=== PATIENT | female | born 1930 | race African-American/Black ===

== ENCOUNTER 2017-11-11 16:13 | Inpatient (IN) | payer MEDICARE, MEDICAID ==
[~2017-11-11] VITALS: Ht 162.6 cm; Wt 88.9 kg
[~2017-11-11 16:13] MED LIST: ATENOLOL25 MG ORAL; CIMETIDINE300 MG ORAL; DIAZEPAM2 MG ORAL; DIOVAN160 MG ORAL; DIOVAN320 MG ORAL; FUROSEMIDE20 M1 ORAL; IBUPROFEN100 MG/5 M ORAL; IBUPROFEN600 MG ORAL; POTASSIUM CHLOR8 ME3 PO; PREDNISONE20 MG ORAL; TAGAMET400 MG ORAL; TYLENOL650 MG/20. ORAL
[2017-11-11] MEDS ORDERED: Sodium Chloride 500ML 500 ML IV ONE ×2 (16:22→19:30)
[2017-11-11 16:52] LABS: BASOPHILS % (AUTO) 0.5 % (0.0-2.0); EOSINOPHILS % (AUTO) 0.5 % (0.0-3.0); HEMATOCRIT 27.8 % (37.0-47.0); HEMOGLOBIN 9.1 G/DL (12.0-16.0); LYMPHOCYTES % (AUTO) 33.1 % (20.0-45.0); MEAN CORPUSCULAR VOLUME 96 FL (80-99); NEUTROPHILS % (AUTO) 55.9 % (45.0-75.0); PLATELET COUNT 182 K/UL (150-450); RED BLOOD COUNT 2.89 M/UL (4.20-5.40); RED CELL DISTRIBUTION WIDTH 13.7 % (11.6-14.8); WHITE BLOOD COUNT 3.9 K/UL (4.8-10.8)
[2017-11-11 16:56] LABS: APPEARANCE,URINE CLOUDY; BILIRUBIN, URINE NEGATIVE (NEGATIVE); COLOR,URINE PALE YELLOW; GLUCOSE, URINE (UA) NEGATIVE (NEGATIVE); KETONES,URINE NEGATIVE (NEGATIVE); LEUKOCYTE ESTERASE ,URINE 3+ (NEGATIVE); NITRITE,URINE POSITIVE (NEGATIVE); PH,URINE 6 (4.5-8.0); PROTEIN,URINE 1+ (NEGATIVE); UROBILINOGEN,URINE NORMAL MG/DL (0.0-1.0)
[2017-11-11 17:00] VITALS: BP 146/56
[2017-11-11 17:02] LABS: ANION GAP 5 mmol/L (5-15); BLOOD UREA NITROGEN 14 mg/dL (7-18); CALCIUM 8.2 MG/DL (8.5-10.1); CARBON DIOXIDE 26 MMOL/L (21-32); CHLORIDE 96 MMOL/L (98-107); CREATININE 1.2 MG/DL (0.55-1.30); POTASSIUM 3.6 MMOL/L (3.5-5.1); SODIUM 127 MMOL/L (136-145)
[2017-11-11] MEDS ORDERED: Isovue-300 100ml vial INJ PRN (17:15)
[2017-11-11 17:17] LABS: ALANINE AMINOTRANSFERASE 18 U/L (12-78); ALBUMIN 2.6 G/DL (3.4-5.0); ALBUMIN/GLOBULIN RATIO 0.3 (1.0-2.7); ALKALINE PHOSPHATASE 39 U/L (46-116); ASPARTATE AMINO TRANSFERASE 19 U/L (15-37); BILIRUBIN,TOTAL 0.2 MG/DL (0.2-1.0); CKMB 0.5 NG/ML (0.0-3.6); CREATINE KINASE 38 U/L (26-308)
[2017-11-11] MEDS ORDERED: CIMETIDINE300 MG ORAL (17:44)
--- NOTE | 2017-11-11 18:08 | Diagnostic Imaging Report ---
Indication: Chest pain Technique: One view of the chest Comparison: 03/31/2016 Findings: Lungs and pleural spaces are clear. Heart size is upper limits normal . There is a left chest pacemaker. No significant interim change Impression: No acute process
[2017-11-11 19:00] VITALS: BP 146/82
[2017-11-11] MEDS ORDERED: Clindamycin 600mg 50 ML IVPB ONE (19:30)
--- NOTE | 2017-11-11 20:08 | Diagnostic Imaging Report ---
EXAM: CT Abdomen and Pelvis With Intravenous Contrast CLINICAL HISTORY: PAIN TECHNIQUE: Axial computed tomography images of the abdomen and pelvis with intravenous contrast. CTDI is 18.6 + 0.15 mGy and DLP is 926 mGy-cm. One or more of the following dose reduction techniques were used: automated exposure control, adjustment of the mA and/or kV according to patient size, use of iterative reconstruction technique. COMPARISON: CT of 03/31/16 FINDINGS: Lung bases: Unremarkable. Heart: Cardiomegaly and pacemaker. Mediastinum: Small hiatal hernia. ABDOMEN: Liver: Unremarkable. Gallbladder and bile ducts: Cholecystectomy. And biliary ectasia. Pancreas: Unremarkable. Spleen: Unremarkable. Adrenals: Unremarkable. Kidneys and ureters: Bilateral renal cysts, largest measures approximately 2.3 cm in the left kidney. No hydronephrosis. Stomach and bowel: Ventral containing segment of bowel. No bowel obstruction. PELVIS: Appendix: Appendix not identified. Bladder: Unremarkable. Reproductive: Calcified uterine fibroids. Bulbous ovaries. ABDOMEN and PELVIS: Intraperitoneal space: Trace fluid in the pelvis. Bones/joints: Old rib fracture. Soft tissues: Unremarkable. Vasculature: No abdominal aortic aneurysm. Lymph nodes: No enlarged lymph nodes. IMPRESSION: 1. Ventral containing segment of bowel. No bowel obstruction. 2. Appendix not identified. No colitis.
[2017-11-11] MEDS ORDERED: Promethazine HCl 12.5 MG in NS 55 ML IV PRN (20:30)
[2017-11-11] MEDS ORDERED: Metoclopramide 10mg/2ml Inj IVP PRN (20:30)
[2017-11-11] MEDS ORDERED: Nitroglycerin Subl 0.4mg tab SL PRN (20:30)
[2017-11-11] MEDS ORDERED: Miralax 17gm pkt ORAL PRN (20:30)
[2017-11-11] MEDS ORDERED: LORazepam Inj 2mg/ml 1ml IV PRN (20:30)
[2017-11-11] MEDS ORDERED: Promethazine HCl 25 MG in NS 55 ML IV PRN (20:30)
[2017-11-11 20:35] VITALS: BP 124/61
[2017-11-11] MEDS: D5 1/2NS 1,000 ML IV SCH (20:38)
[2017-11-11] MEDS: Heparin 5000 units/ml inj SUBQ SCH (20:39)
[2017-11-12 00:25] VITALS: BP 123/63
[2017-11-12 04:00] VITALS: BP 118/56
[2017-11-12 07:57] LABS: HEMATOCRIT 27.8 % (37.0-47.0); HEMOGLOBIN 8.9 G/DL (12.0-16.0); LYMPHOCYTES % (AUTO) 31.2 % (20.0-45.0); MEAN CORPUSCULAR VOLUME 97 FL (80-99); NEUTROPHILS % (AUTO) 57.8 % (45.0-75.0); PLATELET COUNT 195 K/UL (150-450); RED BLOOD COUNT 2.87 M/UL (4.20-5.40); RED CELL DISTRIBUTION WIDTH 13.6 % (11.6-14.8); WHITE BLOOD COUNT 3.7 K/UL (4.8-10.8)
[2017-11-12 07:59] LABS: ALANINE AMINOTRANSFERASE 14 U/L (12-78); ALBUMIN 2.2 G/DL (3.4-5.0); ALBUMIN/GLOBULIN RATIO 0.3 (1.0-2.7); ALKALINE PHOSPHATASE 34 U/L (46-116); AMYLASE 96 U/L (25-115); ANION GAP 4 mmol/L (5-15); ASPARTATE AMINO TRANSFERASE 18 U/L (15-37); BILIRUBIN,TOTAL 0.2 MG/DL (0.2-1.0); BLOOD UREA NITROGEN 10 mg/dL (7-18); CALCIUM 8.6 MG/DL (8.5-10.1); CARBON DIOXIDE 27 MMOL/L (21-32); CHLORIDE 103 MMOL/L (98-107); CREATININE 1.1 MG/DL (0.55-1.30); POTASSIUM 3.6 MMOL/L (3.5-5.1); SODIUM 134 MMOL/L (136-145)
[2017-11-12 08:00] VITALS: BP 131/64
[2017-11-12] MEDS: Pantoprazole Inj IV SCH (08:43)
[2017-11-12] MEDS: Heparin 5000 units/ml inj SUBQ SCH ×2 (08:44→21:50)
[2017-11-12] MEDS ORDERED: Atenolol 25mg tab ORAL SCH (09:00)
[2017-11-12] MEDS: D5 1/2NS 1,000 ML IV SCH ×2 (10:15→23:40)
--- NOTE | 2017-11-12 11:00 | Consultation ---
DATE OF CONSULTATION: 11/12/2017 CONSULTING PHYSICIAN: Michael Day M.D. REFERRING PHYSICIAN: Douglas Bacon M.D. CHIEF COMPLAINT: Anemia, abdominal pain. HISTORY OF PRESENT ILLNESS: This is an 87-year-old female with multiple medical problems, which I will dictate in a second, admitted to the hospital with abdominal pain. CT of the abdomen and pelvis in the ER showed evidence of hernia, but no obvious intra-abdominal process. The patient has prior history of cholecystectomy. Of note, the patient was admitted in 2016 here to the hospital. She had history of constipation at that time, mild anemia with hemoglobin of 11. No prior or recent history of the endoscopy, no colonoscopy. This morning, the patient is feeling better, complained of nausea, admits to weight loss of over 90 pounds for last year or two. No melena. No hematochezia. No dysphagia. No odynophagia. PAST MEDICAL HISTORY: 1. Irregular heartbeat requiring pacemaker placement. 2. Hypercholesterolemia. 3. Hypertension. 4. Mild anemia. 5. Constipation. ALLERGIES: Amoxicillin, codeine, hydrocodone. MEDICATIONS: Please see medication reconciliation list. PAST SURGICAL HISTORY: 1. Cholecystectomy. 2. Pacemaker placement. SOCIAL HISTORY: No history of tobacco, alcohol, or illicit drug abuse. FAMILY HISTORY: Noncontributory. REVIEW OF SYSTEMS: As dictated above. PHYSICAL EXAMINATION: VITAL SIGNS: Temperature is 97.9, pulse 61, respirations 20, and blood pressure is 131/64. HEENT: Normocephalic and atraumatic. Mild pale conjunctivae. NECK: Supple. No evidence of obvious lymphadenopathy. CARDIOVASCULAR: Regular rhythm. Plus S1 and S2. Pacemaker in place. LUNGS: Clear to auscultation bilaterally. ABDOMEN: Positive bowel sounds. Soft. There is a scar in the right upper quadrant from prior cholecystectomy. No rebound. No guarding. No peritoneal sign. EXTREMITIES: No cyanosis, no clubbing, no edema. LABORATORY DATA: White count 3.7, hemoglobin 8.9, hematocrit 27.8, platelet count is 195,000. Chem-7, sodium 134, potassium 3.6, BUN is 10, creatinine is 1.1. Albumin is low at 2.2, total protein high at 10.2. ASSESSMENT AND PLAN: This is an 87-year-old female with abdominal pain. CT of the abdomen and pelvis in the ER showed ventral hernia containing segment of the bowel, otherwise no obvious intra-abdominal process. Laboratories except for mild anemia, no obvious finding on the laboratory studies. Liver enzymes are normal. Creatinine is normal. The only finding was high protein of 10.2 with low albumin of 2.2. Plan to follow up with abdominal ultrasound which has been ordered by another physician. Repeat laboratories for tomorrow. Do anemia workup. Send for hemoglobin electrophoresis and SPEP and UPEP for evaluation of the multiple myeloma as a cause of anemia and high protein and low albumin. We will consider doing GI procedures if needed if there is any evidence of iron deficiency or stool OB positive. We are also going to send tumor markers for CEA and CA 19-9. We will resume the patient's diet. The patient also needs to be on a bowel regimen for constipation. I want to thank Dr. Bacon for this kind referral. Michael Day M.D. DR: Neal JOB#: [id number] CC: Douglas Bacon M.D.; Fax#: [phone]
[2017-11-12 12:00] VITALS: BP 141/74
--- NOTE | 2017-11-12 14:24 | Emergency Room Report ---
History of Present Illness General Chief Complaint: Abdominal Pain Source: Patient Present Illness HPI Patient presents with complaints of abdominal discomfort reports increased nausea Patient denies any chest pain or vomiting She reported that yesterday she was constipated Denies any diarrhea denies any fevers or chills Patient denies any change with eating or position denies any dysuria frequency Discomfort again is described as a nauseated feeling Diffusely in the abdomen Allergies: Coded Allergies: AMOXICILLIN (Verified Allergy, Unknown, 09/06/12) CODEINE (Verified Allergy, Unknown, 09/06/12) HYDROCODONE (Verified Allergy, Unknown, 09/06/12) Patient History Past Medical History: see triage record Pertinent Family History: none Last Menstrual Period: N/A Now: No Reviewed Nursing Documentation: PMH: Agreed; PSxH: Agreed Nursing Documentation-PMH Past Medical History: No History, Except For Hx Cardiac Problems: Yes Hx Hypertension: Yes Hx Pacemaker: Yes Hx Diabetes: No Hx Cancer: No Hx Gastrointestinal Problems: No Hx Dialysis: No Hx Neurological Problems: No Hx Cerebrovascular Accident: No Hx Dementia: No Hx Alzheimer's Disease: No Hx Parkinson's Disease: No Hx Seizures: No Hx Headaches: Yes Review of Systems All Other Systems: negative except mentioned in HPI Physical Exam Vital Signs Date Time Temp Pulse Resp B/P (MAP) Pulse Ox O2 Delivery O2 Flow Rate FiO2 11/11/17 16:09 98.7 95 16 161/71 99 Room Air 98.8 Sp02 EP Interpretation: reviewed, normal General Appearance: well appearing, no apparent distress Head: normocephalic, atraumatic Eyes: bilateral eye PERRL, bilateral eye EOMI ENT: hearing grossly normal, normal pharynx, TMs + canals normal, uvula midline Neck: full range of motion, supple, no meningismus, no bony tend Respiratory: lungs clear, normal breath sounds, no rhonchi, no respiratory distress, no retraction, no accessory muscle use Cardiovascular #1: normal peripheral pulses, regular rate, rhythm, no edema, no gallop, no JVD, no murmur Gastrointestinal: normal bowel sounds, non-distended, no rebound, other - Mid abdominal hernias palpable however soft and reproducible, multiple surgical scars including large gallbladder surgical scar Genitourinary: no CVA tenderness Musculoskeletal: normal inspection Neurologic: oriented x3, responsive, cement gun operator III-XII nml as tested, motor strength/ tone normal, sensory intact Psychiatric: mood/affect normal Skin: normal color, no rash, warm/dry, palpation normal Lymphatic: normal inspection, no adenopathy Medical Decision Making Diagnostic Impression: Primary Impression: Abdominal pain Additional Impression: Dehydration ER Course With the history exam and presentation, multiple differentials considered, including but not limited to appendicitis, gastritis, cholecystitis, diverticulitis Patient's imaging is obtained does not show any acute pathology Patient has done better however still has nausea intermittently Given the patient's comorbidities and the presentation Patient required further inpatient care GI consultation Labs Test 11/11/17 16:35 11/12/17 06:03 11/12/17 11:30 White Blood Count 3.9 K/UL (4.8-10.8) 3.7 K/UL (4.8-10.8) Red Blood Count 2.89 M/UL (4.20-5.40) 2.87 M/UL (4.20-5.40) Hemoglobin 9.1 G/DL (12.0-16.0) 8.9 G/DL (12.0-16.0) Hematocrit 27.8 % (37.0-47.0) 27.8 % (37.0-47.0) Mean Corpuscular Volume 96 FL (80-99) 97 FL (80-99) Mean Corpuscular Hemoglobin 31.3 PG (27.0-31.0) 31.2 PG (27.0-31.0) Mean Corpuscular Hemoglobin Concent 32.6 G/DL (32.0-36.0) 32.2 G/DL (32.0-36.0) Red Cell Distribution Width 13.7 % (11.6-14.8) 13.6 % (11.6-14.8) Platelet Count 182 K/UL (150-450) 195 K/UL (150-450) Mean Platelet Volume 5.5 FL (6.5-10.1) 5.4 FL (6.5-10.1) Neutrophils (%) (Auto) 55.9 % (45.0-75.0) 57.8 % (45.0-75.0) Lymphocytes (%) (Auto) 33.1 % (20.0-45.0) 31.2 % (20.0-45.0) Monocytes (%) (Auto) 10.0 % (1.0-10.0) 9.0 % (1.0-10.0) Eosinophils (%) (Auto) 0.5 % (0.0-3.0) 1.0 % (0.0-3.0) Basophils (%) (Auto) 0.5 % (0.0-2.0) 1.0 % (0.0-2.0) Urine Color Pale yellow Urine Appearance Cloudy Urine pH 6 (4.5-8.0) Urine Specific [place] 1.010 (1.005-1.035) Urine Protein 1+ (NEGATIVE) Urine Glucose (UA) Negative (NEGATIVE) Urine Ketones Negative (NEGATIVE) Urine Occult Blood 1+ (NEGATIVE) Urine Nitrite Positive (NEGATIVE) Urine Bilirubin Negative (NEGATIVE) Urine Urobilinogen Normal MG/DL (0.0-1.0) Urine Leukocyte Esterase 3+ (NEGATIVE) Urine RBC 0-2 /HPF (0 - 2) Urine WBC Tntc /HPF (0 - 2) Urine Squamous Epithelial Cells Few /LPF (NONE/OCC) Urine Bacteria Many /HPF (NONE) Sodium Level 127 MMOL/L (136-145) 134 MMOL/L (136-145) Potassium Level 3.6 MMOL/L (3.5-5.1) 3.6 MMOL/L (3.5-5.1) Chloride Level 96 MMOL/L (98-107) 103 MMOL/L (98-107) Carbon Dioxide Level 26 MMOL/L (21-32) 27 MMOL/L (21-32) Anion Gap 5 mmol/L (5-15) 4 mmol/L (5-15) Blood Urea Nitrogen 14 mg/dL (7-18) 10 mg/dL (7-18) Creatinine 1.2 MG/DL (0.55-1.30) 1.1 MG/DL (0.55-1.30) Estimat Glomerular Filtration Rate mL/min (>60) mL/min (>60) Glucose Level 166 MG/DL (74-106) 108 MG/DL (74-106) Calcium Level 8.2 MG/DL (8.5-10.1) 8.6 MG/DL (8.5-10.1) Total Bilirubin 0.2 MG/DL (0.2-1.0) 0.2 MG/DL (0.2-1.0) Aspartate Amino Transf (AST/SGOT) 19 U/L (15-37) 18 U/L (15-37) Alanine Aminotransferase (ALT/SGPT) 18 U/L (12-78) 14 U/L (12-78) Alkaline Phosphatase 39 U/L (46-116) 34 U/L (46-116) Total Creatine Kinase 38 U/L (26-308) Creatine Kinase MB 0.5 NG/ML (0.0-3.6) Creatine Kinase MB Relative Index 1.3 Troponin I 0.000 ng/mL (0.000-0.056) Total Protein 11.1 G/DL (6.4-8.2) 10.2 G/DL (6.4-8.2) Albumin 2.6 G/DL (3.4-5.0) 2.2 G/DL (3.4-5.0) Globulin 8.5 g/dL 8.0 g/dL Albumin/Globulin Ratio 0.3 (1.0-2.7) 0.3 (1.0-2.7) Lipase 113 U/L (73-393) Activated Partial Thromboplast Time 39 SEC (23-33) Amylase Level 96 U/L (25-115) Rhythm Strip Diag. Results EP Interpretation: yes Rate: 78 Rhythm: NSR, no PVC's, no ectopy Chest X-Ray Diagnostic Results Chest X-Ray Diagnostic Results : Chest X-Ray Ordered: Yes # of Views/Limited/Complete: 1 View Indication: Chest Pain EP Interpretation: Yes Interpretation: no consolidation, no effusion, no pneumothorax Impression: No acute disease Electronically Signed by: Sarah Roger DO CT/MRI/US Diagnostic Results CT/MRI/US Diagnostic Results : Impression CT abdomen pelvis no acute disease Last Vital Signs Date Time Temp Pulse Resp B/P (MAP) Pulse Ox O2 Delivery O2 Flow Rate FiO2 11/12/17 12:00 98.0 65 20 141/74 94 Room Air 98.0 Status: improved Disposition: ADMITTED INPATIENT Condition: Serious Referrals: NON PHYSICIAN (PCP) Sarah Roger DO Nov 12, 2017 14:24
[2017-11-12 15:51] VITALS: BP 132/58
[2017-11-12] MEDS: Docusate 100mg cap ORAL SCH (18:00)
--- NOTE | 2017-11-12 19:14 | History and Physical ---
History of Present Illness General Date patient seen: Nov 12, 2017 Reason for Hospitalization: Abdominal Pain Present Illness HPI 87 year old female with hx of HTN, CHF, presents with complaints of abdominal discomfort, nausea since yesterday. she was constipated Patient denies any change with eating or position denies any dysuria frequency. the pain diffusely in the abdomen. She was found also to be very anemic. She is admitted for further work up. Allergies: Coded Allergies: AMOXICILLIN (Verified Allergy, Unknown, 09/06/12) CODEINE (Verified Allergy, Unknown, 09/06/12) HYDROCODONE (Verified Allergy, Unknown, 09/06/12) Medication History Scheduled Atenolol* (Tenormin*), 10 MG ORAL DAILY, (Reported) Cimetidine (Cimetidine*), 300 MG ORAL DAILY, (Reported) Furosemide* (Lasix*), 20 MG ORAL DAILY, (Reported) Valsartan (Diovan), 320 MG ORAL DAILY, (Reported) Miscellaneous Medications Potassium Chloride (Potassium Chloride), Unknown Dose PO, (Reported) Discontinued Medications Acetaminophen (Acetaminophen), 650 MG ORAL Q6H PRN for Prn Headache/Temp > 101 Discontinued Reason: Pt stopped taking med Diazepam* (Diazepam*), 2 MG ORAL Q6H PRN for ANXIETY, (Reported) Discontinued Reason: Pt stopped taking med Furosemide* (Lasix*), 10 MG ORAL DAILY, (Reported) Discontinued Reason: Medication dose changed Patient History Healthcare decision maker N Resuscitation status Advanced Directive on File Past Medical/Surgical History Past Medical/Surgical History: (1) Anemia (2) HTN (hypertension) Review of Systems All Other Systems: negative except mentioned in HPI Physical Exam General Appearance: WD/WN Lines, tubes and drains: peripheral HEENT: normocephalic Neck: non-tender, normal alignment Respiratory/Chest: chest wall non-tender, lungs clear Cardiovascular/Chest: normal peripheral pulses, normal rate Abdomen: normal bowel sounds, non tender Genitourinary/Rectal: normal genital exam, normal rectal exam Extremities: non-tender Skin Exam: normal pigmentation Last 24 Hour Vital Signs Date Time Temp Pulse Resp B/P (MAP) Pulse Ox O2 Delivery O2 Flow Rate FiO2 11/12/17 15:51 98.4 68 18 132/58 98 Room Air 98.4 11/12/17 12:00 98.0 65 20 141/74 94 Room Air 98.0 11/12/17 08:00 97.9 61 20 131/64 96 Room Air 97.9 11/12/17 04:00 98.2 60 18 118/56 98 Room Air 98.2 11/12/17 02:11 98.3 11/12/17 00:25 98.3 72 19 123/63 96 Room Air 98.3 11/11/17 20:35 98.8 80 18 124/61 96 Room Air 98.8 11/11/17 19:52 98.9 74 16 146/82 97 Room Air 98.9 Intake and Output 11/11/17 11/12/17 19:00 07:00 Intake Total 0 ml 750 ml Output Total 1100 ml Balance 0 ml -350 ml Intake Oral 0 ml IV Total 750 ml Output Urine Total 1100 ml # Voids 2 Laboratory Tests Test 11/12/17 06:03 11/12/17 11:30 White Blood Count 3.7 K/UL (4.8-10.8) L Red Blood Count 2.87 M/UL (4.20-5.40) L Hemoglobin 8.9 G/DL (12.0-16.0) L Hematocrit 27.8 % (37.0-47.0) L Mean Corpuscular Volume 97 FL (80-99) Mean Corpuscular Hemoglobin 31.2 PG (27.0-31.0) H Mean Corpuscular Hemoglobin Concent 32.2 G/DL (32.0-36.0) Red Cell Distribution Width 13.6 % (11.6-14.8) Platelet Count 195 K/UL (150-450) Mean Platelet Volume 5.4 FL (6.5-10.1) L Neutrophils (%) (Auto) 57.8 % (45.0-75.0) Lymphocytes (%) (Auto) 31.2 % (20.0-45.0) Monocytes (%) (Auto) 9.0 % (1.0-10.0) Eosinophils (%) (Auto) 1.0 % (0.0-3.0) Basophils (%) (Auto) 1.0 % (0.0-2.0) Activated Partial Thromboplast Time 39 SEC (23-33) H Sodium Level 134 MMOL/L (136-145) L Potassium Level 3.6 MMOL/L (3.5-5.1) Chloride Level 103 MMOL/L (98-107) Carbon Dioxide Level 27 MMOL/L (21-32) Anion Gap 4 mmol/L (5-15) L Blood Urea Nitrogen 10 mg/dL (7-18) Creatinine 1.1 MG/DL (0.55-1.30) Estimat Glomerular Filtration Rate mL/min (>60) Glucose Level 108 MG/DL (74-106) H Calcium Level 8.6 MG/DL (8.5-10.1) Total Bilirubin 0.2 MG/DL (0.2-1.0) Aspartate Amino Transf (AST/SGOT) 18 U/L (15-37) Alanine Aminotransferase (ALT/SGPT) 14 U/L (12-78) Alkaline Phosphatase 34 U/L (46-116) L Total Protein 10.2 G/DL (6.4-8.2) H Total Protein (PEP) Pending Albumin 2.2 G/DL (3.4-5.0) L Albumin (PEP) Pending Globulin 8.0 g/dL Globulin (PEP) Pending Albumin/Globulin Ratio Pending [id number] Pending [id number] Pending Beta Globulins Pending Beta Gamma Globulin Pending PEP Abnormal Protein Bands Pending Protein Electrophoresis Interpret Pending Amylase Level 96 U/L (25-115) Stool Occult Blood Pending Height (Feet): 5 Height (Inches): 4.00 Weight (Pounds): 196 Medications Current Medications Medications (Trade) Dose Ordered Sig/Ary Route PRN Reason Start Time Stop Time Status Last Admin Dose Admin Acetaminophen (Tylenol) 650 mg Q4H PRN ORAL fever (temp>100.5F) 11/11/17 20:30 12/11/17 20:29 11/12/17 13:06 Al Hydroxide/Mg Hydroxide (Mylanta II) 30 ml Q6H PRN ORAL dyspepsia 11/11/17 20:30 12/11/17 20:29 Atenolol (Tenormin) 10 mg DAILY ORAL 11/12/17 09:00 12/12/17 08:59 UNV Dextrose (Dextrose 50%) 25 ml STAT PRN IV Hypoglycemia 11/11/17 20:30 12/11/17 20:29 Dextrose (Dextrose 50%) 50 ml STAT PRN IV Hypoglycemia 11/11/17 20:45 12/11/17 20:44 Dextrose/Sodium Chloride 1,000 ml @ 75 mls/hr [id number] IV 11/11/17 21:00 12/11/17 20:59 11/12/17 10:15 Diphenhydramine HCl (Benadryl) 25 mg Q6H PRN ORAL Itching/Pruritis 11/11/17 20:30 12/11/17 20:29 Docusate Sodium (Colace) 100 mg TWICE A DAY ORAL 11/12/17 18:00 12/12/17 17:59 Heparin Sodium (Porcine) (Heparin 5000 units/ml) 5,000 units EVERY 12 HOURS SUBQ 11/11/17 21:00 12/11/17 20:59 11/12/17 08:44 Iopamidol (Isovue-300 100ml) 100 ml NOW PRN INJ Radiology Procedure 11/11/17 17:15 11/13/17 17:14 Lorazepam (Ativan 2mg/ml 1ml) 1 mg Q4H PRN IV agitation 11/11/17 20:30 11/18/17 20:29 Metoclopramide HCl (Reglan) 10 mg Q6H PRN IVP severe nausea 11/11/17 20:30 12/11/17 20:29 Nitroglycerin (Ntg) 0.4 mg Q5M X 3 DOSES PRN SL Prn Chest Pain 11/11/17 20:30 12/11/17 20:29 Non-Formulary Medication (Non-Formulary Med) 1 ea DAILY ORAL 11/12/17 10:30 12/12/17 10:29 UNV Non-Formulary Medication (Non-Formulary Med) 1 ea DAILY ORAL 11/12/17 10:30 12/12/17 10:29 UNV Ondansetron HCl (Zofran) 4 mg Q6H PRN IVP Nausea & Vomiting 11/11/17 20:30 12/11/17 20:29 11/12/17 18:02 Pantoprazole (Protonix) 40 mg DAILY IV 11/12/17 09:00 12/12/17 08:59 11/12/17 08:43 Polyethylene Glycol (Miralax) 17 gm BEDTIME ORAL 11/12/17 21:00 12/12/17 20:59 Promethazine HCl 25 mg/Sodium Chloride 56 ml @ 110 mls/hr Q6H PRN IV Refractory N/V 11/11/17 20:30 12/11/17 20:29 Temazepam (Restoril) 15 mg HSPRN PRN ORAL Insomnia 11/11/17 20:30 11/18/17 20:29 Assessment/Plan Problem List: (1) Abdominal pain ICD Codes: R10.9 - Unspecified abdominal pain SNOMED: 01654231 (2) Anemia ICD Codes: D64.9 - Anemia, unspecified SNOMED: 368225630 (3) HTN (hypertension) ICD Codes: I10 - Essential (primary) hypertension SNOMED: 77059387 (4) Pacemaker ICD Codes: Z95.0 - Presence of cardiac pacemaker SNOMED: 681128394, 700892727 Assessment/Plan NPO GI evaluation symptomatic treatment anemia w/u laxatives dvt prophylaxis Douglas Bacon MD Nov 12, 2017 19:14
[2017-11-12 20:00] VITALS: BP 142/60
[2017-11-12] MEDS: Miralax 17gm pkt ORAL SCH ×2 (21:00→21:47)
[2017-11-13] VITALS: BP 144/63
[2017-11-13 04:00] VITALS: BP 120/57
[2017-11-13 05:55] LABS: BASOPHILS % (AUTO) 0.4 % (0.0-2.0); EOSINOPHILS % (AUTO) 1.2 % (0.0-3.0); HEMATOCRIT 28.2 % (37.0-47.0); HEMOGLOBIN 9.1 G/DL (12.0-16.0); LYMPHOCYTES % (AUTO) 39.9 % (20.0-45.0); MEAN CORPUSCULAR VOLUME 96 FL (80-99); NEUTROPHILS % (AUTO) 47.5 % (45.0-75.0); PLATELET COUNT 191 K/UL (150-450); RED BLOOD COUNT 2.93 M/UL (4.20-5.40); RED CELL DISTRIBUTION WIDTH 13.5 % (11.6-14.8); WHITE BLOOD COUNT 3.6 K/UL (4.8-10.8)
[2017-11-13 06:21] LABS: ALANINE AMINOTRANSFERASE 13 U/L (12-78); ALBUMIN 2.3 G/DL (3.4-5.0); ALBUMIN/GLOBULIN RATIO 0.3 (1.0-2.7); ALKALINE PHOSPHATASE 36 U/L (46-116); ANION GAP 2 mmol/L (5-15); ASPARTATE AMINO TRANSFERASE 18 U/L (15-37); BILIRUBIN,TOTAL 0.2 MG/DL (0.2-1.0); BLOOD UREA NITROGEN 8 mg/dL (7-18); CALCIUM 8.4 MG/DL (8.5-10.1); CARBON DIOXIDE 28 MMOL/L (21-32); CHLORIDE 100 MMOL/L (98-107); CREATININE 1.2 MG/DL (0.55-1.30); POTASSIUM 3.9 MMOL/L (3.5-5.1); SODIUM 130 MMOL/L (136-145)
[2017-11-13 07:27] LABS: % IRON SATURATION 42 % (15-50); IRON 54 ug/dL (50-175); TOTAL IRON BINDING CAPACITY 128 ug/dL (250-450)
[2017-11-13 08:00] VITALS: BP 131/61
[2017-11-13] MEDS ORDERED: Irbesartan 150mg tablet ORAL SCH (09:00)
[2017-11-13] MEDS: Pantoprazole Inj IV SCH (09:01)
[2017-11-13] MEDS: Docusate 100mg cap ORAL SCH ×2 (09:02→17:53)
[2017-11-13] MEDS: Heparin 5000 units/ml inj SUBQ SCH ×2 (09:07→20:36)
--- NOTE | 2017-11-13 09:25 | General Progress Note ---
Assessment/Plan Problem List: (1) Anemia ICD Codes: D64.9 - Anemia, unspecified SNOMED: 740996235 (2) Hypoalbuminemia ICD Codes: E88.09 - Other disorders of plasma-protein metabolism, not elsewhere classified SNOMED: 228892309 (3) HTN (hypertension) ICD Codes: I10 - Essential (primary) hypertension SNOMED: 25708886 (4) Pacemaker ICD Codes: Z95.0 - Presence of cardiac pacemaker SNOMED: 573980956, 437594625 (5) Abdominal pain ICD Codes: R10.9 - Unspecified abdominal pain SNOMED: 45221637 Assessment/Plan neg stool ob hold GI procedures fu hgb electrophoresis Subjective ROS Limited/Unobtainable: Yes Allergies: Coded Allergies: AMOXICILLIN (Verified Allergy, Unknown, 09/06/12) CODEINE (Verified Allergy, Unknown, 09/06/12) HYDROCODONE (Verified Allergy, Unknown, 09/06/12) Subjective no abd pain Objective Last 24 Hour Vital Signs Date Time Temp Pulse Resp B/P (MAP) Pulse Ox O2 Delivery O2 Flow Rate FiO2 11/13/17 08:00 98.2 65 18 131/61 96 98.2 11/13/17 04:00 98.0 60 18 120/57 95 98.0 11/13/17 00:00 97.9 67 19 144/63 95 97.9 11/12/17 20:00 98.8 68 18 142/60 98 98.8 11/12/17 15:51 98.4 68 18 132/58 98 Room Air 98.4 11/12/17 12:00 98.0 65 20 141/74 94 Room Air 98.0 Intake and Output 11/12/17 11/13/17 19:00 07:00 Intake Total 930 ml 1065 ml Output Total 1950 ml Balance 930 ml -885 ml Intake Oral 480 ml 240 ml IV Total 450 ml 825 ml Output Urine Total 1950 ml # Voids 2 # Bowel Movements 1 Laboratory Tests 11/12/17 11:30: Stool Occult Blood Negative 11/13/17 05:15: White Blood Count 3.6L, Red Blood Count 2.93L, Hemoglobin 9.1L, Hematocrit 28.2L , Mean Corpuscular Volume 96, Mean Corpuscular Hemoglobin 30.9, Mean Corpuscular Hemoglobin Concent 32.1, Red Cell Distribution Width 13.5, Platelet Count 191, Mean Platelet Volume 5.5L, Neutrophils (%) (Auto) 47.5, Lymphocytes ( %) (Auto) 39.9, Monocytes (%) (Auto) 11.0H, Eosinophils (%) (Auto) 1.2, Basophils (%) (Auto) 0.4, Sodium Level 130L, Potassium Level 3.9, Chloride Level 100, Carbon Dioxide Level 28, Anion Gap 2L, Blood Urea Nitrogen 8, Creatinine 1.2, Estimat Glomerular Filtration Rate , Glucose Level 88, Calcium Level 8.4L, Iron Level 54, Total Iron Binding Capacity 128L, Percent Iron Saturation 42, Unsaturated Iron Binding 74L, Total Bilirubin 0.2, Aspartate Amino Transf (AST/SGOT) 18, Alanine Aminotransferase (ALT/SGPT) 13, Alkaline Phosphatase 36L, Total Protein 10.2H, Albumin 2.3L, Globulin 7.9, Albumin/ Globulin Ratio 0.3L, Carcinoembryonic Antigen [Pending], CA 19-9 Antigen [ Pending], Vitamin B12 Level 311, Folate 6.4L Height (Feet): 5 Height (Inches): 4.00 Weight (Pounds): 196 General Appearance: alert EENT: normal ENT inspection Neck: normal alignment Cardiovascular: normal rate Respiratory/Chest: lungs clear Abdomen: normal bowel sounds, non tender, soft Extremities: non-tender Michael Day MD Nov 13, 2017 09:25
[2017-11-13 12:00] VITALS: BP 127/57
[2017-11-13] MEDS: D5 1/2NS 1,000 ML IV SCH (13:10)
--- NOTE | 2017-11-13 14:05 | Pulmonology Progress Note ---
Assessment/Plan Problems: (1) Abdominal pain (2) Pacemaker (3) HTN (hypertension) (4) Hypoalbuminemia Assessment/Plan Had a large BM GI evaluation appreciated doing better stool for blood pending symptomatic treatment dvt prophylaxis. Subjective ROS Limited/Unobtainable: No Interval Events: doing better Constitutional: Reports: no symptoms HEENT: Repors: no symptoms Respiratory: Reports: no symptoms Allergies: Coded Allergies: AMOXICILLIN (Verified Allergy, Unknown, 09/06/12) CODEINE (Verified Allergy, Unknown, 09/06/12) HYDROCODONE (Verified Allergy, Unknown, 09/06/12) Objective Last 24 Hour Vital Signs Date Time Temp Pulse Resp B/P (MAP) Pulse Ox O2 Delivery O2 Flow Rate FiO2 11/13/17 12:00 97.9 61 18 127/57 99 97.9 11/13/17 08:00 98.2 65 18 131/61 96 98.2 11/13/17 04:00 98.0 60 18 120/57 95 98.0 11/13/17 00:00 97.9 67 19 144/63 95 97.9 11/12/17 20:00 98.8 68 18 142/60 98 98.8 11/12/17 15:51 98.4 68 18 132/58 98 Room Air 98.4 Intake and Output 11/12/17 11/13/17 19:00 07:00 Intake Total 930 ml 1065 ml Output Total 1950 ml Balance 930 ml -885 ml Intake Oral 480 ml 240 ml IV Total 450 ml 825 ml Output Urine Total 1950 ml # Voids 2 # Bowel Movements 1 General Appearance: WD/WN HEENT: normocephalic, atraumatic Respiratory/Chest: chest wall non-tender, lungs clear, normal breath sounds Breasts: no masses Cardiovascular: normal peripheral pulses Genitourinary: normal external genitalia Extremities: no clubbing Skin: no rash Microbiology Date/Time Source Procedure Growth Status 11/11/17 16:35 Urine,Clean Catch Urine Culture - Final Escherichia Coli Complete Laboratory Tests 11/13/17 05:15: White Blood Count 3.6L, Red Blood Count 2.93L, Hemoglobin 9.1L, Hematocrit 28.2L , Mean Corpuscular Volume 96, Mean Corpuscular Hemoglobin 30.9, Mean Corpuscular Hemoglobin Concent 32.1, Red Cell Distribution Width 13.5, Platelet Count 191, Mean Platelet Volume 5.5L, Neutrophils (%) (Auto) 47.5, Lymphocytes ( %) (Auto) 39.9, Monocytes (%) (Auto) 11.0H, Eosinophils (%) (Auto) 1.2, Basophils (%) (Auto) 0.4, Sodium Level 130L, Potassium Level 3.9, Chloride Level 100, Carbon Dioxide Level 28, Anion Gap 2L, Blood Urea Nitrogen 8, Creatinine 1.2, Estimat Glomerular Filtration Rate , Glucose Level 88, Calcium Level 8.4L, Iron Level 54, Total Iron Binding Capacity 128L, Percent Iron Saturation 42, Unsaturated Iron Binding 74L, Total Bilirubin 0.2, Aspartate Amino Transf (AST/SGOT) 18, Alanine Aminotransferase (ALT/SGPT) 13, Alkaline Phosphatase 36L, Total Protein 10.2H, Albumin 2.3L, Globulin 7.9, Albumin/ Globulin Ratio 0.3L, Carcinoembryonic Antigen [Pending], CA 19-9 Antigen [ Pending], Vitamin B12 Level 311, Folate 6.4L Current Medications Medications (Trade) Dose Ordered Sig/Ary Route PRN Reason Start Time Stop Time Status Last Admin Dose Admin Acetaminophen (Tylenol) 650 mg Q4H PRN ORAL fever (temp>100.5F) 11/11/17 20:30 12/11/17 20:29 11/13/17 09:03 Al Hydroxide/Mg Hydroxide (Mylanta II) 30 ml Q6H PRN ORAL dyspepsia 11/11/17 20:30 12/11/17 20:29 Atenolol (Tenormin) 10 mg DAILY ORAL 11/12/17 09:00 12/12/17 08:59 UNV Dextrose (Dextrose 50%) 25 ml STAT PRN IV Hypoglycemia 11/11/17 20:30 12/11/17 20:29 Dextrose (Dextrose 50%) 50 ml STAT PRN IV Hypoglycemia 11/11/17 20:45 12/11/17 20:44 Dextrose/Sodium Chloride 1,000 ml @ 75 mls/hr [id number] IV 11/11/17 21:00 12/11/17 20:59 11/13/17 13:10 Diphenhydramine HCl (Benadryl) 25 mg Q6H PRN ORAL Itching/Pruritis 11/11/17 20:30 12/11/17 20:29 Docusate Sodium (Colace) 100 mg TWICE A DAY ORAL 11/12/17 18:00 12/12/17 17:59 11/13/17 09:02 Heparin Sodium (Porcine) (Heparin 5000 units/ml) 5,000 units EVERY 12 HOURS SUBQ 11/11/17 21:00 12/11/17 20:59 11/13/17 09:07 Iopamidol (Isovue-300 100ml) 100 ml NOW PRN INJ Radiology Procedure 11/11/17 17:15 11/13/17 17:14 Lorazepam (Ativan 2mg/ml 1ml) 1 mg Q4H PRN IV agitation 11/11/17 20:30 11/18/17 20:29 Metoclopramide HCl (Reglan) 10 mg Q6H PRN IVP severe nausea 11/11/17 20:30 12/11/17 20:29 Nitroglycerin (Ntg) 0.4 mg Q5M X 3 DOSES PRN SL Prn Chest Pain 11/11/17 20:30 12/11/17 20:29 Non-Formulary Medication (Non-Formulary Med) 1 ea DAILY ORAL 11/12/17 10:30 12/12/17 10:29 UNV Non-Formulary Medication (Non-Formulary Med) 1 ea DAILY ORAL 11/12/17 10:30 12/12/17 10:29 UNV Ondansetron HCl (Zofran) 4 mg Q6H PRN IVP Nausea & Vomiting 11/11/17 20:30 12/11/17 20:29 11/12/17 18:02 Pantoprazole (Protonix) 40 mg DAILY IV 11/12/17 09:00 12/12/17 08:59 11/13/17 09:01 Polyethylene Glycol (Miralax) 17 gm BEDTIME ORAL 11/12/17 21:00 12/12/17 20:59 Promethazine HCl 25 mg/Sodium Chloride 56 ml @ 110 mls/hr Q6H PRN IV Refractory N/V 11/11/17 20:30 12/11/17 20:29 Temazepam (Restoril) 15 mg HSPRN PRN ORAL Insomnia 11/11/17 20:30 11/18/17 20:29 Douglas Bacon MD 24, 2018 14:05
[2017-11-13] MEDS ORDERED: D5 1/2NS 1000ml IV ONE (14:53)
[2017-11-13] MEDS: Mylanta II UD 30ml ORAL PRN (15:04)
[2017-11-13 16:00] VITALS: BP 122/61
[2017-11-13 20:20] VITALS: BP 141/58
[2017-11-13] MEDS: Miralax 17gm pkt ORAL SCH (20:32)
[2017-11-14 00:49] VITALS: BP 149/73
[2017-11-14] MEDS: D5 1/2NS 1,000 ML IV SCH ×2 (02:04→15:14)
[2017-11-14 04:11] VITALS: BP 146/68
[2017-11-14 05:56] LABS: BASOPHILS % (AUTO) 0.7 % (0.0-2.0); EOSINOPHILS % (AUTO) 1.6 % (0.0-3.0); HEMATOCRIT 26.5 % (37.0-47.0); HEMOGLOBIN 8.9 G/DL (12.0-16.0); LYMPHOCYTES % (AUTO) 47.8 % (20.0-45.0); MEAN CORPUSCULAR VOLUME 96 FL (80-99); MONOCYTES % (AUTO) 9.6 % (1.0-10.0); NEUTROPHILS % (AUTO) 40.4 % (45.0-75.0); PLATELET COUNT 189 K/UL (150-450); RED BLOOD COUNT 2.78 M/UL (4.20-5.40); RED CELL DISTRIBUTION WIDTH 13.5 % (11.6-14.8)
[2017-11-14 06:11] LABS: ALANINE AMINOTRANSFERASE 11 U/L (12-78); ALBUMIN 2.2 G/DL (3.4-5.0); ALBUMIN/GLOBULIN RATIO 0.3 (1.0-2.7); ALKALINE PHOSPHATASE 36 U/L (46-116); ANION GAP -1 mmol/L (5-15); ASPARTATE AMINO TRANSFERASE 17 U/L (15-37); BILIRUBIN,TOTAL 0.2 MG/DL (0.2-1.0); BLOOD UREA NITROGEN 8 mg/dL (7-18); CALCIUM 8.3 MG/DL (8.5-10.1); CARBON DIOXIDE 30 MMOL/L (21-32); CHLORIDE 103 MMOL/L (98-107); CREATININE 1.2 MG/DL (0.55-1.30); PHOSPHORUS 3.8 MG/DL (2.5-4.9); POTASSIUM 3.8 MMOL/L (3.5-5.1); SODIUM 132 MMOL/L (136-145)
[2017-11-14 08:00] VITALS: BP 144/66
--- NOTE | 2017-11-14 10:28 | GI Progress Note ---
Assessment/Plan Problems: (1) Pacemaker ICD Codes: Z95.0 - Presence of cardiac pacemaker SNOMED: 000770152, 649330267 (2) Abdominal pain ICD Codes: R10.9 - Unspecified abdominal pain SNOMED: 03219020 (3) Hypoalbuminemia ICD Codes: E88.09 - Other disorders of plasma-protein metabolism, not elsewhere classified SNOMED: 929453070 (4) Anemia ICD Codes: D64.9 - Anemia, unspecified SNOMED: 461914661 (5) Dehydration ICD Codes: E86.0 - Dehydration SNOMED: 32196427 (6) Nausea ICD Codes: R11.0 - Nausea SNOMED: 074615242 Status: unchanged Status Narrative Discussed with Dr. Day. Assessment/Plan neg stool ob folate deficiency hold GI procedures fu hgb electrophoresis electrolyte correction fu abdominal U/S fu labs The patient was seen and examined at bedside and all new and available data was reviewed in the patients chart. I agree with the above findings, impression and plan. (Patient seen earlier today. Signature stamp does not reflect patient encounter time.). - Michael Day MD Subjective Subjective limited Objective Last 24 Hour Vital Signs Date Time Temp Pulse Resp B/P (MAP) Pulse Ox O2 Delivery O2 Flow Rate FiO2 11/14/17 08:00 98.3 79 17 144/66 99 Room Air 98.3 11/14/17 04:11 98.5 76 18 146/68 97 98.5 11/14/17 00:49 98.5 77 16 149/73 97 98.5 11/13/17 20:20 98.4 74 18 141/58 98 98.4 11/13/17 16:00 97.7 62 18 122/61 99 97.7 11/13/17 12:00 97.9 61 18 127/57 99 97.9 Intake and Output 11/13/17 11/14/17 19:00 07:00 Intake Total 740 ml 1125 ml Output Total 1050 ml Balance -310 ml 1125 ml Intake Oral 740 ml 300 ml IV Total 825 ml Output Urine Total 1050 ml # Voids 4 Laboratory Tests Test 11/14/17 05:24 White Blood Count 4.0 K/UL (4.8-10.8) L Red Blood Count 2.78 M/UL (4.20-5.40) L Hemoglobin 8.9 G/DL (12.0-16.0) L Hematocrit 26.5 % (37.0-47.0) L Mean Corpuscular Volume 96 FL (80-99) Mean Corpuscular Hemoglobin 31.9 PG (27.0-31.0) H Mean Corpuscular Hemoglobin Concent 33.4 G/DL (32.0-36.0) Red Cell Distribution Width 13.5 % (11.6-14.8) Platelet Count 189 K/UL (150-450) Mean Platelet Volume 5.8 FL (6.5-10.1) L Neutrophils (%) (Auto) 40.4 % (45.0-75.0) L Lymphocytes (%) (Auto) 47.8 % (20.0-45.0) H Monocytes (%) (Auto) 9.6 % (1.0-10.0) Eosinophils (%) (Auto) 1.6 % (0.0-3.0) Basophils (%) (Auto) 0.7 % (0.0-2.0) Erythrocyte Sedimentation Rate 126 MM/HR (0-30) H Sodium Level 132 MMOL/L (136-145) L Potassium Level 3.8 MMOL/L (3.5-5.1) Chloride Level 103 MMOL/L (98-107) Carbon Dioxide Level 30 MMOL/L (21-32) Anion Gap -1 mmol/L (5-15) L Blood Urea Nitrogen 8 mg/dL (7-18) Creatinine 1.2 MG/DL (0.55-1.30) Estimat Glomerular Filtration Rate mL/min (>60) Glucose Level 97 MG/DL (74-106) Calcium Level 8.3 MG/DL (8.5-10.1) L Phosphorus Level 3.8 MG/DL (2.5-4.9) Magnesium Level 1.7 MG/DL (1.8-2.4) L Total Bilirubin 0.2 MG/DL (0.2-1.0) Aspartate Amino Transf (AST/SGOT) 17 U/L (15-37) Alanine Aminotransferase (ALT/SGPT) 11 U/L (12-78) L Alkaline Phosphatase 36 U/L (46-116) L C-Reactive Protein, Quantitative < 0.4 mg/dL (0.00-0.90) Total Protein 9.9 G/DL (6.4-8.2) H Albumin 2.2 G/DL (3.4-5.0) L Globulin 7.7 g/dL Albumin/Globulin Ratio 0.3 (1.0-2.7) L Height (Feet): 5 Height (Inches): 4.00 Weight (Pounds): 196 General Appearance: WD/WN, no apparent distress Cardiovascular: normal rate Respiratory/Chest: normal breath sounds, no respiratory distress Abdominal Exam: normal bowel sounds, non tender, soft Extremities: non-tender Neal Reyes NP Nov 14, 2017 10:28
[2017-11-14] MEDS: Docusate 100mg cap ORAL SCH ×2 (10:44→17:29)
[2017-11-14] MEDS: Pantoprazole Inj IV SCH (10:45)
[2017-11-14] MEDS: Heparin 5000 units/ml inj SUBQ SCH ×2 (10:47→20:47)
[2017-11-14 12:00] VITALS: BP 149/73
--- NOTE | 2017-11-14 12:18 | Consultation ---
History of Present Illness General Date patient seen: Nov 14, 2017 Chief Complaint: Abdominal Pain Present Illness HPI 87-year-old female with multiple medical problems, which I will dictate in a second, admitted to the hospital with abdominal pain. Allergies: Coded Allergies: AMOXICILLIN (Verified Allergy, Unknown, 09/06/12) CODEINE (Verified Allergy, Unknown, 09/06/12) HYDROCODONE (Verified Allergy, Unknown, 09/06/12) Medication History Scheduled Atenolol* (Tenormin*), 10 MG ORAL DAILY, (Reported) Cimetidine (Cimetidine*), 300 MG ORAL DAILY, (Reported) Furosemide* (Lasix*), 20 MG ORAL DAILY, (Reported) Valsartan (Diovan), 320 MG ORAL DAILY, (Reported) Miscellaneous Medications Potassium Chloride (Potassium Chloride), Unknown Dose PO, (Reported) Discontinued Medications Acetaminophen (Acetaminophen), 650 MG ORAL Q6H PRN for Prn Headache/Temp > 101 Discontinued Reason: Pt stopped taking med Diazepam* (Diazepam*), 2 MG ORAL Q6H PRN for ANXIETY, (Reported) Discontinued Reason: Pt stopped taking med Furosemide* (Lasix*), 10 MG ORAL DAILY, (Reported) Discontinued Reason: Medication dose changed Patient History Healthcare decision maker N Resuscitation status Advanced Directive on File Physical Exam Last 24 Hour Vital Signs Date Time Temp Pulse Resp B/P (MAP) Pulse Ox O2 Delivery O2 Flow Rate FiO2 11/14/17 10:44 79 144/66 11/14/17 08:00 98.3 79 17 144/66 99 Room Air 98.3 11/14/17 04:11 98.5 76 18 146/68 97 98.5 11/14/17 00:49 98.5 77 16 149/73 97 98.5 11/13/17 20:20 98.4 74 18 141/58 98 98.4 11/13/17 16:00 97.7 62 18 122/61 99 97.7 Intake and Output 11/13/17 11/14/17 19:00 07:00 Intake Total 740 ml 1125 ml Output Total 1050 ml Balance -310 ml 1125 ml Intake Oral 740 ml 300 ml IV Total 825 ml Output Urine Total 1050 ml # Voids 4 Laboratory Tests Test 11/14/17 05:24 White Blood Count 4.0 K/UL (4.8-10.8) L Red Blood Count 2.78 M/UL (4.20-5.40) L Hemoglobin 8.9 G/DL (12.0-16.0) L Hematocrit 26.5 % (37.0-47.0) L Mean Corpuscular Volume 96 FL (80-99) Mean Corpuscular Hemoglobin 31.9 PG (27.0-31.0) H Mean Corpuscular Hemoglobin Concent 33.4 G/DL (32.0-36.0) Red Cell Distribution Width 13.5 % (11.6-14.8) Platelet Count 189 K/UL (150-450) Mean Platelet Volume 5.8 FL (6.5-10.1) L Neutrophils (%) (Auto) 40.4 % (45.0-75.0) L Lymphocytes (%) (Auto) 47.8 % (20.0-45.0) H Monocytes (%) (Auto) 9.6 % (1.0-10.0) Eosinophils (%) (Auto) 1.6 % (0.0-3.0) Basophils (%) (Auto) 0.7 % (0.0-2.0) Erythrocyte Sedimentation Rate 126 MM/HR (0-30) H Sodium Level 132 MMOL/L (136-145) L Potassium Level 3.8 MMOL/L (3.5-5.1) Chloride Level 103 MMOL/L (98-107) Carbon Dioxide Level 30 MMOL/L (21-32) Anion Gap -1 mmol/L (5-15) L Blood Urea Nitrogen 8 mg/dL (7-18) Creatinine 1.2 MG/DL (0.55-1.30) Estimat Glomerular Filtration Rate mL/min (>60) Glucose Level 97 MG/DL (74-106) Calcium Level 8.3 MG/DL (8.5-10.1) L Phosphorus Level 3.8 MG/DL (2.5-4.9) Magnesium Level 1.7 MG/DL (1.8-2.4) L Total Bilirubin 0.2 MG/DL (0.2-1.0) Aspartate Amino Transf (AST/SGOT) 17 U/L (15-37) Alanine Aminotransferase (ALT/SGPT) 11 U/L (12-78) L Alkaline Phosphatase 36 U/L (46-116) L C-Reactive Protein, Quantitative < 0.4 mg/dL (0.00-0.90) Total Protein 9.9 G/DL (6.4-8.2) H Albumin 2.2 G/DL (3.4-5.0) L Globulin 7.7 g/dL Albumin/Globulin Ratio 0.3 (1.0-2.7) L Height (Feet): 5 Height (Inches): 4.00 Weight (Pounds): 196 Medications Current Medications Medications (Trade) Dose Ordered Sig/Ary Route PRN Reason Start Time Stop Time Status Last Admin Dose Admin Acetaminophen (Tylenol) 650 mg Q4H PRN ORAL fever (temp>100.5F) 11/11/17 20:30 12/11/17 20:29 11/13/17 17:54 Al Hydroxide/Mg Hydroxide (Mylanta II) 30 ml Q6H PRN ORAL dyspepsia 11/11/17 20:30 12/11/17 20:29 11/13/17 15:04 Amlodipine Besylate (Norvasc) 10 mg DAILY ORAL 11/14/17 09:00 12/14/17 08:59 11/14/17 10:44 Dextrose (Dextrose 50%) 25 ml STAT PRN IV Hypoglycemia 11/11/17 20:30 12/11/17 20:29 Dextrose (Dextrose 50%) 50 ml STAT PRN IV Hypoglycemia 11/11/17 20:45 12/11/17 20:44 Dextrose/Sodium Chloride 1,000 ml @ 75 mls/hr [id number] IV 11/11/17 21:00 12/11/17 20:59 11/14/17 02:04 Diphenhydramine HCl (Benadryl) 25 mg Q6H PRN ORAL Itching/Pruritis 11/11/17 20:30 12/11/17 20:29 Docusate Sodium (Colace) 100 mg TWICE A DAY ORAL 11/12/17 18:00 12/12/17 17:59 11/14/17 10:44 Folic Acid (Folate) 1 mg DAILY ORAL 11/15/17 09:00 12/15/17 08:59 Heparin Sodium (Porcine) (Heparin 5000 units/ml) 5,000 units EVERY 12 HOURS SUBQ 11/11/17 21:00 12/11/17 20:59 11/14/17 10:47 Lorazepam (Ativan 2mg/ml 1ml) 1 mg Q4H PRN IV agitation 11/11/17 20:30 11/18/17 20:29 Metoclopramide HCl (Reglan) 10 mg Q6H PRN IVP severe nausea 11/11/17 20:30 12/11/17 20:29 Nitroglycerin (Ntg) 0.4 mg Q5M X 3 DOSES PRN SL Prn Chest Pain 11/11/17 20:30 12/11/17 20:29 Non-Formulary Medication (Non-Formulary Med) 1 ea DAILY ORAL 11/12/17 10:30 12/12/17 10:29 UNV Non-Formulary Medication (Non-Formulary Med) 1 ea DAILY ORAL 11/12/17 10:30 12/12/17 10:29 UNV Ondansetron HCl (Zofran) 4 mg Q6H PRN IVP Nausea & Vomiting 11/11/17 20:30 12/11/17 20:29 11/12/17 18:02 Pantoprazole (Protonix) 40 mg DAILY IV 11/12/17 09:00 12/12/17 08:59 11/14/17 10:45 Polyethylene Glycol (Miralax) 17 gm BEDTIME ORAL 11/12/17 21:00 12/12/17 20:59 11/13/17 20:32 Promethazine HCl 25 mg/Sodium Chloride 56 ml @ 110 mls/hr Q6H PRN IV Refractory N/V 11/11/17 20:30 12/11/17 20:29 Temazepam (Restoril) 15 mg HSPRN PRN ORAL Insomnia 11/11/17 20:30 11/18/17 20:29 Onofre Dominguez M.D. Nov 14, 2017 12:18
[2017-11-14 16:10] VITALS: BP 128/52
--- NOTE | 2017-11-14 18:00 | Diagnostic Imaging Report ---
Indication: Abdominal pain Technique: Cross-scale and duplex images of the upper abdomen were obtained Comparison: 04/01/2016 Findings: Gallbladder is surgically absent. Common bile duct measures 7 mm in diameter. No intrahepatic biliary ductal dilatation. Liver demonstrates normal echogenicity, no focal abnormality. Portal vein and hepatic veins are patent. Pancreas is unremarkable. Spleen is unremarkable. Left kidney measures 10.1 cm in length. Right kidney measures 10 cm length. Both kidneys demonstrate normal echogenicity. There is equivocal mild fullness of the right renal collecting system. There is mild to moderate left hydronephrosis. Cysts are demonstrated bilateral. Bladder is unremarkable, demonstrates bilateral ureteral jets. Postvoid bladder volume 440 mL.. Abdominal aorta is partially obscured by bowel gas, visualized portions are non-aneurysmal . Impression: Surgically absent gallbladder. Minimally ectatic bile duct is stable, likely related to age and postcholecystectomy state Equivocal mild right renal collecting system fullness. Mild to moderate left hydronephrosis. 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 Could also be due to bladder distention Distended bladder, postvoid bladder line 440 mL Bilateral renal cysts Note inability to visualize portions of the abdominal aorta
[2017-11-14 20:00] VITALS: BP 139/64
[2017-11-14] MEDS: Mylanta II UD 30ml ORAL PRN (20:46)
[2017-11-14] MEDS: Miralax 17gm pkt ORAL SCH (20:46)
[2017-11-15] VITALS: BP 112/57
--- NOTE | 2017-11-15 00:30 | Consultation ---
DATE OF CONSULTATION: 11/14/2017 HEMATOLOGY/ONCOLOGY CONSULTATION CONSULTING PHYSICIAN: Mello Durbin M.D. REQUESTING PHYSICIAN: Douglas Bacon M.D. REASON FOR CONSULTATION: Evaluation of ongoing anemia, progressive amenia. IDENTIFYING DATA: Dear Dr. Bacon, The patient is a pleasant 87-year-old female, with history of constipation, history of anemia, hypertension, hypercholesteremia, irregular heart rate requiring pacemaker placement, admitted to [facility] with evidence of hernia, no evidence intra-abdominal process. The patient has a past medical history of cholecystectomy in 2016 at this hospital as well. Reviewed the patient's labs from that time. Lifetime summary of labs reviewed. The patient currently has anemia that has been ongoing for some time. Coagulopathy noted as well. The patient had a serum protein electrophoresis that is elevated. Hematology Service was consulted for further evaluation and treatment. PAST MEDICAL HISTORY: Irregular heartbeat, hypercholesteremia, hypertension, mild anemia, and constipation. PAST SURGICAL HISTORY: Cholecystectomy and pacemaker placement. ALLERGIES: Codeine, hydrocodone, and amoxicillin. MEDICATIONS: Reviewed. SOCIAL HISTORY: No alcohol, tobacco, or illicit drug use. FAMILY HISTORY: Noncontributory. REVIEW OF SYSTEMS: As noted above. PHYSICAL EXAMINATION: VITAL SIGNS: Reviewed. GENERAL: No acute distress. LUNGS: Decreased breath sounds. Some crackles at the bases. CARDIOVASCULAR: Regular rate. No S3 or S4. Pacemaker in place. ABDOMEN: Soft, nontender, and nondistended. Surgical scar in the right upper quadrant, cholecystectomy history. EXTREMITIES: No cyanosis, clubbing, or edema noted. LABORATORY AND DIAGNOSTIC DATA: WBC , hemoglobin 8.9, hematocrit 27, and platelet count 189,000. ASSESSMENT AND RECOMMENDATIONS: 1. Elevated abnormal labs. A protein band is noted. Obtain serum protein electrophoresis results. I have contacted [facility]. Results pending via fax. The patient's electrophoresis reviewed. The patient noted to have 2 spikes, which are noted in the protein electrophoresis obtained. Obtain immunofixation for elucidation. The patient may likely not need a bone marrow given her advanced age. 2. Anemia due to underlying chronic disease. Continue to closely monitor. 3. Anemia due to B12 deficiency. Administer B12 monthly. 4. Follow up on hemoglobin electrophoresis. 5. Hypoalbuminemia. 6. Nausea and vomiting. 7. Pacemaker placement. I appreciate the consultation. Mello Durbin M.D. DR: MADELEINE JOB#: [id number] CC:
[2017-11-15 04:00] VITALS: BP 126/56
[2017-11-15] MEDS: D5 1/2NS 1,000 ML IV SCH (04:20)
[2017-11-15 06:29] LABS: BASOPHILS % (AUTO) 0.5 % (0.0-2.0); HEMATOCRIT 26.6 % (37.0-47.0); HEMOGLOBIN 8.7 G/DL (12.0-16.0); LYMPHOCYTES % (AUTO) 38.7 % (20.0-45.0); MEAN CORPUSCULAR VOLUME 95 FL (80-99); MONOCYTES % (AUTO) 7.6 % (1.0-10.0); NEUTROPHILS % (AUTO) 51.2 % (45.0-75.0); PLATELET COUNT 181 K/UL (150-450); RED BLOOD COUNT 2.79 M/UL (4.20-5.40); RED CELL DISTRIBUTION WIDTH 13.5 % (11.6-14.8); WHITE BLOOD COUNT 4.3 K/UL (4.8-10.8)
[2017-11-15 06:56] LABS: BLOOD UREA NITROGEN 8 mg/dL (7-18); CALCIUM 7.8 MG/DL (8.5-10.1); CARBON DIOXIDE 26 MMOL/L (21-32); CREATININE 1.1 MG/DL (0.55-1.30)
[2017-11-15 07:05] LABS: CHLORIDE 99 MMOL/L (98-107); POTASSIUM 3.8 MMOL/L (3.5-5.1); SODIUM 129 MMOL/L (136-145)
[2017-11-15 08:00] VITALS: BP 137/57
[2017-11-15] MEDS: Docusate 100mg cap ORAL SCH (08:42)
[2017-11-15] MEDS: Pantoprazole Inj IV SCH (08:43)
[2017-11-15] MEDS: Heparin 5000 units/ml inj SUBQ SCH (08:48)
[2017-11-15] MEDS ORDERED: Sennosides 8.6mg ORAL SCH (09:00)
--- NOTE | 2017-11-15 11:43 | General Progress Note ---
Assessment/Plan Status: unchanged Assessment/Plan # Anemia due to underlying chronic disease. --> Continue to closely monitor. --> anemia w/u reviewed. will trend daily. stool occult neg. --> hgb goal >7 # Anemia due to B12 deficiency. Administer B12 monthly. 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 Immunofixation shows IgG monoclonal protein with kappa light chain specificity. --> electrophoresis reviewed. The patient noted to have 2 spikes, which are noted in the protein electrophoresis obtained. --> Pt may likely not need a bone marrow given her advanced age. david has mgus versus multiple myeloma --> f/u with art professor as outpatient # Hypoalbuminemia. # Nausea and vomiting. # Pacemaker placement. Subjective Date patient seen: Nov 15, 2017 ROS Limited/Unobtainable: Yes Allergies: Coded Allergies: AMOXICILLIN (Verified Allergy, Unknown, 09/06/12) CODEINE (Verified Allergy, Unknown, 09/06/12) HYDROCODONE (Verified Allergy, Unknown, 09/06/12) All Systems: reviewed and negative except above Subjective No acute overnight events. Pt c/o abd pain. No signs of acute medical distress. Vitals are stable. Objective Last 24 Hour Vital Signs Date Time Temp Pulse Resp B/P (MAP) Pulse Ox O2 Delivery O2 Flow Rate FiO2 11/15/17 08:43 77 137/57 11/15/17 08:00 98.3 77 20 137/57 99 Room Air 98.3 11/15/17 04:00 97.7 64 20 126/56 100 Room Air 97.7 11/15/17 00:00 98.2 64 19 112/57 98 Room Air 98.2 11/14/17 20:50 96.8 11/14/17 20:00 98.1 76 18 139/64 98 Room Air 98.1 11/14/17 16:10 96.8 74 18 128/52 98 Room Air 96.8 11/14/17 12:00 97.3 66 20 149/73 97 Room Air 97.3 Intake and Output 11/14/17 11/15/17 19:00 07:00 Intake Total 1272 ml 1325.00 ml Output Total 400 ml 1200 ml Balance 872 ml 125.00 ml Intake Oral 360 ml 500 ml IV Total 912 ml 825.00 ml Output Urine Total 400 ml 1200 ml # Bowel Movements 1 Laboratory Tests 11/15/17 05:20: White Blood Count 4.3L, Red Blood Count 2.79L, Hemoglobin 8.7L, Hematocrit 26.6L , Mean Corpuscular Volume 95, Mean Corpuscular Hemoglobin 31.3H, Mean Corpuscular Hemoglobin Concent 32.8, Red Cell Distribution Width 13.5, Platelet Count 181, Mean Platelet Volume 5.6L, Neutrophils (%) (Auto) 51.2, Lymphocytes ( %) (Auto) 38.7, Monocytes (%) (Auto) 7.6, Eosinophils (%) (Auto) 2.0, Basophils (%) (Auto) 0.5, Sodium Level 129L, Potassium Level 3.8, Chloride Level 99, Carbon Dioxide Level 26, Blood Urea Nitrogen 8, Creatinine 1.1, Estimat Glomerular Filtration Rate , Glucose Level 97, Calcium Level 7.8L 11/15/17 06:00: Stool Occult Blood Negative Height (Feet): 5 Height (Inches): 4.00 Weight (Pounds): 196 General Appearance: WD/WN, no apparent distress EENT: PERRL/EOMI Neck: supple Cardiovascular: normal peripheral pulses Respiratory/Chest: no respiratory distress Abdomen: no mass Mello Durbin MD Nov 15, 2017 11:43
[2017-11-15 12:00] VITALS: BP 154/78
--- NOTE | 2017-11-15 12:19 | Pulmonology Progress Note ---
Assessment/Plan Problems: (1) Abdominal pain (2) Pacemaker (3) HTN (hypertension) (4) Hypoalbuminemia Assessment/Plan continue the same Had a large BM GI evaluation appreciated Hematology appreciated doing better stool for blood pending symptomatic treatment dvt prophylaxis. Subjective ROS Limited/Unobtainable: No Interval Events: late note for 11/14, doesn't want to go home, still feeling weak. Allergies: Coded Allergies: AMOXICILLIN (Verified Allergy, Unknown, 09/06/12) CODEINE (Verified Allergy, Unknown, 09/06/12) HYDROCODONE (Verified Allergy, Unknown, 09/06/12) Objective Last 24 Hour Vital Signs Date Time Temp Pulse Resp B/P (MAP) Pulse Ox O2 Delivery O2 Flow Rate FiO2 11/15/17 08:43 77 137/57 11/15/17 08:00 98.3 77 20 137/57 99 Room Air 98.3 11/15/17 04:00 97.7 64 20 126/56 100 Room Air 97.7 11/15/17 00:00 98.2 64 19 112/57 98 Room Air 98.2 11/14/17 20:50 96.8 11/14/17 20:00 98.1 76 18 139/64 98 Room Air 98.1 11/14/17 16:10 96.8 74 18 128/52 98 Room Air 96.8 Intake and Output 11/14/17 11/15/17 19:00 07:00 Intake Total 1272 ml 1325.00 ml Output Total 400 ml 1200 ml Balance 872 ml 125.00 ml Intake Oral 360 ml 500 ml IV Total 912 ml 825.00 ml Output Urine Total 400 ml 1200 ml # Bowel Movements 1 General Appearance: WD/WN HEENT: normocephalic, atraumatic Respiratory/Chest: chest wall non-tender, lungs clear Breasts: no masses Cardiovascular: normal peripheral pulses Abdomen: normal bowel sounds, soft, non tender Genitourinary: normal external genitalia Extremities: no cyanosis Neurologic/Psychiatric: no motor/sensory deficits Lymphatic: no neck adenopathy Laboratory Tests 11/15/17 05:20: White Blood Count 4.3L, Red Blood Count 2.79L, Hemoglobin 8.7L, Hematocrit 26.6L , Mean Corpuscular Volume 95, Mean Corpuscular Hemoglobin 31.3H, Mean Corpuscular Hemoglobin Concent 32.8, Red Cell Distribution Width 13.5, Platelet Count 181, Mean Platelet Volume 5.6L, Neutrophils (%) (Auto) 51.2, Lymphocytes ( %) (Auto) 38.7, Monocytes (%) (Auto) 7.6, Eosinophils (%) (Auto) 2.0, Basophils (%) (Auto) 0.5, Sodium Level 129L, Potassium Level 3.8, Chloride Level 99, Carbon Dioxide Level 26, Blood Urea Nitrogen 8, Creatinine 1.1, Estimat Glomerular Filtration Rate , Glucose Level 97, Calcium Level 7.8L 11/15/17 06:00: Stool Occult Blood Negative Current Medications Medications (Trade) Dose Ordered Sig/Ary Route PRN Reason Start Time Stop Time Status Last Admin Dose Admin Acetaminophen (Tylenol) 650 mg Q4H PRN ORAL fever (temp>100.5F) 11/11/17 20:30 12/11/17 20:29 11/14/17 20:50 Al Hydroxide/Mg Hydroxide (Mylanta II) 30 ml Q6H PRN ORAL dyspepsia 11/11/17 20:30 12/11/17 20:29 11/14/17 20:46 Amlodipine Besylate (Norvasc) 10 mg DAILY ORAL 11/14/17 09:00 12/14/17 08:59 11/15/17 08:43 Bisacodyl (Dulcolax) 10 mg DAILYPRN PRN RECTAL Constipation 11/14/17 21:45 12/14/17 21:44 11/14/17 21:57 Dextrose (Dextrose 50%) 25 ml STAT PRN IV Hypoglycemia 11/11/17 20:30 12/11/17 20:29 Dextrose (Dextrose 50%) 50 ml STAT PRN IV Hypoglycemia 11/11/17 20:45 12/11/17 20:44 Dextrose/Sodium Chloride 1,000 ml @ 75 mls/hr [id number] IV 11/11/17 21:00 12/11/17 20:59 11/15/17 04:20 Diphenhydramine HCl (Benadryl) 25 mg Q6H PRN ORAL Itching/Pruritis 11/11/17 20:30 12/11/17 20:29 Docusate Sodium (Colace) 100 mg TWICE A DAY ORAL 11/12/17 18:00 12/12/17 17:59 11/15/17 08:42 Folic Acid (Folate) 1 mg DAILY ORAL 11/15/17 09:00 12/15/17 08:59 11/15/17 08:42 Heparin Sodium (Porcine) (Heparin 5000 units/ml) 5,000 units EVERY 12 HOURS SUBQ 11/11/17 21:00 12/11/17 20:59 11/15/17 08:48 Lorazepam (Ativan 2mg/ml 1ml) 1 mg Q4H PRN IV agitation 11/11/17 20:30 11/18/17 20:29 Metoclopramide HCl (Reglan) 10 mg Q6H PRN IVP severe nausea 11/11/17 20:30 12/11/17 20:29 Nitroglycerin (Ntg) 0.4 mg Q5M X 3 DOSES PRN SL Prn Chest Pain 11/11/17 20:30 12/11/17 20:29 Non-Formulary Medication (Non-Formulary Med) 1 ea DAILY ORAL 11/12/17 10:30 12/12/17 10:29 UNV Non-Formulary Medication (Non-Formulary Med) 1 ea DAILY ORAL 11/12/17 10:30 12/12/17 10:29 UNV Ondansetron HCl (Zofran) 4 mg Q6H PRN IVP Nausea & Vomiting 11/11/17 20:30 12/11/17 20:29 11/12/17 18:02 Pantoprazole (Protonix) 40 mg DAILY IV 11/12/17 09:00 12/12/17 08:59 11/15/17 08:43 Polyethylene Glycol (Miralax) 17 gm BEDTIME ORAL 11/12/17 21:00 12/12/17 20:59 11/14/17 20:46 Promethazine HCl 25 mg/Sodium Chloride 56 ml @ 110 mls/hr Q6H PRN IV Refractory N/V 11/11/17 20:30 12/11/17 20:29 Sennosides (Senokot) 1 tab DAILY ORAL 11/15/17 09:00 12/15/17 08:59 11/15/17 08:42 Temazepam (Restoril) 15 mg HSPRN PRN ORAL Insomnia 11/11/17 20:30 11/18/17 20:29 Douglas Bacon MD Nov 15, 2017 12:19
--- NOTE | 2017-11-15 12:20 | Pulmonology Progress Note ---
Assessment/Plan Problems: (1) Abdominal pain (2) Pacemaker (3) HTN (hypertension) (4) Hypoalbuminemia Assessment/Plan agreed to go home continue the same Had a large BM GI evaluation appreciated Hematology appreciated doing better stool for blood pending symptomatic treatment dvt prophylaxis. Subjective ROS Limited/Unobtainable: No Constitutional: Reports: no symptoms HEENT: Repors: no symptoms Respiratory: Reports: no symptoms Allergies: Coded Allergies: AMOXICILLIN (Verified Allergy, Unknown, 09/06/12) CODEINE (Verified Allergy, Unknown, 09/06/12) HYDROCODONE (Verified Allergy, Unknown, 09/06/12) Objective Last 24 Hour Vital Signs Date Time Temp Pulse Resp B/P (MAP) Pulse Ox O2 Delivery O2 Flow Rate FiO2 11/15/17 08:43 77 137/57 11/15/17 08:00 98.3 77 20 137/57 99 Room Air 98.3 11/15/17 04:00 97.7 64 20 126/56 100 Room Air 97.7 11/15/17 00:00 98.2 64 19 112/57 98 Room Air 98.2 11/14/17 20:50 96.8 11/14/17 20:00 98.1 76 18 139/64 98 Room Air 98.1 11/14/17 16:10 96.8 74 18 128/52 98 Room Air 96.8 Intake and Output 11/14/17 11/15/17 19:00 07:00 Intake Total 1272 ml 1325.00 ml Output Total 400 ml 1200 ml Balance 872 ml 125.00 ml Intake Oral 360 ml 500 ml IV Total 912 ml 825.00 ml Output Urine Total 400 ml 1200 ml # Bowel Movements 1 General Appearance: WD/WN HEENT: normocephalic, atraumatic Respiratory/Chest: chest wall non-tender, normal breath sounds Cardiovascular: normal peripheral pulses, normal rate Abdomen: normal bowel sounds, no organomegaly Genitourinary: normal external genitalia Extremities: no cyanosis Skin: no rash Laboratory Tests 11/15/17 05:20: White Blood Count 4.3L, Red Blood Count 2.79L, Hemoglobin 8.7L, Hematocrit 26.6L , Mean Corpuscular Volume 95, Mean Corpuscular Hemoglobin 31.3H, Mean Corpuscular Hemoglobin Concent 32.8, Red Cell Distribution Width 13.5, Platelet Count 181, Mean Platelet Volume 5.6L, Neutrophils (%) (Auto) 51.2, Lymphocytes ( %) (Auto) 38.7, Monocytes (%) (Auto) 7.6, Eosinophils (%) (Auto) 2.0, Basophils (%) (Auto) 0.5, Sodium Level 129L, Potassium Level 3.8, Chloride Level 99, Carbon Dioxide Level 26, Blood Urea Nitrogen 8, Creatinine 1.1, Estimat Glomerular Filtration Rate , Glucose Level 97, Calcium Level 7.8L 11/15/17 06:00: Stool Occult Blood Negative Current Medications Medications (Trade) Dose Ordered Sig/Ary Route PRN Reason Start Time Stop Time Status Last Admin Dose Admin Acetaminophen (Tylenol) 650 mg Q4H PRN ORAL fever (temp>100.5F) 11/11/17 20:30 12/11/17 20:29 11/14/17 20:50 Al Hydroxide/Mg Hydroxide (Mylanta II) 30 ml Q6H PRN ORAL dyspepsia 11/11/17 20:30 12/11/17 20:29 11/14/17 20:46 Amlodipine Besylate (Norvasc) 10 mg DAILY ORAL 11/14/17 09:00 12/14/17 08:59 11/15/17 08:43 Bisacodyl (Dulcolax) 10 mg DAILYPRN PRN RECTAL Constipation 11/14/17 21:45 12/14/17 21:44 11/14/17 21:57 Dextrose (Dextrose 50%) 25 ml STAT PRN IV Hypoglycemia 11/11/17 20:30 12/11/17 20:29 Dextrose (Dextrose 50%) 50 ml STAT PRN IV Hypoglycemia 11/11/17 20:45 12/11/17 20:44 Dextrose/Sodium Chloride 1,000 ml @ 75 mls/hr [id number] IV 11/11/17 21:00 12/11/17 20:59 11/15/17 04:20 Diphenhydramine HCl (Benadryl) 25 mg Q6H PRN ORAL Itching/Pruritis 11/11/17 20:30 12/11/17 20:29 Docusate Sodium (Colace) 100 mg TWICE A DAY ORAL 11/12/17 18:00 12/12/17 17:59 11/15/17 08:42 Folic Acid (Folate) 1 mg DAILY ORAL 11/15/17 09:00 12/15/17 08:59 11/15/17 08:42 Heparin Sodium (Porcine) (Heparin 5000 units/ml) 5,000 units EVERY 12 HOURS SUBQ 11/11/17 21:00 12/11/17 20:59 11/15/17 08:48 Lorazepam (Ativan 2mg/ml 1ml) 1 mg Q4H PRN IV agitation 11/11/17 20:30 11/18/17 20:29 Metoclopramide HCl (Reglan) 10 mg Q6H PRN IVP severe nausea 11/11/17 20:30 12/11/17 20:29 Nitroglycerin (Ntg) 0.4 mg Q5M X 3 DOSES PRN SL Prn Chest Pain 11/11/17 20:30 12/11/17 20:29 Non-Formulary Medication (Non-Formulary Med) 1 ea DAILY ORAL 11/12/17 10:30 12/12/17 10:29 UNV Non-Formulary Medication (Non-Formulary Med) 1 ea DAILY ORAL 11/12/17 10:30 12/12/17 10:29 UNV Ondansetron HCl (Zofran) 4 mg Q6H PRN IVP Nausea & Vomiting 11/11/17 20:30 12/11/17 20:29 11/12/17 18:02 Pantoprazole (Protonix) 40 mg DAILY IV 11/12/17 09:00 12/12/17 08:59 11/15/17 08:43 Polyethylene Glycol (Miralax) 17 gm BEDTIME ORAL 11/12/17 21:00 12/12/17 20:59 11/14/17 20:46 Promethazine HCl 25 mg/Sodium Chloride 56 ml @ 110 mls/hr Q6H PRN IV Refractory N/V 11/11/17 20:30 12/11/17 20:29 Sennosides (Senokot) 1 tab DAILY ORAL 11/15/17 09:00 12/15/17 08:59 11/15/17 08:42 Temazepam (Restoril) 15 mg HSPRN PRN ORAL Insomnia 11/11/17 20:30 11/18/17 20:29 Douglas Bacon MD Nov 15, 2017 12:20
--- NOTE | 2017-11-15 13:54 | GI Progress Note ---
Assessment/Plan Problems: (1) Pacemaker ICD Codes: Z95.0 - Presence of cardiac pacemaker SNOMED: 180023403, 835463832 (2) Abdominal pain ICD Codes: R10.9 - Unspecified abdominal pain SNOMED: 28941096 (3) Hypoalbuminemia ICD Codes: E88.09 - Other disorders of plasma-protein metabolism, not elsewhere classified SNOMED: 091911177 (4) Anemia ICD Codes: D64.9 - Anemia, unspecified SNOMED: 413938454 (5) Dehydration ICD Codes: E86.0 - Dehydration SNOMED: 19041682 (6) Nausea ICD Codes: R11.0 - Nausea SNOMED: 564589264 Status: stable Status Narrative Discussed with Dr. Day. Assessment/Plan neg stool ob folate deficiency abdominal US reviewed >>Distended bladder, postvoid bladder line 440 mL hold GI procedures prn transfusions pain mgmt electrolyte correction zofran prn fu labs The patient was seen and examined at bedside and all new and available data was reviewed in the patients chart. I agree with the above findings, impression and plan. (Patient seen earlier today. Signature stamp does not reflect patient encounter time.). - Michael Day MD Subjective Subjective limited Objective Last 24 Hour Vital Signs Date Time Temp Pulse Resp B/P (MAP) Pulse Ox O2 Delivery O2 Flow Rate FiO2 11/15/17 12:00 99.0 84 18 154/78 98 Room Air 99.0 11/15/17 08:43 77 137/57 11/15/17 08:00 98.3 77 20 137/57 99 Room Air 98.3 11/15/17 04:00 97.7 64 20 126/56 100 Room Air 97.7 11/15/17 00:00 98.2 64 19 112/57 98 Room Air 98.2 11/14/17 20:50 96.8 11/14/17 20:00 98.1 76 18 139/64 98 Room Air 98.1 11/14/17 16:10 96.8 74 18 128/52 98 Room Air 96.8 Intake and Output 11/14/17 11/15/17 19:00 07:00 Intake Total 1272 ml 1325.00 ml Output Total 400 ml 1200 ml Balance 872 ml 125.00 ml Intake Oral 360 ml 500 ml IV Total 912 ml 825.00 ml Output Urine Total 400 ml 1200 ml # Bowel Movements 1 Laboratory Tests Test 11/15/17 05:20 11/15/17 06:00 White Blood Count 4.3 K/UL (4.8-10.8) L Red Blood Count 2.79 M/UL (4.20-5.40) L Hemoglobin 8.7 G/DL (12.0-16.0) L Hematocrit 26.6 % (37.0-47.0) L Mean Corpuscular Volume 95 FL (80-99) Mean Corpuscular Hemoglobin 31.3 PG (27.0-31.0) H Mean Corpuscular Hemoglobin Concent 32.8 G/DL (32.0-36.0) Red Cell Distribution Width 13.5 % (11.6-14.8) Platelet Count 181 K/UL (150-450) Mean Platelet Volume 5.6 FL (6.5-10.1) L Neutrophils (%) (Auto) 51.2 % (45.0-75.0) Lymphocytes (%) (Auto) 38.7 % (20.0-45.0) Monocytes (%) (Auto) 7.6 % (1.0-10.0) Eosinophils (%) (Auto) 2.0 % (0.0-3.0) Basophils (%) (Auto) 0.5 % (0.0-2.0) Sodium Level 129 MMOL/L (136-145) L Potassium Level 3.8 MMOL/L (3.5-5.1) Chloride Level 99 MMOL/L (98-107) Carbon Dioxide Level 26 MMOL/L (21-32) Blood Urea Nitrogen 8 mg/dL (7-18) Creatinine 1.1 MG/DL (0.55-1.30) Estimat Glomerular Filtration Rate mL/min (>60) Glucose Level 97 MG/DL (74-106) Calcium Level 7.8 MG/DL (8.5-10.1) L Stool Occult Blood Negative (NEGATIVE) Height (Feet): 5 Height (Inches): 4.00 Weight (Pounds): 196 General Appearance: WD/WN, no apparent distress, alert Cardiovascular: normal rate Respiratory/Chest: normal breath sounds, no respiratory distress Abdominal Exam: normal bowel sounds, non tender, soft Extremities: normal range of motion, non-tender Reyes,Brianna-Kentrell UNDER[employer] UTILITY LOCATOR Nov 15, 2017 13:54
[2017-11-15] MEDS ORDERED: D5 1/2NS 1000ml IV ONE (15:59)
[2017-11-15 16:00] VITALS: BP 141/64
--- NOTE | 2017-11-15 23:07 | General Progress Note ---
Assessment/Plan Status: stable Assessment/Plan Anxiety d/o cognitive impaiment ativan prn low dose ssri Subjective Date patient seen: Nov 16, 2017 Neurologic/Psychiatric: Reports: anxiety, depressed, emotional problems Allergies: Coded Allergies: AMOXICILLIN (Verified Allergy, Unknown, 09/06/12) CODEINE (Verified Allergy, Unknown, 09/06/12) HYDROCODONE (Verified Allergy, Unknown, 09/06/12) Objective Last 24 Hour Vital Signs Date Time Temp Pulse Resp B/P (MAP) Pulse Ox O2 Delivery O2 Flow Rate FiO2 11/15/17 16:00 98.0 20 141/64 98 Room Air 98.0 11/15/17 12:00 99.0 84 18 154/78 98 Room Air 99.0 11/15/17 08:43 77 137/57 11/15/17 08:00 98.3 77 20 137/57 99 Room Air 98.3 11/15/17 04:00 97.7 64 20 126/56 100 Room Air 97.7 11/15/17 00:00 98.2 64 19 112/57 98 Room Air 98.2 Intake and Output 11/14/17 11/15/17 19:00 07:00 Intake Total 1272 ml 1400.00 ml Output Total 400 ml 1200 ml Balance 872 ml 200.00 ml Intake Oral 360 ml 500 ml IV Total 912 ml 900.00 ml Output Urine Total 400 ml 1200 ml # Bowel Movements 1 Laboratory Tests 11/15/17 05:20: White Blood Count 4.3L, Red Blood Count 2.79L, Hemoglobin 8.7L, Hematocrit 26.6L , Mean Corpuscular Volume 95, Mean Corpuscular Hemoglobin 31.3H, Mean Corpuscular Hemoglobin Concent 32.8, Red Cell Distribution Width 13.5, Platelet Count 181, Mean Platelet Volume 5.6L, Neutrophils (%) (Auto) 51.2, Lymphocytes ( %) (Auto) 38.7, Monocytes (%) (Auto) 7.6, Eosinophils (%) (Auto) 2.0, Basophils (%) (Auto) 0.5, Sodium Level 129L, Potassium Level 3.8, Chloride Level 99, Carbon Dioxide Level 26, Blood Urea Nitrogen 8, Creatinine 1.1, Estimat Glomerular Filtration Rate , Glucose Level 97, Calcium Level 7.8L 6/26/18 06:00: Stool Occult Blood Negative Height (Feet): 5 Height (Inches): 4.00 Weight (Pounds): 196 General Appearance: no apparent distress, alert Neurologic: alert, responsive, depressed affect Onofre Dominguez M.D. Nov 15, 2017 23:07
--- NOTE | 2017-11-16 09:23 | Discharge Summary ---
Discharge Summary Discharge Summary _ DATE OF ADMISSION: 11/11/2017 DATE OF DISCHARGE: 11/15/2017 REASON FOR ADMISSION: 87 years old female with past medical history significant for hypertension, pacemaker, presented with the complaint of nausea and abdominal pain. Patient denied vomiting . Patient denied fever, chills, diarrhea. Patient denied chest pain. Vital signs were stable except elevated blood pressure 161/71. Laboratory workup revealed no leukocytosis, anemia with hemoglobin 9.1 hematocrit 27.8. BUN14 creatinine 1.2, LFT stable Troponin negative Lipase within normal limits Chest x-ray revealed no acute cardiopulmonary pathology CT scan of abdomen and pelvis revealed no acute intra-abdominal pathology EKG revealed normal sinus rhythm, no acute ischemic changes. Patient was admitted with diagnosis of abdominal pain,. dehydration, anemia, hypertension. CONSULTANTS: GI specialist Dr. Day carbon brusher assembler/oncologist Dr. Durbin psychiatrist [facility] COURSE: Patient admitted. Patient started on intravenous hydration. GI and hematology consults requested. Pain management was addressed. Bowel regimen instituted. Antiemetics provided as needed. GI prophylaxis provided. Stool for occult blood was negative x 2, HIV test negative GI recommended to hold GI procedure for now, could be done as outpatient. Hemoglobin and hematocrit were closely monitored width goal to keep hemoglobin above 7. Hemoglobin and hematocrit remained stable. Anemia workup was consistent with anemia of chronic disease, folate and B12 deficiency. Patient started on replacement of B12 and folate. DVT prophylaxis provided. Patient had a large bowel movement. CA-19-9 within normal limits. Serum protein electrophoresis abnormal. Blood pressure was managed with current regimen and remained stable. Abdominal pain and nausea resolved after bowel movement Psychiatrist seen and evaluated, diagnosed patient with anxiety disorder. Psychiatric medication regimen optimized as per psychiatrist recommendations Patient clinically improved and was stable for discharge home FINAL DIAGNOSES: Abdominal pain likely secondary to constipation Dehydration Folate and B12 deficiency Anemia of chronic disease Hypertension Pacemaker Hypoalbuminemia Abnormal SPEP Pyuria with UTI DISCHARGE MEDICATIONS: See Medication Reconciliation list. DISCHARGE INSTRUCTIONS: Patient was discharged home. Outpatient follow-up with the primary care provider next week. Further workup for abnormal serum protein electrophoresis as per primary care provider I have been assigned to dictate discharge summary for this account. I was not involved in the patient's management. Asia Craig NP Nov 16, 2017 09:23
== END 2017-11-15 16:00 | disposition home or self-care (01) | DRG 392 ==
LOC: EDBD 16:13 → EMR 16:27 → 4W 17:25 → EDBEDREQ 17:37 → 3E 11-12 15:32 → 4E 11-15 11:00
DX: K59.00 Constipation, unspecified (principal); N39.0 Urinary tract infection, site not specified; R10.9 Unspecified abdominal pain; E88.09 Other disorders of plasma-protein metabolism, not elsewhere classified; E86.0 Dehydration; R11.0 Nausea; Z95.0 Presence of cardiac pacemaker; I10 Essential (primary) hypertension; E53.8 Deficiency of other specified B group vitamins; D63.8 Anemia in other chronic diseases classified elsewhere; Z88.6 Allergy status to analgesic agent; Z88.1 Allergy status to other antibiotic agents; Z90.49 Acquired absence of other specified parts of digestive tract; F41.9 Anxiety disorder, unspecified
CPT/HCPCS: 36415; 71045; 74176; 76700; 80048; 80053; 81003; 81050; 82150; 82270; 82378; 82550; 82553; 82607; 82746; 82784; 83540; 83550; 83690; 83735; 84100; 84165; 84484; 85025; 85651; 85730; 86140; 86334; 86703; 86705; 86709; 86803; 87086; 87181; 87340; 93005; 99285; J2405; S0077

== ENCOUNTER 2018-10-14 13:09 | Inpatient (IN) | payer MEDICARE, MEDICAID ==
[~2018-10-14] VITALS: Ht 162.6 cm; Wt 83.2 kg
[~2018-10-14 13:09] MED LIST changes: +LEVAQUIN250 M1 ORAL; +METRONIDAZOLE500 MG ORAL; +NORVASC10 MG ORAL
--- NOTE | 2018-10-14 13:10 | NUR ---
ED Nurse Note: PT BROUGHT IN BY AMBULANCE FROM HOME. AOX4. PT C/O RECTAL BLEEDING X THIS AM. PER EMS, PT WAS ADMITTED TO [facility] X 1 WEEK AGO FOR THE SAME REASON. PT STATES BLEEDING NEVER RESOLVED BUT SHE WAS DISCHARGED FROM THE HOSPITAL. AT [facility], PT IS ACTIVELY BLEEDING FROM RECTUM. PT TACHYCARDIC AND HYPOTENSIVE ON ASSESSMENT, DR STEELE AWARE.
--- NOTE | 2018-10-14 13:12 | NUR ---
ED Nurse Note: REPORT GIVEN TO JACQUELYN FELTON.
--- NOTE | 2018-10-14 13:26 | Emergency Room Report ---
History of Present Illness General Chief Complaint: Gastrointestinal Bleed Source: Patient, EMS Present Illness HPI Patient presents with red blood being passed per rectum. She was constipated all last week. She denies taking a blood thinner at this time. She believes it is from straining that she has the bright red blood that she's passing. She denies pain. In addition she's had multiple falls. She was recently admitted to the hospital and discharged supposedly with home health care however apparently this is following through. She's been home by herself. She denies any loss of consciousness when she falls but she has multiple bruises and scrapes on her body. She states her tetanus is up-to-date. She denies constipation at this time or abdominal pain. In addition she denies vomiting, dysuria headache. Daughter states had bruising when discharged from [facility]. Blood thinner stopped. Allergies: Coded Allergies: AMOXICILLIN (Verified Allergy, Unknown, 09/06/12) CODEINE (Verified Allergy, Unknown, 09/06/12) HYDROCODONE (Verified Allergy, Unknown, 09/06/12) Patient History Past Medical History: see triage record Past Surgical History: pacemaker, other - Hernia repair Social History: Denies: smoking, alcohol use, drug use Social History Narrative born [place] - at home with her daughter Reviewed Nursing Documentation: PMH: Agreed; PSxH: Agreed Nursing Documentation-PMH Hx Cardiac Problems: Yes Hx Hypertension: Yes Hx Pacemaker: Yes - Left Hx Diabetes: No Hx Cancer: No Hx Gastrointestinal Problems: Yes Hx Dialysis: No Hx Neurological Problems: Yes Hx Cerebrovascular Accident: No Hx Dementia: No Hx Alzheimer's Disease: No Hx Parkinson's Disease: No Hx Seizures: No Hx Headaches: Yes Review of Systems All Other Systems: negative except mentioned in HPI Physical Exam Vital Signs Date Time Temp Pulse Resp B/P (MAP) Pulse Ox O2 Delivery O2 Flow Rate FiO2 10/14/18 13:05 97.3 110 23 91/49 (63) 88 Room Air Sp02 EP Interpretation: reviewed, normal General Appearance: well appearing, no apparent distress Head: normocephalic, other - Hematoma forehead Eyes: bilateral eye PERRL, bilateral eye conjunctivae pale ENT: moist mucus membranes Neck: supple Respiratory: lungs clear, normal breath sounds, other - Occasional rhonchorous cough Cardiovascular #1: regular rate, rhythm Cardiovascular #2: 2+ radial (R) Gastrointestinal: non tender, soft, no mass, non-distended, overweight Rectal: other - Fairly brisk ongoing bleeding with either hemorrhoids or rectal mass present and there is tenderness no fluctuance Musculoskeletal: back normal, digits/nails normal, normal range of motion, other - CT scan Neurologic: motor strength/tone normal, DTRs symmetric, sensory intact, cerebellar normal, speech normal, no Babinski, oriented - X2 Psychiatric: mood/affect normal Skin: warm/dry, abrasions - Right elbow, hematoma - Multiple on all extremities and head Procedures Critical Care Time Critical Care Time Total Critical Care Time: 60 min bedside evaluation and treatment excludes procedures (EKG). Reason for critical care: Lower GI bleed, blood transfusion, institution of antibiotics, treatment of hypokalemia, multiple falls Possible complications: hypotension, hypertension, DC, shock, arrhythmias, metabolic acidosis, end organ damage, respiratory failure. Interventions: Blood transfusion, multiple consultations, repeat evaluations, treatment of low potassium, antibiotics Course: Patient presented with possible lower GI bleed. Exam identifies rectum as source of ongoing bleeding with possible hemorrhoids or mass. Discussed with daughters. In addition multiple bruising from falls. Nonfocal neurologic exam excludes need for CT of head. Due to brisk bleeding and level of anemia blood bank called and blood transfusion begun after informed consent by me. Discussed with admitting physician and obtain names for surgeon and GI specialist. A second GI specialist discussed her care. Low potassium was replaced IV. Discussed with family a second time. surgical services asst consult submitted. Patient tolerating blood transfusion without difficulty. Consultations: nursing staff, EMS, family, admitting MD, GI consultants X 2, surgeon, social media sr strategy manager Performed by: Dr. Botello Tolerated well condition = critical Medical Decision Making Diagnostic Impression: Primary Impression: Lower GI bleed Additional Impressions: Multiple falls Hypokalemia Pleural effusion, left UTI (urinary tract infection) Qualified Codes: N39.0 - Urinary tract infection, site not specified ER Course Patient presents with rectal rectal bleeding and bruising. The rectal bleeding is brisk. Differential includes diverticulitis versus mass versus hemorrhoid however this almost looks arterial. Patient will most likely need blood transfusion and also emergent consultation from surgery and gastroenterology. She'll be evaluated with EKG, chest x-ray, abdominal film and labs. EKG with out acute injury. Chest x-ray possible left infiltrates, left-sided effusion. Abdominal film with surgical clips and increased stool load no obstruction. Initial hemoglobin 7.7. With active bleeding blood is ordered to start transfusing. Emergent consultation with GI surgery is undertaken. Contact Dr. Richardson, Dr. Norwood, Dr. Pratt and Dr. Day Potassium low - replacing. IV. Antibiotics started and blood cultures ordered. This is to cover UTI and possible left pneumonia. Dr. Gore requests Golytely to start. Discussed the need for emergent scoping to identify source of bleeding and stop it. Discussed with daughters. Patient admitted to stepdown unit Dr. Richardson. Laboratory Tests Test 10/14/18 14:00 White Blood Count 5.8 K/UL (4.8-10.8) Red Blood Count 2.44 M/UL (4.20-5.40) L Hemoglobin 7.7 G/DL (12.0-16.0) L Hematocrit 24.1 % (37.0-47.0) L Mean Corpuscular Volume 99 FL (80-99) Mean Corpuscular Hemoglobin 31.6 PG (27.0-31.0) H Mean Corpuscular Hemoglobin Concent 32.1 G/DL (32.0-36.0) Red Cell Distribution Width 15.8 % (11.6-14.8) H Platelet Count 241 K/UL (150-450) Mean Platelet Volume 5.4 FL (6.5-10.1) L Neutrophils (%) (Auto) % (45.0-75.0) Lymphocytes (%) (Auto) % (20.0-45.0) Monocytes (%) (Auto) % (1.0-10.0) Eosinophils (%) (Auto) % (0.0-3.0) Basophils (%) (Auto) % (0.0-2.0) Neutrophils % (Manual) Pending Lymphocytes % (Manual) Pending Platelet Estimate Pending Platelet Morphology Pending Prothrombin Time 12.2 SEC (9.30-11.50) H Prothrombin Time INR 1.2 (0.9-1.1) H PTT 36 SEC (23-33) H Urine Color Pale yellow Urine Appearance Slightly cloudy Urine pH 5 (4.5-8.0) Urine Specific [place] 1.020 (1.005-1.035) Urine Protein 2+ (NEGATIVE) H Urine Glucose (UA) Negative (NEGATIVE) Urine Ketones 2+ (NEGATIVE) H Urine Blood 5+ (NEGATIVE) H Urine Nitrite Negative (NEGATIVE) Urine Bilirubin Negative (NEGATIVE) Urine Urobilinogen Normal MG/DL (0.0-1.0) Urine Leukocyte Esterase 2+ (NEGATIVE) H Urine RBC 5-10 /HPF (0 - 2) H Urine WBC 5-10 /HPF (0 - 2) H Urine Squamous Epithelial Cells Moderate /LPF (NONE/OCC) H Urine Bacteria Few /HPF (NONE) Sodium Level 136 MMOL/L (136-145) Potassium Level 2.6 MMOL/L (3.5-5.1) *L Chloride Level 101 MMOL/L (98-107) Carbon Dioxide Level 29 MMOL/L (21-32) Anion Gap 6 mmol/L (5-15) Blood Urea Nitrogen 20 mg/dL (7-18) H Creatinine 1.2 MG/DL (0.55-1.30) Estimate Glomerular Filtration Rate mL/min (>60) Glucose Level 100 MG/DL (74-106) Calcium Level 9.8 MG/DL (8.5-10.1) Magnesium Level 1.3 MG/DL (1.8-2.4) L Total Bilirubin 0.5 MG/DL (0.2-1.0) Aspartate Amino Transferase (AST) 22 U/L (15-37) Alanine Aminotransferase (ALT) 13 U/L (12-78) Alkaline Phosphatase 50 U/L (46-116) Total Creatine Kinase 20 U/L (26-308) L Troponin I 0.030 ng/mL (0.000-0.056) Total Protein 11.7 G/DL (6.4-8.2) H Albumin 1.9 G/DL (3.4-5.0) L Globulin 9.8 g/dL Albumin/Globulin Ratio 0.2 (1.0-2.7) L Lipase 93 U/L (73-393) EKG Diagnostic Results Rate: normal Rhythm: NSR ST Segments: no acute changes - bifascicular block, LAD RBBB Rhythm Strip Diag. Results EP Interpretation: yes Rhythm: NSR, no PVC's, no ectopy Chest X-Ray Diagnostic Results Chest X-Ray Diagnostic Results : Chest X-Ray Ordered: Yes # of Views/Limited/Complete: 1 View Indication: Other Interpretation: no effusion, no pneumothorax, other - L effusion, pacer Impression: Other Electronically Signed by: Electronically signed by Kaden Botello MD Other X-Ray Diagnostic Results Other X-Ray Diagnostic Results : X-Ray ordered: abf # of Views/Limited Vs Complete: 2 View Indication: Other EP Interpretation: Yes Interpretation: nonspecific bowel gas, no sbo, other - increased stool Impression: Other Electronically Signed by: Electronically signed by Kaden Botello MD Last Vital Signs Date Time Temp Pulse Resp B/P (MAP) Pulse Ox O2 Delivery O2 Flow Rate FiO2 10/14/18 19:00 Room Air 10/14/18 17:35 97.5 65 18 97/41 97 Status: improved Disposition: ADMITTED INPATIENT Condition: Critical Kaden Botello MD October 14, 2018 13:26
[2018-10-14] MEDS ORDERED: Bacitracin Oint UD TOPIC ONE (13:30)
[2018-10-14] MEDS ORDERED: Sodium Chloride 550 ML IV SCH (13:30)
[2018-10-14 14:30] VITALS: BP 118/67
--- NOTE | 2018-10-14 14:35 | NUR ---
ED Nurse Note: Noted a large amount of bright red blood with clots from rectum. Dr Botello at the bed side. Pt pale but stable VS at this time.
--- NOTE | 2018-10-14 14:37 | Diagnostic Imaging Report ---
EXAM: XR Abdomen, 2 Views CLINICAL HISTORY: ABD PAIN TECHNIQUE: Frontal view of the abdomen/pelvis with upright view of the abdomen. COMPARISON: CT abdomen and pelvis dated 12/03/17. Abdominal x-rays dated 12/08/15 FINDINGS: Lower thorax: Cardiac pacer lead in the cardiac apex. Intraperitoneal space: No free air. Gastrointestinal tract: Fecal retention throughout the sigmoid colon and rectum, which may suggest constipation and/or impaction. Mild diffuse gaseous distention of small bowel and colonic loops. Organs: Surgical clips in the right upper abdominal quadrant suggest prior cholecystectomy. The renal shadows appear unremarkable. No evidence of organomegaly. No abnormal calcifications in the abdomen or pelvis. Bones/joints: No visible fracture below the diaphragm. Multilevel degenerative changes throughout the visualized spine. Degenerative changes in bilateral SI joints and hip joints. IMPRESSION: 1. Fecal retention throughout the sigmoid colon and rectum, which may suggest constipation and/or impaction. 2. Mild diffuse gaseous distention of small bowel and colonic loops.
--- NOTE | 2018-10-14 14:43 | Diagnostic Imaging Report ---
EXAM: XR Chest, 1 View CLINICAL HISTORY: ABD PAIN TECHNIQUE: Frontal view of the chest. COMPARISON: Chest x-rays dated 11/11/17 FINDINGS: Lungs: Left lung base/retrocardiac opacity which may represent atelectasis versus pneumonia. Pleural space: Blunting of the left costophrenic angle suggesting a small left pleural effusion. Heart: Unremarkable. No cardiomegaly. Mediastinum: Unremarkable. Bones/joints: Degenerative changes throughout the visualized spine and shoulder joints. Chronic healed fracture deformities along multiple lateral right ribs. Vasculature: Atherosclerotic calcifications within the aortic arch. Tubes, lines and devices: Cardiac pacer in the left chest wall with the lead tips in the right atrium and right ventricle regions. Upper abdomen: Surgical clips in the right upper abdominal quadrant suggest prior cholecystectomy. IMPRESSION: 1. Small left pleural effusion. 2. Left lung base/retrocardiac opacity which may represent atelectasis versus pneumonia.
[2018-10-14 14:48] LABS: APPEARANCE,URINE SLIGHTLY CLOUDY; BILIRUBIN, URINE NEGATIVE (NEGATIVE); COLOR,URINE PALE YELLOW; GLUCOSE, URINE (UA) NEGATIVE (NEGATIVE); KETONES,URINE 2+ (NEGATIVE); LEUKOCYTE ESTERASE ,URINE 2+ (NEGATIVE); NITRITE,URINE NEGATIVE (NEGATIVE); PH,URINE 5 (4.5-8.0); PROTEIN,URINE 2+ (NEGATIVE); UROBILINOGEN,URINE NORMAL MG/DL (0.0-1.0)
[2018-10-14 14:50] LABS: HEMATOCRIT 24.1 % (37.0-47.0); HEMOGLOBIN 7.7 G/DL (12.0-16.0); MEAN CORPUSCULAR VOLUME 99 FL (80-99); PLATELET COUNT 241 K/UL (150-450); RED BLOOD COUNT 2.44 M/UL (4.20-5.40); RED CELL DISTRIBUTION WIDTH 15.8 % (11.6-14.8); WHITE BLOOD COUNT 5.8 K/UL (4.8-10.8)
--- NOTE | 2018-10-14 14:55 | NUR ---
ED Nurse Note: Pt provided with ice chips. Dr Botello aware.
[2018-10-14 14:56] LABS: INR 1.2 (0.9-1.1)
--- NOTE | 2018-10-14 15:00 | NUR ---
ED Nurse Note: Dr Botello explaiend to pt about benefits of blood transfusion and she verbalized understanding of teachings. Consent signed by pt for blood transfusion.
--- NOTE | 2018-10-14 15:10 | NUR ---
ED Nurse Note: Pt refused for RN to inspect her shoulder bag for belongings inventory.
[2018-10-14 15:11] LABS: ALANINE AMINOTRANSFERASE 13 U/L (12-78); ALBUMIN 1.9 G/DL (3.4-5.0); ALBUMIN/GLOBULIN RATIO 0.2 (1.0-2.7); ALKALINE PHOSPHATASE 50 U/L (46-116); ANION GAP 6 mmol/L (5-15); ASPARTATE AMINO TRANSFERASE 22 U/L (15-37); BILIRUBIN,TOTAL 0.5 MG/DL (0.2-1.0); BLOOD UREA NITROGEN 20 mg/dL (7-18); CALCIUM 9.8 MG/DL (8.5-10.1); CARBON DIOXIDE 29 MMOL/L (21-32); CHLORIDE 101 MMOL/L (98-107); CREATINE KINASE 20 U/L (26-308); CREATININE 1.2 MG/DL (0.55-1.30); SODIUM 136 MMOL/L (136-145)
[2018-10-14 15:16] LABS: POTASSIUM 2.6 MMOL/L (3.5-5.1)
[2018-10-14] MEDS ORDERED: Cefepime HCl 1 GM in D5W 55 ML IVPB ONE (15:30)
[2018-10-14] MEDS ORDERED: Nulytely 4L ORAL ONE ×2 (16:00→20:00)
--- NOTE | 2018-10-14 16:28 | NUR ---
ED Nurse Note: RN informed pt to report any s/sx of alllergic reactions like itchiness, CP, SOB or swelling thus we can stop the transfuison at any given time. Pt verbalized understanding of teachings.
[2018-10-14 16:30] VITALS: BP 98/37
--- NOTE | 2018-10-14 16:45 | NUR ---
ED Nurse Note: Pt did not have any s/sx of transfusion reaction after 15 mins of transfusing the blood.
--- NOTE | 2018-10-14 17:20 | NUR ---
ED Nurse Note: Report given to Floyd VALLADARES of SDU.
--- NOTE | 2018-10-14 18:00 | NUR ---
NURSE NOTES: Received report from JACQUELYN Montgomery. Patient is resting in bed, in stable condition. No s/sx of SOB, breathing is even and unlabored. Patient arrived with noted bruises peripherally and on head with small bump noted. Alert and oriented x 4 with moments of forgetfulness. R elbow abrasion noted, possible sacral DTI noted. Charge nurse reviewed. 1 Unit of PRBC noted transfusing, no adverse reaction noted. Bed is in lowest position, brakes engaged. Call light is kept within easy reach. Will continue to monitor patient.
--- NOTE | 2018-10-14 18:30 | NUR ---
NURSE NOTES: Dr. Gore at bedside performed digital disimpaction. Patient tolerated procedure. Noted. Will continue to monitor patient.
--- NOTE | 2018-10-14 19:12 | NUR ---
NURSE NOTES: Received patient from Floyd VALLADARES. Patient is resting in bed with no signs of distress or adverse reactions to her blood transfusion. Bed in its lowest position, call light in reach, and x3 bed rails up. Will continue to monitor.
--- NOTE | 2018-10-14 19:30 | NUR ---
NURSE NOTES: Left a message with Dr Richardson to get admitting order. Addendum: 10/15/18 at 0429 by Maik Rayo RN Duplicate note
--- NOTE | 2018-10-14 19:30 | NUR ---
NURSE NOTES: Called and left a message for Dr. Richardson for admitting orders. Waiting for orders.
--- NOTE | 2018-10-14 19:32 | NUR ---
HAND-OFF: Report given to JACQUELYN Pleitez.
--- NOTE | 2018-10-14 19:34 | NUR ---
Dr Richardson called back and said Dr Phillips will be taking the case.
[2018-10-14 20:00] VITALS: BP 118/62
--- NOTE | 2018-10-14 20:10 | NUR ---
NURSE NOTES: Left a message with Dr Phillips for admitting orders.
--- NOTE | 2018-10-14 20:15 | NUR ---
Dr. Monge called back for Dr. Phillips and gave admitting orders. Orders read back to Dr Monge
[2018-10-14] MEDS ORDERED: Metoclopramide 10mg/2ml Inj IVP PRN (21:00)
[2018-10-14] MEDS ORDERED: Mylanta II UD 30ml ORAL PRN (21:00)
[2018-10-14] MEDS ORDERED: Morphine Sulfate 2mg/ml Inj(IV/IM USE ONLY) IVP PRN (21:00)
[2018-10-14] MEDS ORDERED: LORazepam Inj 2mg/ml 1ml IV PRN (21:00)
--- NOTE | 2018-10-14 21:34 | General Progress Note ---
Assessment/Plan Assessment/Plan: Assessment - Maroon stools/LGIB - suspect diverticular - Patient refusing GI preparation for colonoscopy - will notify DTR Recommendations - Serial CBC - transfuse PRN - keep NPO - will ask DTR to convince patient to take GI prep - GI procedure not scheduled at this time until patient agrees to take GI prep Subjective Allergies: Coded Allergies: AMOXICILLIN (Verified Allergy, Unknown, 09/06/12) CODEINE (Verified Allergy, Unknown, 09/06/12) HYDROCODONE (Verified Allergy, Unknown, 09/06/12) Objective Last 24 Hour Vital Signs Date Time Temp Pulse Resp B/P (MAP) Pulse Ox O2 Delivery O2 Flow Rate FiO2 10/14/18 19:00 Room Air 10/14/18 17:35 97.5 65 18 97/41 97 Room Air 10/14/18 16:45 97.5 70 18 10/14/18 16:30 97.1 65 20 98/37 97 Room Air 10/14/18 16:30 97.1 65 20 10/14/18 15:17 68 16 Room Air 10/14/18 14:30 97.3 63 14 118/67 94 Room Air 10/14/18 13:05 97.3 110 23 91/49 (63) 88 Room Air Laboratory Tests 10/14/18 14:00: White Blood Count 5.8, Red Blood Count 2.44L, Hemoglobin 7.7L, Hematocrit 24.1L , Mean Corpuscular Volume 99, Mean Corpuscular Hemoglobin 31.6H, Mean Corpuscular Hemoglobin Concent 32.1, Red Cell Distribution Width 15.8H, Platelet Count 241, Mean Platelet Volume 5.4L, Neutrophils (%) (Auto) , Lymphocytes (%) (Auto) , Monocytes (%) (Auto) , Eosinophils (%) (Auto) , Basophils (%) (Auto) , Differential Total Cells Counted 100, Neutrophils % ( Manual) 71, Lymphocytes % (Manual) 24, Monocytes % (Manual) 3, Eosinophils % ( Manual) 1, Basophils % (Manual) 1, Band Neutrophils 0, Platelet Estimate Adequate, Platelet Morphology Normal, Hypochromasia 1+, Anisocytosis 1+, Prothrombin Time 12.2H, Prothromb Time International Ratio 1.2H, Activated Partial Thromboplast Time 36H, Urine Color Pale yellow, Urine Appearance Slightly cloudy, Urine pH 5, Urine Specific [place] 1.020, Urine Protein 2+H, Urine Glucose (UA) Negative, Urine Ketones 2+H, Urine Blood 5+H, Urine Nitrite Negative, Urine Bilirubin Negative, Urine Urobilinogen Normal, Urine Leukocyte Esterase 2+H, Urine RBC 5-10H, Urine WBC 5-10H, Urine Squamous Epithelial Cells ModerateH, Urine Bacteria Few, Sodium Level 136, Potassium Level 2.6*L, Chloride Level 101, Carbon Dioxide Level 29, Anion Gap 6, Blood Urea Nitrogen 20H, Creatinine 1.2, Estimat Glomerular Filtration Rate , Glucose Level 100, Calcium Level 9.8, Magnesium Level 1.3L, Total Bilirubin 0.5, Aspartate Amino Transf (AST/SGOT) 22, Alanine Aminotransferase (ALT/SGPT) 13, Alkaline Phosphatase 50, Total Creatine Kinase 20L, Troponin I 0.030, Total Protein 11.7H , Albumin 1.9L, Globulin 9.8, Albumin/Globulin Ratio 0.2L, Lipase 93 10/14/18 16:15: Lactic Acid Level 1.40 Height (Feet): 5 Height (Inches): 5.00 Weight (Pounds): 165 Carmen Gore MD October 14, 2018 21:33
[2018-10-14] MEDS ORDERED: Pantoprazole Inj IV SCH (22:00)
[2018-10-14] MEDS ORDERED: HydrALAZINE 10mg Tab ORAL PRN (22:15)
--- NOTE | 2018-10-14 23:30 | NUR ---
NURSE NOTES: Magnesium not in the pyxis system yet. Will check back.
[2018-10-15] VITALS: BP 117/58
[2018-10-15] MEDS ORDERED: Pantoprazole 80 MG in NS 250 ML IV SCH (02:00)
--- NOTE | 2018-10-15 02:00 | Consultation ---
DATE OF CONSULTATION: 10/14/2018 GASTROLOGY CONSULTATION CONSULTING PHYSICIAN: Carmen Gore M.D. CHIEF COMPLAINT: I was asked to see this patient by Dr. Gilmer Richardson for evaluation of gastrointestinal bleeding. HISTORY OF PRESENT ILLNESS: The patient is an 88-year-old woman, who was brought in by her daughter due to hematochezia. The patient states that she has been only having bleeding for about 1 day. She denies abdominal pain, nausea, or vomiting. She claims she has had a colonoscopy earlier this year, but the daughter, who would have to drive her says she cannot recall any such procedure. The patient also has complaints of current constipation and stool impaction. The patient was noted to have maroon coloured stools and was brought in for evaluation. PAST MEDICAL HISTORY: History of renal insufficiency, history of AV block requiring a pacemaker placement, history of anemia, migraines, palpitations, weakness, arthralgias, and constipation. FAMILY HISTORY: Noncontributory. SOCIAL HISTORY: The patient does now live with her daughter. She denies smoking or drinking. REVIEW OF SYSTEMS: Otherwise negative. PHYSICAL EXAMINATION: GENERAL: A pleasant woman seen in her room. HEENT: Normocephalic and atraumatic. Sclerae anicteric. NECK: Supple. CHEST: Clear to auscultation. CARDIOVASCULAR: Revealed a regular rate. ABDOMEN: Soft. EXTREMITIES: Revealed no edema. RECTAL: Showed impacted stool, which is disimpacted. There were also maroon stools noted around the impaction. LABORATORY DATA: Laboratory data were noted. ASSESSMENT: This patient presented with gastrointestinal bleeding, which is likely lower. In this age group, the typical cause is diverticulosis, which resolved spontaneously. I have instructed the patient and her daughter regarding the indications, risks, alternatives, and possible complications of endoscopy and colonoscopy. Plans have been made to proceed with the procedure tomorrow, but the patient at this time is still refusing the preparation. This was discussed with the patient's family. RECOMMENDATIONS: 1. Keep the patient NPO. 2. IV fluids. 3. Replace electrolytes. 4. GI tract lavage. 5. Endoscopy and colonoscopy. Thank you for asking me to participate in the care of this patient. Carmen Gore M.D. DR: BARBI JOB#: [id number] CC:
--- NOTE | 2018-10-15 03:30 | NUR ---
NURSE NOTES: I called [employer] because magnesium medication is not available for selection when pulling medications. Solution is to reorder medication due to the time allowed for the medication to be pulled being .
[2018-10-15] MEDS: Pantoprazole 80 MG in NS 250 ML IV SCH ×4 (03:40→22:45)
[2018-10-15 03:53] VITALS: BP 119/52
--- NOTE | 2018-10-15 04:00 | NUR ---
NURSE NOTES: Magnesium is unavailable in [employer] computer system. Charge nurse notified. Magnesium reordered to administer to patient.
[2018-10-15 06:06] LABS: BASOPHILS % (AUTO) 0.4 % (0.0-2.0); EOSINOPHILS % (AUTO) 0.8 % (0.0-3.0); HEMATOCRIT 23.5 % (37.0-47.0); HEMOGLOBIN 8.2 G/DL (12.0-16.0); LYMPHOCYTES % (AUTO) 23.2 % (20.0-45.0); MEAN CORPUSCULAR VOLUME 92 FL (80-99); NEUTROPHILS % (AUTO) 68.7 % (45.0-75.0); PLATELET COUNT 181 K/UL (150-450); RED BLOOD COUNT 2.57 M/UL (4.20-5.40); RED CELL DISTRIBUTION WIDTH 16.2 % (11.6-14.8); WHITE BLOOD COUNT 5.2 K/UL (4.8-10.8)
[2018-10-15 06:35] LABS: ALANINE AMINOTRANSFERASE 16 U/L (12-78); ALBUMIN 1.9 G/DL (3.4-5.0); ALBUMIN/GLOBULIN RATIO 0.2 (1.0-2.7); ALKALINE PHOSPHATASE 50 U/L (46-116); ANION GAP 6 mmol/L (5-15); ASPARTATE AMINO TRANSFERASE 27 U/L (15-37); BILIRUBIN,TOTAL 0.6 MG/DL (0.2-1.0); BLOOD UREA NITROGEN 24 mg/dL (7-18); CALCIUM 9.8 MG/DL (8.5-10.1); CARBON DIOXIDE 27 MMOL/L (21-32); CHLORIDE 102 MMOL/L (98-107); CREATININE 1.5 MG/DL (0.55-1.30); POTASSIUM 2.9 MMOL/L (3.5-5.1); SODIUM 135 MMOL/L (136-145)
[2018-10-15 06:38] LABS: INR 1.1 (0.9-1.1)
[2018-10-15] MEDS: D5 1/2NS w/KCl 40meq 1000ml 1,000 ML IV SCH ×3 (06:50→17:05)
--- NOTE | 2018-10-15 07:18 | NUR ---
HAND-OFF: Report given to Floyd VALLADARES.
--- NOTE | 2018-10-15 07:28 | NUR ---
NURSE NOTES: Received report from JACQUELYN Pleitez. Patient is resting in bed, in stable condition. No s/sx of SOB, breathing is even and unlabored. Denies any presence of pain or discomfort at this time. Bed is in lowest position, brakes engaged. Call light is kept within easy reach. Will continue to monitor patient.
[2018-10-15 08:00] VITALS: BP 111/46
[2018-10-15] MEDS ORDERED: NS 275ml ONE ×2 (08:11→15:01)
[2018-10-15] MEDS ORDERED: Tubing IV Secondary IV ONE (08:11)
--- NOTE | 2018-10-15 08:27 | NUR ---
NURSE NOTES: Dr. Gore at patient bedside. Discussed NG tube insertion with patient. Per patient agreed to NG tube insertion. Order entered, noted, and carried out. Will continue to monitor patient.
--- NOTE | 2018-10-15 08:32 | NUR ---
NURSE NOTES: Patient alert oriented x 4. At bedside, explained to patient will attempt to insert NG tube. Patient refused. Dr. Gore at nurse station. MD acknowledged. No new orders given at this time. Will continue to monitor patient.
[2018-10-15] MEDS ORDERED: Pantoprazole Inj IVP SCH (09:00)
--- NOTE | 2018-10-15 09:14 | NUR ---
NURSE NOTES: Shanae, patient's daughter, spoke with patient via telephone regarding NG tube insertion. Patient still refuses NG tube insertion, respected patient rights. Charge nurse made aware, will make Dr. Gore aware. Patient agreeing to drink GoLytely via oral. Noted. Will continue to monitor patient.
--- NOTE | 2018-10-15 10:12 | General Progress Note ---
Assessment/Plan Assessment/Plan: Assessment - Maroon stools/LGIB - suspect diverticular - no bleeding noted since admission - Patient refusing GI preparation for colonoscopy - patient also refusing NGT to give GI preparation - Elevated Cr and Hypokalemia Recommendations - Serial CBC - transfuse PRN - replace K and watch Cr - Consider renal opinion - keep NPO, continue IVF - will ask DTR to convince patient to take GI prep - GI procedure not scheduled at this time until patient agrees to take GI prep - change PPI to qd Subjective Allergies: Coded Allergies: CODEINE (Verified Allergy, Severe, Anaphylaxis, 10/14/18) Difficulty breathing along with hives per pt daughter HYDROCODONE (Verified Allergy, Severe, Anaphylaxis, 10/14/18) Difficulty breathing along with hives per pt daughter AMOXICILLIN (Verified Allergy, Unknown, 09/06/12) Subjective No BM or rectal bleeding overnight took very little of golytely offered NGT to help with Golytely refused NGT as well RN advised to call daughter to inform her re patient refusals Objective Last 24 Hour Vital Signs Date Time Temp Pulse Resp B/P (MAP) Pulse Ox O2 Delivery O2 Flow Rate FiO2 10/15/18 09:00 Room Air 10/15/18 08:00 98.1 75 20 111/46 (67) 100 10/15/18 08:00 66 10/15/18 04:00 68 10/15/18 03:53 97.6 68 20 119/52 (74) 97 10/15/18 00:00 97.8 70 19 117/58 (77) 98 10/14/18 23:44 68 10/14/18 21:00 Room Air 10/14/18 20:00 96.9 70 22 118/62 (80) 98 10/14/18 19:25 75 10/14/18 19:00 Room Air 10/14/18 17:35 97.5 65 18 97/41 97 Room Air 10/14/18 16:45 97.5 70 18 10/14/18 16:30 97.1 65 20 98/37 97 Room Air 10/14/18 16:30 97.1 65 20 10/14/18 15:17 68 16 Room Air 10/14/18 14:30 97.3 63 14 118/67 94 Room Air 10/14/18 13:05 97.3 110 23 91/49 (63) 88 Room Air Intake and Output 10/14/18 10/15/18 19:00 07:00 Intake Total 655 ml 500 ml Balance 655 ml 500 ml Intake IV Total 655 ml Blood Product 500 ml # Voids 1 # Bowel Movements 1 Laboratory Tests 10/14/18 14:00: White Blood Count 5.8, Red Blood Count 2.44L, Hemoglobin 7.7L, Hematocrit 24.1L , Mean Corpuscular Volume 99, Mean Corpuscular Hemoglobin 31.6H, Mean Corpuscular Hemoglobin Concent 32.1, Red Cell Distribution Width 15.8H, Platelet Count 241, Mean Platelet Volume 5.4L, Neutrophils (%) (Auto) , Lymphocytes (%) (Auto) , Monocytes (%) (Auto) , Eosinophils (%) (Auto) , Basophils (%) (Auto) , Differential Total Cells Counted 100, Neutrophils % ( Manual) 71, Lymphocytes % (Manual) 24, Monocytes % (Manual) 3, Eosinophils % ( Manual) 1, Basophils % (Manual) 1, Band Neutrophils 0, Platelet Estimate Adequate, Platelet Morphology Normal, Hypochromasia 1+, Anisocytosis 1+, Prothrombin Time 12.2H, Prothromb Time International Ratio 1.2H, Activated Partial Thromboplast Time 36H, Urine Color Pale yellow, Urine Appearance Slightly cloudy, Urine pH 5, Urine Specific [place] 1.020, Urine Protein 2+H, Urine Glucose (UA) Negative, Urine Ketones 2+H, Urine Blood 5+H, Urine Nitrite Negative, Urine Bilirubin Negative, Urine Urobilinogen Normal, Urine Leukocyte Esterase 2+H, Urine RBC 5-10H, Urine WBC 5-10H, Urine Squamous Epithelial Cells ModerateH, Urine Bacteria Few, Sodium Level 136, Potassium Level 2.6*L, Chloride Level 101, Carbon Dioxide Level 29, Anion Gap 6, Blood Urea Nitrogen 20H, Creatinine 1.2, Estimat Glomerular Filtration Rate , Glucose Level 100, Calcium Level 9.8, Magnesium Level 1.3L, Total Bilirubin 0.5, Aspartate Amino Transf (AST/SGOT) 22, Alanine Aminotransferase (ALT/SGPT) 13, Alkaline Phosphatase 50, Total Creatine Kinase 20L, Troponin I 0.030, Total Protein 11.7H , Albumin 1.9L, Globulin 9.8, Albumin/Globulin Ratio 0.2L, Lipase 93 10/14/18 16:15: Lactic Acid Level 1.40 10/15/18 04:49: White Blood Count 5.2, Red Blood Count 2.57L, Hemoglobin 8.2L, Hematocrit 23.5L , Mean Corpuscular Volume 92, Mean Corpuscular Hemoglobin 32.0H, Mean Corpuscular Hemoglobin Concent 34.9, Red Cell Distribution Width 16.2H, Platelet Count 181, Mean Platelet Volume 4.9L, Neutrophils (%) (Auto) 68.7, Lymphocytes (%) (Auto) 23.2, Monocytes (%) (Auto) 7.0, Eosinophils (%) (Auto) 0.8, Basophils (%) (Auto) 0.4, Prothrombin Time 12.0H, Prothromb Time International Ratio 1.1, Activated Partial Thromboplast Time 37H, Sodium Level 135L, Potassium Level 2.9L, Chloride Level 102, Carbon Dioxide Level 27, Anion Gap 6, Blood Urea Nitrogen 24H, Creatinine 1.5H, Estimat Glomerular Filtration Rate , Glucose Level 73L, Calcium Level 9.8, Total Bilirubin 0.6, Aspartate Amino Transf (AST/SGOT) 27, Alanine Aminotransferase (ALT/SGPT) 16, Alkaline Phosphatase 50, Total Protein 11.3H, Albumin 1.9L, Globulin 9.4, Albumin/ Globulin Ratio 0.2L Height (Feet): 5 Height (Inches): 5.00 Weight (Pounds): 165 Objective Elderly AA woman NAD NCAT supple CTA RR abd soft ND NT no edema Carmen Gore MD October 15, 2018 10:12
--- NOTE | 2018-10-15 10:25 | NUR ---
RD ASSESSMENT & RECOMMENDATIONS SEE CARE ACTIVITY FOR COMPLETE ASSESSMENT DAILY ESTIMATED NEEDS: Needs based on cardiac, DTI, obese/ 54.5kg adj bw 25-30 kcals/kg 4505-8796 total kcals 1.25-1.5 g protein/kg 68-82 g total protein 20-25 mL/kg 2080-1496 total fluid mLs NUTRITION DIAGNOSIS: *Altered GI function R/T possible GIB as evidenced by pt admitted w/ rectal bleeding, low Hgb<8, NPO for pending colonoscopy. CURRENT DIET: NPO PO DIET RECOMMENDATIONS: Low Fiber/ Low Residual as medically appropriate/ texture as tolerated ---- ADDITIONAL RECOMMENDATIONS: * Calibrated bedscale wt for accurate CBW * WC: add DAVID BID for skin integrity (f/up w/ WC eval) * Monitor GI fxn- admitted w/ rectal bleeding * Lytes daily, replete as needed (Low K 2.6-> 2.9)
[2018-10-15 12:00] VITALS: BP 129/57
[2018-10-15] MEDS ORDERED: XARELTO1 EACH PO (14:07)
--- NOTE | 2018-10-15 14:08 | NUR ---
CASE MANAGEMENT: INITIAL REVIEW 88 YO F BIBA FROM HOME CC: GI BLEED PMHx: HTN. PACER. SI:LOWER GI BLEED. T 97.3 HR 110 RR 23 B/P 91/49 SATS 88% ON RA HGB 7.7 HCT 24.1 K 2.6 BUN 20 MG 1.3 TOTAL CK 20 IS: BACITRACIN TOP X1 NS BOLUS X1 PATIENT ADMITTED TO SDU 10/14/2018 @ 1500 DCP: PATIENT TO BE DISCHARGED TO HOME ONCE MEDICALLY CLEARED. PLAN OF CARE: Serial CBC transfuse PRN keep NPO Endoscopy and colonoscopy
--- NOTE | 2018-10-15 14:08 | NUR ---
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 Per daughter, Shanae and care give Genoveva - patient was taking Xarelto prescribed from previous visit to [facility] [place] one to two weeks ago. Per family, childbirth and infant care teacher and patient states "taking xarelto for heart condition." Denies history of abnormal heart rhythm. Patient states the stopped taking Xarelto. Noted. Will continue to monitor patient.
--- NOTE | 2018-10-15 15:10 | NUR ---
NURSE NOTES: Dr. Norwood at nurse station. Ordered vancomycin IV per pharmacy to dose, Venous duplex bilateral lower extremity. Patient complains of trouble sleeping. Informed Dr. Enma MD acknowledged, ordered Restoril 15mg PO QHS PRN for insomnia. Orders entered, noted, and carried out. Will continue to monitor patient. Addendum: 10/15/18 at 1520 by MOON HURTADO RN NURSE NOTES: Dr. Norwood made aware of potassium level of 2.9, informed patient has order fo D5 05/24 NS with 40 mEq KCl IV at 100 ml/hr. acknowledged. No new orders given at this time. Will continue to monitor patient.
--- NOTE | 2018-10-15 15:20 | History and Physical ---
History of Present Illness General Date patient seen: October 15, 2018 Reason for Hospitalization: Gastrointestinal Bleed Present Illness HPI 88 year old female with PMH of HTN presented with complaints of passing BRB per rectum. States she had constipation and when she finally had a bowel movement noted that she was passing bright red blood yesterday, denies pain. Pt was previously was on anticoagulation for AFib, started at [facility] about 2 weeks ago, pt does not know reason for admission. C/O multiple falls with easy bruising, last fall was about 1 weeks ago, denies head trauma, therefore eliquis was stopped. Pt denies n/v/d, fevers, chills, cough, urinary complaints , headaches, chest pain or SOB. In the ED, pt transfused 2 units PRBC, GI consulted. Allergies: Coded Allergies: CODEINE (Verified Allergy, Severe, Anaphylaxis, 10/14/18) Difficulty breathing along with hives per pt daughter HYDROCODONE (Verified Allergy, Severe, Anaphylaxis, 10/14/18) Difficulty breathing along with hives per pt daughter AMOXICILLIN (Verified Allergy, Unknown, 09/06/12) Medication History Scheduled Amlodipine Besylate (Norvasc), 10 MG ORAL DAILY Atenolol* (Tenormin*), 10 MG ORAL DAILY, (Reported) Cimetidine (Cimetidine*), 300 MG ORAL DAILY, (Reported) Furosemide* (Lasix*), 20 MG ORAL DAILY, (Reported) Levofloxacin* (Levaquin*), 250 MG ORAL DAILY, (Reported) Metronidazole* (Flagyl*), 500 MG ORAL EVERY 8 HOURS, (Reported) Valsartan (Diovan), 320 MG ORAL DAILY, (Reported) Miscellaneous Medications Potassium Chloride (Potassium Chloride), Unknown Dose PO, (Reported) Rivaroxaban (Xarelto), 1 EACH PO, (Reported) Patient History Healthcare decision maker Resuscitation status Full Code Advanced Directive on File Review of Systems Constitutional: Reports: no symptoms Eye: Reports: no symptoms ENT: Reports: no symptoms Respiratory: Reports: no symptoms Cardiovascular: Reports: no symptoms Gastrointestinal: Reports: other - BRBPR Genitourinary: Reports: no symptoms Musculoskeletal: Reports: no symptoms Skin: Reports: no symptoms Psychiatric: Reports: no symptoms Neurological: Reports: no symptoms Endocrine: Reports: no symptoms Hematologic/Lymphatic: Reports: easy bleeding, easy bruising Physical Exam General Appearance: WD/WN, no apparent distress, alert Lines, tubes and drains: peripheral HEENT: normocephalic, atraumatic Neck: non-tender Respiratory/Chest: chest wall non-tender, lungs clear, normal breath sounds Cardiovascular/Chest: normal peripheral pulses, normal rate Abdomen: normal bowel sounds, non tender, soft Extremities: normal range of motion, non-tender Skin Exam: normal pigmentation 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 Musculoskeletal: normal muscle bulk Last 24 Hour Vital Signs Date Time Temp Pulse Resp B/P (MAP) Pulse Ox O2 Delivery O2 Flow Rate FiO2 10/15/18 12:00 97.3 74 20 129/57 (81) 100 10/15/18 12:00 75 10/15/18 09:00 Room Air 10/15/18 08:00 98.1 75 20 111/46 (67) 100 10/15/18 08:00 66 10/15/18 04:00 68 10/15/18 03:53 97.6 68 20 119/52 (74) 97 10/15/18 00:00 97.8 70 19 117/58 (77) 98 10/14/18 23:44 68 10/14/18 21:00 Room Air 10/14/18 20:00 96.9 70 22 118/62 (80) 98 10/14/18 19:25 75 10/14/18 19:00 Room Air 10/14/18 17:35 97.5 65 18 97/41 97 Room Air 10/14/18 16:45 97.5 70 18 10/14/18 16:30 97.1 65 20 98/37 97 Room Air 10/14/18 16:30 97.1 65 20 10/14/18 15:17 68 16 Room Air Intake and Output 10/14/18 10/15/18 18:59 06:59 Intake Total 655 ml 500 ml Balance 655 ml 500 ml Intake IV Total 655 ml Blood Product 500 ml # Voids 1 # Bowel Movements 1 Laboratory Tests Test 10/14/18 16:15 10/15/18 04:49 Lactic Acid Level 1.40 mmol/L (0.4-2.0) White Blood Count 5.2 K/UL (4.8-10.8) Red Blood Count 2.57 M/UL (4.20-5.40) L Hemoglobin 8.2 G/DL (12.0-16.0) L Hematocrit 23.5 % (37.0-47.0) L Mean Corpuscular Volume 92 FL (80-99) Mean Corpuscular Hemoglobin 32.0 PG (27.0-31.0) H Mean Corpuscular Hemoglobin Concent 34.9 G/DL (32.0-36.0) Red Cell Distribution Width 16.2 % (11.6-14.8) H Platelet Count 181 K/UL (150-450) Mean Platelet Volume 4.9 FL (6.5-10.1) L Neutrophils (%) (Auto) 68.7 % (45.0-75.0) Lymphocytes (%) (Auto) 23.2 % (20.0-45.0) Monocytes (%) (Auto) 7.0 % (1.0-10.0) Eosinophils (%) (Auto) 0.8 % (0.0-3.0) Basophils (%) (Auto) 0.4 % (0.0-2.0) Prothrombin Time 12.0 SEC (9.30-11.50) H Prothromb Time International Ratio 1.1 (0.9-1.1) Activated Partial Thromboplast Time 37 SEC (23-33) H Sodium Level 135 MMOL/L (136-145) L Potassium Level 2.9 MMOL/L (3.5-5.1) L Chloride Level 102 MMOL/L (98-107) Carbon Dioxide Level 27 MMOL/L (21-32) Anion Gap 6 mmol/L (5-15) Blood Urea Nitrogen 24 mg/dL (7-18) H Creatinine 1.5 MG/DL (0.55-1.30) H Estimat Glomerular Filtration Rate mL/min (>60) Glucose Level 73 MG/DL (74-106) L Calcium Level 9.8 MG/DL (8.5-10.1) Total Bilirubin 0.6 MG/DL (0.2-1.0) Aspartate Amino Transf (AST/SGOT) 27 U/L (15-37) Alanine Aminotransferase (ALT/SGPT) 16 U/L (12-78) Alkaline Phosphatase 50 U/L (46-116) Total Protein 11.3 G/DL (6.4-8.2) H Albumin 1.9 G/DL (3.4-5.0) L Globulin 9.4 g/dL Albumin/Globulin Ratio 0.2 (1.0-2.7) L Microbiology Date/Time Source Procedure Growth Status 10/14/18 16:00 Blood Blood Culture - Preliminary Resulted Height (Feet): 5 Height (Inches): 5.00 Weight (Pounds): 165 Medications Current Medications Medications (Trade) Dose Ordered Sig/Ary Route PRN Reason Start Time Stop Time Status Last Admin Dose Admin Acetaminophen (Tylenol) 650 mg Q4H PRN ORAL T>100.5/Pain 10/14/18 22:15 11/13/18 20:59 Al Hydroxide/Mg Hydroxide (Mylanta II) 30 ml Q6H PRN ORAL dyspepsia 10/14/18 21:00 11/13/18 20:59 Dextrose (Dextrose 50%) 25 ml Q30M PRN IV Hypoglycemia 10/14/18 21:00 11/13/18 20:59 Dextrose (Dextrose 50%) 50 ml Q30M PRN IV Hypoglycemia 10/14/18 21:00 11/13/18 20:59 Dextrose/ Electrolytes 1,000 ml @ 100 mls/hr Q10H IV 10/14/18 22:00 11/13/18 21:59 10/15/18 06:50 Diphenhydramine HCl (Benadryl) 25 mg Q6H PRN ORAL Itching/Pruritis 10/14/18 21:00 11/13/18 20:59 Hydralazine HCl (Apresoline) 10 mg Q6HR PRN ORAL For High Blood Pressure 10/14/18 22:15 11/13/18 22:14 Lorazepam (Ativan 2mg/ml 1ml) 0.5 mg Q4H PRN IV For Anxiety 10/14/18 21:00 10/21/18 20:59 Metoclopramide HCl (Reglan) 10 mg Q6H PRN IVP Nausea & Vomiting 10/14/18 21:00 11/13/18 20:59 Ondansetron HCl (Zofran) 4 mg Q6H PRN IVP Nausea & Vomiting 10/14/18 21:00 11/13/18 20:59 Pantoprazole 80 mg/Sodium Chloride 250 ml @ 25 mls/hr Q10H IV 10/15/18 02:15 11/14/18 02:14 10/15/18 12:30 Assessment/Plan Assessment/Plan: 88 year old female with PMH of HTN admitted for management if lower GI bleed #GI Bleed -GI consult appreciated -Surgery consult appreciated -Hematology consult appreciated -Plan for Colonoscopy and EGD in AM -Bowel prep tonight -NPO except meds -Serial CBC -Transfuse PRN for Hb <7 -PPI -Cont IVF -Hold AC -SCD for DVT ppx #HTN -hold all antiHTN -PRN hydralazine if needed #CAD #AFib #s/p pacemaker -Hold AC -Cont tele Code status Full Yaneth Norwood MD October 15, 2018 15:20
--- NOTE | 2018-10-15 15:44 | Consultation ---
History of Present Illness General Date patient seen: October 15, 2018 Reason for Hospitalization: Gastrointestinal Bleed Present Illness HPI 88 year old pleasant female with multiple medical comorbidities presented with acute GI bleed as daughter noted blood in BM. Hx of anticoagulation for a fib but stopped given easy bruising. No n/v/f/c. no abdominal pain. otherwise okay. states she feels well. labs noted. surgery called to evaluate. patient seen, chart reviewed, patient examined. no recent prior episodes. Allergies: Coded Allergies: CODEINE (Verified Allergy, Severe, Anaphylaxis, 10/14/18) Difficulty breathing along with hives per pt daughter HYDROCODONE (Verified Allergy, Severe, Anaphylaxis, 10/14/18) Difficulty breathing along with hives per pt daughter AMOXICILLIN (Verified Allergy, Unknown, 09/06/12) Medication History Scheduled Amlodipine Besylate (Norvasc), 10 MG ORAL DAILY Atenolol* (Tenormin*), 10 MG ORAL DAILY, (Reported) Cimetidine (Cimetidine*), 300 MG ORAL DAILY, (Reported) Furosemide* (Lasix*), 20 MG ORAL DAILY, (Reported) Levofloxacin* (Levaquin*), 250 MG ORAL DAILY, (Reported) Metronidazole* (Flagyl*), 500 MG ORAL EVERY 8 HOURS, (Reported) Valsartan (Diovan), 320 MG ORAL DAILY, (Reported) Miscellaneous Medications Potassium Chloride (Potassium Chloride), Unknown Dose PO, (Reported) Rivaroxaban (Xarelto), 1 EACH PO, (Reported) Patient History Limited by: age History Provided By: Patient, Medical Record, PMD Healthcare decision maker Resuscitation status Full Code Advanced Directive on File Past Medical/Surgical History Past Medical/Surgical History: (1) Renal insufficiency (2) ATN (acute tubular necrosis) (3) AV block, 2nd degree (4) HTN (hypertension) (5) Pacemaker (6) Abdominal pain (7) Anemia (8) Hypoalbuminemia (9) Nausea (10) Third degree heart block (11) Migraine (12) Palpitations (13) Headache (14) Weakness (15) Sepsis (16) arthralgia (17) Constipation (18) UTI (urinary tract infection) (19) Lower GI bleed (20) Multiple falls (21) Hypokalemia (22) Pleural effusion, left Review of Systems Review of Symptoms General ROS: no weight loss or fever Psychological ROS: no depression or mood changes, no memory loss Ophthalmic ROS: no visual changes or eye irritation ENT ROS: no nasal congestion, hearing loss, dizziness Allergy and Immunology ROS: no allergic symptoms or urticaria Hematological and Lymphatic ROS: no swollen glands, unusual bleeding or bruising Endocrine ROS: no polyuria, polydipsia, weight changes, temperature intolerance Respiratory ROS: no cough, shortness of breath, or wheezing Cardiovascular ROS: no chest pain or dyspnea on exertion Gastrointestinal ROS: denies abdominal pain, bright red blood in stool. Musculoskeletal ROS: no myalgias or arthralgias Neurological ROS: no TIA or stroke symptoms Dermatological ROS: no new or changing skin lesions, rashes or pruritis Physical Exam Physical Exam General appearance: alert, cooperative, no distress, appears stated age Head: Normocephalic, without obvious abnormality, atraumatic Eyes: conjunctivae/corneas clear. PERRL, EOM's intact. Fundi benign Throat: Lips, mucosa, and tongue normal. Teeth and gums normal Neck: supple, symmetrical, trachea midline, no adenopathy, thyroid: not enlarged, symmetric, no tenderness/mass/nodules, no carotid bruit and no JVD Lungs: clear to auscultation bilaterally Heart: regular rate and rhythm, S1, S2 normal, no murmur, click, rub or gallop Abdomen: soft, non-tender. Bowel sounds normal. No masses, no organomegaly Extremities: extremities normal, atraumatic, no cyanosis or edema Pulses: 2+ and symmetric Skin: Skin color, texture, turgor normal. No rashes or lesions Neurologic: Grossly normal Last 24 Hour Vital Signs Date Time Temp Pulse Resp B/P (MAP) Pulse Ox O2 Delivery O2 Flow Rate FiO2 10/15/18 12:00 97.3 74 20 129/57 (81) 100 10/15/18 12:00 75 10/15/18 09:00 Room Air 10/15/18 08:00 98.1 75 20 111/46 (67) 100 10/15/18 08:00 66 10/15/18 04:00 68 10/15/18 03:53 97.6 68 20 119/52 (74) 97 10/15/18 00:00 97.8 70 19 117/58 (77) 98 10/14/18 23:44 68 10/14/18 21:00 Room Air 10/14/18 20:00 96.9 70 22 118/62 (80) 98 10/14/18 19:25 75 10/14/18 19:00 Room Air 10/14/18 17:35 97.5 65 18 97/41 97 Room Air 10/14/18 16:45 97.5 70 18 10/14/18 16:30 97.1 65 20 98/37 97 Room Air 10/14/18 16:30 97.1 65 20 Intake and Output 10/14/18 10/15/18 18:59 06:59 Intake Total 655 ml 500 ml Balance 655 ml 500 ml Intake IV Total 655 ml Blood Product 500 ml # Voids 1 # Bowel Movements 1 Laboratory Tests Test 10/14/18 16:15 10/15/18 04:49 Lactic Acid Level 1.40 mmol/L (0.4-2.0) White Blood Count 5.2 K/UL (4.8-10.8) Red Blood Count 2.57 M/UL (4.20-5.40) L Hemoglobin 8.2 G/DL (12.0-16.0) L Hematocrit 23.5 % (37.0-47.0) L Mean Corpuscular Volume 92 FL (80-99) Mean Corpuscular Hemoglobin 32.0 PG (27.0-31.0) H Mean Corpuscular Hemoglobin Concent 34.9 G/DL (32.0-36.0) Red Cell Distribution Width 16.2 % (11.6-14.8) H Platelet Count 181 K/UL (150-450) Mean Platelet Volume 4.9 FL (6.5-10.1) L Neutrophils (%) (Auto) 68.7 % (45.0-75.0) Lymphocytes (%) (Auto) 23.2 % (20.0-45.0) Monocytes (%) (Auto) 7.0 % (1.0-10.0) Eosinophils (%) (Auto) 0.8 % (0.0-3.0) Basophils (%) (Auto) 0.4 % (0.0-2.0) Prothrombin Time 12.0 SEC (9.30-11.50) H Prothromb Time International Ratio 1.1 (0.9-1.1) Activated Partial Thromboplast Time 37 SEC (23-33) H Sodium Level 135 MMOL/L (136-145) L Potassium Level 2.9 MMOL/L (3.5-5.1) L Chloride Level 102 MMOL/L (98-107) Carbon Dioxide Level 27 MMOL/L (21-32) Anion Gap 6 mmol/L (5-15) Blood Urea Nitrogen 24 mg/dL (7-18) H Creatinine 1.5 MG/DL (0.55-1.30) H Estimat Glomerular Filtration Rate mL/min (>60) Glucose Level 73 MG/DL (74-106) L Calcium Level 9.8 MG/DL (8.5-10.1) Total Bilirubin 0.6 MG/DL (0.2-1.0) Aspartate Amino Transf (AST/SGOT) 27 U/L (15-37) Alanine Aminotransferase (ALT/SGPT) 16 U/L (12-78) Alkaline Phosphatase 50 U/L (46-116) Total Protein 11.3 G/DL (6.4-8.2) H Albumin 1.9 G/DL (3.4-5.0) L Globulin 9.4 g/dL Albumin/Globulin Ratio 0.2 (1.0-2.7) L Microbiology Date/Time Source Procedure Growth Status 10/14/18 16:00 Blood Blood Culture - Preliminary Resulted Height (Feet): 5 Height (Inches): 5.00 Weight (Pounds): 165 Medications Current Medications Medications (Trade) Dose Ordered Sig/Ary Route PRN Reason Start Time Stop Time Status Last Admin Dose Admin Acetaminophen (Tylenol) 650 mg Q4H PRN ORAL T>100.5/Pain 10/14/18 22:15 11/13/18 20:59 Al Hydroxide/Mg Hydroxide (Mylanta II) 30 ml Q6H PRN ORAL dyspepsia 10/14/18 21:00 11/13/18 20:59 Dextrose (Dextrose 50%) 25 ml Q30M PRN IV Hypoglycemia 10/14/18 21:00 11/13/18 20:59 Dextrose (Dextrose 50%) 50 ml Q30M PRN IV Hypoglycemia 10/14/18 21:00 11/13/18 20:59 Dextrose/ Electrolytes 1,000 ml @ 100 mls/hr Q10H IV 10/14/18 22:00 11/13/18 21:59 10/15/18 06:50 Diphenhydramine HCl (Benadryl) 25 mg Q6H PRN ORAL Itching/Pruritis 10/14/18 21:00 11/13/18 20:59 Hydralazine HCl (Apresoline) 10 mg Q6HR PRN ORAL For High Blood Pressure 10/14/18 22:15 11/13/18 22:14 Lorazepam (Ativan 2mg/ml 1ml) 0.5 mg Q4H PRN IV For Anxiety 10/14/18 21:00 10/21/18 20:59 Metoclopramide HCl (Reglan) 10 mg Q6H PRN IVP Nausea & Vomiting 10/14/18 21:00 11/13/18 20:59 Ondansetron HCl (Zofran) 4 mg Q6H PRN IVP Nausea & Vomiting 10/14/18 21:00 11/13/18 20:59 Pantoprazole 80 mg/Sodium Chloride 250 ml @ 25 mls/hr Q10H IV 10/15/18 02:15 11/14/18 02:14 10/15/18 12:30 Temazepam (Restoril) 15 mg HSPRN PRN ORAL Insomnia 10/15/18 21:00 10/22/18 20:59 Vancomycin HCl (Vanco rx to dose) 1 ea DAILY PRN MISC Per rx protocol 10/15/18 15:00 11/14/18 14:59 Vancomycin HCl/ Dextrose 275 ml @ 183.333 mls/hr ONCE IVPB 10/15/18 16:30 10/15/18 19:00 Assessment/Plan Problem List: (1) Lower GI bleed Assessment & Plan: 88 year old female with acute GI bleed. anemia. prior hx of anticoagulation no n/v/f/c labs noted and stable has not recently had blood in stool per report no acute surgical intervention planed npo iv fluids ppi bowel regimen colonoscopy and endoscopy planned as per GI thank you ICD Codes: K92.2 - Gastrointestinal hemorrhage, unspecified SNOMED: [id number] Brigido Pratt October 15, 2018 15:44
[2018-10-15 16:00] VITALS: BP 135/58
--- NOTE | 2018-10-15 16:00 | NUR ---
NURSE NOTES: Called and informed Dr. Gore that patient finished all of GoLytely also patient states has not taken medications, including Xarelto for one week. Dr. Gore acknowledged. Ordered to discontinue NG tube insertion. And ordered consent for Colonoscopy to be done tomorrow AM. Orders entered, noted, and carried out. Will continue to monitor patient.
--- NOTE | 2018-10-15 16:05 | NUR ---
NURSE NOTES: Dr. Gore called nurse station, informed MD that patient finished all of GoLytely. Had liquid consistency bowel movement with red tinged color. Dr. Gore acknowledged and informed this nurse they will put in order for colonoscopy tomorrow AM himself. Noted. Patient is maintained NPO. Will continue to monitor patient.
[2018-10-15] MEDS ORDERED: Vancomycin 1.25gm Premix q24h IVPB SCH (16:30)
--- NOTE | 2018-10-15 16:50 | NUR ---
NURSE NOTES: Called and informed Dr. Gore per his instructions regarding results of CBC and BMP. MD made aware of potassium level of 4.0, ordered new fluids: D5NS at 100 ml/hr, informed MD of BUN of 27 and creatinine of 1.7, MD ordered STAT US renal. Made MD aware of new platelet level of 30 from 181 this morning. MD acknowledged and ordered STAT CBC redraw and to notify him of new results. Notified pt is having consistent loose stools, MD ordered rectal tube insertion. Orders entered, noted, and carried out. Will continue to monitor patient.
--- NOTE | 2018-10-15 16:51 | Consultation ---
History of Present Illness General Chief Complaint: Gastrointestinal Bleed Present Illness Allergies: Coded Allergies: CODEINE (Verified Allergy, Severe, Anaphylaxis, 10/14/18) Difficulty breathing along with hives per pt daughter HYDROCODONE (Verified Allergy, Severe, Anaphylaxis, 10/14/18) Difficulty breathing along with hives per pt daughter AMOXICILLIN (Verified Allergy, Unknown, 09/06/12) Medication History Scheduled Amlodipine Besylate (Norvasc), 10 MG ORAL DAILY Atenolol* (Tenormin*), 10 MG ORAL DAILY, (Reported) Cimetidine (Cimetidine*), 300 MG ORAL DAILY, (Reported) Furosemide* (Lasix*), 20 MG ORAL DAILY, (Reported) Levofloxacin* (Levaquin*), 250 MG ORAL DAILY, (Reported) Metronidazole* (Flagyl*), 500 MG ORAL EVERY 8 HOURS, (Reported) Valsartan (Diovan), 320 MG ORAL DAILY, (Reported) Miscellaneous Medications Potassium Chloride (Potassium Chloride), Unknown Dose PO, (Reported) Rivaroxaban (Xarelto), 1 EACH PO, (Reported) Patient History Healthcare decision maker Resuscitation status Full Code Advanced Directive on File Physical Exam Last 24 Hour Vital Signs Date Time Temp Pulse Resp B/P (MAP) Pulse Ox O2 Delivery O2 Flow Rate FiO2 10/15/18 16:00 71 10/15/18 12:00 97.3 74 20 129/57 (81) 100 10/15/18 12:00 75 10/15/18 09:00 Room Air 10/15/18 08:00 98.1 75 20 111/46 (67) 100 10/15/18 08:00 66 10/15/18 04:00 68 10/15/18 03:53 97.6 68 20 119/52 (74) 97 10/15/18 00:00 97.8 70 19 117/58 (77) 98 10/14/18 23:44 68 10/14/18 21:00 Room Air 10/14/18 20:00 96.9 70 22 118/62 (80) 98 10/14/18 19:25 75 10/14/18 19:00 Room Air 10/14/18 17:35 97.5 65 18 97/41 97 Room Air Intake and Output 10/14/18 10/15/18 18:59 06:59 Intake Total 655 ml 500 ml Balance 655 ml 500 ml Intake IV Total 655 ml Blood Product 500 ml # Voids 1 # Bowel Movements 1 Laboratory Tests Test 10/15/18 04:49 White Blood Count 5.2 K/UL (4.8-10.8) Red Blood Count 2.57 M/UL (4.20-5.40) L Hemoglobin 8.2 G/DL (12.0-16.0) L Hematocrit 23.5 % (37.0-47.0) L Mean Corpuscular Volume 92 FL (80-99) Mean Corpuscular Hemoglobin 32.0 PG (27.0-31.0) H Mean Corpuscular Hemoglobin Concent 34.9 G/DL (32.0-36.0) Red Cell Distribution Width 16.2 % (11.6-14.8) H Platelet Count 181 K/UL (150-450) Mean Platelet Volume 4.9 FL (6.5-10.1) L Neutrophils (%) (Auto) 68.7 % (45.0-75.0) Lymphocytes (%) (Auto) 23.2 % (20.0-45.0) Monocytes (%) (Auto) 7.0 % (1.0-10.0) Eosinophils (%) (Auto) 0.8 % (0.0-3.0) Basophils (%) (Auto) 0.4 % (0.0-2.0) Prothrombin Time 12.0 SEC (9.30-11.50) H Prothromb Time International Ratio 1.1 (0.9-1.1) Activated Partial Thromboplast Time 37 SEC (23-33) H Sodium Level 135 MMOL/L (136-145) L Potassium Level 2.9 MMOL/L (3.5-5.1) L Chloride Level 102 MMOL/L (98-107) Carbon Dioxide Level 27 MMOL/L (21-32) Anion Gap 6 mmol/L (5-15) Blood Urea Nitrogen 24 mg/dL (7-18) H Creatinine 1.5 MG/DL (0.55-1.30) H Estimat Glomerular Filtration Rate mL/min (>60) Glucose Level 73 MG/DL (74-106) L Calcium Level 9.8 MG/DL (8.5-10.1) Total Bilirubin 0.6 MG/DL (0.2-1.0) Aspartate Amino Transf (AST/SGOT) 27 U/L (15-37) Alanine Aminotransferase (ALT/SGPT) 16 U/L (12-78) Alkaline Phosphatase 50 U/L (46-116) Total Protein 11.3 G/DL (6.4-8.2) H Albumin 1.9 G/DL (3.4-5.0) L Globulin 9.4 g/dL Albumin/Globulin Ratio 0.2 (1.0-2.7) L Height (Feet): 5 Height (Inches): 5.00 Weight (Pounds): 165 Medications Current Medications Medications (Trade) Dose Ordered Sig/Ary Route PRN Reason Start Time Stop Time Status Last Admin Dose Admin Acetaminophen (Tylenol) 650 mg Q4H PRN ORAL T>100.5/Pain 10/14/18 22:15 11/13/18 20:59 Al Hydroxide/Mg Hydroxide (Mylanta II) 30 ml Q6H PRN ORAL dyspepsia 10/14/18 21:00 11/13/18 20:59 Dextrose (Dextrose 50%) 25 ml Q30M PRN IV Hypoglycemia 10/14/18 21:00 11/13/18 20:59 Dextrose (Dextrose 50%) 50 ml Q30M PRN IV Hypoglycemia 10/14/18 21:00 11/13/18 20:59 Dextrose/ Electrolytes 1,000 ml @ 100 mls/hr Q10H IV 10/14/18 22:00 11/13/18 21:59 10/15/18 06:50 Diphenhydramine HCl (Benadryl) 25 mg Q6H PRN ORAL Itching/Pruritis 10/14/18 21:00 11/13/18 20:59 Hydralazine HCl (Apresoline) 10 mg Q6HR PRN ORAL For High Blood Pressure 10/14/18 22:15 11/13/18 22:14 Lorazepam (Ativan 2mg/ml 1ml) 0.5 mg Q4H PRN IV For Anxiety 10/14/18 21:00 10/21/18 20:59 Metoclopramide HCl (Reglan) 10 mg Q6H PRN IVP Nausea & Vomiting 10/14/18 21:00 11/13/18 20:59 Ondansetron HCl (Zofran) 4 mg Q6H PRN IVP Nausea & Vomiting 10/14/18 21:00 11/13/18 20:59 Pantoprazole 80 mg/Sodium Chloride 250 ml @ 25 mls/hr Q10H IV 10/15/18 02:15 11/14/18 02:14 10/15/18 12:30 Temazepam (Restoril) 15 mg HSPRN PRN ORAL Insomnia 10/15/18 21:00 10/22/18 20:59 Vancomycin HCl (Vanco rx to dose) 1 ea DAILY PRN MISC Per rx protocol 10/15/18 15:00 11/14/18 14:59 Vancomycin HCl/ Dextrose 275 ml @ 183.333 mls/hr ONCE IVPB 10/15/18 16:30 10/15/18 19:00 Assessment/Plan Assessment/Plan: Hematology Consult REQ MD: Yaneth Norwood DOS: 10/15/18 Reason for Hospitalization: Gastrointestinal Bleed RFC: Monoclonal gammopathy of unknown significance, [facility] eval HPI I last saw this patient back in 2018, she is a 88 year old pleasant female with multiple medical comorbidities presented with acute GI bleed as daughter noted blood in BM. Hx of anticoagulation for a fib but stopped given easy bruising. No n/v/f/c. no abdominal pain. otherwise okay. states she feels well. labs noted. surgery called to evaluate. patient seen, chart reviewed, patient examined. no recent prior episodes. Coded Allergies: CODEINE (Verified Allergy, Severe, Anaphylaxis, 10/14/18) Difficulty breathing along with hives per pt daughter HYDROCODONE (Verified Allergy, Severe, Anaphylaxis, 10/14/18) Difficulty breathing along with hives per pt daughter AMOXICILLIN (Verified Allergy, Unknown, 09/06/12) Scheduled Amlodipine Besylate (Norvasc), 10 MG ORAL DAILY Atenolol* (Tenormin*), 10 MG ORAL DAILY, (Reported) Cimetidine (Cimetidine*), 300 MG ORAL DAILY, (Reported) Furosemide* (Lasix*), 20 MG ORAL DAILY, (Reported) Levofloxacin* (Levaquin*), 250 MG ORAL DAILY, (Reported) Metronidazole* (Flagyl*), 500 MG ORAL EVERY 8 HOURS, (Reported) Valsartan (Diovan), 320 MG ORAL DAILY, (Reported) Miscellaneous Medications Potassium Chloride (Potassium Chloride), Unknown Dose PO, (Reported) Rivaroxaban (Xarelto), 1 EACH PO, (Reported) Limited by: age History Provided By: Patient, Medical Record, PMD Healthcare decision maker Resuscitation status Full Code Advanced Directive on File Past Medical/Surgical History: (1) Renal insufficiency (2) ATN (acute tubular necrosis) (3) AV block, 2nd degree (4) HTN (hypertension) (5) Pacemaker (6) Abdominal pain (7) Anemia (8) Hypoalbuminemia (9) Nausea (10) Third degree heart block (11) Migraine (12) Palpitations (13) Headache (14) Weakness (15) Sepsis (16) arthralgia (17) Constipation (18) UTI (urinary tract infection) (19) Lower GI bleed (20) Multiple falls (21) Hypokalemia (22) Pleural effusion, left Review of Symptoms General ROS: no weight loss or fever Psychological ROS: no depression or mood changes, no memory loss Ophthalmic ROS: no visual changes or eye irritation ENT ROS: no nasal congestion, hearing loss, dizziness Allergy and Immunology ROS: no allergic symptoms or urticaria Hematological and Lymphatic ROS: no swollen glands, unusual bleeding or bruising Endocrine ROS: no polyuria, polydipsia, weight changes, temperature intolerance Respiratory ROS: no cough, shortness of breath, or wheezing Cardiovascular ROS: no chest pain or dyspnea on exertion Gastrointestinal ROS: denies abdominal pain, bright red blood in stool. Musculoskeletal ROS: no myalgias or arthralgias Neurological ROS: no TIA or stroke symptoms Dermatological ROS: no new or changing skin lesions, rashes or pruritis Physical Exam General appearance: alert, cooperative, no distress, appears stated age Head: Normocephalic, without obvious abnormality, atraumatic Eyes: conjunctivae/corneas clear. PERRL, EOM's intact. Fundi benign Throat: Lips, mucosa, and tongue normal. Teeth and gums normal Neck: supple, symmetrical, trachea midline, no adenopathy, thyroid: not enlarged, symmetric, no tenderness/mass/nodules, no carotid bruit and no JVD Lungs: clear to auscultation bilaterally Heart: regular rate and rhythm, S1, S2 normal, no murmur, click, rub or gallop Abdomen: soft, non-tender. Bowel sounds normal. No masses, no organomegaly Extremities: extremities normal, atraumatic, no cyanosis or edema Pulses: 2+ and symmetric Skin: Skin color, texture, turgor normal. No rashes or lesions Neurologic: Grossly normal Last 24 Hour Vital Signs Date Time Temp Pulse Resp B/P (MAP) Pulse Ox O2 Delivery O2 Flow Rate FiO2 10/15/18 12:00 97.3 74 20 129/57 (81) 100 10/15/18 12:00 75 10/15/18 09:00 Room Air 10/15/18 08:00 98.1 75 20 111/46 (67) 100 10/15/18 08:00 66 10/15/18 04:00 68 10/15/18 03:53 97.6 68 20 119/52 (74) 97 10/15/18 00:00 97.8 70 19 117/58 (77) 98 10/14/18 23:44 68 10/14/18 21:00 Room Air 10/14/18 20:00 96.9 70 22 118/62 (80) 98 10/14/18 19:25 75 10/14/18 19:00 Room Air 10/14/18 17:35 97.5 65 18 97/41 97 Room Air 10/14/18 16:45 97.5 70 18 10/14/18 16:30 97.1 65 20 98/37 97 Room Air 10/14/18 16:30 97.1 65 20 Intake and Output 10/14/18 10/15/18 18:59 06:59 Intake Total 655 ml 500 ml Balance 655 ml 500 ml Intake IV Total 655 ml Blood Product 500 ml # Voids 1 # Bowel Movements 1 Laboratory Tests Test 10/14/18 16:15 10/15/18 04:49 Lactic Acid Level 1.40 mmol/L (0.4-2.0) White Blood Count 5.2 K/UL (4.8-10.8) Red Blood Count 2.57 M/UL (4.20-5.40) L Hemoglobin 8.2 G/DL (12.0-16.0) L Hematocrit 23.5 % (37.0-47.0) L Mean Corpuscular Volume 92 FL (80-99) Mean Corpuscular Hemoglobin 32.0 PG (27.0-31.0) H Mean Corpuscular Hemoglobin Concent 34.9 G/DL (32.0-36.0) Red Cell Distribution Width 16.2 % (11.6-14.8) H Platelet Count 181 K/UL (150-450) Mean Platelet Volume 4.9 FL (6.5-10.1) L Neutrophils (%) (Auto) 68.7 % (45.0-75.0) Lymphocytes (%) (Auto) 23.2 % (20.0-45.0) Monocytes (%) (Auto) 7.0 % (1.0-10.0) Eosinophils (%) (Auto) 0.8 % (0.0-3.0) Basophils (%) (Auto) 0.4 % (0.0-2.0) Prothrombin Time 12.0 SEC (9.30-11.50) H Prothromb Time International Ratio 1.1 (0.9-1.1) Activated Partial Thromboplast Time 37 SEC (23-33) H Sodium Level 135 MMOL/L (136-145) L Potassium Level 2.9 MMOL/L (3.5-5.1) L Chloride Level 102 MMOL/L (98-107) Carbon Dioxide Level 27 MMOL/L (21-32) Anion Gap 6 mmol/L (5-15) Blood Urea Nitrogen 24 mg/dL (7-18) H Creatinine 1.5 MG/DL (0.55-1.30) H Estimat Glomerular Filtration Rate mL/min (>60) Glucose Level 73 MG/DL (74-106) L Calcium Level 9.8 MG/DL (8.5-10.1) Total Bilirubin 0.6 MG/DL (0.2-1.0) Aspartate Amino Transf (AST/SGOT) 27 U/L (15-37) Alanine Aminotransferase (ALT/SGPT) 16 U/L (12-78) Alkaline Phosphatase 50 U/L (46-116) Total Protein 11.3 G/DL (6.4-8.2) H Albumin 1.9 G/DL (3.4-5.0) L Globulin 9.4 g/dL Albumin/Globulin Ratio 0.2 (1.0-2.7) L Microbiology Date/Time Source Procedure Growth Status 10/14/18 16:00 Blood Blood Culture - Preliminary Resulted Height (Feet): 5 Height (Inches): 5.00 Weight (Pounds): 165 Medications Current Medications Medications (Trade) Dose Ordered Sig/Ary Route PRN Reason Start Time Stop Time Status Last Admin Dose Admin Acetaminophen (Tylenol) 650 mg Q4H PRN ORAL T>100.5/Pain 10/14/18 22:15 11/13/18 20:59 Al Hydroxide/Mg Hydroxide (Mylanta II) 30 ml Q6H PRN ORAL dyspepsia 10/14/18 21:00 11/13/18 20:59 Dextrose (Dextrose 50%) 25 ml Q30M PRN IV Hypoglycemia 10/14/18 21:00 11/13/18 20:59 Dextrose (Dextrose 50%) 50 ml Q30M PRN IV Hypoglycemia 10/14/18 21:00 11/13/18 20:59 Dextrose/ Electrolytes 1,000 ml @ 100 mls/hr Q10H IV 10/14/18 22:00 11/13/18 21:59 10/15/18 06:50 Diphenhydramine HCl (Benadryl) 25 mg Q6H PRN ORAL Itching/Pruritis 10/14/18 21:00 11/13/18 20:59 Hydralazine HCl (Apresoline) 10 mg Q6HR PRN ORAL For High Blood Pressure 10/14/18 22:15 11/13/18 22:14 Lorazepam (Ativan 2mg/ml 1ml) 0.5 mg Q4H PRN IV For Anxiety 10/14/18 21:00 10/21/18 20:59 Metoclopramide HCl (Reglan) 10 mg Q6H PRN IVP Nausea & Vomiting 10/14/18 21:00 11/13/18 20:59 Ondansetron HCl (Zofran) 4 mg Q6H PRN IVP Nausea & Vomiting 10/14/18 21:00 11/13/18 20:59 Pantoprazole 80 mg/Sodium Chloride 250 ml @ 25 mls/hr Q10H IV 10/15/18 02:15 11/14/18 02:14 10/15/18 12:30 Temazepam (Restoril) 15 mg HSPRN PRN ORAL Insomnia 10/15/18 21:00 10/22/18 20:59 Vancomycin HCl (Vanco rx to dose) 1 ea DAILY PRN MISC Per rx protocol 10/15/18 15:00 11/14/18 14:59 Vancomycin HCl/ Dextrose 275 ml @ 183.333 mls/hr ONCE IVPB 10/15/18 16:30 10/15/18 19:00 Assessment and Recs: # Anemia due to 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 With a paraprotein elevation in the past --> Continue to closely monitor --> Anemia w/u has been reviewed, will trend daily. --> Hgb goal >7 --> 12/06/17: 1 unit prbc ordered --> spep and upep reordered # Anemia due to underlying gi bleed --> anemia panel has been ordered --> consider iron if requires it --> gi and surg consulted, endoscopy as per gi # Paraproteinemia. 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 --> Obtain new SPEP IgG. --> Lucent lesion in the left iliac bone. Permeative pattern of the osseous skeleton may be due to osteopenia but cannot exclude metastases. --> bone scan is pending for above =--> apparently refusing in the past # Thrombocytopenia - either bone marrow process related or meds --> hepatitis panel neg # Coagulopathy, likely secondary to decreased oral take. # Pacemaker placement history. # Hypertension. The timing of this note does not necessarily reflect the time of the patient was seen. Greatly appreciate consultation! Mello Durbin MD October 15, 2018 16:51
--- NOTE | 2018-10-15 17:00 | NUR ---
NURSE NOTES: Patient is noted alert and oriented x 4, obtained consent for GI procedure to be done tomorrow AM. Consent is placed in chart.
[2018-10-15 17:17] LABS: HEMATOCRIT 23.4 % (37.0-47.0); HEMOGLOBIN 8.4 G/DL (12.0-16.0); MEAN CORPUSCULAR VOLUME 90 FL (80-99); PLATELET COUNT 30 K/UL (150-450); RED BLOOD COUNT 2.58 M/UL (4.20-5.40); RED CELL DISTRIBUTION WIDTH 15.9 % (11.6-14.8); WHITE BLOOD COUNT 4.8 K/UL (4.8-10.8)
--- NOTE | 2018-10-15 18:00 | NUR ---
NURSE NOTES: Dr. Durbin noted ordered 24 hour urine collection. Informed MD that patient will be difficult to collect urine from. Dr. Durbin acknowledged and ordered valentin catheter insertion. Order entered, noted, and carried out.
--- NOTE | 2018-10-15 18:00 | NUR ---
NURSE NOTES: Informed Dr. Norwood of patient's new BUN and creatinine levels. Dr. Norwood acknowledged and ordered Dr. Rice as nephrology consult. Noted.
[2018-10-15 18:03] LABS: ANION GAP 5 mmol/L (5-15); BLOOD UREA NITROGEN 29 mg/dL (7-18); CALCIUM 9.5 MG/DL (8.5-10.1); CARBON DIOXIDE 27 MMOL/L (21-32); CHLORIDE 104 MMOL/L (98-107); CREATININE 1.7 MG/DL (0.55-1.30); FERRITIN 685 NG/ML (8-388); SODIUM 136 MMOL/L (136-145)
[2018-10-15 18:18] LABS: % IRON SATURATION 72 % (15-50); IRON 94 ug/dL (50-175); TOTAL IRON BINDING CAPACITY 130 ug/dL (250-450)
--- NOTE | 2018-10-15 19:00 | NUR ---
NURSE NOTES: Contacted and left message for Dr. Durbin regarding new platelet level of 30, a drop from 181 platelet level this morning. Awaiting call back from Dr. Durbin. Endorsed accordingly. Noted.
--- NOTE | 2018-10-15 19:30 | NUR ---
HAND-OFF: Report given to JACQUELYN Cantu.
--- NOTE | 2018-10-15 19:30 | NUR ---
NURSE NOTES: Received bedside report from JACQUELYN Barrientos.Patient stable,in a bed,no respiratory distress noted,no c/o pain,A&Ox4,SR on cardiac cath tech,tolerated r/air well,NPO d/t colonoscopy w/possible biopsy,rectal tube is in,24 urine collection started,BS active in all quadrants,IV asymptomatic,intact running w/NS @100 ml/hr,bed secured,call light within a reach,will continue to monitor and follow POC.
--- NOTE | 2018-10-15 19:30 | NUR ---
NURSE NOTES: Dr. Gore contacted this nurse regarding platelet level of 30. acknowledged. Ordered to contact them of CBC redraw results. Also ordered standing order of platelet level less than 20, transfuse 1 unit of platelets. Endorse accordingly. Noted.
[2018-10-15 20:00] VITALS: BP 137/56
[2018-10-15] MEDS: D5NS 1,000 ML IV SCH (20:23)
[2018-10-15 20:51] LABS: HEMATOCRIT 20.6 % (37.0-47.0); HEMOGLOBIN 7.2 G/DL (12.0-16.0); MEAN CORPUSCULAR VOLUME 91 FL (80-99); PLATELET COUNT 162 K/UL (150-450); RED BLOOD COUNT 2.27 M/UL (4.20-5.40); RED CELL DISTRIBUTION WIDTH 15.1 % (11.6-14.8); WHITE BLOOD COUNT 4.2 K/UL (4.8-10.8)
[2018-10-16] VITALS: BP 135/63
[2018-10-16 04:00] VITALS: BP 127/58
[2018-10-16] MEDS: D5NS 1,000 ML IV SCH ×2 (05:40→17:16)
[2018-10-16 06:23] LABS: HEMATOCRIT 22.3 % (37.0-47.0); HEMOGLOBIN 7.4 G/DL (12.0-16.0); MEAN CORPUSCULAR VOLUME 95 FL (80-99); PLATELET COUNT 184 K/UL (150-450); RED BLOOD COUNT 2.36 M/UL (4.20-5.40); RED CELL DISTRIBUTION WIDTH 16.8 % (11.6-14.8); WHITE BLOOD COUNT 4.7 K/UL (4.8-10.8)
[2018-10-16 06:27] LABS: ANION GAP 2 mmol/L (5-15); BLOOD UREA NITROGEN 28 mg/dL (7-18); CALCIUM 9.3 MG/DL (8.5-10.1); CARBON DIOXIDE 28 MMOL/L (21-32); CHLORIDE 105 MMOL/L (98-107); POTASSIUM 2.8 MMOL/L (3.5-5.1); SODIUM 136 MMOL/L (136-145)
--- NOTE | 2018-10-16 07:25 | NUR ---
HAND-OFF: Report given to JACQUELYN Amaro.Patient stable.
--- NOTE | 2018-10-16 07:26 | NUR ---
NURSE NOTES: RECEIVED PATIENT FROM Gela LUJAN RN. PATIENT IS LYING IS BED AWAKE AND ALERT. HOOKED TO [employer] POUND NET. ON ROOM AIR. NO SIGNS OF DISTRESS. NPO FOR COLONOSCOPY. NOTED RECTAL TUBE AND NELSON CATH. NOTED SKIN ALTERATION. IV'S ON L WRIST G22 AND R AC G20. SEEN AND EXAMINED BY DR MARROQUIN, MADE AWARE OF ABN LABS WITH NEW ORDERS. BED AT LOWEST POSITION. SIDE RAILS UP. CALL LIGHT WITHIN REACH. WILL CONTINUE TO MONITOR.
--- NOTE | 2018-10-16 07:45 | NUR ---
NURSE NOTES: SPOKE WITH DR MELARA RE ABN LABS. NO SIGNS OF DISTRESS. WILL CONTINUE TO MONITOR.
[2018-10-16 08:00] VITALS: BP 119/75
[2018-10-16] MEDS ORDERED: Pantoprazole Inj ONE (08:18)
[2018-10-16] MEDS ORDERED: Midazolam 2mg/2ml Inj ONE (08:57)
[2018-10-16] MEDS: Pantoprazole 80 MG in NS 250 ML IV SCH ×2 (09:12→18:02)
--- NOTE | 2018-10-16 09:39 | General Progress Note ---
Assessment/Plan Assessment/Plan: 88 year old female with PMH of HTN admitted for management of lower GI bleed #Acute blood loss anemia, present on admission due to lower GI Bleed -GI consult appreciated -Surgery consult appreciated -Hematology consult appreciated -Plan for Colonoscopy and EGD today -Bowel prep tonight -NPO except meds -Serial CBC -Transfuse 1 unit PRBC -continue PPI -Cont IVF -Hold AC -SCD for DVT ppx #Hypokalemia -replace with IV KCl -repeat labs in AM #HTN -hold all anti HTN -PRN hydralazine if needed #CAD #AFib #s/p pacemaker -Hold AC -Cont tele Code status Full Subjective Date patient seen: October 16, 2018 Time patient seen: 07:15 ROS Limited/Unobtainable: Yes Constitutional: Denies: chills, fever Respiratory: Denies: cough Gastrointestinal/Abdominal: Denies: abdomen distended, abdominal pain Allergies: Coded Allergies: CODEINE (Verified Allergy, Severe, Anaphylaxis, 10/14/18) Difficulty breathing along with hives per pt daughter HYDROCODONE (Verified Allergy, Severe, Anaphylaxis, 10/14/18) Difficulty breathing along with hives per pt daughter AMOXICILLIN (Verified Allergy, Unknown, 09/06/12) Subjective Medicine follow up for acute blood loss anemia, rectal bleeding, hypokalemia. Denies abdominal pain. Hb noted to be 7.4 today. Objective Last 24 Hour Vital Signs Date Time Temp Pulse Resp B/P (MAP) Pulse Ox O2 Delivery O2 Flow Rate FiO2 10/16/18 04:00 97.8 70 18 127/58 (81) 98 10/16/18 03:32 68 10/16/18 00:00 97.7 75 22 135/63 (87) 98 10/15/18 23:21 73 10/15/18 20:00 97.7 73 18 137/56 (83) 98 10/15/18 19:25 72 10/15/18 18:00 Room Air 10/15/18 16:00 71 10/15/18 16:00 97.5 70 20 135/58 (83) 100 10/15/18 12:00 97.3 74 20 129/57 (81) 100 10/15/18 12:00 75 Intake and Output 10/15/18 10/16/18 19:00 07:00 Intake Total 4000 ml 861.5 ml Output Total 400 ml 250 ml Balance 3600 ml 611.5 ml Intake Oral 4000 ml IV Total 861.5 ml Output Urine Total 400 ml Stool Total 250 ml # Voids 2 # Bowel Movements 3 Laboratory Tests 10/15/18 16:50: White Blood Count 4.8, Red Blood Count 2.58L, Hemoglobin 8.4L, Hematocrit 23.4L , Mean Corpuscular Volume 90, Mean Corpuscular Hemoglobin 32.5H, Mean Corpuscular Hemoglobin Concent 35.9, Red Cell Distribution Width 15.9H, Platelet Count 30#L, Mean Platelet Volume 13.4H, Neutrophils (%) (Auto) , Lymphocytes (%) (Auto) , Monocytes (%) (Auto) , Eosinophils (%) (Auto) , Basophils (%) (Auto) , Differential Total Cells Counted 100, Neutrophils % ( Manual) 62, Lymphocytes % (Manual) 33, Monocytes % (Manual) 5, Eosinophils % ( Manual) 0, Basophils % (Manual) 0, Band Neutrophils 0, Platelet Estimate DecreasedL, Platelet Morphology Normal, Hypochromasia 1+, Anisocytosis 1+, Sodium Level 136, Potassium Level 4.0, Chloride Level 104, Carbon Dioxide Level 27, Anion Gap 5, Blood Urea Nitrogen 29H, Creatinine 1.7H, Estimat Glomerular Filtration Rate , Glucose Level 108H, Calcium Level 9.5, Ferritin 685H 10/15/18 17:00: Iron Level 94, Total Iron Binding Capacity 130L, Percent Iron Saturation 72H, Unsaturated Iron Binding 36L, Total Protein (PEP) [Pending], Albumin (PEP) [ Pending], Globulin (PEP) [Pending], Albumin/Globulin Ratio [Pending], Alpha-1- Globulins [Pending], Oyxal-6-Hllxudpbr [Pending], Beta Globulins [Pending], Beta Gamma Globulin [Pending], PEP Abnormal Protein Bands [Pending], Protein Electrophoresis Interpret [Pending] 10/15/18 20:20: White Blood Count 4.2L, Red Blood Count 2.27L, Hemoglobin 7.2L, Hematocrit 20.6L , Mean Corpuscular Volume 91, Mean Corpuscular Hemoglobin 31.6H, Mean Corpuscular Hemoglobin Concent 34.7, Red Cell Distribution Width 15.1H, Platelet Count 162#, Mean Platelet Volume 4.7L, Neutrophils (%) (Auto) , Lymphocytes (%) (Auto) , Monocytes (%) (Auto) , Eosinophils (%) (Auto) , Basophils (%) (Auto) , Differential Total Cells Counted 100, Neutrophils % ( Manual) 68, Lymphocytes % (Manual) 27, Monocytes % (Manual) 5, Eosinophils % ( Manual) 0, Basophils % (Manual) 0, Band Neutrophils 0, Platelet Estimate Adequate, Platelet Morphology Normal, Hypochromasia 1+, Anisocytosis 1+ 10/16/18 05:20: White Blood Count 4.7L, Red Blood Count 2.36L, Hemoglobin 7.4L, Hematocrit 22.3L , Mean Corpuscular Volume 95, Mean Corpuscular Hemoglobin 31.2H, Mean Corpuscular Hemoglobin Concent 33.0, Red Cell Distribution Width 16.8H, Platelet Count 184, Mean Platelet Volume 5.1L, Neutrophils (%) (Auto) , Lymphocytes (%) (Auto) , Monocytes (%) (Auto) , Eosinophils (%) (Auto) , Basophils (%) (Auto) , Differential Total Cells Counted 100, Neutrophils % ( Manual) 79H, Lymphocytes % (Manual) 17L, Monocytes % (Manual) 3, Eosinophils % ( Manual) 1, Basophils % (Manual) 0, Band Neutrophils 0, Platelet Estimate Adequate, Platelet Morphology Normal, Anisocytosis 1+, Sodium Level 136, Potassium Level 2.8L, Chloride Level 105, Carbon Dioxide Level 28, Anion Gap 2L , Blood Urea Nitrogen 28H, Creatinine 2.0H, Estimat Glomerular Filtration Rate , Glucose Level 116H, Calcium Level 9.3 Height (Feet): 5 Height (Inches): 5.00 Weight (Pounds): 164 General Appearance: no apparent distress, alert Neck: supple, normal inspection Cardiovascular: normal rate, regular rhythm Respiratory/Chest: lungs clear, normal breath sounds, no respiratory distress Abdomen: non tender, soft Neurologic: alert, responsive Enoc Mendez MD October 16, 2018 09:39
--- NOTE | 2018-10-16 10:08 | Consultation ---
Consult Note Consult Note asked to eval at the request of Dr Norwood ( [facility]) for rising Cr 88 year old female with PMH of HTN presented with complaints of passing BRB per rectum. States she had constipation and when she finally had a bowel movement noted that she was passing bright red blood yesterday, denies pain. Pt was previously was on anticoagulation for AFib, started at [facility] about 2 weeks ago, pt does not know reason for admission. C/O multiple falls with easy bruising, last fall was about 1 weeks ago, denies head trauma, therefore eliquis was stopped. Pt denies n/v/d, fevers, chills, cough, urinary complaints , headaches, chest pain or SOB. In the ED, pt transfused 2 units PRBC, GI consulted. Allergies: Coded Allergies: CODEINE (Verified Allergy, Severe, Anaphylaxis, 10/14/18) Difficulty breathing along with hives per pt daughter HYDROCODONE (Verified Allergy, Severe, Anaphylaxis, 10/14/18) Difficulty breathing along with hives per pt daughter AMOXICILLIN (Verified Allergy, Unknown, 09/06/12) Assessment/Plan Acute renal failure : Cr devora 1.2 to 2 likely due to GI bleed and BP fluctuations GI Bleed , severe Anemia HTN CAD AFib s/p pacemaker UTI HypoAlbuminemia Plan: Keep BP in check Avoid Nephrotoxics monitor renal parameters Transfusion will improve renal perfusion Per orders Urine studies Will discuss Vince Rice MD October 16, 2018 10:08
--- NOTE | 2018-10-16 10:25 | Anethesia Preoperative Eval ---
Anesthesia Pre-op PMH/ROS General Date of Evaluation: October 16, 2018 Time of Evaluation: 10:32 Anesthesiologist: Puneet ASA Score: ASA 3 - Emergency Mallampati Score Class I : Soft palate, uvula, fauces, pillars visible Class II: Soft palate, uvula, fauces visible Class III: Soft palate, base of uvula visible Class IV: Only hard plate visible Mallampati Classification: Class III Surgeon: Sofía Diagnosis: GI Bleed Surgical Procedure: EGD/Colonoscopy Anesthesia History: none Family History: no anesthesia problems Allergies: Coded Allergies: CODEINE (Verified Allergy, Severe, Anaphylaxis, 10/14/18) Difficulty breathing along with hives per pt daughter HYDROCODONE (Verified Allergy, Severe, Anaphylaxis, 10/14/18) Difficulty breathing along with hives per pt daughter AMOXICILLIN (Verified Allergy, Unknown, 09/06/12) Medications: see eMAR Patient NPO?: Yes Past Medical History Cardiovascular: Reports: HTN, arrhythmia - Pacemaker, other - HL Gastrointestinal/Genitourinary: Reports: GERD - Hiatal Hernia PSxH Narrative: Pacemaker Anesthesia Pre-op Phys. Exam Physician Exam Last Vital Signs Date Time Temp Pulse Resp B/P (MAP) Pulse Ox O2 Delivery O2 Flow Rate FiO2 10/16/18 08:00 97.6 72 22 119/75 (90) 99 10/15/18 18:00 Room Air Constitutional: NAD Neurologic: CN 2-12 intact Cardiovascular: RRR Respiratory: CTA Gastrointestinal: S/NT/ND Airway Exam Mallampati Score: Class III MO: limited ROM: limited Teeth: missing, intact Anesthesia Pre-op A/P Labs Hematology Test 10/15/18 16:50 10/15/18 20:20 10/16/18 05:20 White Blood Count 4.8 K/UL (4.8-10.8) 4.2 K/UL (4.8-10.8) L 4.7 K/UL (4.8-10.8) L Red Blood Count 2.58 M/UL (4.20-5.40) L 2.27 M/UL (4.20-5.40) L 2.36 M/UL (4.20-5.40) L Hemoglobin 8.4 G/DL (12.0-16.0) L 7.2 G/DL (12.0-16.0) L 7.4 G/DL (12.0-16.0) L Hematocrit 23.4 % (37.0-47.0) L 20.6 % (37.0-47.0) L 22.3 % (37.0-47.0) L Mean Corpuscular Volume 90 FL (80-99) 91 FL (80-99) 95 FL (80-99) Mean Corpuscular Hemoglobin 32.5 PG (27.0-31.0) H 31.6 PG (27.0-31.0) H 31.2 PG (27.0-31.0) H Mean Corpuscular Hemoglobin Concent 35.9 G/DL (32.0-36.0) 34.7 G/DL (32.0-36.0) 33.0 G/DL (32.0-36.0) Red Cell Distribution Width 15.9 % (11.6-14.8) H 15.1 % (11.6-14.8) H 16.8 % (11.6-14.8) H Platelet Count 30 K/UL (150-450) #L 162 K/UL (150-450) # 184 K/UL (150-450) Mean Platelet Volume 13.4 FL (6.5-10.1) H 4.7 FL (6.5-10.1) L 5.1 FL (6.5-10.1) L Neutrophils (%) (Auto) % (45.0-75.0) % (45.0-75.0) % (45.0-75.0) Lymphocytes (%) (Auto) % (20.0-45.0) % (20.0-45.0) % (20.0-45.0) Monocytes (%) (Auto) % (1.0-10.0) % (1.0-10.0) % (1.0-10.0) Eosinophils (%) (Auto) % (0.0-3.0) % (0.0-3.0) % (0.0-3.0) Basophils (%) (Auto) % (0.0-2.0) % (0.0-2.0) % (0.0-2.0) Differential Total Cells Counted 100 100 100 Neutrophils % (Manual) 62 % (45-75) 68 % (45-75) 79 % (45-75) H Lymphocytes % (Manual) 33 % (20-45) 27 % (20-45) 17 % (20-45) L Monocytes % (Manual) 5 % (1-10) 5 % (1-10) 3 % (1-10) Eosinophils % (Manual) 0 % (0-3) 0 % (0-3) 1 % (0-3) Basophils % (Manual) 0 % (0-2) 0 % (0-2) 0 % (0-2) Band Neutrophils 0 % (0-8) 0 % (0-8) 0 % (0-8) Platelet Estimate Decreased L Adequate Adequate Platelet Morphology Normal Normal Normal Hypochromasia 1+ 1+ Anisocytosis 1+ 1+ 1+ Chemistry Test 10/15/18 16:50 10/15/18 17:00 10/16/18 05:20 Sodium Level 136 MMOL/L (136-145) 136 MMOL/L (136-145) Potassium Level 4.0 MMOL/L (3.5-5.1) 2.8 MMOL/L (3.5-5.1) L Chloride Level 104 MMOL/L (98-107) 105 MMOL/L (98-107) Carbon Dioxide Level 27 MMOL/L (21-32) 28 MMOL/L (21-32) Anion Gap 5 mmol/L (5-15) 2 mmol/L (5-15) L Blood Urea Nitrogen 29 mg/dL (7-18) H 28 mg/dL (7-18) H Creatinine 1.7 MG/DL (0.55-1.30) H 2.0 MG/DL (0.55-1.30) H Estimat Glomerular Filtration Rate mL/min (>60) mL/min (>60) Glucose Level 108 MG/DL (74-106) H 116 MG/DL (74-106) H Calcium Level 9.5 MG/DL (8.5-10.1) 9.3 MG/DL (8.5-10.1) Ferritin 685 NG/ML (8-388) H Iron Level 94 ug/dL (50-175) Total Iron Binding Capacity 130 ug/dL (250-450) L Percent Iron Saturation 72 % (15-50) H Unsaturated Iron Binding 36 ug/dL (112-346) L Total Protein (PEP) Pending Albumin (PEP) Pending Globulin (PEP) Pending Albumin/Globulin Ratio Pending [id number] Pending [id number] Pending Beta Globulins Pending Beta Gamma Globulin Pending PEP Abnormal Protein Bands Pending Protein Electrophoresis Interpret Pending Risk Assessment & Plan Assessment: ASA 3E Plan: GA Status Change Before Surgery: No Huber Teixeira MD October 16, 2018 10:25
--- NOTE | 2018-10-16 10:26 | Immediate Post-Op Evaluation ---
Immediate Post-Op Evalulation Immediate Post-Op Evalulation Procedure: EGD/Colonoscopy Date of Evaluation: October 16, 2018 Blood Products: 0 Pain Score (1-10): 2 Nausea: No Vomiting: No Complications 0 Patient Status: awake, reacts, patent, none Hydration Status: adequate Huber Teixeira MD October 16, 2018 10:26
--- NOTE | 2018-10-16 10:27 | 48 Hour Post Anesthesia Eval ---
Post Anesthesia Evaluation Procedure: EGD/Colonoscopy Date of Evaluation: October 16, 2018 Airway: patent Nausea: No Vomiting: No Pain Intensity: 1 Hydration Status: adequate Cardiopulmonary Status: Stable Mental Status/LOC: patient returned to baseline Follow-up Care/Observations: 0 Post-Anesthesia Complications: 0 Follow-up care needed: N/A Huber Teixeira MD October 16, 2018 10:27
[2018-10-16] MEDS ORDERED: Propofol 200mg/20ml IV ONE (10:30)
[2018-10-16] MEDS ORDERED: NS 500ML IVPB ONE (10:30)
[2018-10-16] MEDS ORDERED: Lidocaine 1% MPF 10mg/ml 5ml ONE (10:30)
--- NOTE | 2018-10-16 10:44 | Pre-Procedure Note/Attestation ---
Pre-Procedure Note/Attestation Complete Prior to Procedure Planned Procedure: not applicable Procedure Narrative: esophagogastroduodenoscopy colon, Indications for Procedure Pre-Operative Diagnosis: GIB Attestation I attest that I discussed the nature of the procedure; its benefits; risks and complications; and alternatives (and the risks and benefits of such alternatives ), prior to the procedure, with the patient (or the patient's legal client service representative). I attest that, if there was a reasonable possibility of needing a blood transfusion, the patient (or the patient's legal client service representative) was given the [facility] standardized written summary, pursuant to the Keny Rosita Blood Safety Act ([place] Health and Safety Code # 1645, as amended). I attest that I re-evaluated the patient just prior to the surgery and that there has been no change in the patient's H&P, except as documented below: Carmen Gore MD October 16, 2018 10:44
--- NOTE | 2018-10-16 10:44 | General Progress Note ---
Assessment/Plan Assessment/Plan: Assessment - Maroon stools/LGIB - suspect diverticular - no bleeding noted since admission - Patient refusing GI preparation for colonoscopy - patient also refusing NGT to give GI preparation - Elevated Cr and Hypokalemia Recommendations - Serial CBC - transfuse PRN - f/u renal ultrasound results - replace K and watch Cr - Renal f/u - PPI - EGD/Colon today Subjective Allergies: Coded Allergies: CODEINE (Verified Allergy, Severe, Anaphylaxis, 10/14/18) Difficulty breathing along with hives per pt daughter HYDROCODONE (Verified Allergy, Severe, Anaphylaxis, 10/14/18) Difficulty breathing along with hives per pt daughter AMOXICILLIN (Verified Allergy, Unknown, 09/06/12) Subjective (+) BM with Golytely rectal tube placed renal failure worse last PM Renal ultrasound ordered K low this am - being replaced Objective Last 24 Hour Vital Signs Date Time Temp Pulse Resp B/P (MAP) Pulse Ox O2 Delivery O2 Flow Rate FiO2 10/16/18 08:00 97.6 72 22 119/75 (90) 99 10/16/18 08:00 73 10/16/18 04:00 97.8 70 18 127/58 (81) 98 10/16/18 03:32 68 10/16/18 00:00 97.7 75 22 135/63 (87) 98 10/15/18 23:21 73 10/15/18 20:00 97.7 73 18 137/56 (83) 98 10/15/18 19:25 72 10/15/18 18:00 Room Air 10/15/18 16:00 71 10/15/18 16:00 97.5 70 20 135/58 (83) 100 10/15/18 12:00 97.3 74 20 129/57 (81) 100 10/15/18 12:00 75 Intake and Output 10/15/18 10/16/18 19:00 07:00 Intake Total 4000 ml 961.5 ml Output Total 400 ml 250 ml Balance 3600 ml 711.5 ml Intake Oral 4000 ml IV Total 961.5 ml Output Urine Total 400 ml Stool Total 250 ml # Voids 2 # Bowel Movements 3 Laboratory Tests 10/15/18 16:50: White Blood Count 4.8, Red Blood Count 2.58L, Hemoglobin 8.4L, Hematocrit 23.4L , Mean Corpuscular Volume 90, Mean Corpuscular Hemoglobin 32.5H, Mean Corpuscular Hemoglobin Concent 35.9, Red Cell Distribution Width 15.9H, Platelet Count 30#L, Mean Platelet Volume 13.4H, Neutrophils (%) (Auto) , Lymphocytes (%) (Auto) , Monocytes (%) (Auto) , Eosinophils (%) (Auto) , Basophils (%) (Auto) , Differential Total Cells Counted 100, Neutrophils % ( Manual) 62, Lymphocytes % (Manual) 33, Monocytes % (Manual) 5, Eosinophils % ( Manual) 0, Basophils % (Manual) 0, Band Neutrophils 0, Platelet Estimate DecreasedL, Platelet Morphology Normal, Hypochromasia 1+, Anisocytosis 1+, Sodium Level 136, Potassium Level 4.0, Chloride Level 104, Carbon Dioxide Level 27, Anion Gap 5, Blood Urea Nitrogen 29H, Creatinine 1.7H, Estimat Glomerular Filtration Rate , Glucose Level 108H, Calcium Level 9.5, Ferritin 685H 10/15/18 17:00: Iron Level 94, Total Iron Binding Capacity 130L, Percent Iron Saturation 72H, Unsaturated Iron Binding 36L, Total Protein (PEP) [Pending], Albumin (PEP) [ Pending], Globulin (PEP) [Pending], Albumin/Globulin Ratio [Pending], Alpha-1- Globulins [Pending], [id number] [Pending], Beta Globulins [Pending], Beta Gamma Globulin [Pending], PEP Abnormal Protein Bands [Pending], Protein Electrophoresis Interpret [Pending] 10/15/18 20:20: White Blood Count 4.2L, Red Blood Count 2.27L, Hemoglobin 7.2L, Hematocrit 20.6L , Mean Corpuscular Volume 91, Mean Corpuscular Hemoglobin 31.6H, Mean Corpuscular Hemoglobin Concent 34.7, Red Cell Distribution Width 15.1H, Platelet Count 162#, Mean Platelet Volume 4.7L, Neutrophils (%) (Auto) , Lymphocytes (%) (Auto) , Monocytes (%) (Auto) , Eosinophils (%) (Auto) , Basophils (%) (Auto) , Differential Total Cells Counted 100, Neutrophils % ( Manual) 68, Lymphocytes % (Manual) 27, Monocytes % (Manual) 5, Eosinophils % ( Manual) 0, Basophils % (Manual) 0, Band Neutrophils 0, Platelet Estimate Adequate, Platelet Morphology Normal, Hypochromasia 1+, Anisocytosis 1+ 10/16/18 05:20: White Blood Count 4.7L, Red Blood Count 2.36L, Hemoglobin 7.4L, Hematocrit 22.3L , Mean Corpuscular Volume 95, Mean Corpuscular Hemoglobin 31.2H, Mean Corpuscular Hemoglobin Concent 33.0, Red Cell Distribution Width 16.8H, Platelet Count 184, Mean Platelet Volume 5.1L, Neutrophils (%) (Auto) , Lymphocytes (%) (Auto) , Monocytes (%) (Auto) , Eosinophils (%) (Auto) , Basophils (%) (Auto) , Differential Total Cells Counted 100, Neutrophils % ( Manual) 79H, Lymphocytes % (Manual) 17L, Monocytes % (Manual) 3, Eosinophils % ( Manual) 1, Basophils % (Manual) 0, Band Neutrophils 0, Platelet Estimate Adequate, Platelet Morphology Normal, Anisocytosis 1+, Sodium Level 136, Potassium Level 2.8L, Chloride Level 105, Carbon Dioxide Level 28, Anion Gap 2L , Blood Urea Nitrogen 28H, Creatinine 2.0H, Estimat Glomerular Filtration Rate , Glucose Level 116H, Calcium Level 9.3 Height (Feet): 5 Height (Inches): 5.00 Weight (Pounds): 164 Objective Elderly AA woman NAD NCAT supple CTA RR abd soft ND NT no edema Carmen Gore MD October 16, 2018 10:44
--- NOTE | 2018-10-16 11:45 | Endoscopy Procedure Note ---
Endoscopy Procedure Note General Indication for Procedure: EGD/Colon Procedures Performed: colonoscopy Operative Findings/Diagnosis: GIB Specimen: yes Pt Tolerated Procedure Well: Yes Estimated Blood Loss: none Anesthesia Anesthesiologist: Puneet Anesthesia: MAC Medications Medication Given: see anesthesia record Inserted Devices Implant(s) used?: No GI Core Measures 50 yrs or older w/o bx or poly: Not Applicable 10yrs. F/U recommended: Not Applicable If not recommended, why?: Carmen Gore MD October 16, 2018 11:45
--- NOTE | 2018-10-16 11:46 | Brief Operative Note ---
Immediate Post Operative Note Operative Note Chief Complaint: GIB Pre-op Diagnosis: GIB Procedure: EGD/Bx, colon Surgeon: damián Anesthesiologist: Puneet Specimen: yes Complications: none Condition: stable Fluids: see anesthesia Estimated Blood Loss: none Drains: none Implant(s) used?: No Carmen Gore MD October 16, 2018 11:46
--- NOTE | 2018-10-16 11:50 | Endoscopy Procedure Note ---
Endoscopy Procedure Note General Indication for Procedure: GIB Procedures Performed: EGD, colonoscopy Operative Findings/Diagnosis: Erosive gastritis, poor prep Specimen: yes Pt Tolerated Procedure Well: Yes Estimated Blood Loss: none Anesthesia Anesthesiologist: Puneet Anesthesia: moderate sedation Medications Medication Given: see anesthesia record Inserted Devices Implant(s) used?: No Quality Quality of Bowel Preparation: Poor Did scope reach the cecum?: No If no,where did scope reach?: distal transverse colon Why scope didn't reach cecum: Bowel preparation poor Was there any complications?: No GI Core Measures 50 yrs or older w/o bx or poly: Not Applicable 10yrs. F/U recommended: Not Applicable If not recommended, why?: Carmen Gore MD October 16, 2018 11:50
[2018-10-16 12:00] VITALS: BP 99/74
[2018-10-16] MEDS ORDERED: Nulytely 4L ORAL SCH (12:30)
--- NOTE | 2018-10-16 12:38 | Hematology/Onc Progress Note ---
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 With a paraprotein elevation in the past --> Continue to closely monitor --> Anemia w/u has been reviewed, will trend daily. --> Hgb goal >7 --> 12/06/17: 1 unit prbc ordered --> spep and upep reordered # Anemia due to underlying gi bleed, currently bleeding resolved --> anemia panel has been ordered, reviewed ferritin is 385, sufficient iron stores --> consider iron if requires it --> gi and surg consulted, endoscopy as per gi # Paraproteinemia. 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 --> Obtain new SPEP IgG. --> Lucent lesion in the left iliac bone. Permeative pattern of the osseous skeleton may be due to osteopenia but cannot exclude metastases. --> bone scan is pending for above =--> apparently refusing in the past # Thrombocytopenia - either bone marrow process related or meds --> hepatitis panel neg # Coagulopathy, likely secondary to decreased oral take. # Pacemaker placement history. # Hypertension. The timing of this note does not necessarily reflect the time of the patient was seen. Greatly appreciate consultation! Subjective Constitutional: Denies: no symptoms, chills, fever, malaise, weakness, other Cardiovascular: Denies: no symptoms, chest pain, edema, irregular heart rate, lightheadedness, palpitations, syncope, other Respiratory: Denies: no symptoms, cough, shortness of breath, SOB with excertion, SOB at rest, sputum, wheezing, other Gastrointestinal/Abdominal: Denies: no symptoms, abdomen distended, abdominal pain, black stools, tarry stools, blood in stool, constipated, diarrhea, difficulty swallowing, nausea, poor appetite, poor fluid intake, rectal bleeding , vomiting, other Genitourinary: Denies: no symptoms, burning, discharge, frequency, flank pain, hematuria, incontinence, pain, urgency, other Neurologic/Psychiatric: Denies: no symptoms, anxiety, depressed, emotional problems, headache, numbness, paresthesia, pre-existing deficit, seizure, tingling, tremors, weakness, other Endocrine: Denies: no symptoms, excessive sweating, flushing, intolerance to cold, intolerance to heat, increased hunger, increased thirst, increased urine, unexplained weight gain, unexplained weight loss, other Allergies: Coded Allergies: CODEINE (Verified Allergy, Severe, Anaphylaxis, 10/14/18) Difficulty breathing along with hives per pt daughter HYDROCODONE (Verified Allergy, Severe, Anaphylaxis, 10/14/18) Difficulty breathing along with hives per pt daughter AMOXICILLIN (Verified Allergy, Unknown, 09/06/12) Subjective 10/16: plt are drastically improved, no f/c, no night sweats Objective Objective Current Medications Medications (Trade) Dose Ordered Sig/Ary Route PRN Reason Start Time Stop Time Status Last Admin Dose Admin Acetaminophen (Tylenol) 650 mg Q4H PRN ORAL T>100.5/Pain 10/14/18 22:15 11/13/18 20:59 Dextrose (Dextrose 50%) 25 ml Q30M PRN IV Hypoglycemia 10/14/18 21:00 11/13/18 20:59 Dextrose (Dextrose 50%) 50 ml Q30M PRN IV Hypoglycemia 10/14/18 21:00 11/13/18 20:59 Dextrose/Sodium Chloride 1,000 ml @ 100 mls/hr Q10H IV 10/15/18 19:00 11/14/18 18:59 10/16/18 05:40 Diphenhydramine HCl (Benadryl) 25 mg Q6H PRN ORAL Itching/Pruritis 10/14/18 21:00 11/13/18 20:59 Hydralazine HCl (Apresoline) 10 mg Q6HR PRN ORAL For High Blood Pressure 10/14/18 22:15 11/13/18 22:14 Lorazepam (Ativan 2mg/ml 1ml) 0.5 mg Q4H PRN IV For Anxiety 10/14/18 21:00 10/21/18 20:59 Metoclopramide HCl (Reglan) 10 mg Q6H PRN IVP Nausea & Vomiting 10/14/18 21:00 11/13/18 20:59 Ondansetron HCl (Zofran) 4 mg Q6H PRN IVP Nausea & Vomiting 10/14/18 21:00 11/13/18 20:59 Pantoprazole 80 mg/Sodium Chloride 250 ml @ 25 mls/hr Q10H IV 10/15/18 22:30 11/14/18 22:29 10/16/18 09:12 Polyethylene Glycol/ Electrolytes (Nulytely) 4,000 ml ONCE ORAL 10/16/18 12:30 10/16/18 23:59 Potassium Chloride 100 ml @ 100 mls/hr Q1HR IVPB 10/16/18 08:00 10/16/18 12:59 10/16/18 12:26 Temazepam (Restoril) 15 mg HSPRN PRN ORAL Insomnia 10/15/18 21:00 10/22/18 20:59 Vancomycin HCl (Vanco rx to dose) 1 ea DAILY PRN MISC Per rx protocol 10/15/18 15:00 11/14/18 14:59 Last 24 Hour Vital Signs Date Time Temp Pulse Resp B/P (MAP) Pulse Ox O2 Delivery O2 Flow Rate FiO2 10/16/18 08:00 97.6 72 22 119/75 (90) 99 10/16/18 08:00 73 10/16/18 04:00 97.8 70 18 127/58 (81) 98 10/16/18 03:32 68 10/16/18 00:00 97.7 75 22 135/63 (87) 98 10/15/18 23:21 73 10/15/18 20:00 97.7 73 18 137/56 (83) 98 10/15/18 19:25 72 10/15/18 18:00 Room Air 10/15/18 16:00 71 10/15/18 16:00 97.5 70 20 135/58 (83) 100 10/15/18 12:00 97.3 74 20 129/57 (81) 100 10/15/18 12:00 75 10/15/18 09:00 Room Air 10/15/18 08:00 98.1 75 20 111/46 (67) 100 10/15/18 08:00 66 10/15/18 04:00 68 10/15/18 03:53 97.6 68 20 119/52 (74) 97 10/15/18 00:00 97.8 70 19 117/58 (77) 98 10/14/18 23:44 68 10/14/18 21:00 Room Air 10/14/18 20:00 96.9 70 22 118/62 (80) 98 10/14/18 19:25 75 10/14/18 19:00 Room Air 10/14/18 17:35 97.5 65 18 97/41 97 Room Air 10/14/18 16:45 97.5 70 18 10/14/18 16:30 97.1 65 20 98/37 97 Room Air 10/14/18 16:30 97.1 65 20 10/14/18 15:17 68 16 Room Air 10/14/18 14:30 97.3 63 14 118/67 94 Room Air 10/14/18 13:05 97.3 110 23 91/49 (63) 88 Room Air Intake and Output 10/15/18 10/16/18 19:00 07:00 Intake Total 4000 ml 961.5 ml Output Total 400 ml 250 ml Balance 3600 ml 711.5 ml Intake Oral 4000 ml IV Total 961.5 ml Output Urine Total 400 ml Stool Total 250 ml # Voids 2 # Bowel Movements 3 Labs Test 10/14/18 14:00 10/14/18 16:15 10/15/18 04:49 10/15/18 16:50 White Blood Count 5.8 K/UL (4.8-10.8) 5.2 K/UL (4.8-10.8) 4.8 K/UL (4.8-10.8) Red Blood Count 2.44 M/UL (4.20-5.40) 2.57 M/UL (4.20-5.40) 2.58 M/UL (4.20-5.40) Hemoglobin 7.7 G/DL (12.0-16.0) 8.2 G/DL (12.0-16.0) 8.4 G/DL (12.0-16.0) Hematocrit 24.1 % (37.0-47.0) 23.5 % (37.0-47.0) 23.4 % (37.0-47.0) Mean Corpuscular Volume 99 FL (80-99) 92 FL (80-99) 90 FL (80-99) Mean Corpuscular Hemoglobin 31.6 PG (27.0-31.0) 32.0 PG (27.0-31.0) 32.5 PG (27.0-31.0) Mean Corpuscular Hemoglobin Concent 32.1 G/DL (32.0-36.0) 34.9 G/DL (32.0-36.0) 35.9 G/DL (32.0-36.0) Red Cell Distribution Width 15.8 % (11.6-14.8) 16.2 % (11.6-14.8) 15.9 % (11.6-14.8) Platelet Count 241 K/UL (150-450) 181 K/UL (150-450) 30 K/UL (150-450) Mean Platelet Volume 5.4 FL (6.5-10.1) 4.9 FL (6.5-10.1) 13.4 FL (6.5-10.1) Neutrophils (%) (Auto) % (45.0-75.0) 68.7 % (45.0-75.0) % (45.0-75.0) Lymphocytes (%) (Auto) % (20.0-45.0) 23.2 % (20.0-45.0) % (20.0-45.0) Monocytes (%) (Auto) % (1.0-10.0) 7.0 % (1.0-10.0) % (1.0-10.0) Eosinophils (%) (Auto) % (0.0-3.0) 0.8 % (0.0-3.0) % (0.0-3.0) Basophils (%) (Auto) % (0.0-2.0) 0.4 % (0.0-2.0) % (0.0-2.0) Differential Total Cells Counted 100 100 Neutrophils % (Manual) 71 % (45-75) 62 % (45-75) Lymphocytes % (Manual) 24 % (20-45) 33 % (20-45) Monocytes % (Manual) 3 % (1-10) 5 % (1-10) Eosinophils % (Manual) 1 % (0-3) 0 % (0-3) Basophils % (Manual) 1 % (0-2) 0 % (0-2) Band Neutrophils 0 % (0-8) 0 % (0-8) Platelet Estimate Adequate Decreased Platelet Morphology Normal Normal Hypochromasia 1+ 1+ Anisocytosis 1+ 1+ Prothrombin Time 12.2 SEC (9.30-11.50) 12.0 SEC (9.30-11.50) Prothromb Time International Ratio 1.2 (0.9-1.1) 1.1 (0.9-1.1) Activated Partial Thromboplast Time 36 SEC (23-33) 37 SEC (23-33) Urine Color Pale yellow Urine Appearance Slightly cloudy Urine pH 5 (4.5-8.0) Urine Specific Crosby 1.020 (1.005-1.035) Urine Protein 2+ (NEGATIVE) Urine Glucose (UA) Negative (NEGATIVE) Urine Ketones 2+ (NEGATIVE) Urine Blood 5+ (NEGATIVE) Urine Nitrite Negative (NEGATIVE) Urine Bilirubin Negative (NEGATIVE) Urine Urobilinogen Normal MG/DL (0.0-1.0) Urine Leukocyte Esterase 2+ (NEGATIVE) Urine RBC 5-10 /HPF (0 - 2) Urine WBC 5-10 /HPF (0 - 2) Urine Squamous Epithelial Cells Moderate /LPF (NONE/OCC) Urine Bacteria Few /HPF (NONE) Sodium Level 136 MMOL/L (136-145) 135 MMOL/L (136-145) 136 MMOL/L (136-145) Potassium Level 2.6 MMOL/L (3.5-5.1) 2.9 MMOL/L (3.5-5.1) 4.0 MMOL/L (3.5-5.1) Chloride Level 101 MMOL/L (98-107) 102 MMOL/L (98-107) 104 MMOL/L (98-107) Carbon Dioxide Level 29 MMOL/L (21-32) 27 MMOL/L (21-32) 27 MMOL/L (21-32) Anion Gap 6 mmol/L (5-15) 6 mmol/L (5-15) 5 mmol/L (5-15) Blood Urea Nitrogen 20 mg/dL (7-18) 24 mg/dL (7-18) 29 mg/dL (7-18) Creatinine 1.2 MG/DL (0.55-1.30) 1.5 MG/DL (0.55-1.30) 1.7 MG/DL (0.55-1.30) Estimat Glomerular Filtration Rate mL/min (>60) mL/min (>60) mL/min (>60) Glucose Level 100 MG/DL (74-106) 73 MG/DL (74-106) 108 MG/DL (74-106) Calcium Level 9.8 MG/DL (8.5-10.1) 9.8 MG/DL (8.5-10.1) 9.5 MG/DL (8.5-10.1) Magnesium Level 1.3 MG/DL (1.8-2.4) Total Bilirubin 0.5 MG/DL (0.2-1.0) 0.6 MG/DL (0.2-1.0) Aspartate Amino Transf (AST/SGOT) 22 U/L (15-37) 27 U/L (15-37) Alanine Aminotransferase (ALT/SGPT) 13 U/L (12-78) 16 U/L (12-78) Alkaline Phosphatase 50 U/L (46-116) 50 U/L (46-116) Total Creatine Kinase 20 U/L (26-308) Troponin I 0.030 ng/mL (0.000-0.056) Total Protein 11.7 G/DL (6.4-8.2) 11.3 G/DL (6.4-8.2) Albumin 1.9 G/DL (3.4-5.0) 1.9 G/DL (3.4-5.0) Globulin 9.8 g/dL 9.4 g/dL Albumin/Globulin Ratio 0.2 (1.0-2.7) 0.2 (1.0-2.7) Lipase 93 U/L (73-393) Lactic Acid Level 1.40 mmol/L (0.4-2.0) Ferritin 685 NG/ML (8-388) Test 10/15/18 17:00 10/15/18 20:20 10/16/18 05:20 Iron Level 94 ug/dL (50-175) Total Iron Binding Capacity 130 ug/dL (250-450) Percent Iron Saturation 72 % (15-50) Unsaturated Iron Binding 36 ug/dL (112-346) White Blood Count 4.2 K/UL (4.8-10.8) 4.7 K/UL (4.8-10.8) Red Blood Count 2.27 M/UL (4.20-5.40) 2.36 M/UL (4.20-5.40) Hemoglobin 7.2 G/DL (12.0-16.0) 7.4 G/DL (12.0-16.0) Hematocrit 20.6 % (37.0-47.0) 22.3 % (37.0-47.0) Mean Corpuscular Volume 91 FL (80-99) 95 FL (80-99) Mean Corpuscular Hemoglobin 31.6 PG (27.0-31.0) 31.2 PG (27.0-31.0) Mean Corpuscular Hemoglobin Concent 34.7 G/DL (32.0-36.0) 33.0 G/DL (32.0-36.0) Red Cell Distribution Width 15.1 % (11.6-14.8) 16.8 % (11.6-14.8) Platelet Count 162 K/UL (150-450) 184 K/UL (150-450) Mean Platelet Volume 4.7 FL (6.5-10.1) 5.1 FL (6.5-10.1) Neutrophils (%) (Auto) % (45.0-75.0) % (45.0-75.0) Lymphocytes (%) (Auto) % (20.0-45.0) % (20.0-45.0) Monocytes (%) (Auto) % (1.0-10.0) % (1.0-10.0) Eosinophils (%) (Auto) % (0.0-3.0) % (0.0-3.0) Basophils (%) (Auto) % (0.0-2.0) % (0.0-2.0) Differential Total Cells Counted 100 100 Neutrophils % (Manual) 68 % (45-75) 79 % (45-75) Lymphocytes % (Manual) 27 % (20-45) 17 % (20-45) Monocytes % (Manual) 5 % (1-10) 3 % (1-10) Eosinophils % (Manual) 0 % (0-3) 1 % (0-3) Basophils % (Manual) 0 % (0-2) 0 % (0-2) Band Neutrophils 0 % (0-8) 0 % (0-8) Platelet Estimate Adequate Adequate Platelet Morphology Normal Normal Hypochromasia 1+ Anisocytosis 1+ 1+ Sodium Level 136 MMOL/L (136-145) Potassium Level 2.8 MMOL/L (3.5-5.1) Chloride Level 105 MMOL/L (98-107) Carbon Dioxide Level 28 MMOL/L (21-32) Anion Gap 2 mmol/L (5-15) Blood Urea Nitrogen 28 mg/dL (7-18) Creatinine 2.0 MG/DL (0.55-1.30) Estimat Glomerular Filtration Rate mL/min (>60) Glucose Level 116 MG/DL (74-106) Calcium Level 9.3 MG/DL (8.5-10.1) Height (Feet): 5 Height (Inches): 5.00 Weight (Pounds): 164 Objective Physical Exam General appearance: alert, cooperative, no distress, appears stated age Head: Normocephalic, without obvious abnormality, atraumatic Eyes: conjunctivae/corneas clear. PERRL, EOM's intact. Fundi benign Throat: Lips, mucosa, and tongue normal. Teeth and gums normal Neck: supple, symmetrical, trachea midline, no adenopathy, thyroid: not enlarged, symmetric, no tenderness/mass/nodules, no carotid bruit and no JVD Lungs: clear to auscultation bilaterally Heart: regular rate and rhythm, S1, S2 normal, no murmur, click, rub or gallop Abdomen: soft, non-tender. Bowel sounds normal. No masses, no organomegaly Extremities: extremities normal, atraumatic, no cyanosis or edema Pulses: 2+ and symmetric Skin: Skin color, texture, turgor normal. No rashes or lesions Neurologic: Grossly normal Mello Durbin MD October 16, 2018 12:38
--- NOTE | 2018-10-16 14:52 | Cardiology Report ---
APPROVED REPORT EKG Measurement Heart [id number] Normal sinus rhythm Right bundle branch block Left anterior fascicular block Bifascicular block Abnormal ECG
[2018-10-16] MEDS ORDERED: Sterile Water Irrig 1000ml IRRIG ONE (15:00)
[2018-10-16] MEDS ORDERED: NS 275ml ONE (15:00)
[2018-10-16] MEDS ORDERED: Tubing IV Secondary IV ONE (15:00)
[2018-10-16] MEDS ORDERED: D5NS 1000ml IV ONE (15:00)
[2018-10-16 16:00] VITALS: BP 126/56
--- NOTE | 2018-10-16 16:56 | Infectious Diseases Prog Note ---
Assessment/Plan Assessment/Plan Full consult dictated: A) 1) gram + bacteremia, sepsis, uti, ? pna 2) pmh noted 3) allergies - amoxicillin, codeine, hydrocodone P) 1) vancomycin, aztreonam 2) check cultures, labs, chest x-ray 3) thank you Subjective Allergies: Coded Allergies: CODEINE (Verified Allergy, Severe, Anaphylaxis, 10/14/18) Difficulty breathing along with hives per pt daughter HYDROCODONE (Verified Allergy, Severe, Anaphylaxis, 10/14/18) Difficulty breathing along with hives per pt daughter AMOXICILLIN (Verified Allergy, Unknown, 09/06/12) Objective Vital Signs Last 24 Hour Vital Signs Date Time Temp Pulse Resp B/P (MAP) Pulse Ox O2 Delivery O2 Flow Rate FiO2 10/16/18 12:00 61 10/16/18 12:00 97.7 60 24 99/74 (82) 100 10/16/18 09:00 Room Air 10/16/18 08:00 97.6 72 22 119/75 (90) 99 10/16/18 08:00 73 10/16/18 04:00 97.8 70 18 127/58 (81) 98 10/16/18 03:32 68 10/16/18 00:00 97.7 75 22 135/63 (87) 98 10/15/18 23:21 73 10/15/18 20:00 97.7 73 18 137/56 (83) 98 10/15/18 19:25 72 10/15/18 18:00 Room Air Height (Feet): 5 Height (Inches): 5.00 Weight (Pounds): 164 Microbiology Date/Time Source Procedure Growth Status 10/14/18 16:15 Blood Blood Culture - Preliminary Resulted 10/14/18 16:00 Blood Blood Culture - Preliminary Resulted 10/14/18 15:15 Nasal Nares MRSA Culture - Final Staphylococcus Aureus - Mrsa Complete 10/14/18 15:15 Rectum VRE Culture - Final Enterococcus Faecium - Vre Complete 10/14/18 15:15 Rectum - Final NO CARBAPENEM-RESISTANT ENTEROBACTERI... Complete Laboratory Tests Test 10/15/18 16:50 10/15/18 17:00 10/15/18 20:20 10/16/18 05:20 White Blood Count 4.8 K/UL (4.8-10.8) 4.2 K/UL (4.8-10.8) L 4.7 K/UL (4.8-10.8) L Red Blood Count 2.58 M/UL (4.20-5.40) L 2.27 M/UL (4.20-5.40) L 2.36 M/UL (4.20-5.40) L Hemoglobin 8.4 G/DL (12.0-16.0) L 7.2 G/DL (12.0-16.0) L 7.4 G/DL (12.0-16.0) L Hematocrit 23.4 % (37.0-47.0) L 20.6 % (37.0-47.0) L 22.3 % (37.0-47.0) L Mean Corpuscular Volume 90 FL (80-99) 91 FL (80-99) 95 FL (80-99) Mean Corpuscular Hemoglobin 32.5 PG (27.0-31.0) H 31.6 PG (27.0-31.0) H 31.2 PG (27.0-31.0) H Mean Corpuscular Hemoglobin Concent 35.9 G/DL (32.0-36.0) 34.7 G/DL (32.0-36.0) 33.0 G/DL (32.0-36.0) Red Cell Distribution Width 15.9 % (11.6-14.8) H 15.1 % (11.6-14.8) H 16.8 % (11.6-14.8) H Platelet Count 30 K/UL (150-450) #L 162 K/UL (150-450) # 184 K/UL (150-450) Mean Platelet Volume 13.4 FL (6.5-10.1) H 4.7 FL (6.5-10.1) L 5.1 FL (6.5-10.1) L Neutrophils (%) (Auto) % (45.0-75.0) % (45.0-75.0) % (45.0-75.0) Lymphocytes (%) (Auto) % (20.0-45.0) % (20.0-45.0) % (20.0-45.0) Monocytes (%) (Auto) % (1.0-10.0) % (1.0-10.0) % (1.0-10.0) Eosinophils (%) (Auto) % (0.0-3.0) % (0.0-3.0) % (0.0-3.0) Basophils (%) (Auto) % (0.0-2.0) % (0.0-2.0) % (0.0-2.0) Differential Total Cells Counted 100 100 100 Neutrophils % (Manual) 62 % (45-75) 68 % (45-75) 79 % (45-75) H Lymphocytes % (Manual) 33 % (20-45) 27 % (20-45) 17 % (20-45) L Monocytes % (Manual) 5 % (1-10) 5 % (1-10) 3 % (1-10) Eosinophils % (Manual) 0 % (0-3) 0 % (0-3) 1 % (0-3) Basophils % (Manual) 0 % (0-2) 0 % (0-2) 0 % (0-2) Band Neutrophils 0 % (0-8) 0 % (0-8) 0 % (0-8) Platelet Estimate Decreased L Adequate Adequate Platelet Morphology Normal Normal Normal Hypochromasia 1+ 1+ Anisocytosis 1+ 1+ 1+ Sodium Level 136 MMOL/L (136-145) 136 MMOL/L (136-145) Potassium Level 4.0 MMOL/L (3.5-5.1) 2.8 MMOL/L (3.5-5.1) L Chloride Level 104 MMOL/L (98-107) 105 MMOL/L (98-107) Carbon Dioxide Level 27 MMOL/L (21-32) 28 MMOL/L (21-32) Anion Gap 5 mmol/L (5-15) 2 mmol/L (5-15) L Blood Urea Nitrogen 29 mg/dL (7-18) H 28 mg/dL (7-18) H Creatinine 1.7 MG/DL (0.55-1.30) H 2.0 MG/DL (0.55-1.30) H Estimat Glomerular Filtration Rate mL/min (>60) mL/min (>60) Glucose Level 108 MG/DL (74-106) H 116 MG/DL (74-106) H Calcium Level 9.5 MG/DL (8.5-10.1) 9.3 MG/DL (8.5-10.1) Ferritin 685 NG/ML (8-388) H Iron Level 94 ug/dL (50-175) Total Iron Binding Capacity 130 ug/dL (250-450) L Percent Iron Saturation 72 % (15-50) H Unsaturated Iron Binding 36 ug/dL (112-346) L Total Protein (PEP) Pending Albumin (PEP) Pending Globulin (PEP) Pending Albumin/Globulin Ratio Pending [id number] Pending [id number] Pending Beta Globulins Pending Beta Gamma Globulin Pending PEP Abnormal Protein Bands Pending Protein Electrophoresis Interpret Pending Test 10/16/18 14:00 Urine Random Sodium 36 mmol/L (20-110) Current Medications Medications (Trade) Dose Ordered Sig/Ary Route PRN Reason Start Time Stop Time Status Last Admin Dose Admin Acetaminophen (Tylenol) 650 mg Q4H PRN ORAL T>100.5/Pain 10/14/18 22:15 11/13/18 20:59 Aztreonam 1 gm/ Dextrose 55 ml @ 110 mls/hr Q12H IVPB 10/16/18 17:00 10/23/18 16:59 Dextrose (Dextrose 50%) 25 ml Q30M PRN IV Hypoglycemia 10/14/18 21:00 11/13/18 20:59 Dextrose (Dextrose 50%) 50 ml Q30M PRN IV Hypoglycemia 10/14/18 21:00 11/13/18 20:59 Dextrose/Sodium Chloride 1,000 ml @ 100 mls/hr Q10H IV 10/15/18 19:00 11/14/18 18:59 10/16/18 05:40 Diphenhydramine HCl (Benadryl) 25 mg Q6H PRN ORAL Itching/Pruritis 10/14/18 21:00 11/13/18 20:59 Hydralazine HCl (Apresoline) 10 mg Q6HR PRN ORAL For High Blood Pressure 10/14/18 22:15 11/13/18 22:14 Lorazepam (Ativan 2mg/ml 1ml) 0.5 mg Q4H PRN IV For Anxiety 10/14/18 21:00 10/21/18 20:59 Metoclopramide HCl (Reglan) 10 mg Q6H PRN IVP Nausea & Vomiting 10/14/18 21:00 11/13/18 20:59 Ondansetron HCl (Zofran) 4 mg Q6H PRN IVP Nausea & Vomiting 10/14/18 21:00 11/13/18 20:59 Pantoprazole 80 mg/Sodium Chloride 250 ml @ 25 mls/hr Q10H IV 10/15/18 22:30 11/14/18 22:29 10/16/18 09:12 Polyethylene Glycol/ Electrolytes (Nulytely) 4,000 ml ONCE ORAL 10/16/18 12:30 10/16/18 23:59 Temazepam (Restoril) 15 mg HSPRN PRN ORAL Insomnia 10/15/18 21:00 10/22/18 20:59 Vancomycin HCl (Vanco rx to dose) 1 ea DAILY PRN MISC Per rx protocol 10/15/18 15:00 11/14/18 14:59 Carla Plata MD October 16, 2018 16:56
[2018-10-16] MEDS: Aztreonam Inj 1 GM in D5W 55 ML IVPB SCH (17:17)
--- NOTE | 2018-10-16 18:00 | Operative Note - Dictated ---
DATE OF OPERATION: 10/16/2018 GASTROENTEROLOGY PROCEDURE REPORT PROCEDURE: Upper gastrointestinal endoscopy with biopsy as well as colonoscopy. SURGEON: Carmen Gore M.D. ANESTHESIA: Please see the separate anesthesiologist notes for details. PRE-ENDOSCOPIC DIAGNOSIS: Gastrointestinal bleeding. POST-ENDOSCOPIC DIAGNOSES: 1. Erosive gastritis status post biopsy. 2. Poor colonic preparation precluding complete colonoscopy. DESCRIPTION OF PROCEDURE: The procedure, its risks, indications, alternatives, and possible complications were explained to the patient as well as her daughter and informed consent was obtained. The patient was then sedated and a diagnostic upper endoscope was introduced through the oropharynx and advanced to the duodenum. The endoscope was then gradually withdrawn. The mucosa examined carefully. Examination of the upper gastrointestinal mucosa revealed erosive gastritis in the antrum of the stomach. Biopsies were sent to pathology for review. There was no active bleeding. The endoscope was removed and the rectal exam was done. The colonoscope was introduced into the rectum. Abundant stool was seen and first manually removed from the rectum. The colonoscope was then advanced to pass some areas of stool up to about 70 cm. Due to poor colonic preparation, the exam had to be aborted at this moment. The examination did not show any active bleeding or obvious mass lesions, but visualization was limited. The patient was left to recovery in good condition. COMPLICATIONS: None. RECOMMENDATIONS: 1. Repeat colonic perforation today. 2. Repeat colonoscopy tomorrow. 3. Check and treat Helicobacter pylori if positive. 4. Continue proton pump inhibitor. Carmen Gore M.D. DR: Colette JOB#: [id number] CC:
--- NOTE | 2018-10-16 19:32 | NUR ---
HAND-OFF: Report given to Yung Jesus RN.
--- NOTE | 2018-10-16 19:33 | Surgery Progress Note ---
Surgery Progress Note Subjective Additional Comments no acute bleeding today. h/h stable. refused prep or ng tube for gi prep. had scope today with gastritis. pending final report. otherwise states she is well and comfortable. Objective Last 24 Hour Vital Signs Date Time Temp Pulse Resp B/P (MAP) Pulse Ox O2 Delivery O2 Flow Rate FiO2 10/16/18 16:00 60 10/16/18 16:00 98.0 70 20 126/56 (79) 99 10/16/18 12:00 61 10/16/18 12:00 97.7 60 24 99/74 (82) 100 10/16/18 09:00 Room Air 10/16/18 08:00 97.6 72 22 119/75 (90) 99 10/16/18 08:00 73 10/16/18 04:00 97.8 70 18 127/58 (81) 98 10/16/18 03:32 68 10/16/18 00:00 97.7 75 22 135/63 (87) 98 10/15/18 23:21 73 10/15/18 20:00 97.7 73 18 137/56 (83) 98 I&O Intake and Output 10/15/18 10/16/18 18:59 06:59 Intake Total 4000 ml 861.5 ml Output Total 400 ml 250 ml Balance 3600 ml 611.5 ml Intake Oral 4000 ml IV Total 861.5 ml Output Urine Total 400 ml Stool Total 250 ml # Voids 2 # Bowel Movements 3 Cardiovascular: RSR Respiratory: clear Abdomen: soft, present bowel sounds, non-distended Extremities: no tenderness, no cyanosis Laboratory Tests Test 10/15/18 20:20 10/16/18 05:20 10/16/18 14:00 White Blood Count 4.2 K/UL (4.8-10.8) L 4.7 K/UL (4.8-10.8) L Red Blood Count 2.27 M/UL (4.20-5.40) L 2.36 M/UL (4.20-5.40) L Hemoglobin 7.2 G/DL (12.0-16.0) L 7.4 G/DL (12.0-16.0) L Hematocrit 20.6 % (37.0-47.0) L 22.3 % (37.0-47.0) L Mean Corpuscular Volume 91 FL (80-99) 95 FL (80-99) Mean Corpuscular Hemoglobin 31.6 PG (27.0-31.0) H 31.2 PG (27.0-31.0) H Mean Corpuscular Hemoglobin Concent 34.7 G/DL (32.0-36.0) 33.0 G/DL (32.0-36.0) Red Cell Distribution Width 15.1 % (11.6-14.8) H 16.8 % (11.6-14.8) H Platelet Count 162 K/UL (150-450) # 184 K/UL (150-450) Mean Platelet Volume 4.7 FL (6.5-10.1) L 5.1 FL (6.5-10.1) L Neutrophils (%) (Auto) % (45.0-75.0) % (45.0-75.0) Lymphocytes (%) (Auto) % (20.0-45.0) % (20.0-45.0) Monocytes (%) (Auto) % (1.0-10.0) % (1.0-10.0) Eosinophils (%) (Auto) % (0.0-3.0) % (0.0-3.0) Basophils (%) (Auto) % (0.0-2.0) % (0.0-2.0) Differential Total Cells Counted 100 100 Neutrophils % (Manual) 68 % (45-75) 79 % (45-75) H Lymphocytes % (Manual) 27 % (20-45) 17 % (20-45) L Monocytes % (Manual) 5 % (1-10) 3 % (1-10) Eosinophils % (Manual) 0 % (0-3) 1 % (0-3) Basophils % (Manual) 0 % (0-2) 0 % (0-2) Band Neutrophils 0 % (0-8) 0 % (0-8) Platelet Estimate Adequate Adequate Platelet Morphology Normal Normal Hypochromasia 1+ Anisocytosis 1+ 1+ Sodium Level 136 MMOL/L (136-145) Potassium Level 2.8 MMOL/L (3.5-5.1) L Chloride Level 105 MMOL/L (98-107) Carbon Dioxide Level 28 MMOL/L (21-32) Anion Gap 2 mmol/L (5-15) L Blood Urea Nitrogen 28 mg/dL (7-18) H Creatinine 2.0 MG/DL (0.55-1.30) H Estimat Glomerular Filtration Rate mL/min (>60) Glucose Level 116 MG/DL (74-106) H Calcium Level 9.3 MG/DL (8.5-10.1) Urine Random Sodium 36 mmol/L (20-110) Plan Problems: (1) Lower GI bleed Assessment & Plan: 88 year old female with acute GI bleed. anemia. prior hx of anticoagulation no n/v/f/c labs noted and stable has not recently had blood in stool per report no acute surgical intervention planed npo iv fluids ppi bowel regimen appreciate GI input trend labs thank you Brigido Pratt October 16, 2018 19:33
--- NOTE | 2018-10-16 19:55 | NUR ---
NURSE NOTES: recvd pt. Pt is awake and alert AOX4. Pt is on room air with no sign of sob or resp distress. Pt is NPO for colonoscopy tomorrow am. Consent is signed. Pt had valentin cath that is draining to gravity. rectal tube in place. Pt has two IV sites. Bed in lowest position and locked, will continue with plan of care.
[2018-10-16 20:00] VITALS: BP 125/64
--- NOTE | 2018-10-16 23:45 | Consultation ---
DATE OF CONSULTATION: 10/16/2018 INFECTIOUS DISEASE CONSULTATION CONSULTING PHYSICIAN: Carla Plata M.D. ATTENDING PHYSICIAN: Constance Phillips M.D. REFERRING PHYSICIAN: Dr. Enoc Alexandre. REASON FOR CONSULTATION: Gram-positive bacteremia, sepsis, urinary tract infection, and possible pneumonia. CHIEF COMPLAINT: The patient's chief complaint coming into the hospital is GI bleed and falls. HISTORY OF PRESENT ILLNESS: This is a very pleasant 88-year-old female, who comes to [facility] with gastrointestinal bleed and falls. The patient was seen by gastrointestinal and the patient looks like she had an endoscopy. The patient was noted to have gram-positive bacteremia with multiple cultures showing gram-positive cocci in clusters. Because of the gram-positive bacteremia, Infectious Disease consultation was requested. Identification of the pathogen is pending. Workup also shows that she looks like she has a urinary tract infection based on urinalysis and could have a complicated urinary tract infection with falls. In addition, the patient looks like she could have a pneumonia on chest x-ray. She does come from home and could have a community-acquired pneumonia. However, she also could have atelectasis and this is in the left lung base. The patient is allergic to amoxicillin. I have started the patient on vancomycin and aztreonam. MAR was noted. Orders were noted. Notes were reviewed. Case was discussed with RN. The patient is in the TK. REVIEW OF SYSTEM: CONSTITUTIONAL: The patient has generalized fatigue. She came in with falls. She has no fever or chills. No weight loss or night sweats. HEAD AND NECK: No head pain or neck pain. CARDIAC: No chest pain. GASTROINTESTINAL: She came in with gastrointestinal bleed, but no nausea, vomiting, or diarrhea. GENITOURINARY: She has a Bernstein. PULMONARY: No significant congestion, shortness of breath, hemoptysis, or secretions. SKIN: No rash. EXTREMITIES: No extremity pain. NEUROLOGIC: No seizures. PAST MEDICAL HISTORY: The patient's past medical history includes the following. The patient has a past history of renal failure. She is in acute renal failure, likely has chronic renal failure. Other past medical history includes history of hypertension. She also came in with gastrointestinal bleed and anemia. She has history of atrial fibrillation. She has history of hypertension, CAD, atrial fibrillation, history of pacemaker, and history of hypoalbuminemia. The patient has history of cardiac disease. No history of diabetes. She also has history of headaches. She also has history of neurological disease, unclear what type. MEDICATIONS: Upon reviewing the MAR, she is on the following medications. The patient is on aztreonam and polyethylene. She has been on IV fluids. She has been on pantoprazole and Protonix. She is on Restoril. She is on vancomycin and aztreonam. She is on hydralazine or Apresoline. She is on Tylenol, Zofran, Reglan, lorazepam, diphenhydramine, and intravenous fluids. Outside medications were noted and reconciliated. She was on in an outside setting cimetidine, atenolol, amlodipine, Lasix, Levaquin, metronidazole, Xarelto, and valsartan. Outside medications were noted and reconciliated. ALLERGIES: Include amoxicillin, codeine, and hydrocodone. SOCIAL HISTORY: Negative for smoking, alcohol, and drug abuse. FAMILY HISTORY: Noncontributory. Negative for exposure to toes or cancer. PHYSICAL EXAMINATION: VITAL SIGNS: Temperature is 97.7, pulse rate 61, respiratory rate 24, blood pressure 99/74, and saturation is 100%. Pulse rate on admission was 110. GENERAL: Alert and responsive, in no acute distress. HEAD AND NECK: Oral exam, no thrush. Eye exam, no icterus. Neck is supple. No JVD. Normocephalic. HEART: Regular. No obvious gallop or murmur. Occasionally irregular. ABDOMEN: Soft. Positive bowel sounds. Nontender. LUNGS: Few bilateral rhonchi. Possible rales at the bases. SKIN: No rash. MUSCULOSKELETAL: No effusion. Legs are without cellulitis. PERIPHERAL VASCULAR: No cyanosis or gangrene. GENITOURINARY: She has a Bernstein. Urine is cloudy. LINE SITES: Without phlebitis. NEUROLOGIC: Generalized weakness. Alert and responsive. LABORATORY DATA: Lab data is as follows. White count 4.7, hemoglobin 7.4, and platelet count is 184,000. Creatinine is 2.0. It was 1.2 on admission. Urinalysis had 2+ leukocyte esterase and 5 to 10 white blood cells. CULTURES: Vancomycin resistant enterococcus and methicillin-resistant Staphylococcus aureus screens are positive. Blood cultures with multiple bottles of gram-positive cocci in clusters. Identification is pending. Echo has been ordered. IMAGING STUDIES: Chest x-ray with left lung base opacity, which could be atelectasis versus pneumonia. ASSESSMENT AND PLAN: 1. The patient has gram-positive bacteremia with multiple bottles growing out gram-positive organisms in clusters. The patient has history of falls and has SIRS criteria with elevated heart rate of 110 on admission and respiratory rate as high as 24. Most likely, she has gram-positive bacteremia with sepsis. However, also could be contaminant, but it is less likely with multiple bottles growing out gram-positive organisms. We will check echo. Check identification of the blood cultures. The patient also could have pneumonia and UTI, possible community-acquired pneumonia, and she has a positive urinalysis and could have urinary tract infection, likely complicated urinary tract infection. Continue antibiotics vancomycin for gram-positive bacteremia and aztreonam for urinary tract infection. Continue vancomycin and aztreonam. Check cultures, laboratories, chest x-ray, and echocardiogram. 2. Acute kidney injury with elevated creatinine, likely chronic nephritis. 3. Hypertension. Blood pressure treatment per primary. 4. Anemia. 5. Gastrointestinal bleed. 6. Falls. 7. History of atrial fibrillation. 8. Pacemaker. 9. CAD. 10. Atrial fibrillation with pacemaker. 11. Allergies to amoxicillin, codeine, and hydrocodone. 12. Social history is negative. 13. Family history is noncontributory. 14. MAR was noted. 15. Case was discussed with RN. 16. Step-down unit care. 17. Skin care protocol. 18. Continue treatment per primary consultants. Carla Plata M.D. DR: HAILEY JOB#: [id number] CC:
[2018-10-17] VITALS (10 sets, daily range): BP systolic 106–137; BP diastolic 49–64
[2018-10-17] MEDS: D5NS 1,000 ML IV SCH ×3 (01:00→19:15)
[2018-10-17] MEDS: Pantoprazole 80 MG in NS 250 ML IV SCH ×2 (05:36→14:30)
[2018-10-17] MEDS: Aztreonam Inj 1 GM in D5W 55 ML IVPB SCH ×2 (05:37→16:44)
[2018-10-17 05:49] LABS: BASOPHILS % (AUTO) 0.4 % (0.0-2.0); EOSINOPHILS % (AUTO) 1.1 % (0.0-3.0); HEMATOCRIT 24.3 % (37.0-47.0); HEMOGLOBIN 8.2 G/DL (12.0-16.0); LYMPHOCYTES % (AUTO) 23.8 % (20.0-45.0); MEAN CORPUSCULAR VOLUME 93 FL (80-99); MONOCYTES % (AUTO) 7.3 % (1.0-10.0); NEUTROPHILS % (AUTO) 67.3 % (45.0-75.0); PLATELET COUNT 167 K/UL (150-450); RED CELL DISTRIBUTION WIDTH 16.1 % (11.6-14.8); WHITE BLOOD COUNT 4.9 K/UL (4.8-10.8)
[2018-10-17 06:25] LABS: ALANINE AMINOTRANSFERASE 13 U/L (12-78); ALBUMIN 1.6 G/DL (3.4-5.0); ALBUMIN/GLOBULIN RATIO 0.2 (1.0-2.7); ALKALINE PHOSPHATASE 49 U/L (46-116); ANION GAP 3 mmol/L (5-15); ASPARTATE AMINO TRANSFERASE 22 U/L (15-37); BILIRUBIN,TOTAL 0.4 MG/DL (0.2-1.0); BLOOD UREA NITROGEN 25 mg/dL (7-18); CARBON DIOXIDE 26 MMOL/L (21-32); CHLORIDE 108 MMOL/L (98-107); CHOLESTEROL < 50 MG/DL (< 200); CREATINE KINASE 16 U/L (26-308); CREATININE 2.2 MG/DL (0.55-1.30); GAMMA GLUTAMYL TRANSPEPTIDASE 15 U/L (5-85); HDL CHOLESTEROL 21 MG/DL (40-60); PHOSPHORUS 2.7 MG/DL (2.5-4.9); SODIUM 137 MMOL/L (136-145); TRIGLYCERIDES 21 MG/DL (30-150)
--- NOTE | 2018-10-17 06:48 | NUR ---
NURSE NOTES: Called DR Phillips regarding potassium level 3.0 and Mag 1.4, awaiting call back
--- NOTE | 2018-10-17 07:10 | NUR ---
NURSE NOTES: Report received from JACQUELYN Chu.Pt resting in bed asleep ,awakens easily with verbal command,no signs of resp distress or discomfort SR on the monitor.keep NPO,for Colonoscopy ,IV site to LT hand and RAC intact with Protonix drip at 25ml/hr and D5NS at at 75 ml/hr,iv site intact ,skin warm and dry,SR up x2 HOB elevated,bed lock in lowest position,will continue with plans of care.
--- NOTE | 2018-10-17 08:00 | NUR ---
NURSE NOTES: GI lab informed re stools not clear,Tap water enema ordered by DR Boykin,Family member ,Shanae Solis called for Telephone consent for the Colonoscopy,and she agreed.
--- NOTE | 2018-10-17 08:32 | NUR ---
RADIOLOGY DEPT., CHEST X-RAY DONE.-P.DYE
--- NOTE | 2018-10-17 09:30 | NUR ---
NURSE NOTES: Rectal tube removed and tap water enema done with good results.Large amount of liquid to soft formed stools came out.
--- NOTE | 2018-10-17 10:20 | Diagnostic Imaging Report ---
Indication:Elevated Bun and Creatinine. Technique: Grayscale and duplex Doppler imaging of the kidneys performed. Comparison: None Findings: The size, contour, and echogenicity of both kidneys are within normal limits. There is no hydronephrosis. The IVC and urinary bladder are unremarkable. Right kidney is 10.3 cm in length and left kidney 10.4 cm in length. A Bernstein catheter is present. There is a cyst in the left kidney measuring 2.9 cm. This is central and parapelvic in location. There is a 1.3 cm cortical cyst in the upper pole the right kidney. IMPRESSION: Bilateral renal cysts. Bernstein catheter
--- NOTE | 2018-10-17 10:40 | Anethesia Preoperative Eval ---
Anesthesia Pre-op PMH/ROS General Date of Evaluation: October 17, 2018 Anesthesiologist: Óscar ASA Score: ASA 3 - E Mallampati Score Class I : Soft palate, uvula, fauces, pillars visible Class II: Soft palate, uvula, fauces visible Class III: Soft palate, base of uvula visible Class IV: Only hard plate visible Mallampati Classification: Class III Surgeon: Shay Diagnosis: Hematochezia Surgical Procedure: Colonoscopy Anesthesia History: none Family History: no anesthesia problems Allergies: Coded Allergies: CODEINE (Verified Allergy, Severe, Anaphylaxis, 10/14/18) Difficulty breathing along with hives per pt daughter HYDROCODONE (Verified Allergy, Severe, Anaphylaxis, 10/14/18) Difficulty breathing along with hives per pt daughter AMOXICILLIN (Verified Allergy, Unknown, 09/06/12) Medications: see eMAR Patient NPO?: Yes NPO Date: October 16, 2018 NPO Time: 12:00 Past Medical History Cardiovascular: Reports: HTN, CAD, arrhythmia - aib s/p pacemaker; Denies: NE, valve dz, other Pulmonary: Denies: asthma, COPD, ANGELINE, other Gastrointestinal/Genitourinary: Reports: GERD, other - hematochezia; Denies: CRI, ESRD Neurologic/Psychiatric: Denies: dementia, CVA, depression/anxiety, TIA, other Endocrine: Denies: DM, hypothyroidism, steroids, other HEENT: Denies: cataract (L), cataract (R), glaucoma, [place] (L), [place] (R), other Hematology/Immune: Denies: anemia, DVT, bleeding disorder, other Musculoskeletal/Integumentary: Denies: OA, RA, DJD, DDD, edema, other PSxH Narrative: Pacemaker, hiatal hernia repair Anesthesia Pre-op Phys. Exam Physician Exam Last Vital Signs Date Time Temp Pulse Resp B/P (MAP) Pulse Ox O2 Delivery O2 Flow Rate FiO2 10/17/18 08:00 97.9 71 18 128/58 (81) 100 10/16/18 20:39 Room Air Constitutional: NAD Cardiovascular: RRR Respiratory: CTA Airway Exam Mallampati Score: Class III MO: limited ROM: limited Anesthesia Pre-op A/P Labs Hematology Test 10/17/18 03:45 White Blood Count 4.9 K/UL (4.8-10.8) Red Blood Count 2.60 M/UL (4.20-5.40) L Hemoglobin 8.2 G/DL (12.0-16.0) L Hematocrit 24.3 % (37.0-47.0) L Mean Corpuscular Volume 93 FL (80-99) Mean Corpuscular Hemoglobin 31.4 PG (27.0-31.0) H Mean Corpuscular Hemoglobin Concent 33.7 G/DL (32.0-36.0) Red Cell Distribution Width 16.1 % (11.6-14.8) H Platelet Count 167 K/UL (150-450) Mean Platelet Volume 5.2 FL (6.5-10.1) L Neutrophils (%) (Auto) 67.3 % (45.0-75.0) Lymphocytes (%) (Auto) 23.8 % (20.0-45.0) Monocytes (%) (Auto) 7.3 % (1.0-10.0) Eosinophils (%) (Auto) 1.1 % (0.0-3.0) Basophils (%) (Auto) 0.4 % (0.0-2.0) Chemistry Test 10/17/18 03:45 Sodium Level 137 MMOL/L (136-145) Potassium Level 3.0 MMOL/L (3.5-5.1) L Chloride Level 108 MMOL/L (98-107) H Carbon Dioxide Level 26 MMOL/L (21-32) Anion Gap 3 mmol/L (5-15) L Blood Urea Nitrogen 25 mg/dL (7-18) H Creatinine 2.2 MG/DL (0.55-1.30) H Estimat Glomerular Filtration Rate mL/min (>60) Glucose Level 96 MG/DL (74-106) Uric Acid 8.0 MG/DL (2.6-7.2) H Calcium Level 9.0 MG/DL (8.5-10.1) Phosphorus Level 2.7 MG/DL (2.5-4.9) Magnesium Level 1.4 MG/DL (1.8-2.4) L Total Bilirubin 0.4 MG/DL (0.2-1.0) Gamma Glutamyl Transpeptidase 15 U/L (5-85) Aspartate Amino Transf (AST/SGOT) 22 U/L (15-37) Alanine Aminotransferase (ALT/SGPT) 13 U/L (12-78) Alkaline Phosphatase 49 U/L (46-116) Total Creatine Kinase 16 U/L (26-308) L Troponin I 0.021 ng/mL (0.000-0.056) C-Reactive Protein, Quantitative < 0.4 mg/dL (0.00-0.90) Pro-B-Type Natriuretic Peptide 1983 pg/mL (0-125) H Total Protein 9.4 G/DL (6.4-8.2) H Albumin 1.6 G/DL (3.4-5.0) L Globulin 7.8 g/dL Albumin/Globulin Ratio 0.2 (1.0-2.7) L Triglycerides Level 21 MG/DL (30-150) L Cholesterol Level < 50 MG/DL (< 200) LDL Cholesterol 7 mg/dL (<100) HDL Cholesterol 21 MG/DL (40-60) L Cholesterol/HDL Ratio 2.4 (3.3-4.4) L Vitamin B12 Level 226 PG/ML (193-986) Folate 3.2 NG/ML (8.6-58.9) L Thyroid Stimulating Hormone (TSH) 2.983 uiU/mL (0.358-3.740) Studies Pre-op Studies: EKG - RBBB-baseline Risk Assessment & Plan Assessment: ASA IIIE Plan: MAC Status Change Before Surgery: No Pre-Antibiotics Drug: N/A Kira Wheatley MD October 17, 2018 10:40
[2018-10-17] MEDS ORDERED: LR 1000ml 1,000 ML IVLG SCH (10:41)
[2018-10-17] MEDS ORDERED: DiphenhydrAMINE 50mg/ml Inj IVP PRN (10:45)
--- NOTE | 2018-10-17 11:08 | General Progress Note ---
Assessment/Plan Assessment/Plan: 88 year old female with PMH of HTN admitted for management of lower GI bleed #Acute blood loss anemia, present on admission due to lower GI Bleed -GI consult appreciated -Surgery consult appreciated -Hematology consult appreciated -EGD showed erosive gastritis -Colonoscopy was nondiagnostic due to poor prep -Repeat prep done -NPO except meds -Serial CBC -continue PPI -Cont IVF -Hold AC -SCD for DVT ppx #Hypokalemia #Hypomagnesemia -replace and check labs in AM #Coag Neg Staph Bacteremia -continue with antibiotics per ID #HTN -hold all anti HTN -PRN hydralazine if needed #CAD #AFib #s/p pacemaker -Hold AC -Cont tele Code status Full Subjective Date patient seen: October 17, 2018 Time patient seen: 10:20 ROS Limited/Unobtainable: Yes Cardiovascular: Denies: chest pain Respiratory: Denies: cough Gastrointestinal/Abdominal: Denies: abdomen distended, abdominal pain Allergies: Coded Allergies: CODEINE (Verified Allergy, Severe, Anaphylaxis, 10/14/18) Difficulty breathing along with hives per pt daughter HYDROCODONE (Verified Allergy, Severe, Anaphylaxis, 10/14/18) Difficulty breathing along with hives per pt daughter AMOXICILLIN (Verified Allergy, Unknown, 09/06/12) Subjective Medicine follow up for acute blood loss anemia, rectal bleeding, hypokalemia, gram positive bacteremia Objective Last 24 Hour Vital Signs Date Time Temp Pulse Resp B/P (MAP) Pulse Ox O2 Delivery O2 Flow Rate FiO2 10/17/18 08:00 97.9 71 18 128/58 (81) 100 10/17/18 04:00 97.5 79 18 137/64 (88) 95 10/17/18 04:00 77 10/17/18 00:00 97.5 79 18 137/64 (88) 95 10/17/18 00:00 71 10/16/18 20:39 Room Air 10/16/18 20:00 97.0 80 16 125/64 (84) 96 10/16/18 20:00 60 10/16/18 16:00 60 10/16/18 16:00 98.0 70 20 126/56 (79) 99 10/16/18 12:00 61 10/16/18 12:00 97.7 60 24 99/74 (82) 100 Intake and Output 10/16/18 10/17/18 19:00 07:00 Intake Total 3705 ml 350 ml Output Total 400 ml Balance 3305 ml 350 ml Intake Oral 2000 ml 350 ml IV Total 1455 ml Blood Product 250 ml Output Urine Total 400 ml Stool Total 0 ml Laboratory Tests 10/16/18 14:00: Urine Random Sodium 36 10/16/18 18:00: Urine Total Protein [Pending], Urine Albumin (%) [Pending], Urine Alpha-1- Globulins (%) [Pending], Urine [id number] (%) [Pending], Urine Beta- Globulin (%) [Pending], Urine Gamma Globulin (%) [Pending], Ur Protein Electrophoresis M-Tray [Pending], Urine Protein Electrophoresis Intrp [Pending] 10/17/18 03:45: White Blood Count 4.9, Red Blood Count 2.60L, Hemoglobin 8.2L, Hematocrit 24.3L , Mean Corpuscular Volume 93, Mean Corpuscular Hemoglobin 31.4H, Mean Corpuscular Hemoglobin Concent 33.7, Red Cell Distribution Width 16.1H, Platelet Count 167, Mean Platelet Volume 5.2L, Neutrophils (%) (Auto) 67.3, Lymphocytes (%) (Auto) 23.8, Monocytes (%) (Auto) 7.3, Eosinophils (%) (Auto) 1.1, Basophils (%) (Auto) 0.4, Sodium Level 137, Potassium Level 3.0L, Chloride Level 108H, Carbon Dioxide Level 26, Anion Gap 3L, Blood Urea Nitrogen 25H, Creatinine 2.2H, Estimat Glomerular Filtration Rate , Glucose Level 96, Uric Acid 8.0H, Calcium Level 9.0, Phosphorus Level 2.7, Magnesium Level 1.4L, Total Bilirubin 0.4, Gamma Glutamyl Transpeptidase 15, Aspartate Amino Transf (AST/ SGOT) 22, Alanine Aminotransferase (ALT/SGPT) 13, Alkaline Phosphatase 49, Total Creatine Kinase 16L, Troponin I 0.021, C-Reactive Protein, Quantitative < 0.4, Pro-B-Type Natriuretic Peptide 1983H, Total Protein 9.4H, Albumin 1.6L, Globulin 7.8, Albumin/Globulin Ratio 0.2L, Triglycerides Level 21L, Cholesterol Level < 50, LDL Cholesterol 7, HDL Cholesterol 21L, Cholesterol/HDL Ratio 2.4L, Vitamin B12 Level 226, Folate 3.2L, Thyroid Stimulating Hormone (TSH) 2.983 Height (Feet): 5 Height (Inches): 4.00 Weight (Pounds): 184 General Appearance: no apparent distress, alert Neck: normal alignment, supple Cardiovascular: normal rate, regular rhythm Respiratory/Chest: lungs clear, normal breath sounds, no respiratory distress Abdomen: non tender, soft Neurologic: alert Enoc Mendez MD October 17, 2018 11:08
[2018-10-17] MEDS ORDERED: fentaNYL 100 mcg/2 mL IV ONE (11:34)
--- NOTE | 2018-10-17 11:38 | Pre-Procedure Note/Attestation ---
Pre-Procedure Note/Attestation Complete Prior to Procedure Planned Procedure: not applicable Procedure Narrative: colonoscopy Indications for Procedure Pre-Operative Diagnosis: gib Attestation I attest that I discussed the nature of the procedure; its benefits; risks and complications; and alternatives (and the risks and benefits of such alternatives ), prior to the procedure, with the patient (or the patient's legal advertising representative). I attest that, if there was a reasonable possibility of needing a blood transfusion, the patient (or the patient's legal advertising representative) was given the [facility] standardized written summary, pursuant to the Keny Rosita Blood Safety Act ([place] Health and Safety Code # 1645, as amended). I attest that I re-evaluated the patient just prior to the surgery and that there has been no change in the patient's H&P, except as documented below: Michael Day MD October 17, 2018 11:38
--- NOTE | 2018-10-17 11:39 | General Progress Note ---
Assessment/Plan Assessment/Plan: Assessment - Maroon stools/LGIB - suspect diverticular - no bleeding noted since admission - Patient refusing GI preparation for colonoscopy - patient also refusing NGT to give GI preparation - Elevated Cr and Hypokalemia Recommendations - Serial CBC - transfuse PRN - f/u renal ultrasound results - replace K and watch Cr - Renal f/u - PPI - Colon today Subjective ROS Limited/Unobtainable: No Allergies: Coded Allergies: CODEINE (Verified Allergy, Severe, Anaphylaxis, 10/14/18) Difficulty breathing along with hives per pt daughter HYDROCODONE (Verified Allergy, Severe, Anaphylaxis, 10/14/18) Difficulty breathing along with hives per pt daughter AMOXICILLIN (Verified Allergy, Unknown, 09/06/12) Objective Last 24 Hour Vital Signs Date Time Temp Pulse Resp B/P (MAP) Pulse Ox O2 Delivery O2 Flow Rate FiO2 10/17/18 08:00 97.9 71 18 128/58 (81) 100 10/17/18 04:00 97.5 79 18 137/64 (88) 95 10/17/18 04:00 77 10/17/18 00:00 97.5 79 18 137/64 (88) 95 10/17/18 00:00 71 10/16/18 20:39 Room Air 10/16/18 20:00 97.0 80 16 125/64 (84) 96 10/16/18 20:00 60 10/16/18 16:00 60 10/16/18 16:00 98.0 70 20 126/56 (79) 99 10/16/18 12:00 61 10/16/18 12:00 97.7 60 24 99/74 (82) 100 Intake and Output 10/16/18 10/17/18 19:00 07:00 Intake Total 3705 ml 350 ml Output Total 400 ml Balance 3305 ml 350 ml Intake Oral 2000 ml 350 ml IV Total 1455 ml Blood Product 250 ml Output Urine Total 400 ml Stool Total 0 ml Laboratory Tests 10/16/18 14:00: Urine Random Sodium 36 10/16/18 18:00: Urine Total Protein [Pending], Urine Albumin (%) [Pending], Urine Alpha-1- Globulins (%) [Pending], Urine [id number] (%) [Pending], Urine Beta- Globulin (%) [Pending], Urine Gamma Globulin (%) [Pending], Ur Protein Electrophoresis M-Tray [Pending], Urine Protein Electrophoresis Intrp [Pending] 10/17/18 03:45: White Blood Count 4.9, Red Blood Count 2.60L, Hemoglobin 8.2L, Hematocrit 24.3L , Mean Corpuscular Volume 93, Mean Corpuscular Hemoglobin 31.4H, Mean Corpuscular Hemoglobin Concent 33.7, Red Cell Distribution Width 16.1H, Platelet Count 167, Mean Platelet Volume 5.2L, Neutrophils (%) (Auto) 67.3, Lymphocytes (%) (Auto) 23.8, Monocytes (%) (Auto) 7.3, Eosinophils (%) (Auto) 1.1, Basophils (%) (Auto) 0.4, Sodium Level 137, Potassium Level 3.0L, Chloride Level 108H, Carbon Dioxide Level 26, Anion Gap 3L, Blood Urea Nitrogen 25H, Creatinine 2.2H, Estimat Glomerular Filtration Rate , Glucose Level 96, Uric Acid 8.0H, Calcium Level 9.0, Phosphorus Level 2.7, Magnesium Level 1.4L, Total Bilirubin 0.4, Gamma Glutamyl Transpeptidase 15, Aspartate Amino Transf (AST/ SGOT) 22, Alanine Aminotransferase (ALT/SGPT) 13, Alkaline Phosphatase 49, Total Creatine Kinase 16L, Troponin I 0.021, C-Reactive Protein, Quantitative < 0.4, Pro-B-Type Natriuretic Peptide 1983H, Total Protein 9.4H, Albumin 1.6L, Globulin 7.8, Albumin/Globulin Ratio 0.2L, Triglycerides Level 21L, Cholesterol Level < 50, LDL Cholesterol 7, HDL Cholesterol 21L, Cholesterol/HDL Ratio 2.4L, Vitamin B12 Level 226, Folate 3.2L, Thyroid Stimulating Hormone (TSH) 2.983 10/17/18 06:45: Random Vancomycin Level 10.1 Height (Feet): 5 Height (Inches): 4.00 Weight (Pounds): 184 General Appearance: no apparent distress EENT: normal ENT inspection Neck: supple Cardiovascular: normal rate Respiratory/Chest: decreased breath sounds Abdomen: normal bowel sounds, non tender, soft Extremities: non-tender Michael Day MD October 17, 2018 11:39
[2018-10-17] MEDS ORDERED: Propofol 200mg/20ml IV ONE (11:45)
[2018-10-17] MEDS ORDERED: NS 500ML IVPB ONE (11:50)
--- NOTE | 2018-10-17 11:59 | Endoscopy Procedure Note ---
Endoscopy Procedure Note General Indication for Procedure: gib Procedures Performed: colonoscopy Operative Findings/Diagnosis: hemorrhoids Specimen: none Pt Tolerated Procedure Well: Yes Estimated Blood Loss: none Anesthesia Anesthesiologist: casimiro Anesthesia: MAC Inserted Devices Implant(s) used?: No GI Core Measures 50 yrs or older w/o bx or poly: Not Applicable 10yrs. F/U recommended: Not Applicable Michael Day MD October 17, 2018 11:59
--- NOTE | 2018-10-17 12:34 | Immediate Post-Op Evaluation ---
Immediate Post-Op Evalulation Immediate Post-Op Evalulation Procedure: Colonoscopy Date of Evaluation: October 17, 2018 Time of Evaluation: 12:33 IV Fluids: 200 Blood Products: none Estimated Blood Loss: none Urinary Output: none Blood Pressure Systolic: 106 - 6256 Blood Pressure Diastolic: 56 Pulse Rate: 62 Respiratory Rate: 20 O2 Sat by Pulse Oximetry: 98 Temperature (Fahrenheit): 97.6 Pain Score (1-10): 1 Nausea: No Vomiting: No Complications none Patient Status: reacts, patent, none Hydration Status: adequate Shyam Weeks MD October 17, 2018 12:34
--- NOTE | 2018-10-17 12:39 | Diagnostic Imaging Report ---
Indication: Dyspnea Comparison: 10/14/2018 A single view chest radiograph was obtained. Findings: Pulmonary vascular congestion has developed since the last exam. Cardiomegaly also slightly worse. No change otherwise. There may be a small left pleural effusion. Old rib fractures on the right noted. Some of these may be acute. Please correlate clinically. Bones are osteopenic. IMPRESSION: Interval development of pulmonary vascular congestion/CHF. Other findings unchanged
--- NOTE | 2018-10-17 12:41 | NUR ---
NURSE NOTES: Pt brought down for Colonoscopy awake,alert in no distress accompanied by transporter and GI cath lab manager.
[2018-10-17] MEDS ORDERED: Vancomycin 1.25gm Premix q24h IVPB SCH (13:00)
--- NOTE | 2018-10-17 13:08 | Hematology/Onc Progress Note ---
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 With a paraprotein elevation in the past --> Continue to closely monitor > Anemia w/u has been reviewed, will trend daily. --> Hgb goal >7 --> 12/06/17: 1 unit prbc ordered --> spep and upep reordered--> abnmormalities noted, immunofix ordered # Anemia due to underlying gi bleed, currently bleeding resolved --> anemia panel reviewed ferritin is 385, sufficient iron stores --> gi and surg consulted, endoscopy as per gi /) # Paraproteinemia. 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 --> Obtain new SPEP IgG. --> Lucent lesion in the left iliac bone. Permeative pattern of the osseous skeleton may be due to osteopenia but cannot exclude metastases. --> bone scan is pending for above =--> apparently refusing in the past # Thrombocytopenia - either bone marrow process related or meds --> hepatitis panel neg # Coagulopathy, likely secondary to decreased oral take. # Pacemaker placement history. # Hypertension. The timing of this note does not necessarily reflect the time of the patient was seen. Greatly appreciate consultation! Subjective Gastrointestinal/Abdominal: Denies: no symptoms, abdomen distended, abdominal pain, black stools, tarry stools, blood in stool, constipated, diarrhea, difficulty swallowing, nausea, poor appetite, poor fluid intake, rectal bleeding , vomiting, other Genitourinary: Denies: no symptoms, burning, discharge, frequency, flank pain, hematuria, incontinence, pain, urgency, other Neurologic/Psychiatric: Denies: no symptoms, anxiety, depressed, emotional problems, headache, numbness, paresthesia, pre-existing deficit, seizure, tingling, tremors, weakness, other Endocrine: Denies: no symptoms, excessive sweating, flushing, intolerance to cold, intolerance to heat, increased hunger, increased thirst, increased urine, unexplained weight gain, unexplained weight loss, other Hematologic/Lymphatic: Denies: no symptoms, anemia, easy bleeding, easy bruising, adenopathy, other Allergies: Coded Allergies: CODEINE (Verified Allergy, Severe, Anaphylaxis, 10/14/18) Difficulty breathing along with hives per pt daughter HYDROCODONE (Verified Allergy, Severe, Anaphylaxis, 10/14/18) Difficulty breathing along with hives per pt daughter AMOXICILLIN (Verified Allergy, Unknown, 09/06/12) Subjective 10/16: plt are drastically improved, no f/c, no night sweats 10/17: colo for today, no events noted, cbc has been reviewed Objective Objective Current Medications Medications (Trade) Dose Ordered Sig/Ary Route PRN Reason Start Time Stop Time Status Last Admin Dose Admin Acetaminophen (Tylenol) 650 mg Q4H PRN ORAL T>100.5/Pain 10/14/18 22:15 11/13/18 20:59 Acetaminophen (Tylenol) 650 mg Q4H PRN ORAL Mild Pain (Pain Scale 1-3) 10/17/18 10:45 10/17/18 15:00 Aztreonam 1 gm/ Dextrose 55 ml @ 110 mls/hr Q12H IVPB 10/16/18 17:00 10/23/18 16:59 10/17/18 05:37 Dextrose (Dextrose 50%) 25 ml Q30M PRN IV Hypoglycemia 10/14/18 21:00 11/13/18 20:59 Dextrose (Dextrose 50%) 50 ml Q30M PRN IV Hypoglycemia 10/14/18 21:00 11/13/18 20:59 Dextrose/Sodium Chloride 1,000 ml @ 100 mls/hr Q10H IV 10/15/18 19:00 11/14/18 18:59 10/17/18 01:00 Diphenhydramine HCl (Benadryl) 25 mg Q15M PRN IVP Itching 10/17/18 10:45 10/17/18 15:00 Diphenhydramine HCl (Benadryl) 25 mg Q6H PRN ORAL Itching/Pruritis 10/14/18 21:00 11/13/18 20:59 Hydralazine HCl (Apresoline) 5 mg Q30M PRN IV SBP>160 OR___/DBP>90 OR___ 10/17/18 10:45 10/17/18 15:00 Hydralazine HCl (Apresoline) 10 mg Q6HR PRN ORAL For High Blood Pressure 10/14/18 22:15 11/13/18 22:14 Lactated Ringer's 1,000 ml @ 10 mls/hr Q24H IVLG 10/17/18 10:41 10/17/18 15:00 Lorazepam (Ativan 2mg/ml 1ml) 0.5 mg Q4H PRN IV For Anxiety 10/14/18 21:00 10/21/18 20:59 Metoclopramide HCl (Reglan) 10 mg Q6H PRN IVP Nausea & Vomiting 10/14/18 21:00 11/13/18 20:59 Ondansetron HCl (Zofran) 4 mg Q1H PRN IVP Nausea & Vomiting 10/17/18 10:45 10/17/18 15:00 Ondansetron HCl (Zofran) 4 mg Q6H PRN IVP Nausea & Vomiting 10/14/18 21:00 11/13/18 20:59 Pantoprazole 80 mg/Sodium Chloride 250 ml @ 25 mls/hr Q10H IV 10/15/18 22:30 11/14/18 22:29 10/17/18 05:36 Potassium Chloride 100 ml @ 100 mls/hr Q1HR IVPB 10/17/18 10:00 10/17/18 13:59 10/17/18 09:24 Temazepam (Restoril) 15 mg HSPRN PRN ORAL Insomnia 10/15/18 21:00 10/22/18 20:59 Vancomycin HCl (Vanco rx to dose) 1 ea DAILY PRN MISC Per rx protocol 10/15/18 15:00 11/14/18 14:59 Vancomycin HCl/ Dextrose 275 ml @ 183.333 mls/hr ONCE IVPB 10/17/18 13:00 10/17/18 15:00 Last 24 Hour Vital Signs Date Time Temp Pulse Resp B/P (MAP) Pulse Ox O2 Delivery O2 Flow Rate FiO2 10/17/18 13:00 97.6 61 16 117/56 99 Nasal Cannula 3 10/17/18 12:50 60 18 113/53 98 Nasal Cannula 3 10/17/18 12:45 61 17 110/51 98 Nasal Cannula 3 10/17/18 12:40 60 16 106/50 98 Nasal Cannula 3 10/17/18 12:34 62 20 98 10/17/18 12:32 97.7 62 20 110/49 98 Nasal Cannula 3 10/17/18 08:00 97.9 71 18 128/58 (81) 100 10/17/18 04:00 97.5 79 18 137/64 (88) 95 10/17/18 04:00 77 10/17/18 00:00 97.5 79 18 137/64 (88) 95 10/17/18 00:00 71 10/16/18 20:39 Room Air 10/16/18 20:00 97.0 80 16 125/64 (84) 96 10/16/18 20:00 60 10/16/18 16:00 60 10/16/18 16:00 98.0 70 20 126/56 (79) 99 10/16/18 12:00 61 10/16/18 12:00 97.7 60 24 99/74 (82) 100 10/16/18 09:00 Room Air 10/16/18 08:00 97.6 72 22 119/75 (90) 99 10/16/18 08:00 73 10/16/18 04:00 97.8 70 18 127/58 (81) 98 10/16/18 03:32 68 10/16/18 00:00 97.7 75 22 135/63 (87) 98 10/15/18 23:21 73 10/15/18 20:00 97.7 73 18 137/56 (83) 98 10/15/18 19:25 72 10/15/18 18:00 Room Air 10/15/18 16:00 71 10/15/18 16:00 97.5 70 20 135/58 (83) 100 Intake and Output 10/16/18 10/17/18 19:00 07:00 Intake Total 3705 ml 350 ml Output Total 400 ml Balance 3305 ml 350 ml Intake Oral 2000 ml 350 ml IV Total 1455 ml Blood Product 250 ml Output Urine Total 400 ml Stool Total 0 ml Labs Test 10/14/18 14:00 10/14/18 16:15 10/15/18 04:49 10/15/18 16:50 White Blood Count 5.8 K/UL (4.8-10.8) 5.2 K/UL (4.8-10.8) 4.8 K/UL (4.8-10.8) Red Blood Count 2.44 M/UL (4.20-5.40) 2.57 M/UL (4.20-5.40) 2.58 M/UL (4.20-5.40) Hemoglobin 7.7 G/DL (12.0-16.0) 8.2 G/DL (12.0-16.0) 8.4 G/DL (12.0-16.0) Hematocrit 24.1 % (37.0-47.0) 23.5 % (37.0-47.0) 23.4 % (37.0-47.0) Mean Corpuscular Volume 99 FL (80-99) 92 FL (80-99) 90 FL (80-99) Mean Corpuscular Hemoglobin 31.6 PG (27.0-31.0) 32.0 PG (27.0-31.0) 32.5 PG (27.0-31.0) Mean Corpuscular Hemoglobin Concent 32.1 G/DL (32.0-36.0) 34.9 G/DL (32.0-36.0) 35.9 G/DL (32.0-36.0) Red Cell Distribution Width 15.8 % (11.6-14.8) 16.2 % (11.6-14.8) 15.9 % (11.6-14.8) Platelet Count 241 K/UL (150-450) 181 K/UL (150-450) 30 K/UL (150-450) Mean Platelet Volume 5.4 FL (6.5-10.1) 4.9 FL (6.5-10.1) 13.4 FL (6.5-10.1) Neutrophils (%) (Auto) % (45.0-75.0) 68.7 % (45.0-75.0) % (45.0-75.0) Lymphocytes (%) (Auto) % (20.0-45.0) 23.2 % (20.0-45.0) % (20.0-45.0) Monocytes (%) (Auto) % (1.0-10.0) 7.0 % (1.0-10.0) % (1.0-10.0) Eosinophils (%) (Auto) % (0.0-3.0) 0.8 % (0.0-3.0) % (0.0-3.0) Basophils (%) (Auto) % (0.0-2.0) 0.4 % (0.0-2.0) % (0.0-2.0) Differential Total Cells Counted 100 100 Neutrophils % (Manual) 71 % (45-75) 62 % (45-75) Lymphocytes % (Manual) 24 % (20-45) 33 % (20-45) Monocytes % (Manual) 3 % (1-10) 5 % (1-10) Eosinophils % (Manual) 1 % (0-3) 0 % (0-3) Basophils % (Manual) 1 % (0-2) 0 % (0-2) Band Neutrophils 0 % (0-8) 0 % (0-8) Platelet Estimate Adequate Decreased Platelet Morphology Normal Normal Hypochromasia 1+ 1+ Anisocytosis 1+ 1+ Prothrombin Time 12.2 SEC (9.30-11.50) 12.0 SEC (9.30-11.50) Prothromb Time International Ratio 1.2 (0.9-1.1) 1.1 (0.9-1.1) Activated Partial Thromboplast Time 36 SEC (23-33) 37 SEC (23-33) Urine Color Pale yellow Urine Appearance Slightly cloudy Urine pH 5 (4.5-8.0) Urine Specific [place] 1.020 (1.005-1.035) Urine Protein 2+ (NEGATIVE) Urine Glucose (UA) Negative (NEGATIVE) Urine Ketones 2+ (NEGATIVE) Urine Blood 5+ (NEGATIVE) Urine Nitrite Negative (NEGATIVE) Urine Bilirubin Negative (NEGATIVE) Urine Urobilinogen Normal MG/DL (0.0-1.0) Urine Leukocyte Esterase 2+ (NEGATIVE) Urine RBC 5-10 /HPF (0 - 2) Urine WBC 5-10 /HPF (0 - 2) Urine Squamous Epithelial Cells Moderate /LPF (NONE/OCC) Urine Bacteria Few /HPF (NONE) Sodium Level 136 MMOL/L (136-145) 135 MMOL/L (136-145) 136 MMOL/L (136-145) Potassium Level 2.6 MMOL/L (3.5-5.1) 2.9 MMOL/L (3.5-5.1) 4.0 MMOL/L (3.5-5.1) Chloride Level 101 MMOL/L (98-107) 102 MMOL/L (98-107) 104 MMOL/L (98-107) Carbon Dioxide Level 29 MMOL/L (21-32) 27 MMOL/L (21-32) 27 MMOL/L (21-32) Anion Gap 6 mmol/L (5-15) 6 mmol/L (5-15) 5 mmol/L (5-15) Blood Urea Nitrogen 20 mg/dL (7-18) 24 mg/dL (7-18) 29 mg/dL (7-18) Creatinine 1.2 MG/DL (0.55-1.30) 1.5 MG/DL (0.55-1.30) 1.7 MG/DL (0.55-1.30) Estimat Glomerular Filtration Rate mL/min (>60) mL/min (>60) mL/min (>60) Glucose Level 100 MG/DL (74-106) 73 MG/DL (74-106) 108 MG/DL (74-106) Calcium Level 9.8 MG/DL (8.5-10.1) 9.8 MG/DL (8.5-10.1) 9.5 MG/DL (8.5-10.1) Magnesium Level 1.3 MG/DL (1.8-2.4) Total Bilirubin 0.5 MG/DL (0.2-1.0) 0.6 MG/DL (0.2-1.0) Aspartate Amino Transf (AST/SGOT) 22 U/L (15-37) 27 U/L (15-37) Alanine Aminotransferase (ALT/SGPT) 13 U/L (12-78) 16 U/L (12-78) Alkaline Phosphatase 50 U/L (46-116) 50 U/L (46-116) Total Creatine Kinase 20 U/L (26-308) Troponin I 0.030 ng/mL (0.000-0.056) Total Protein 11.7 G/DL (6.4-8.2) 11.3 G/DL (6.4-8.2) Albumin 1.9 G/DL (3.4-5.0) 1.9 G/DL (3.4-5.0) Globulin 9.8 g/dL 9.4 g/dL Albumin/Globulin Ratio 0.2 (1.0-2.7) 0.2 (1.0-2.7) Lipase 93 U/L (73-393) Lactic Acid Level 1.40 mmol/L (0.4-2.0) Ferritin 685 NG/ML (8-388) Test 10/15/18 17:00 10/15/18 18:00 10/15/18 20:20 10/16/18 05:20 Iron Level 94 ug/dL (50-175) Total Iron Binding Capacity 130 ug/dL (250-450) Percent Iron Saturation 72 % (15-50) Unsaturated Iron Binding 36 ug/dL (112-346) Urine Collection Time 24 HRS Urine Total Volume 1000 ML Urine Total Protein mg/dL 198 mg/dL Urine Total Protein 24 Hour 197.9 mg/24hr (< 150) White Blood Count 4.2 K/UL (4.8-10.8) 4.7 K/UL (4.8-10.8) Red Blood Count 2.27 M/UL (4.20-5.40) 2.36 M/UL (4.20-5.40) Hemoglobin 7.2 G/DL (12.0-16.0) 7.4 G/DL (12.0-16.0) Hematocrit 20.6 % (37.0-47.0) 22.3 % (37.0-47.0) Mean Corpuscular Volume 91 FL (80-99) 95 FL (80-99) Mean Corpuscular Hemoglobin 31.6 PG (27.0-31.0) 31.2 PG (27.0-31.0) Mean Corpuscular Hemoglobin Concent 34.7 G/DL (32.0-36.0) 33.0 G/DL (32.0-36.0) Red Cell Distribution Width 15.1 % (11.6-14.8) 16.8 % (11.6-14.8) Platelet Count 162 K/UL (150-450) 184 K/UL (150-450) Mean Platelet Volume 4.7 FL (6.5-10.1) 5.1 FL (6.5-10.1) Neutrophils (%) (Auto) % (45.0-75.0) % (45.0-75.0) Lymphocytes (%) (Auto) % (20.0-45.0) % (20.0-45.0) Monocytes (%) (Auto) % (1.0-10.0) % (1.0-10.0) Eosinophils (%) (Auto) % (0.0-3.0) % (0.0-3.0) Basophils (%) (Auto) % (0.0-2.0) % (0.0-2.0) Differential Total Cells Counted 100 100 Neutrophils % (Manual) 68 % (45-75) 79 % (45-75) Lymphocytes % (Manual) 27 % (20-45) 17 % (20-45) Monocytes % (Manual) 5 % (1-10) 3 % (1-10) Eosinophils % (Manual) 0 % (0-3) 1 % (0-3) Basophils % (Manual) 0 % (0-2) 0 % (0-2) Band Neutrophils 0 % (0-8) 0 % (0-8) Platelet Estimate Adequate Adequate Platelet Morphology Normal Normal Hypochromasia 1+ Anisocytosis 1+ 1+ Sodium Level 136 MMOL/L (136-145) Potassium Level 2.8 MMOL/L (3.5-5.1) Chloride Level 105 MMOL/L (98-107) Carbon Dioxide Level 28 MMOL/L (21-32) Anion Gap 2 mmol/L (5-15) Blood Urea Nitrogen 28 mg/dL (7-18) Creatinine 2.0 MG/DL (0.55-1.30) Estimat Glomerular Filtration Rate mL/min (>60) Glucose Level 116 MG/DL (74-106) Calcium Level 9.3 MG/DL (8.5-10.1) Test 10/16/18 14:00 10/16/18 18:00 10/17/18 03:45 10/17/18 06:45 Urine Random Sodium 36 mmol/L (20-110) White Blood Count 4.9 K/UL (4.8-10.8) Red Blood Count 2.60 M/UL (4.20-5.40) Hemoglobin 8.2 G/DL (12.0-16.0) Hematocrit 24.3 % (37.0-47.0) Mean Corpuscular Volume 93 FL (80-99) Mean Corpuscular Hemoglobin 31.4 PG (27.0-31.0) Mean Corpuscular Hemoglobin Concent 33.7 G/DL (32.0-36.0) Red Cell Distribution Width 16.1 % (11.6-14.8) Platelet Count 167 K/UL (150-450) Mean Platelet Volume 5.2 FL (6.5-10.1) Neutrophils (%) (Auto) 67.3 % (45.0-75.0) Lymphocytes (%) (Auto) 23.8 % (20.0-45.0) Monocytes (%) (Auto) 7.3 % (1.0-10.0) Eosinophils (%) (Auto) 1.1 % (0.0-3.0) Basophils (%) (Auto) 0.4 % (0.0-2.0) Sodium Level 137 MMOL/L (136-145) Potassium Level 3.0 MMOL/L (3.5-5.1) Chloride Level 108 MMOL/L (98-107) Carbon Dioxide Level 26 MMOL/L (21-32) Anion Gap 3 mmol/L (5-15) Blood Urea Nitrogen 25 mg/dL (7-18) Creatinine 2.2 MG/DL (0.55-1.30) Estimat Glomerular Filtration Rate mL/min (>60) Glucose Level 96 MG/DL (74-106) Uric Acid 8.0 MG/DL (2.6-7.2) Calcium Level 9.0 MG/DL (8.5-10.1) Phosphorus Level 2.7 MG/DL (2.5-4.9) Magnesium Level 1.4 MG/DL (1.8-2.4) Total Bilirubin 0.4 MG/DL (0.2-1.0) Gamma Glutamyl Transpeptidase 15 U/L (5-85) Aspartate Amino Transf (AST/SGOT) 22 U/L (15-37) Alanine Aminotransferase (ALT/SGPT) 13 U/L (12-78) Alkaline Phosphatase 49 U/L (46-116) Total Creatine Kinase 16 U/L (26-308) Troponin I 0.021 ng/mL (0.000-0.056) C-Reactive Protein, Quantitative < 0.4 mg/dL (0.00-0.90) Pro-B-Type Natriuretic Peptide 1983 pg/mL (0-125) Total Protein 9.4 G/DL (6.4-8.2) Albumin 1.6 G/DL (3.4-5.0) Globulin 7.8 g/dL Albumin/Globulin Ratio 0.2 (1.0-2.7) Triglycerides Level 21 MG/DL (30-150) Cholesterol Level < 50 MG/DL (< 200) LDL Cholesterol 7 mg/dL (<100) HDL Cholesterol 21 MG/DL (40-60) Cholesterol/HDL Ratio 2.4 (3.3-4.4) Vitamin B12 Level 226 PG/ML (193-986) Folate 3.2 NG/ML (8.6-58.9) Thyroid Stimulating Hormone (TSH) 2.983 uiU/mL (0.358-3.740) Random Vancomycin Level 10.1 ug/mL Micro Microbiology Date/Time Source Procedure Growth Status 10/16/18 18:00 Indwelling Cath Urine Culture - Preliminary NO GROWTH Resulted Height (Feet): 5 Height (Inches): 4.00 Weight (Pounds): 184 Objective Physical Exam General appearance: alert, cooperative, no distress, appears stated age Head: Normocephalic, without obvious abnormality, atraumatic Eyes: conjunctivae/corneas clear. PERRL, EOM's intact. Fundi benign Throat: Lips, mucosa, and tongue normal. Teeth and gums normal Neck: supple, symmetrical, trachea midline, no adenopathy, thyroid: not enlarged, symmetric, no tenderness/mass/nodules, no carotid bruit and no JVD Lungs: clear to auscultation bilaterally Heart: regular rate and rhythm, S1, S2 normal, no murmur, click, rub or gallop Abdomen: soft, non-tender. Bowel sounds normal. No masses, no organomegaly Extremities: extremities normal, atraumatic, no cyanosis or edema Pulses: 2+ and symmetric Skin: Skin color, texture, turgor normal. No rashes or lesions Neurologic: Grossly normal Mello Durbin MD October 17, 2018 13:08
--- NOTE | 2018-10-17 13:22 | NUR ---
Social Service Note JALEN spoke with patient's dgt Shanae Salazar [phone] to complete home safety eval. Prior to admission patient was ambulatory up until about 5 days ago per dgt. Dgt states patient stated she didn't feel well and was weak. Dgt states when she went to help patient clean up there was blood in her bed. Dgt states patient will need patient to be somewhat mobile to return home. Dgt receives chemo twice a week and believes she wouldn't be able to provide the support needed. Dgt states she will visit patient tomorrow after chemo and discuss short term SNF placement. Dgt's preference is [facility]. Recommend PT eval and treatment. JALEN discussed with charge nurse. Patient is a full code and doesn't have an advance directive. Will monitor and be available as needed.
--- NOTE | 2018-10-17 13:35 | NUR ---
NURSE NOTES: Pt back to TK from GI Lab S/P Colonoscopy,awake,alert in resp distress.
--- NOTE | 2018-10-17 13:54 | 48 Hour Post Anesthesia Eval ---
Post Anesthesia Evaluation Procedure: Colonoscopy Date of Evaluation: October 17, 2018 Time of Evaluation: 13:53 Blood Pressure Systolic: 128 0: 64 Pulse Rate: 62 Respiratory Rate: 18 Temperature (Fahrenheit): 97.4 O2 Sat by Pulse Oximetry: 98 Airway: patent Nausea: No Vomiting: No Pain Intensity: 1 Hydration Status: adequate Cardiopulmonary Status: stable Mental Status/LOC: patient returned to baseline Follow-up Care/Observations: n/a Post-Anesthesia Complications: none Follow-up care needed: N/A Shyam Weeks MD October 17, 2018 13:54
--- NOTE | 2018-10-17 14:34 | Surgery Progress Note ---
Surgery Progress Note Subjective Additional Comments had colonoscopy repeat today and noted hemorrhoids without significant other lesions seemingly comfortable. labs stable. Objective Last 24 Hour Vital Signs Date Time Temp Pulse Resp B/P (MAP) Pulse Ox O2 Delivery O2 Flow Rate FiO2 10/17/18 13:54 62 18 98 10/17/18 13:00 97.6 61 16 117/56 99 Nasal Cannula 3 10/17/18 12:50 60 18 113/53 98 Nasal Cannula 3 10/17/18 12:45 61 17 110/51 98 Nasal Cannula 3 10/17/18 12:40 60 16 106/50 98 Nasal Cannula 3 10/17/18 12:34 62 20 98 10/17/18 12:32 97.7 62 20 110/49 98 Nasal Cannula 3 10/17/18 08:00 97.9 71 18 128/58 (81) 100 10/17/18 04:00 97.5 79 18 137/64 (88) 95 10/17/18 04:00 77 10/17/18 00:00 97.5 79 18 137/64 (88) 95 10/17/18 00:00 71 10/16/18 20:39 Room Air 10/16/18 20:00 97.0 80 16 125/64 (84) 96 10/16/18 20:00 60 10/16/18 16:00 60 10/16/18 16:00 98.0 70 20 126/56 (79) 99 I&O Intake and Output 10/16/18 10/17/18 19:00 07:00 Intake Total 3705 ml 350 ml Output Total 400 ml Balance 3305 ml 350 ml Intake Oral 2000 ml 350 ml IV Total 1455 ml Blood Product 250 ml Output Urine Total 400 ml Stool Total 0 ml Cardiovascular: RSR Respiratory: clear Abdomen: soft, flat, non-tender, present bowel sounds, non-distended Extremities: no tenderness, no cyanosis Laboratory Tests Test 10/16/18 18:00 10/17/18 03:45 10/17/18 06:45 10/17/18 07:30 Urine Total Protein Pending Urine Albumin (%) Pending Urine [id number] (%) Pending Urine Bliva-7-Mcukdrddd (%) Pending Urine Beta-Globulin (%) Pending Urine Gamma Globulin (%) Pending Ur Protein Electrophoresis M-Tray Pending Urine Protein Electrophoresis Intrp Pending White Blood Count 4.9 K/UL (4.8-10.8) Red Blood Count 2.60 M/UL (4.20-5.40) L Hemoglobin 8.2 G/DL (12.0-16.0) L Hematocrit 24.3 % (37.0-47.0) L Mean Corpuscular Volume 93 FL (80-99) Mean Corpuscular Hemoglobin 31.4 PG (27.0-31.0) H Mean Corpuscular Hemoglobin Concent 33.7 G/DL (32.0-36.0) Red Cell Distribution Width 16.1 % (11.6-14.8) H Platelet Count 167 K/UL (150-450) Mean Platelet Volume 5.2 FL (6.5-10.1) L Neutrophils (%) (Auto) 67.3 % (45.0-75.0) Lymphocytes (%) (Auto) 23.8 % (20.0-45.0) Monocytes (%) (Auto) 7.3 % (1.0-10.0) Eosinophils (%) (Auto) 1.1 % (0.0-3.0) Basophils (%) (Auto) 0.4 % (0.0-2.0) Sodium Level 137 MMOL/L (136-145) Potassium Level 3.0 MMOL/L (3.5-5.1) L Chloride Level 108 MMOL/L (98-107) H Carbon Dioxide Level 26 MMOL/L (21-32) Anion Gap 3 mmol/L (5-15) L Blood Urea Nitrogen 25 mg/dL (7-18) H Creatinine 2.2 MG/DL (0.55-1.30) H Estimat Glomerular Filtration Rate mL/min (>60) Glucose Level 96 MG/DL (74-106) Uric Acid 8.0 MG/DL (2.6-7.2) H Calcium Level 9.0 MG/DL (8.5-10.1) Phosphorus Level 2.7 MG/DL (2.5-4.9) Magnesium Level 1.4 MG/DL (1.8-2.4) L Total Bilirubin 0.4 MG/DL (0.2-1.0) Gamma Glutamyl Transpeptidase 15 U/L (5-85) Aspartate Amino Transf (AST/SGOT) 22 U/L (15-37) Alanine Aminotransferase (ALT/SGPT) 13 U/L (12-78) Alkaline Phosphatase 49 U/L (46-116) Total Creatine Kinase 16 U/L (26-308) L Troponin I 0.021 ng/mL (0.000-0.056) C-Reactive Protein, Quantitative < 0.4 mg/dL (0.00-0.90) Pro-B-Type Natriuretic Peptide 1983 pg/mL (0-125) H Total Protein 9.4 G/DL (6.4-8.2) H Albumin 1.6 G/DL (3.4-5.0) L Globulin 7.8 g/dL Albumin/Globulin Ratio 0.2 (1.0-2.7) L Triglycerides Level 21 MG/DL (30-150) L Cholesterol Level < 50 MG/DL (< 200) LDL Cholesterol 7 mg/dL (<100) HDL Cholesterol 21 MG/DL (40-60) L Cholesterol/HDL Ratio 2.4 (3.3-4.4) L Vitamin B12 Level 226 PG/ML (193-986) Folate 3.2 NG/ML (8.6-58.9) L Thyroid Stimulating Hormone (TSH) 2.983 uiU/mL (0.358-3.740) Random Vancomycin Level 10.1 ug/mL Immunoglobulin G Pending Immunoglobulin A Pending Immunoglobulin M Pending Immunofixation Screen Pending Plan Problems: (1) Lower GI bleed Assessment & Plan: 88 year old female with acute GI bleed. anemia. prior hx of anticoagulation no n/v/f/c labs noted and stable has not recently had blood in stool per report hemorrhoids on colonoscopy no acute surgical intervention planed okay for diet as tolerated ppi bowel regimen appreciate GI input trend labs thank you Brigido Pratt October 17, 2018 14:34
--- NOTE | 2018-10-17 14:50 | Nephrology Progress Note ---
Assessment/Plan Problem List: (1) ROSSY (acute kidney injury) (2) Lower GI bleed (3) HTN (hypertension) (4) Hypoalbuminemia (5) Anemia (6) Pacemaker (7) UTI (urinary tract infection) Assessment Acute renal failure : Cr devora 1.2 to 2 likely due to GI bleed and BP fluctuations GI Bleed , severe Anemia HTN CAD AFib s/p pacemaker UTI HypoAlbuminemia Plan Keep BP in check Avoid Nephrotoxics monitor renal parameters Transfusion will improve renal perfusion Per orders Urine studies Will discuss Subjective ROS Limited/Unobtainable: No Objective Objective Last 24 Hour Vital Signs Date Time Temp Pulse Resp B/P (MAP) Pulse Ox O2 Delivery O2 Flow Rate FiO2 10/17/18 13:54 62 18 98 10/17/18 13:00 97.6 61 16 117/56 99 Nasal Cannula 3 10/17/18 12:50 60 18 113/53 98 Nasal Cannula 3 10/17/18 12:45 61 17 110/51 98 Nasal Cannula 3 10/17/18 12:40 60 16 106/50 98 Nasal Cannula 3 10/17/18 12:34 62 20 98 10/17/18 12:32 97.7 62 20 110/49 98 Nasal Cannula 3 10/17/18 12:00 62 10/17/18 09:00 Room Air 10/17/18 08:00 64 10/17/18 08:00 97.9 71 18 128/58 (81) 100 10/17/18 04:00 97.5 79 18 137/64 (88) 95 10/17/18 04:00 77 10/17/18 00:00 97.5 79 18 137/64 (88) 95 10/17/18 00:00 71 10/16/18 20:39 Room Air 10/16/18 20:00 97.0 80 16 125/64 (84) 96 10/16/18 20:00 60 10/16/18 16:00 60 10/16/18 16:00 98.0 70 20 126/56 (79) 99 Intake and Output 10/16/18 10/17/18 19:00 07:00 Intake Total 3705 ml 350 ml Output Total 400 ml Balance 3305 ml 350 ml Intake Oral 2000 ml 350 ml IV Total 1455 ml Blood Product 250 ml Output Urine Total 400 ml Stool Total 0 ml Laboratory Tests 10/16/18 18:00: Urine Total Protein [Pending], Urine Albumin (%) [Pending], Urine Alpha-1- Globulins (%) [Pending], Urine Cwlao-2-Bczqtglkr (%) [Pending], Urine Beta- Globulin (%) [Pending], Urine Gamma Globulin (%) [Pending], Ur Protein Electrophoresis M-Tray [Pending], Urine Protein Electrophoresis Intrp [Pending] 10/17/18 03:45: White Blood Count 4.9, Red Blood Count 2.60L, Hemoglobin 8.2L, Hematocrit 24.3L , Mean Corpuscular Volume 93, Mean Corpuscular Hemoglobin 31.4H, Mean Corpuscular Hemoglobin Concent 33.7, Red Cell Distribution Width 16.1H, Platelet Count 167, Mean Platelet Volume 5.2L, Neutrophils (%) (Auto) 67.3, Lymphocytes (%) (Auto) 23.8, Monocytes (%) (Auto) 7.3, Eosinophils (%) (Auto) 1.1, Basophils (%) (Auto) 0.4, Sodium Level 137, Potassium Level 3.0L, Chloride Level 108H, Carbon Dioxide Level 26, Anion Gap 3L, Blood Urea Nitrogen 25H, Creatinine 2.2H, Estimat Glomerular Filtration Rate , Glucose Level 96, Uric Acid 8.0H, Calcium Level 9.0, Phosphorus Level 2.7, Magnesium Level 1.4L, Total Bilirubin 0.4, Gamma Glutamyl Transpeptidase 15, Aspartate Amino Transf (AST/ SGOT) 22, Alanine Aminotransferase (ALT/SGPT) 13, Alkaline Phosphatase 49, Total Creatine Kinase 16L, Troponin I 0.021, C-Reactive Protein, Quantitative < 0.4, Pro-B-Type Natriuretic Peptide 1983H, Total Protein 9.4H, Albumin 1.6L, Globulin 7.8, Albumin/Globulin Ratio 0.2L, Triglycerides Level 21L, Cholesterol Level < 50, LDL Cholesterol 7, HDL Cholesterol 21L, Cholesterol/HDL Ratio 2.4L, Vitamin B12 Level 226, Folate 3.2L, Thyroid Stimulating Hormone (TSH) 2.983 10/17/18 06:45: Random Vancomycin Level 10.1 10/17/18 07:30: Immunoglobulin G [Pending], Immunoglobulin A [Pending], Immunoglobulin M [ Pending], Immunofixation Screen [Pending] Height (Feet): 5 Height (Inches): 4.00 Weight (Pounds): 184 General Appearance: no apparent distress Cardiovascular: normal rate Respiratory/Chest: lungs clear Abdomen: soft Objective no change Vince Rice MD October 17, 2018 14:49
--- NOTE | 2018-10-17 17:44 | NUR ---
NURSE NOTES: called Dr Boykin for diet orders,ordered soft easy chew diet.
[2018-10-17] MEDS ORDERED: NS 275ml ONE (17:47)
[2018-10-17] MEDS ORDERED: NS Irrig 1000ml ONE (17:47)
[2018-10-17] MEDS ORDERED: D5NS 1000ml IV ONE ×2 (17:47)
[2018-10-17] MEDS ORDERED: Tubing IV Secondary IV ONE ×2 (17:47→17:48)
--- NOTE | 2018-10-17 19:00 | NUR ---
TRANSFER TO FLOOR: Patient transferred to 4 E 408-2 awake,alert in no distress, per bed. Report given to Ella Bonny RN. Belongings and medications given to receiving RN . Family and or S/O informed of transfer.
[2018-10-17] MEDS ORDERED: Metoclopramide 10mg/2ml Inj IVP PRN ×2 (20:00)
[2018-10-17] MEDS ORDERED: LORazepam Inj 2mg/ml 1ml IV PRN (20:00)
--- NOTE | 2018-10-17 21:30 | Procedure Note ---
DATE OF PROCEDURE: 10/17/2018 PROCEDURE: Colonoscopy. ANESTHESIA: Per Dr. Weeks. INSTRUMENT: Olympus adult flexible colonoscope. INDICATION: GI bleeding. The procedure, risks, benefits, and possible consequences, including hemorrhage, aspiration, perforation and infection, and alternative treatments, were explained to the patient/legal guardian by Dr. Michael Day and the patient/legal guardian understood and accepted these risks. PROCEDURE IN DETAIL: After informed consent was obtained and the patient was adequately sedated, first rectal exam was performed, which was normal. Then, the scope was advanced from the rectum to the cecum documented by appendix orifice, ileocecal valve, and right upper quadrant palpation. Quality of prep was limited in the left colon. 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 There was no evidence of any active bleeding at this time. No evidence of any blood or blood products were seen in the colon at this time. The patient had some solid stool in the left colon. Next, examination of the sigmoid and descending colon was limited. There was no obvious diverticulosis, no mass, no obvious source of bleeding was seen. Retroflexion of rectum showed evidence of small nonbleeding internal hemorrhoids. SUMMARY OF FINDINGS: 1. Fair prep, see above for details. 2. Internal hemorrhoids, otherwise normal colonoscopy examination. RECOMMENDATIONS: 1. Resume diet. 2. Follow laboratories. 3. Monitor hemoglobin and hematocrit and transfuse as needed to keep hemoglobin above 7. 4. Hold off on any exploratory GI procedures at this time. I want to thank, Dr. Phillips, for this kind referral. Michael Day M.D. DR: SALBADOR JOB#: [id number] CC: Constance Phillips M.D.; Fax#: [phone]
--- NOTE | 2018-10-17 21:43 | NUR ---
NURSE NOTES: Pt received from Ella Gatica RN. NURSE NOTES: Patient is awake and alert and oriented, sitting in semi fowlers. In no acute distress, on room air, IV patent. will set up IV. respirations are unlabored . No complaints at this time. Call light within reach. Addendum: 10/17/18 at 2144 by Daylin Kebede RN 2014
[2018-10-18] VITALS: BP 125/51
[2018-10-18 04:29] VITALS: BP 112/45
[2018-10-18] MEDS: Aztreonam Inj 1 GM in D5W 55 ML IVPB SCH ×2 (05:26→17:19)
[2018-10-18] MEDS: D5NS 1,000 ML IV SCH ×2 (05:26→15:26)
[2018-10-18 06:46] LABS: BASOPHILS % (AUTO) 0.5 % (0.0-2.0); HEMATOCRIT 25.3 % (37.0-47.0); HEMOGLOBIN 8.4 G/DL (12.0-16.0); LYMPHOCYTES % (AUTO) 31.3 % (20.0-45.0); MEAN CORPUSCULAR VOLUME 95 FL (80-99); MONOCYTES % (AUTO) 8.8 % (1.0-10.0); NEUTROPHILS % (AUTO) 57.4 % (45.0-75.0); PLATELET COUNT 186 K/UL (150-450); RED BLOOD COUNT 2.67 M/UL (4.20-5.40); RED CELL DISTRIBUTION WIDTH 16.3 % (11.6-14.8); WHITE BLOOD COUNT 4.4 K/UL (4.8-10.8)
[2018-10-18 07:02] LABS: ANION GAP 3 mmol/L (5-15); BLOOD UREA NITROGEN 25 mg/dL (7-18); CALCIUM 9.2 MG/DL (8.5-10.1); CARBON DIOXIDE 24 MMOL/L (21-32); CHLORIDE 107 MMOL/L (98-107); CREATININE 2.4 MG/DL (0.55-1.30); POTASSIUM 3.3 MMOL/L (3.5-5.1); SODIUM 134 MMOL/L (136-145)
[2018-10-18 07:11] LABS: ALANINE AMINOTRANSFERASE 10 U/L (12-78); ALBUMIN 1.5 G/DL (3.4-5.0); ALKALINE PHOSPHATASE 52 U/L (46-116); ASPARTATE AMINO TRANSFERASE 14 U/L (15-37); BILIRUBIN,DIRECT 0.1 MG/DL (0.0-0.3); BILIRUBIN,TOTAL 0.3 MG/DL (0.2-1.0); PHOSPHORUS 3.2 MG/DL (2.5-4.9)
--- NOTE | 2018-10-18 07:38 | NUR ---
NURSE NOTES: received report from JACQUELYN Yoo. patient in bed. having breakfast. A&O X4. verbally responsive.no respiratory distress noted in room air. no pain at this time. IV running. commode in bedside. contact isolation. bed in the lowest positio. call light within reach. alarm on. will continue to monitor.
--- NOTE | 2018-10-18 07:57 | NUR ---
HAND-OFF: Report given to JACQUELYN Boyd.
--- NOTE | 2018-10-18 07:59 | NUR ---
NURSE NOTES:WOUND CARE NOTES:Pt declined for wound nurse to assess skin .
[2018-10-18 08:00] VITALS: BP 129/47
--- NOTE | 2018-10-18 10:00 | NUR ---
NURSE NOTES: potassium level 3.3 today. patient got 4bags of 10meq yesterday. notified dr. cooper and received order monitor patient. no new medication order at this time. order noted and carried out.
--- NOTE | 2018-10-18 10:33 | Infectious Diseases Prog Note ---
Assessment/Plan Assessment/Plan ASSESSMENT AND PLAN: 1. band attacher bacteremia, ? endocarditis, uti, sepsis, ? pna vs pvc - vancomycin and aztreonam - check surveillance blood cultures and echo - f/u on urine culture, monitor labs and chest x-ray 2. Acute kidney injury with elevated creatinine, likely ckd 3. Hypertension - blood pressure treatment per primary. 4. Anemia. 5. Gastrointestinal bleed. 6. Falls. 7. History of atrial fibrillation. 8. Pacemaker. 9. CAD. 10. Atrial fibrillation with pacemaker. 11. Allergies to amoxicillin, codeine, and hydrocodone. 12. Social history is negative. 13. Family history is noncontributory. 14. MAR was noted. 15. Case was discussed with RN. 16. Step-down unit care. 17. Skin care protocol. 18. Continue treatment per primary consultants. 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 Subjective Constitutional: Reports: fatigue; Denies: fever HEENT: Denies: congestion Respiratory: Denies: shortness of breath Cardiovascular: Denies: chest pain Gastrointestinal/Abdominal: Reports: other - no abdominal pain ; Denies: nausea , vomiting, diarrhea Genitourinary: Reports: other - no valentin Neurologic: Denies: headache Psychiatric: Denies: depression Skin: Denies: rash Hematologic: Denies: bleeding Musculoskeletal: Denies: pain Allergies: Coded Allergies: CODEINE (Verified Allergy, Severe, Anaphylaxis, 10/14/18) Difficulty breathing along with hives per pt daughter HYDROCODONE (Verified Allergy, Severe, Anaphylaxis, 10/14/18) Difficulty breathing along with hives per pt daughter AMOXICILLIN (Verified Allergy, Unknown, 09/06/12) Objective Vital Signs Last 24 Hour Vital Signs Date Time Temp Pulse Resp B/P (MAP) Pulse Ox O2 Delivery O2 Flow Rate FiO2 10/18/18 08:00 97.2 78 20 129/47 (74) 100 10/18/18 04:29 97.8 74 20 112/45 (67) 100 10/18/18 00:00 97.7 69 18 125/51 (75) 99 10/17/18 21:00 Room Air 10/17/18 20:00 98.4 76 20 122/51 (74) 98 10/17/18 16:00 64 10/17/18 16:00 97.3 64 20 111/63 (79) 100 10/17/18 13:54 62 18 98 10/17/18 13:00 97.6 61 16 117/56 99 Nasal Cannula 3 10/17/18 12:50 60 18 113/53 98 Nasal Cannula 3 10/17/18 12:45 61 17 110/51 98 Nasal Cannula 3 10/17/18 12:40 60 16 106/50 98 Nasal Cannula 3 10/17/18 12:34 62 20 98 10/17/18 12:32 97.7 62 20 110/49 98 Nasal Cannula 3 10/17/18 12:00 62 Height (Feet): 5 Height (Inches): 4.00 Weight (Pounds): 183 General Appearance: no acute distress HEENT: normocephalic, atraumatic, anicteric, mucous membranes moist, supple, no JVD Respiratory/Chest: lungs clear, normal breath sounds, no respiratory distress, no accessory muscle use Cardiovascular: normal rate, regular rhythm Abdomen: normal bowel sounds, soft, non tender, no organomegaly, non distended Genitourinary: other - no cva Extremities: no cyanosis Skin: no rash Neurologic/Psychiatric: 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 Chest x-ray - 10/17/18 - Findings: Pulmonary vascular congestion has developed since the last exam. Cardiomegaly also slightly worse. No change otherwise. There may be a small left pleural effusion. Old rib fractures on the right noted. Some of these may be acute. Please correlate clinically. Bones are osteopenic. IMPRESSION: Interval development of pulmonary vascular congestion/CHF. Other findings unchanged Chest x-ray - 10/14/18 - COMPARISON: Chest x-rays dated 11/11/17 FINDINGS: Lungs: Left lung base/retrocardiac opacity which may represent atelectasis versus pneumonia. Pleural space: Blunting of the left costophrenic angle suggesting a small left pleural effusion. Heart: Unremarkable. No cardiomegaly. Mediastinum: Unremarkable. Bones/joints: Degenerative changes throughout the visualized spine and shoulder joints. Chronic healed fracture deformities along multiple lateral right ribs. Vasculature: Atherosclerotic calcifications within the aortic arch. Tubes, lines and devices: Cardiac pacer in the left chest wall with the lead tips in the right atrium and right ventricle regions. Upper abdomen: Surgical clips in the right upper abdominal quadrant suggest prior cholecystectomy. IMPRESSION: 1. Small left pleural effusion. 2. Left lung base/retrocardiac opacity which may represent atelectasis versus pneumonia. Microbiology Date/Time Source Procedure Growth Status 10/14/18 16:15 Blood Blood Culture - Final Staphylococcus Epidermidis Complete 10/14/18 15:15 Nasal Nares MRSA Culture - Final Staphylococcus Aureus - Mrsa Complete 10/16/18 18:00 Indwelling Cath Urine Culture - Preliminary Resulted 10/14/18 15:15 Rectum VRE Culture - Final Enterococcus Faecium - Vre Complete 10/14/18 15:15 Rectum - Final NO CARBAPENEM-RESISTANT ENTEROBACTERI... Complete Microbiology Date/Time Source Procedure Growth Status 10/16/18 18:00 Indwelling Cath Urine Culture - Preliminary Resulted Laboratory Tests Test 10/18/18 05:50 White Blood Count 4.4 K/UL (4.8-10.8) L Red Blood Count 2.67 M/UL (4.20-5.40) L Hemoglobin 8.4 G/DL (12.0-16.0) L Hematocrit 25.3 % (37.0-47.0) L Mean Corpuscular Volume 95 FL (80-99) Mean Corpuscular Hemoglobin 31.3 PG (27.0-31.0) H Mean Corpuscular Hemoglobin Concent 33.1 G/DL (32.0-36.0) Red Cell Distribution Width 16.3 % (11.6-14.8) H Platelet Count 186 K/UL (150-450) Mean Platelet Volume 5.2 FL (6.5-10.1) L Neutrophils (%) (Auto) 57.4 % (45.0-75.0) Lymphocytes (%) (Auto) 31.3 % (20.0-45.0) Monocytes (%) (Auto) 8.8 % (1.0-10.0) Eosinophils (%) (Auto) 2.0 % (0.0-3.0) Basophils (%) (Auto) 0.5 % (0.0-2.0) Sodium Level 134 MMOL/L (136-145) L Potassium Level 3.3 MMOL/L (3.5-5.1) L Chloride Level 107 MMOL/L (98-107) Carbon Dioxide Level 24 MMOL/L (21-32) Anion Gap 3 mmol/L (5-15) L Blood Urea Nitrogen 25 mg/dL (7-18) H Creatinine 2.4 MG/DL (0.55-1.30) H Estimat Glomerular Filtration Rate mL/min (>60) Glucose Level 99 MG/DL (74-106) Calcium Level 9.2 MG/DL (8.5-10.1) Phosphorus Level 3.2 MG/DL (2.5-4.9) Magnesium Level 1.8 MG/DL (1.8-2.4) Total Bilirubin 0.3 MG/DL (0.2-1.0) Direct Bilirubin 0.1 MG/DL (0.0-0.3) Aspartate Amino Transf (AST/SGOT) 14 U/L (15-37) L Alanine Aminotransferase (ALT/SGPT) 10 U/L (12-78) L Alkaline Phosphatase 52 U/L (46-116) Total Protein 9.7 G/DL (6.4-8.2) H Albumin 1.5 G/DL (3.4-5.0) L Current Medications Medications (Trade) Dose Ordered Sig/Ary Route PRN Reason Start Time Stop Time Status Last Admin Dose Admin Acetaminophen (Tylenol) 650 mg Q4H PRN ORAL T>100.5/Pain 10/17/18 19:30 11/13/18 19:29 Aztreonam 1 gm/ Dextrose 55 ml @ 110 mls/hr Q12H IVPB 10/18/18 05:00 10/23/18 16:59 10/18/18 05:26 Dextrose (Dextrose 50%) 25 ml Q30M PRN IV Hypoglycemia 10/17/18 19:30 11/13/18 20:59 Dextrose (Dextrose 50%) 50 ml Q30M PRN IV Hypoglycemia 10/17/18 19:30 11/13/18 20:59 Dextrose/Sodium Chloride 1,000 ml @ 100 mls/hr Q10H IV 10/17/18 19:15 11/14/18 18:59 10/18/18 05:26 Diphenhydramine HCl (Benadryl) 25 mg Q6H PRN ORAL Itching/Pruritis 10/17/18 20:00 11/13/18 19:59 Famotidine (Pepcid I.v.) 20 mg QHS IVP 10/17/18 21:00 11/16/18 20:59 10/17/18 21:00 Folic Acid (Folate) 5 mg DAILY ORAL 10/18/18 09:00 11/16/18 14:59 10/18/18 09:39 Hydralazine HCl (Apresoline) 10 mg Q6H PRN ORAL SBP > 160mmHg 10/17/18 20:00 11/16/18 19:59 Lorazepam (Ativan 2mg/ml 1ml) 0.5 mg Q4H PRN IV For Anxiety 10/17/18 20:00 10/21/18 19:59 Metoclopramide HCl (Reglan) 10 mg Q6H PRN IVP Nausea & Vomiting 10/17/18 20:00 11/13/18 19:59 Ondansetron HCl (Zofran) 4 mg Q6H PRN IVP Nausea & Vomiting 10/17/18 20:00 11/13/18 19:59 Temazepam (Restoril) 15 mg HSPRN PRN ORAL Insomnia 10/17/18 21:00 10/22/18 20:59 Vancomycin HCl (Vanco rx to dose) 1 ea DAILY PRN MISC Per rx protocol 10/17/18 20:00 11/16/18 19:59 Carla Plata MD October 18, 2018 10:33
--- NOTE | 2018-10-18 10:56 | GI Progress Note ---
Assessment/Plan Problems: (1) Lower GI bleed ICD Codes: K92.2 - Gastrointestinal hemorrhage, unspecified SNOMED: 14508469 (2) Anemia ICD Codes: D64.9 - Anemia, unspecified SNOMED: 236016817 (3) Hypoalbuminemia ICD Codes: E88.09 - Other disorders of plasma-protein metabolism, not elsewhere classified SNOMED: 410890901 (4) Abdominal pain ICD Codes: R10.9 - Unspecified abdominal pain SNOMED: 76212587 (5) Nausea ICD Codes: R11.0 - Nausea SNOMED: 948824093 (6) Constipation ICD Codes: K59.00 - Constipation, unspecified SNOMED: 62167187 Status: stable Status Narrative Discussed with Dr. Day Assessment/Plan SUMMARY OF FINDINGS: 1. Fair prep, see above for details. 2. Internal hemorrhoids, otherwise normal colonoscopy examination. RECOMMENDATIONS: 1. Resume diet. 2. Follow laboratories. 3. Monitor hemoglobin and hematocrit and transfuse as needed to keep hemoglobin above 7. 4. Hold off on any exploratory GI procedures at this time. dc planning The patient was seen and examined at bedside and all new and available data was reviewed in the patients chart. I agree with the above findings, impression and plan. (Patient seen earlier today. Signature stamp does not reflect patient encounter time.). - Michael Day MD Subjective Gastrointestinal/Abdominal: Reports: no symptoms Objective Last 24 Hour Vital Signs Date Time Temp Pulse Resp B/P (MAP) Pulse Ox O2 Delivery O2 Flow Rate FiO2 10/18/18 08:00 97.2 78 20 129/47 (74) 100 10/18/18 04:29 97.8 74 20 112/45 (67) 100 10/18/18 00:00 97.7 69 18 125/51 (75) 99 10/17/18 21:00 Room Air 10/17/18 20:00 98.4 76 20 122/51 (74) 98 10/17/18 16:00 64 10/17/18 16:00 97.3 64 20 111/63 (79) 100 10/17/18 13:54 62 18 98 10/17/18 13:00 97.6 61 16 117/56 99 Nasal Cannula 3 10/17/18 12:50 60 18 113/53 98 Nasal Cannula 3 10/17/18 12:45 61 17 110/51 98 Nasal Cannula 3 10/17/18 12:40 60 16 106/50 98 Nasal Cannula 3 10/17/18 12:34 62 20 98 10/17/18 12:32 97.7 62 20 110/49 98 Nasal Cannula 3 10/17/18 12:00 62 Intake and Output 10/17/18 10/18/18 19:00 07:00 Intake Total 250 ml 500 ml Output Total 100 ml Balance 150 ml 500 ml IV Total 250 ml 500 ml Stool Total 100 ml Estimated Blood Loss 0 ml # Voids 1 3 # Bowel Movements 5 2 Laboratory Tests Test 10/18/18 05:50 White Blood Count 4.4 K/UL (4.8-10.8) L Red Blood Count 2.67 M/UL (4.20-5.40) L Hemoglobin 8.4 G/DL (12.0-16.0) L Hematocrit 25.3 % (37.0-47.0) L Mean Corpuscular Volume 95 FL (80-99) Mean Corpuscular Hemoglobin 31.3 PG (27.0-31.0) H Mean Corpuscular Hemoglobin Concent 33.1 G/DL (32.0-36.0) Red Cell Distribution Width 16.3 % (11.6-14.8) H Platelet Count 186 K/UL (150-450) Mean Platelet Volume 5.2 FL (6.5-10.1) L Neutrophils (%) (Auto) 57.4 % (45.0-75.0) Lymphocytes (%) (Auto) 31.3 % (20.0-45.0) Monocytes (%) (Auto) 8.8 % (1.0-10.0) Eosinophils (%) (Auto) 2.0 % (0.0-3.0) Basophils (%) (Auto) 0.5 % (0.0-2.0) Sodium Level 134 MMOL/L (136-145) L Potassium Level 3.3 MMOL/L (3.5-5.1) L Chloride Level 107 MMOL/L (98-107) Carbon Dioxide Level 24 MMOL/L (21-32) Anion Gap 3 mmol/L (5-15) L Blood Urea Nitrogen 25 mg/dL (7-18) H Creatinine 2.4 MG/DL (0.55-1.30) H Estimat Glomerular Filtration Rate mL/min (>60) Glucose Level 99 MG/DL (74-106) Calcium Level 9.2 MG/DL (8.5-10.1) Phosphorus Level 3.2 MG/DL (2.5-4.9) Magnesium Level 1.8 MG/DL (1.8-2.4) Total Bilirubin 0.3 MG/DL (0.2-1.0) Direct Bilirubin 0.1 MG/DL (0.0-0.3) Aspartate Amino Transf (AST/SGOT) 14 U/L (15-37) L Alanine Aminotransferase (ALT/SGPT) 10 U/L (12-78) L Alkaline Phosphatase 52 U/L (46-116) Total Protein 9.7 G/DL (6.4-8.2) H Albumin 1.5 G/DL (3.4-5.0) L Height (Feet): 5 Height (Inches): 4.00 Weight (Pounds): 183 General Appearance: WD/WN, no apparent distress, alert Cardiovascular: normal rate Respiratory/Chest: normal breath sounds, no respiratory distress Abdominal Exam: normal bowel sounds, non tender, soft Extremities: non-tender Neal Reyes NP October 18, 2018 10:56
[2018-10-18 11:25] LABS: BASOPHILS % (AUTO) 0.6 % (0.0-2.0); EOSINOPHILS % (AUTO) 1.7 % (0.0-3.0); HEMATOCRIT 25.1 % (37.0-47.0); HEMOGLOBIN 8.5 G/DL (12.0-16.0); LYMPHOCYTES % (AUTO) 32.8 % (20.0-45.0); MEAN CORPUSCULAR VOLUME 94 FL (80-99); MONOCYTES % (AUTO) 8.1 % (1.0-10.0); NEUTROPHILS % (AUTO) 56.8 % (45.0-75.0); PLATELET COUNT 191 K/UL (150-450); RED BLOOD COUNT 2.67 M/UL (4.20-5.40); RED CELL DISTRIBUTION WIDTH 16.3 % (11.6-14.8); WHITE BLOOD COUNT 4.3 K/UL (4.8-10.8)
[2018-10-18 11:53] LABS: ALANINE AMINOTRANSFERASE 14 U/L (12-78); ALBUMIN 1.5 G/DL (3.4-5.0); ALBUMIN/GLOBULIN RATIO 0.2 (1.0-2.7); ALKALINE PHOSPHATASE 51 U/L (46-116); ANION GAP 4 mmol/L (5-15); ASPARTATE AMINO TRANSFERASE 14 U/L (15-37); BILIRUBIN,TOTAL 0.3 MG/DL (0.2-1.0); BLOOD UREA NITROGEN 25 mg/dL (7-18); CALCIUM 9.1 MG/DL (8.5-10.1); CARBON DIOXIDE 25 MMOL/L (21-32); CHLORIDE 106 MMOL/L (98-107); CREATININE 2.4 MG/DL (0.55-1.30); POTASSIUM 3.3 MMOL/L (3.5-5.1); SODIUM 135 MMOL/L (136-145)
[2018-10-18 12:00] VITALS: BP 144/49
[2018-10-18] MEDS ORDERED: D5NS 1000ml IV ONE (13:32)
[2018-10-18] MEDS ORDERED: Tubing IV Secondary IV ONE (13:32)
--- NOTE | 2018-10-18 13:32 | Hematology/Onc Progress Note ---
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 With a paraprotein elevation in the past, protein elevated at 6.5g, igG is 5947, urinary protein is elevated as well signifying mgus v myeloma --> Continue to closely monitor > Anemia w/u has been reviewed, will trend daily. --> Hgb goal >7 --> 12/06/17: 1 unit prbc ordered --> skeletal survey has been ordered --> to r/o myeloma which likely she has, will need a bone marrow biopsy # Anemia due to underlying gi bleed, currently bleeding resolved --> anemia panel reviewed ferritin is 385, sufficient iron stores --> gi and surg consulted, endoscopy as per gi ) # Paraproteinemia. 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 due to high IGG --> Lucent lesion in the left iliac bone. Permeative pattern of the osseous skeleton may be due to osteopenia but cannot exclude metastases. --> bone scan is pending for above # Thrombocytopenia - either bone marrow process related or meds, due to mgs/ myeloma --> hepatitis panel neg # Coagulopathy, likely secondary to decreased oral take --> check pt/inr as needed # Pacemaker placement history. # Hypertension. The timing of this note does not necessarily reflect the time of the patient was seen. Greatly appreciate consultation! Subjective Constitutional: Denies: no symptoms, chills, fever, malaise, weakness, other HEENT: Denies: no symptoms, eye pain, blurred vision, tearing, double vision, ear pain, ear discharge, nose pain, nose congestion, throat pain, throat swelling, mouth pain, mouth swelling, other Cardiovascular: Denies: no symptoms, chest pain, edema, irregular heart rate, lightheadedness, palpitations, syncope, other Gastrointestinal/Abdominal: Denies: no symptoms, abdomen distended, abdominal pain, black stools, tarry stools, blood in stool, constipated, diarrhea, difficulty swallowing, nausea, poor appetite, poor fluid intake, rectal bleeding , vomiting, other Genitourinary: Denies: no symptoms, burning, discharge, frequency, flank pain, hematuria, incontinence, pain, urgency, other Neurologic/Psychiatric: Denies: no symptoms, anxiety, depressed, emotional problems, headache, numbness, paresthesia, pre-existing deficit, seizure, tingling, tremors, weakness, other Endocrine: Denies: no symptoms, excessive sweating, flushing, intolerance to cold, intolerance to heat, increased hunger, increased thirst, increased urine, unexplained weight gain, unexplained weight loss, other Allergies: Coded Allergies: CODEINE (Verified Allergy, Severe, Anaphylaxis, 10/14/18) Difficulty breathing along with hives per pt daughter HYDROCODONE (Verified Allergy, Severe, Anaphylaxis, 10/14/18) Difficulty breathing along with hives per pt daughter AMOXICILLIN (Verified Allergy, Unknown, 09/06/12) Subjective 10/16: plt are drastically improved, no f/c, no night sweats 10/17: colo for today, no events noted, cbc has been reviewed 10/18: no events noted, IgG 5947, urinary protein high as well, needs skeletal survey Objective Objective Current Medications Medications (Trade) Dose Ordered Sig/Ary Route PRN Reason Start Time Stop Time Status Last Admin Dose Admin Acetaminophen (Tylenol) 650 mg Q4H PRN ORAL T>100.5/Pain 10/17/18 19:30 11/13/18 19:29 Aztreonam 1 gm/ Dextrose 55 ml @ 110 mls/hr Q12H IVPB 10/18/18 05:00 10/23/18 16:59 10/18/18 05:26 Dextrose (Dextrose 50%) 25 ml Q30M PRN IV Hypoglycemia 10/17/18 19:30 11/13/18 20:59 Dextrose (Dextrose 50%) 50 ml Q30M PRN IV Hypoglycemia 10/17/18 19:30 11/13/18 20:59 Dextrose/Sodium Chloride 1,000 ml @ 100 mls/hr Q10H IV 10/17/18 19:15 11/14/18 18:59 10/18/18 05:26 Diphenhydramine HCl (Benadryl) 25 mg Q6H PRN ORAL Itching/Pruritis 10/17/18 20:00 11/13/18 19:59 Famotidine (Pepcid I.v.) 20 mg QHS IVP 10/17/18 21:00 11/16/18 20:59 10/17/18 21:00 Folic Acid (Folate) 5 mg DAILY ORAL 10/18/18 09:00 11/16/18 14:59 10/18/18 09:39 Hydralazine HCl (Apresoline) 10 mg Q6H PRN ORAL SBP > 160mmHg 10/17/18 20:00 11/16/18 19:59 Lorazepam (Ativan 2mg/ml 1ml) 0.5 mg Q4H PRN IV For Anxiety 10/17/18 20:00 10/21/18 19:59 Metoclopramide HCl (Reglan) 10 mg Q6H PRN IVP Nausea & Vomiting 10/17/18 20:00 11/13/18 19:59 Ondansetron HCl (Zofran) 4 mg Q6H PRN IVP Nausea & Vomiting 10/17/18 20:00 11/13/18 19:59 Temazepam (Restoril) 15 mg HSPRN PRN ORAL Insomnia 10/17/18 21:00 10/22/18 20:59 Vancomycin HCl (Vanco rx to dose) 1 ea DAILY PRN MISC Per rx protocol 10/17/18 20:00 11/16/18 19:59 Last 24 Hour Vital Signs Date Time Temp Pulse Resp B/P (MAP) Pulse Ox O2 Delivery O2 Flow Rate FiO2 10/18/18 12:00 97.6 91 20 144/49 (80) 98 10/18/18 09:00 Room Air 10/18/18 08:00 97.2 78 20 129/47 (74) 100 10/18/18 04:29 97.8 74 20 112/45 (67) 100 10/18/18 00:00 97.7 69 18 125/51 (75) 99 10/17/18 21:00 Room Air 10/17/18 20:00 98.4 76 20 122/51 (74) 98 10/17/18 16:00 64 10/17/18 16:00 97.3 64 20 111/63 (79) 100 10/17/18 13:54 62 18 98 10/17/18 13:00 97.6 61 16 117/56 99 Nasal Cannula 3 10/17/18 12:50 60 18 113/53 98 Nasal Cannula 3 10/17/18 12:45 61 17 110/51 98 Nasal Cannula 3 10/17/18 12:40 60 16 106/50 98 Nasal Cannula 3 10/17/18 12:34 62 20 98 5/28/19 12:32 97.7 62 20 110/49 98 Nasal Cannula 3 10/17/18 12:00 62 10/17/18 09:00 Room Air 10/17/18 08:00 64 10/17/18 08:00 97.9 71 18 128/58 (81) 100 10/17/18 04:00 97.5 79 18 137/64 (88) 95 10/17/18 04:00 77 10/17/18 00:00 97.5 79 18 137/64 (88) 95 10/17/18 00:00 71 10/16/18 20:39 Room Air 10/16/18 20:00 97.0 80 16 125/64 (84) 96 10/16/18 20:00 60 10/16/18 16:00 60 10/16/18 16:00 98.0 70 20 126/56 (79) 99 Intake and Output 10/17/18 10/18/18 19:00 07:00 Intake Total 250 ml 500 ml Output Total 100 ml Balance 150 ml 500 ml IV Total 250 ml 500 ml Stool Total 100 ml Estimated Blood Loss 0 ml # Voids 1 3 # Bowel Movements 5 2 Labs Test 10/15/18 16:50 10/15/18 17:00 10/15/18 18:00 10/15/18 20:20 White Blood Count 4.8 K/UL (4.8-10.8) 4.2 K/UL (4.8-10.8) Red Blood Count 2.58 M/UL (4.20-5.40) 2.27 M/UL (4.20-5.40) Hemoglobin 8.4 G/DL (12.0-16.0) 7.2 G/DL (12.0-16.0) Hematocrit 23.4 % (37.0-47.0) 20.6 % (37.0-47.0) Mean Corpuscular Volume 90 FL (80-99) 91 FL (80-99) Mean Corpuscular Hemoglobin 32.5 PG (27.0-31.0) 31.6 PG (27.0-31.0) Mean Corpuscular Hemoglobin Concent 35.9 G/DL (32.0-36.0) 34.7 G/DL (32.0-36.0) Red Cell Distribution Width 15.9 % (11.6-14.8) 15.1 % (11.6-14.8) Platelet Count 30 K/UL (150-450) 162 K/UL (150-450) Mean Platelet Volume 13.4 FL (6.5-10.1) 4.7 FL (6.5-10.1) Neutrophils (%) (Auto) % (45.0-75.0) % (45.0-75.0) Lymphocytes (%) (Auto) % (20.0-45.0) % (20.0-45.0) Monocytes (%) (Auto) % (1.0-10.0) % (1.0-10.0) Eosinophils (%) (Auto) % (0.0-3.0) % (0.0-3.0) Basophils (%) (Auto) % (0.0-2.0) % (0.0-2.0) Differential Total Cells Counted 100 100 Neutrophils % (Manual) 62 % (45-75) 68 % (45-75) Lymphocytes % (Manual) 33 % (20-45) 27 % (20-45) Monocytes % (Manual) 5 % (1-10) 5 % (1-10) Eosinophils % (Manual) 0 % (0-3) 0 % (0-3) Basophils % (Manual) 0 % (0-2) 0 % (0-2) Band Neutrophils 0 % (0-8) 0 % (0-8) Platelet Estimate Decreased Adequate Platelet Morphology Normal Normal Hypochromasia 1+ 1+ Anisocytosis 1+ 1+ Sodium Level 136 MMOL/L (136-145) Potassium Level 4.0 MMOL/L (3.5-5.1) Chloride Level 104 MMOL/L (98-107) Carbon Dioxide Level 27 MMOL/L (21-32) Anion Gap 5 mmol/L (5-15) Blood Urea Nitrogen 29 mg/dL (7-18) Creatinine 1.7 MG/DL (0.55-1.30) Estimat Glomerular Filtration Rate mL/min (>60) Glucose Level 108 MG/DL (74-106) Calcium Level 9.5 MG/DL (8.5-10.1) Ferritin 685 NG/ML (8-388) Iron Level 94 ug/dL (50-175) Total Iron Binding Capacity 130 ug/dL (250-450) Percent Iron Saturation 72 % (15-50) Unsaturated Iron Binding 36 ug/dL (112-346) Total Protein (PEP) 11.1 g/dL (6.0-8.5) Albumin (PEP) 2.9 g/dL (2.9-4.4) Globulin (PEP) 8.2 g/dL (2.2-3.9) Albumin/Globulin Ratio 0.4 (0.7-1.7) Sigtm-3-Lffhqrndb 0.3 g/dL (0.0-0.4) Cnwar-2-Qazmombkt 0.5 g/dL (0.4-1.0) Beta Globulins 0.7 g/dL (0.7-1.3) Beta Gamma Globulin 6.8 g/dL (0.4-1.8) PEP Abnormal Protein Bands 6.5 g/dL (Not Observed) Protein Electrophoresis Interpret Comment (.) Urine Collection Time 24 HRS Urine Total Volume 1000 ML Urine Total Protein mg/dL 198 mg/dL Urine Total Protein 24 Hour 197.9 mg/24hr (< 150) Test 10/16/18 05:20 10/16/18 14:00 10/16/18 18:00 10/17/18 03:45 White Blood Count 4.7 K/UL (4.8-10.8) 4.9 K/UL (4.8-10.8) Red Blood Count 2.36 M/UL (4.20-5.40) 2.60 M/UL (4.20-5.40) Hemoglobin 7.4 G/DL (12.0-16.0) 8.2 G/DL (12.0-16.0) Hematocrit 22.3 % (37.0-47.0) 24.3 % (37.0-47.0) Mean Corpuscular Volume 95 FL (80-99) 93 FL (80-99) Mean Corpuscular Hemoglobin 31.2 PG (27.0-31.0) 31.4 PG (27.0-31.0) Mean Corpuscular Hemoglobin Concent 33.0 G/DL (32.0-36.0) 33.7 G/DL (32.0-36.0) Red Cell Distribution Width 16.8 % (11.6-14.8) 16.1 % (11.6-14.8) Platelet Count 184 K/UL (150-450) 167 K/UL (150-450) Mean Platelet Volume 5.1 FL (6.5-10.1) 5.2 FL (6.5-10.1) Neutrophils (%) (Auto) % (45.0-75.0) 67.3 % (45.0-75.0) Lymphocytes (%) (Auto) % (20.0-45.0) 23.8 % (20.0-45.0) Monocytes (%) (Auto) % (1.0-10.0) 7.3 % (1.0-10.0) Eosinophils (%) (Auto) % (0.0-3.0) 1.1 % (0.0-3.0) Basophils (%) (Auto) % (0.0-2.0) 0.4 % (0.0-2.0) Differential Total Cells Counted 100 Neutrophils % (Manual) 79 % (45-75) Lymphocytes % (Manual) 17 % (20-45) Monocytes % (Manual) 3 % (1-10) Eosinophils % (Manual) 1 % (0-3) Basophils % (Manual) 0 % (0-2) Band Neutrophils 0 % (0-8) Platelet Estimate Adequate Platelet Morphology Normal Anisocytosis 1+ Sodium Level 136 MMOL/L (136-145) 137 MMOL/L (136-145) Potassium Level 2.8 MMOL/L (3.5-5.1) 3.0 MMOL/L (3.5-5.1) Chloride Level 105 MMOL/L (98-107) 108 MMOL/L (98-107) Carbon Dioxide Level 28 MMOL/L (21-32) 26 MMOL/L (21-32) Anion Gap 2 mmol/L (5-15) 3 mmol/L (5-15) Blood Urea Nitrogen 28 mg/dL (7-18) 25 mg/dL (7-18) Creatinine 2.0 MG/DL (0.55-1.30) 2.2 MG/DL (0.55-1.30) Estimat Glomerular Filtration Rate mL/min (>60) mL/min (>60) Glucose Level 116 MG/DL (74-106) 96 MG/DL (74-106) Calcium Level 9.3 MG/DL (8.5-10.1) 9.0 MG/DL (8.5-10.1) Urine Random Sodium 36 mmol/L (20-110) Uric Acid 8.0 MG/DL (2.6-7.2) Phosphorus Level 2.7 MG/DL (2.5-4.9) Magnesium Level 1.4 MG/DL (1.8-2.4) Total Bilirubin 0.4 MG/DL (0.2-1.0) Gamma Glutamyl Transpeptidase 15 U/L (5-85) Aspartate Amino Transf (AST/SGOT) 22 U/L (15-37) Alanine Aminotransferase (ALT/SGPT) 13 U/L (12-78) Alkaline Phosphatase 49 U/L (46-116) Total Creatine Kinase 16 U/L (26-308) Troponin I 0.021 ng/mL (0.000-0.056) C-Reactive Protein, Quantitative < 0.4 mg/dL (0.00-0.90) Pro-B-Type Natriuretic Peptide 1983 pg/mL (0-125) Total Protein 9.4 G/DL (6.4-8.2) Albumin 1.6 G/DL (3.4-5.0) Globulin 7.8 g/dL Albumin/Globulin Ratio 0.2 (1.0-2.7) Triglycerides Level 21 MG/DL (30-150) Cholesterol Level < 50 MG/DL (< 200) LDL Cholesterol 7 mg/dL (<100) HDL Cholesterol 21 MG/DL (40-60) Cholesterol/HDL Ratio 2.4 (3.3-4.4) Vitamin B12 Level 226 PG/ML (193-986) Folate 3.2 NG/ML (8.6-58.9) Thyroid Stimulating Hormone (TSH) 2.983 uiU/mL (0.358-3.740) Test 10/17/18 06:45 10/17/18 07:30 10/18/18 05:50 10/18/18 11:00 Random Vancomycin Level 10.1 ug/mL Immunoglobulin G 5947 mg/dL (700-1600) Immunoglobulin A 20 mg/dL (64-422) Immunoglobulin M <5 mg/dL (26-217) Immunofixation Screen Comment (.) White Blood Count 4.4 K/UL (4.8-10.8) 4.3 K/UL (4.8-10.8) Red Blood Count 2.67 M/UL (4.20-5.40) 2.67 M/UL (4.20-5.40) Hemoglobin 8.4 G/DL (12.0-16.0) 8.5 G/DL (12.0-16.0) Hematocrit 25.3 % (37.0-47.0) 25.1 % (37.0-47.0) Mean Corpuscular Volume 95 FL (80-99) 94 FL (80-99) Mean Corpuscular Hemoglobin 31.3 PG (27.0-31.0) 31.9 PG (27.0-31.0) Mean Corpuscular Hemoglobin Concent 33.1 G/DL (32.0-36.0) 33.9 G/DL (32.0-36.0) Red Cell Distribution Width 16.3 % (11.6-14.8) 16.3 % (11.6-14.8) Platelet Count 186 K/UL (150-450) 191 K/UL (150-450) Mean Platelet Volume 5.2 FL (6.5-10.1) 5.2 FL (6.5-10.1) Neutrophils (%) (Auto) 57.4 % (45.0-75.0) 56.8 % (45.0-75.0) Lymphocytes (%) (Auto) 31.3 % (20.0-45.0) 32.8 % (20.0-45.0) Monocytes (%) (Auto) 8.8 % (1.0-10.0) 8.1 % (1.0-10.0) Eosinophils (%) (Auto) 2.0 % (0.0-3.0) 1.7 % (0.0-3.0) Basophils (%) (Auto) 0.5 % (0.0-2.0) 0.6 % (0.0-2.0) Sodium Level 134 MMOL/L (136-145) 135 MMOL/L (136-145) Potassium Level 3.3 MMOL/L (3.5-5.1) 3.3 MMOL/L (3.5-5.1) Chloride Level 107 MMOL/L (98-107) 106 MMOL/L (98-107) Carbon Dioxide Level 24 MMOL/L (21-32) 25 MMOL/L (21-32) Anion Gap 3 mmol/L (5-15) 4 mmol/L (5-15) Blood Urea Nitrogen 25 mg/dL (7-18) 25 mg/dL (7-18) Creatinine 2.4 MG/DL (0.55-1.30) 2.4 MG/DL (0.55-1.30) Estimat Glomerular Filtration Rate mL/min (>60) mL/min (>60) Glucose Level 99 MG/DL (74-106) 121 MG/DL (74-106) Calcium Level 9.2 MG/DL (8.5-10.1) 9.1 MG/DL (8.5-10.1) Phosphorus Level 3.2 MG/DL (2.5-4.9) Magnesium Level 1.8 MG/DL (1.8-2.4) Total Bilirubin 0.3 MG/DL (0.2-1.0) 0.3 MG/DL (0.2-1.0) Direct Bilirubin 0.1 MG/DL (0.0-0.3) Aspartate Amino Transf (AST/SGOT) 14 U/L (15-37) 14 U/L (15-37) Alanine Aminotransferase (ALT/SGPT) 10 U/L (12-78) 14 U/L (12-78) Alkaline Phosphatase 52 U/L (46-116) 51 U/L (46-116) Total Protein 9.7 G/DL (6.4-8.2) 9.8 G/DL (6.4-8.2) Albumin 1.5 G/DL (3.4-5.0) 1.5 G/DL (3.4-5.0) Globulin 8.3 g/dL Albumin/Globulin Ratio 0.2 (1.0-2.7) Height (Feet): 5 Height (Inches): 4.00 Weight (Pounds): 183 Objective Physical Exam General appearance: alert, cooperative, no distress, appears stated age Head: Normocephalic, without obvious abnormality, atraumatic Eyes: conjunctivae/corneas clear. PERRL, EOM's intact. Fundi benign Throat: Lips, mucosa, and tongue normal. Teeth and gums normal Neck: supple, symmetrical, trachea midline, no adenopathy, thyroid: not enlarged, symmetric, no tenderness/mass/nodules, no carotid bruit and no JVD Lungs: clear to auscultation bilaterally Heart: regular rate and rhythm, S1, S2 normal, no murmur, click, rub or gallop Abdomen: soft, non-tender. Bowel sounds normal. No masses, no organomegaly Extremities: extremities normal, atraumatic, no cyanosis or edema Pulses: 2+ and symmetric Skin: Skin color, texture, turgor normal. No rashes or lesions Neurologic: Grossly normal Mello Durbin MD October 18, 2018 13:32
--- NOTE | 2018-10-18 15:52 | Cardiology Report ---
APPROVED REPORT EXAM: Two-dimensional and M-mode echocardiogram with Doppler and color Doppler. INDICATION Vegetation M-Mode DIMENSIONS IVSd1.4 (0.7-1.1cm)Left Atrium (MM)3.9 (1.6-4.0cm) LVDd5.1 (3.5-5.6cm)Aortic Root3.0 (2.0-3.7cm) PWd1.1 (0.7-1.1cm)Aortic Cusp Exc.1.5 (1.5-2.0cm) LVDs3.2 (2.5-4.0cm) PWs1.4 cm Normal left ventricular chamber size, systolic function and wall motion. Left ventricular ejection fraction estimated to be 60-65 %. Borderline left ventricular hypertrophy by 2-D. No evidence of pericardial effusion. Moderate to large posterior pleural effusion with debris noted. Mild left atrial enlargement. Right cardiac chamber sizes are within normal limits. Heavy thickening of aortic valve with mildly reduced cusp excursion. Moderately thickened mitral valve leaflets with normal excursion. Mitral annulus and aortic root calcification. Pulmonic valve not well visualized. Normal tricuspid valve structure. IVC measured at 2.3 cm with slight physiologic collapse suggestive of increased RA pressure. Pacemaker wire present in the right side chambers. No discrete vegetations seen, however SBE may not be excluded by transthoracic 2-D echo. Consider KYLIE if clinically indicated. A color flow and spectral Doppler study was performed and revealed: Trace aortic regurgitation. Peak aortic valve gradient of 24 mm Hg and a mean of 12 mmHg. Aortic valve area 1.9 cm2 calculated by continuity equation. Trace mitral regurgitation. Mitral diastolic velocities suggest reduced left ventricular relaxation c/w mild LV diastolic dysfunction (Grade I). Trace to mild tricuspid regurgitation. Tricuspid systolic velocities suggests peak right ventricular systolic pressure of 41 mmHg, consistent with mild pulmonary hypertension. Pulmonic regurgitation present.
[2018-10-18 16:00] VITALS: BP 125/48
--- NOTE | 2018-10-18 16:06 | General Progress Note ---
Assessment/Plan Status: stable Assessment/Plan: 88 year old female with PMH of HTN admitted for management of lower GI bleed #Acute blood loss anemia, present on admission due to lower GI Bleed -GI consult appreciated -Surgery consult appreciated -Hematology consult appreciated -EGD showed erosive gastritis -Colonoscopy showed hemorrhoids, no active bleeding -NPO except meds -Serial CBC -continue PPI -Cont IVF -Hold AC -SCD for DVT ppx #?CHF on CXR with pleural effusion -monitor resp status -Cardiology consulted #Hypokalemia #Hypomagnesemia -replace and monitor BMP #Coag Neg Staph Bacteremia -continue with antibiotics per ID #HTN -hold all anti HTN -PRN hydralazine if needed #CAD #AFib #s/p pacemaker -Hold AC -Cont tele Code status Full Subjective Date patient seen: October 18, 2018 Time patient seen: 16:00 ROS Limited/Unobtainable: Yes Constitutional: Denies: chills Cardiovascular: Denies: chest pain, edema Respiratory: Denies: cough, orthopnea, shortness of breath Allergies: Coded Allergies: CODEINE (Verified Allergy, Severe, Anaphylaxis, 10/14/18) Difficulty breathing along with hives per pt daughter HYDROCODONE (Verified Allergy, Severe, Anaphylaxis, 10/14/18) Difficulty breathing along with hives per pt daughter AMOXICILLIN (Verified Allergy, Unknown, 09/06/12) Subjective Medicine follow up for acute blood loss anemia, rectal bleeding, hypokalemia, gram positive bacteremia and possible CHF Objective Last 24 Hour Vital Signs Date Time Temp Pulse Resp B/P (MAP) Pulse Ox O2 Delivery O2 Flow Rate FiO2 10/18/18 12:00 97.6 91 20 144/49 (80) 98 10/18/18 09:00 Room Air 10/18/18 08:00 97.2 78 20 129/47 (74) 100 10/18/18 04:29 97.8 74 20 112/45 (67) 100 10/18/18 00:00 97.7 69 18 125/51 (75) 99 10/17/18 21:00 Room Air 10/17/18 20:00 98.4 76 20 122/51 (74) 98 Intake and Output 10/17/18 10/18/18 19:00 07:00 Intake Total 250 ml 500 ml Output Total 100 ml Balance 150 ml 500 ml IV Total 250 ml 500 ml Stool Total 100 ml Estimated Blood Loss 0 ml # Voids 1 3 # Bowel Movements 5 2 Laboratory Tests 10/18/18 05:50: White Blood Count 4.4L, Red Blood Count 2.67L, Hemoglobin 8.4L, Hematocrit 25.3L , Mean Corpuscular Volume 95, Mean Corpuscular Hemoglobin 31.3H, Mean Corpuscular Hemoglobin Concent 33.1, Red Cell Distribution Width 16.3H, Platelet Count 186, Mean Platelet Volume 5.2L, Neutrophils (%) (Auto) 57.4, Lymphocytes (%) (Auto) 31.3, Monocytes (%) (Auto) 8.8, Eosinophils (%) (Auto) 2.0, Basophils (%) (Auto) 0.5, Sodium Level 134L, Potassium Level 3.3L, Chloride Level 107, Carbon Dioxide Level 24, Anion Gap 3L, Blood Urea Nitrogen 25H, Creatinine 2.4H, Estimat Glomerular Filtration Rate , Glucose Level 99, Calcium Level 9.2, Phosphorus Level 3.2, Magnesium Level 1.8, Total Bilirubin 0.3, Direct Bilirubin 0.1, Aspartate Amino Transf (AST/SGOT) 14L, Alanine Aminotransferase (ALT/SGPT) 10L, Alkaline Phosphatase 52, Total Protein 9.7H, Albumin 1.5L 10/18/18 11:00: White Blood Count 4.3L, Red Blood Count 2.67L, Hemoglobin 8.5L, Hematocrit 25.1L , Mean Corpuscular Volume 94, Mean Corpuscular Hemoglobin 31.9H, Mean Corpuscular Hemoglobin Concent 33.9, Red Cell Distribution Width 16.3H, Platelet Count 191, Mean Platelet Volume 5.2L, Neutrophils (%) (Auto) 56.8, Lymphocytes (%) (Auto) 32.8, Monocytes (%) (Auto) 8.1, Eosinophils (%) (Auto) 1.7, Basophils (%) (Auto) 0.6, Sodium Level 135L, Potassium Level 3.3L, Chloride Level 106, Carbon Dioxide Level 25, Anion Gap 4L, Blood Urea Nitrogen 25H, Creatinine 2.4H, Estimat Glomerular Filtration Rate , Glucose Level 121H, Calcium Level 9.1, Total Bilirubin 0.3, Aspartate Amino Transf (AST/SGOT) 14L, Alanine Aminotransferase (ALT/SGPT) 14, Alkaline Phosphatase 51, Total Protein 9.8H, Albumin 1.5L, Globulin 8.3, Albumin/Globulin Ratio 0.2L Height (Feet): 5 Height (Inches): 4.00 Weight (Pounds): 183 General Appearance: no apparent distress, alert Neck: normal alignment, supple Cardiovascular: normal rate, regular rhythm Respiratory/Chest: lungs clear, normal breath sounds, no respiratory distress Enoc Mendez MD October 18, 2018 16:06
--- NOTE | 2018-10-18 16:06 | Surgery Progress Note ---
Surgery Progress Note Subjective Symptoms: improved, pain absent, tolerating diet, passing flatus, BM Additional Comments no acute events. Heme note noted. needs bone marrow biopsy Objective Last 24 Hour Vital Signs Date Time Temp Pulse Resp B/P (MAP) Pulse Ox O2 Delivery O2 Flow Rate FiO2 10/18/18 12:00 97.6 91 20 144/49 (80) 98 10/18/18 09:00 Room Air 10/18/18 08:00 97.2 78 20 129/47 (74) 100 10/18/18 04:29 97.8 74 20 112/45 (67) 100 10/18/18 00:00 97.7 69 18 125/51 (75) 99 10/17/18 21:00 Room Air 10/17/18 20:00 98.4 76 20 122/51 (74) 98 I&O Intake and Output 10/17/18 10/18/18 19:00 07:00 Intake Total 250 ml 500 ml Output Total 100 ml Balance 150 ml 500 ml IV Total 250 ml 500 ml Stool Total 100 ml Estimated Blood Loss 0 ml # Voids 1 3 # Bowel Movements 5 2 Cardiovascular: RSR Respiratory: clear Abdomen: soft, flat, non-tender, present bowel sounds, non-distended Extremities: no edema, no tenderness, no cyanosis Laboratory Tests Test 10/18/18 05:50 10/18/18 11:00 White Blood Count 4.4 K/UL (4.8-10.8) L 4.3 K/UL (4.8-10.8) L Red Blood Count 2.67 M/UL (4.20-5.40) L 2.67 M/UL (4.20-5.40) L Hemoglobin 8.4 G/DL (12.0-16.0) L 8.5 G/DL (12.0-16.0) L Hematocrit 25.3 % (37.0-47.0) L 25.1 % (37.0-47.0) L Mean Corpuscular Volume 95 FL (80-99) 94 FL (80-99) Mean Corpuscular Hemoglobin 31.3 PG (27.0-31.0) H 31.9 PG (27.0-31.0) H Mean Corpuscular Hemoglobin Concent 33.1 G/DL (32.0-36.0) 33.9 G/DL (32.0-36.0) Red Cell Distribution Width 16.3 % (11.6-14.8) H 16.3 % (11.6-14.8) H Platelet Count 186 K/UL (150-450) 191 K/UL (150-450) Mean Platelet Volume 5.2 FL (6.5-10.1) L 5.2 FL (6.5-10.1) L Neutrophils (%) (Auto) 57.4 % (45.0-75.0) 56.8 % (45.0-75.0) Lymphocytes (%) (Auto) 31.3 % (20.0-45.0) 32.8 % (20.0-45.0) Monocytes (%) (Auto) 8.8 % (1.0-10.0) 8.1 % (1.0-10.0) Eosinophils (%) (Auto) 2.0 % (0.0-3.0) 1.7 % (0.0-3.0) Basophils (%) (Auto) 0.5 % (0.0-2.0) 0.6 % (0.0-2.0) Sodium Level 134 MMOL/L (136-145) L 135 MMOL/L (136-145) L Potassium Level 3.3 MMOL/L (3.5-5.1) L 3.3 MMOL/L (3.5-5.1) L Chloride Level 107 MMOL/L (98-107) 106 MMOL/L (98-107) Carbon Dioxide Level 24 MMOL/L (21-32) 25 MMOL/L (21-32) Anion Gap 3 mmol/L (5-15) L 4 mmol/L (5-15) L Blood Urea Nitrogen 25 mg/dL (7-18) H 25 mg/dL (7-18) H Creatinine 2.4 MG/DL (0.55-1.30) H 2.4 MG/DL (0.55-1.30) H Estimat Glomerular Filtration Rate mL/min (>60) mL/min (>60) Glucose Level 99 MG/DL (74-106) 121 MG/DL (74-106) H Calcium Level 9.2 MG/DL (8.5-10.1) 9.1 MG/DL (8.5-10.1) Phosphorus Level 3.2 MG/DL (2.5-4.9) Magnesium Level 1.8 MG/DL (1.8-2.4) Total Bilirubin 0.3 MG/DL (0.2-1.0) 0.3 MG/DL (0.2-1.0) Direct Bilirubin 0.1 MG/DL (0.0-0.3) Aspartate Amino Transf (AST/SGOT) 14 U/L (15-37) L 14 U/L (15-37) L Alanine Aminotransferase (ALT/SGPT) 10 U/L (12-78) L 14 U/L (12-78) Alkaline Phosphatase 52 U/L (46-116) 51 U/L (46-116) Total Protein 9.7 G/DL (6.4-8.2) H 9.8 G/DL (6.4-8.2) H Albumin 1.5 G/DL (3.4-5.0) L 1.5 G/DL (3.4-5.0) L Globulin 8.3 g/dL Albumin/Globulin Ratio 0.2 (1.0-2.7) L Plan Problems: (1) Lower GI bleed Assessment & Plan: 88 year old female with acute GI bleed. anemia. prior hx of anticoagulation no n/v/f/c labs noted and stable has not recently had blood in stool per report hemorrhoids on colonoscopy no acute surgical intervention planed okay for diet as tolerated ppi bowel regimen appreciate GI input trend labs d/c planning thank you Brigido Pratt October 18, 2018 16:06
--- NOTE | 2018-10-18 16:09 | Nephrology Progress Note ---
Assessment/Plan Problem List: (1) ROSSY (acute kidney injury) (2) Lower GI bleed (3) HTN (hypertension) (4) Hypoalbuminemia (5) Anemia (6) Pacemaker (7) UTI (urinary tract infection) Assessment Acute renal failure : Cr devora 1.2 to 2 likely due to GI bleed and BP fluctuations GI Bleed , severe Anemia HTN CAD AFib s/p pacemaker UTI HypoAlbuminemia . Plan Keep BP in check Avoid Nephrotoxics monitor renal parameters Transfusion will improve renal perfusion Per orders Urine studies Will discuss Subjective ROS Limited/Unobtainable: No Constitutional: Reports: malaise Objective Objective Last 24 Hour Vital Signs Date Time Temp Pulse Resp B/P (MAP) Pulse Ox O2 Delivery O2 Flow Rate FiO2 10/18/18 12:00 97.6 91 20 144/49 (80) 98 10/18/18 09:00 Room Air 10/18/18 08:00 97.2 78 20 129/47 (74) 100 10/18/18 04:29 97.8 74 20 112/45 (67) 100 10/18/18 00:00 97.7 69 18 125/51 (75) 99 10/17/18 21:00 Room Air 10/17/18 20:00 98.4 76 20 122/51 (74) 98 Intake and Output 10/17/18 10/18/18 19:00 07:00 Intake Total 250 ml 500 ml Output Total 100 ml Balance 150 ml 500 ml IV Total 250 ml 500 ml Stool Total 100 ml Estimated Blood Loss 0 ml # Voids 1 3 # Bowel Movements 5 2 Laboratory Tests 10/18/18 05:50: White Blood Count 4.4L, Red Blood Count 2.67L, Hemoglobin 8.4L, Hematocrit 25.3L , Mean Corpuscular Volume 95, Mean Corpuscular Hemoglobin 31.3H, Mean Corpuscular Hemoglobin Concent 33.1, Red Cell Distribution Width 16.3H, Platelet Count 186, Mean Platelet Volume 5.2L, Neutrophils (%) (Auto) 57.4, Lymphocytes (%) (Auto) 31.3, Monocytes (%) (Auto) 8.8, Eosinophils (%) (Auto) 2.0, Basophils (%) (Auto) 0.5, Sodium Level 134L, Potassium Level 3.3L, Chloride Level 107, Carbon Dioxide Level 24, Anion Gap 3L, Blood Urea Nitrogen 25H, Creatinine 2.4H, Estimat Glomerular Filtration Rate , Glucose Level 99, Calcium Level 9.2, Phosphorus Level 3.2, Magnesium Level 1.8, Total Bilirubin 0.3, Direct Bilirubin 0.1, Aspartate Amino Transf (AST/SGOT) 14L, Alanine Aminotransferase (ALT/SGPT) 10L, Alkaline Phosphatase 52, Total Protein 9.7H, Albumin 1.5L 10/18/18 11:00: White Blood Count 4.3L, Red Blood Count 2.67L, Hemoglobin 8.5L, Hematocrit 25.1L , Mean Corpuscular Volume 94, Mean Corpuscular Hemoglobin 31.9H, Mean Corpuscular Hemoglobin Concent 33.9, Red Cell Distribution Width 16.3H, Platelet Count 191, Mean Platelet Volume 5.2L, Neutrophils (%) (Auto) 56.8, Lymphocytes (%) (Auto) 32.8, Monocytes (%) (Auto) 8.1, Eosinophils (%) (Auto) 1.7, Basophils (%) (Auto) 0.6, Sodium Level 135L, Potassium Level 3.3L, Chloride Level 106, Carbon Dioxide Level 25, Anion Gap 4L, Blood Urea Nitrogen 25H, Creatinine 2.4H, Estimat Glomerular Filtration Rate , Glucose Level 121H, Calcium Level 9.1, Total Bilirubin 0.3, Aspartate Amino Transf (AST/SGOT) 14L, Alanine Aminotransferase (ALT/SGPT) 14, Alkaline Phosphatase 51, Total Protein 9.8H, Albumin 1.5L, Globulin 8.3, Albumin/Globulin Ratio 0.2L Height (Feet): 5 Height (Inches): 4.00 Weight (Pounds): 183 General Appearance: no apparent distress Respiratory/Chest: decreased breath sounds Abdomen: distended Objective no change Vince Rice MD October 18, 2018 16:09
--- NOTE | 2018-10-18 16:13 | NUR ---
P.T Note: late entry for 1130 P.T evaluation completed and treatment initiated. Please refer to P.T evaluation for current functional status. Pt is alert, O x 4 , pleasant and cooperative. Pt had no c/o pain but feeling weak and fatigued. Pt was able to engage with functional activities: currently require MOD A X 1 for Bed Mobilities and MAX A X 2 for Sit to/from stand transition. Pt was able to stand for 5 secs with MAX support however unable to take steps. Overall poor activity tolerance. Skilled P.T service is warranted to increase functional mobility independence and safety during stay. Recommend SNF for short term rehab VS home with P.T. Thank you for this referral.
--- NOTE | 2018-10-18 19:34 | NUR ---
HAND-OFF: Report given to JACQUELYN Yoo.
--- NOTE | 2018-10-18 19:35 | NUR ---
NURSE NOTES: Patient is awake and alert and oriented, resting in semi fowlers psoition. Encouraged patient to move to offload pressure on the sacrum. Pt acknowledged understanding. In no acute distress, on room air, IV patent. respirations are unlabored . No complaints at this time. Call light within reach.
[2018-10-18 20:00] VITALS: BP_SYST 122; BP_SYST 144; BP_DIAS 44; BP_DIAS 70
[2018-10-19] VITALS: BP 144/70
[2018-10-19] MEDS: D5NS 1,000 ML IV SCH ×3 (02:39→20:26)
[2018-10-19 04:00] VITALS: BP 133/90
[2018-10-19] MEDS: Aztreonam Inj 1 GM in D5W 55 ML IVPB SCH ×2 (05:10→16:05)
--- NOTE | 2018-10-19 07:21 | NUR ---
HAND-OFF: Report given to JACQUELYN Kovacs
[2018-10-19 07:42] LABS: BASOPHILS % (AUTO) 0.5 % (0.0-2.0); EOSINOPHILS % (AUTO) 2.1 % (0.0-3.0); HEMOGLOBIN 9.8 G/DL (12.0-16.0); LYMPHOCYTES % (AUTO) 35.8 % (20.0-45.0); MEAN CORPUSCULAR VOLUME 96 FL (80-99); MONOCYTES % (AUTO) 8.4 % (1.0-10.0); NEUTROPHILS % (AUTO) 53.2 % (45.0-75.0); PLATELET COUNT 210 K/UL (150-450); RED BLOOD COUNT 3.13 M/UL (4.20-5.40); RED CELL DISTRIBUTION WIDTH 17.1 % (11.6-14.8)
[2018-10-19 07:55] LABS: PHOSPHORUS 3.7 MG/DL (2.5-4.9)
[2018-10-19 08:00] VITALS: BP 140/90
[2018-10-19 08:00] LABS: ALANINE AMINOTRANSFERASE 11 U/L (12-78); ALBUMIN 1.4 G/DL (3.4-5.0); ALBUMIN/GLOBULIN RATIO 0.2 (1.0-2.7); ALKALINE PHOSPHATASE 54 U/L (46-116); ANION GAP 5 mmol/L (5-15); ASPARTATE AMINO TRANSFERASE 18 U/L (15-37); BILIRUBIN,TOTAL 0.3 MG/DL (0.2-1.0); BLOOD UREA NITROGEN 25 mg/dL (7-18); CALCIUM 9.5 MG/DL (8.5-10.1); CARBON DIOXIDE 23 MMOL/L (21-32); CHLORIDE 107 MMOL/L (98-107); CREATININE 2.4 MG/DL (0.55-1.30); POTASSIUM 3.9 MMOL/L (3.5-5.1); SODIUM 135 MMOL/L (136-145)
--- NOTE | 2018-10-19 08:32 | NUR ---
NURSE NOTES: pt awake alert, no distress. no sob. call light within reach. will monitor. bed in lowest position, locked.
--- NOTE | 2018-10-19 09:14 | NUR ---
NURSE NOTES: called and spoke to Dr Rice re mg level, no new orders given.
[2018-10-19] MEDS ORDERED: Vancomycin 1.5gm Premix IVPB SCH (10:00)
--- NOTE | 2018-10-19 10:11 | NUR ---
NURSE NOTES: bladder scan per dr Rice upon rounds - 292ml per scanner received order for valentin insertion
--- NOTE | 2018-10-19 10:35 | GI Progress Note ---
Assessment/Plan Problems: (1) Lower GI bleed ICD Codes: K92.2 - Gastrointestinal hemorrhage, unspecified SNOMED: 63902691 (2) Anemia ICD Codes: D64.9 - Anemia, unspecified SNOMED: 009231325 (3) Hypoalbuminemia ICD Codes: E88.09 - Other disorders of plasma-protein metabolism, not elsewhere classified SNOMED: 340181259 (4) Abdominal pain ICD Codes: R10.9 - Unspecified abdominal pain SNOMED: 39073604 (5) Nausea ICD Codes: R11.0 - Nausea SNOMED: 629761586 (6) Constipation ICD Codes: K59.00 - Constipation, unspecified SNOMED: 39353851 Status: stable Status Narrative Discussed with Dr. Day Assessment/Plan SUMMARY OF FINDINGS: 1. Fair prep, see above for details. 2. Internal hemorrhoids, otherwise normal colonoscopy examination. Stable H&H RECOMMENDATIONS: Resume diet. Follow laboratories. Monitor hemoglobin and hematocrit and transfuse as needed to keep hemoglobin above 7. Hold off on any exploratory GI procedures at this time. fu cardiology recs The patient was seen and examined at bedside and all new and available data was reviewed in the patients chart. I agree with the above findings, impression and plan. (Patient seen earlier today. Signature stamp does not reflect patient encounter time.). - Michael Day MD Subjective Gastrointestinal/Abdominal: Reports: no symptoms Objective Last 24 Hour Vital Signs Date Time Temp Pulse Resp B/P (MAP) Pulse Ox O2 Delivery O2 Flow Rate FiO2 10/19/18 08:25 Room Air 10/19/18 08:00 98.2 80 18 140/90 (107) 100 10/19/18 07:18 94 Nasal Cannula 1.0 24 10/19/18 04:00 98.2 82 18 133/90 (104) 100 10/19/18 00:00 98.0 85 18 144/70 (94) 100 10/18/18 21:00 Room Air 10/18/18 20:00 98.3 73 18 122/44 (70) 100 10/18/18 16:00 98.0 76 20 125/48 (73) 99 10/18/18 12:00 97.6 91 20 144/49 (80) 98 Intake and Output 10/18/18 10/19/18 19:00 07:00 Intake Total 1690 ml Output Total 300 ml 800 ml Balance 1390 ml -800 ml Intake Oral 480 ml IV Total 1210 ml Output Urine Total 300 ml 800 ml # Voids 1 Laboratory Tests Test 10/18/18 11:00 10/19/18 06:09 White Blood Count 4.3 K/UL (4.8-10.8) L 5.0 K/UL (4.8-10.8) Red Blood Count 2.67 M/UL (4.20-5.40) L 3.13 M/UL (4.20-5.40) L Hemoglobin 8.5 G/DL (12.0-16.0) L 9.8 G/DL (12.0-16.0) L Hematocrit 25.1 % (37.0-47.0) L 30.0 % (37.0-47.0) L Mean Corpuscular Volume 94 FL (80-99) 96 FL (80-99) Mean Corpuscular Hemoglobin 31.9 PG (27.0-31.0) H 31.5 PG (27.0-31.0) H Mean Corpuscular Hemoglobin Concent 33.9 G/DL (32.0-36.0) 32.8 G/DL (32.0-36.0) Red Cell Distribution Width 16.3 % (11.6-14.8) H 17.1 % (11.6-14.8) H Platelet Count 191 K/UL (150-450) 210 K/UL (150-450) Mean Platelet Volume 5.2 FL (6.5-10.1) L 5.1 FL (6.5-10.1) L Neutrophils (%) (Auto) 56.8 % (45.0-75.0) 53.2 % (45.0-75.0) Lymphocytes (%) (Auto) 32.8 % (20.0-45.0) 35.8 % (20.0-45.0) Monocytes (%) (Auto) 8.1 % (1.0-10.0) 8.4 % (1.0-10.0) Eosinophils (%) (Auto) 1.7 % (0.0-3.0) 2.1 % (0.0-3.0) Basophils (%) (Auto) 0.6 % (0.0-2.0) 0.5 % (0.0-2.0) Sodium Level 135 MMOL/L (136-145) L 135 MMOL/L (136-145) L Potassium Level 3.3 MMOL/L (3.5-5.1) L 3.9 MMOL/L (3.5-5.1) Chloride Level 106 MMOL/L (98-107) 107 MMOL/L (98-107) Carbon Dioxide Level 25 MMOL/L (21-32) 23 MMOL/L (21-32) Anion Gap 4 mmol/L (5-15) L 5 mmol/L (5-15) Blood Urea Nitrogen 25 mg/dL (7-18) H 25 mg/dL (7-18) H Creatinine 2.4 MG/DL (0.55-1.30) H 2.4 MG/DL (0.55-1.30) H Estimat Glomerular Filtration Rate mL/min (>60) mL/min (>60) Glucose Level 121 MG/DL (74-106) H 82 MG/DL (74-106) Calcium Level 9.1 MG/DL (8.5-10.1) 9.5 MG/DL (8.5-10.1) Total Bilirubin 0.3 MG/DL (0.2-1.0) 0.3 MG/DL (0.2-1.0) Aspartate Amino Transf (AST/SGOT) 14 U/L (15-37) L 18 U/L (15-37) Alanine Aminotransferase (ALT/SGPT) 14 U/L (12-78) 11 U/L (12-78) L Alkaline Phosphatase 51 U/L (46-116) 54 U/L (46-116) Total Protein 9.8 G/DL (6.4-8.2) H 10.4 G/DL (6.4-8.2) H Albumin 1.5 G/DL (3.4-5.0) L 1.4 G/DL (3.4-5.0) L Globulin 8.3 g/dL 9.0 g/dL Albumin/Globulin Ratio 0.2 (1.0-2.7) L 0.2 (1.0-2.7) L Phosphorus Level 3.7 MG/DL (2.5-4.9) Magnesium Level 1.7 MG/DL (1.8-2.4) L Random Vancomycin Level 7.2 ug/mL Height (Feet): 5 Height (Inches): 4.00 Weight (Pounds): 183 General Appearance: WD/WN, no apparent distress, alert Cardiovascular: normal rate Respiratory/Chest: normal breath sounds, no respiratory distress Abdominal Exam: normal bowel sounds, non tender, soft Extremities: non-tender Neal Reyes NP October 19, 2018 10:35
--- NOTE | 2018-10-19 10:40 | Cardiac Electrophysiology PN ---
Subjective Subjective [id number] Objective Last 24 Hour Vital Signs Date Time Temp Pulse Resp B/P (MAP) Pulse Ox O2 Delivery O2 Flow Rate FiO2 10/19/18 08:25 Room Air 10/19/18 08:00 98.2 80 18 140/90 (107) 100 10/19/18 07:18 94 Nasal Cannula 1.0 24 10/19/18 04:00 98.2 82 18 133/90 (104) 100 10/19/18 00:00 98.0 85 18 144/70 (94) 100 10/18/18 21:00 Room Air 10/18/18 20:00 98.3 73 18 122/44 (70) 100 10/18/18 16:00 98.0 76 20 125/48 (73) 99 10/18/18 12:00 97.6 91 20 144/49 (80) 98 Intake and Output 10/18/18 10/19/18 19:00 07:00 Intake Total 1690 ml Output Total 300 ml 800 ml Balance 1390 ml -800 ml Intake Oral 480 ml IV Total 1210 ml Output Urine Total 300 ml 800 ml # Voids 1 Laboratory Tests Test 10/18/18 11:00 10/19/18 06:09 White Blood Count 4.3 K/UL (4.8-10.8) L 5.0 K/UL (4.8-10.8) Red Blood Count 2.67 M/UL (4.20-5.40) L 3.13 M/UL (4.20-5.40) L Hemoglobin 8.5 G/DL (12.0-16.0) L 9.8 G/DL (12.0-16.0) L Hematocrit 25.1 % (37.0-47.0) L 30.0 % (37.0-47.0) L Mean Corpuscular Volume 94 FL (80-99) 96 FL (80-99) Mean Corpuscular Hemoglobin 31.9 PG (27.0-31.0) H 31.5 PG (27.0-31.0) H Mean Corpuscular Hemoglobin Concent 33.9 G/DL (32.0-36.0) 32.8 G/DL (32.0-36.0) Red Cell Distribution Width 16.3 % (11.6-14.8) H 17.1 % (11.6-14.8) H Platelet Count 191 K/UL (150-450) 210 K/UL (150-450) Mean Platelet Volume 5.2 FL (6.5-10.1) L 5.1 FL (6.5-10.1) L Neutrophils (%) (Auto) 56.8 % (45.0-75.0) 53.2 % (45.0-75.0) Lymphocytes (%) (Auto) 32.8 % (20.0-45.0) 35.8 % (20.0-45.0) Monocytes (%) (Auto) 8.1 % (1.0-10.0) 8.4 % (1.0-10.0) Eosinophils (%) (Auto) 1.7 % (0.0-3.0) 2.1 % (0.0-3.0) Basophils (%) (Auto) 0.6 % (0.0-2.0) 0.5 % (0.0-2.0) Sodium Level 135 MMOL/L (136-145) L 135 MMOL/L (136-145) L Potassium Level 3.3 MMOL/L (3.5-5.1) L 3.9 MMOL/L (3.5-5.1) Chloride Level 106 MMOL/L (98-107) 107 MMOL/L (98-107) Carbon Dioxide Level 25 MMOL/L (21-32) 23 MMOL/L (21-32) Anion Gap 4 mmol/L (5-15) L 5 mmol/L (5-15) Blood Urea Nitrogen 25 mg/dL (7-18) H 25 mg/dL (7-18) H Creatinine 2.4 MG/DL (0.55-1.30) H 2.4 MG/DL (0.55-1.30) H Estimat Glomerular Filtration Rate mL/min (>60) mL/min (>60) Glucose Level 121 MG/DL (74-106) H 82 MG/DL (74-106) Calcium Level 9.1 MG/DL (8.5-10.1) 9.5 MG/DL (8.5-10.1) Total Bilirubin 0.3 MG/DL (0.2-1.0) 0.3 MG/DL (0.2-1.0) Aspartate Amino Transf (AST/SGOT) 14 U/L (15-37) L 18 U/L (15-37) Alanine Aminotransferase (ALT/SGPT) 14 U/L (12-78) 11 U/L (12-78) L Alkaline Phosphatase 51 U/L (46-116) 54 U/L (46-116) Total Protein 9.8 G/DL (6.4-8.2) H 10.4 G/DL (6.4-8.2) H Albumin 1.5 G/DL (3.4-5.0) L 1.4 G/DL (3.4-5.0) L Globulin 8.3 g/dL 9.0 g/dL Albumin/Globulin Ratio 0.2 (1.0-2.7) L 0.2 (1.0-2.7) L Phosphorus Level 3.7 MG/DL (2.5-4.9) Magnesium Level 1.7 MG/DL (1.8-2.4) L Random Vancomycin Level 7.2 ug/mL Microbiology Date/Time Source Procedure Growth Status 10/17/18 03:50 Blood Blood Culture - Preliminary NO GROWTH AFTER 24 HOURS Resulted 10/17/18 03:45 Blood Blood Culture - Preliminary NO GROWTH AFTER 24 HOURS Resulted 10/16/18 18:00 Indwelling Cath Urine Culture - Preliminary Streptococcus Species Resulted Charlie Eric MD October 19, 2018 10:40
--- NOTE | 2018-10-19 11:06 | Nephrology Progress Note ---
Assessment/Plan Problem List: (1) ROSSY (acute kidney injury) Assessment: partly urinary retention (2) Lower GI bleed (3) HTN (hypertension) (4) Hypoalbuminemia (5) Anemia (6) Pacemaker (7) UTI (urinary tract infection) Assessment Acute renal failure : Cr devora 1.2 to 2 likely due to GI bleed and BP fluctuations GI Bleed , severe Anemia HTN CAD AFib s/p pacemaker UTI HypoAlbuminemia . Plan Bernstein cath, has over 250 cc retention of urine discussed with RN Keep BP in check Avoid Nephrotoxics monitor renal parameters Transfusion as needed Per orders Urine studies Will discuss Subjective ROS Limited/Unobtainable: No Constitutional: Reports: malaise Objective Objective Last 24 Hour Vital Signs Date Time Temp Pulse Resp B/P (MAP) Pulse Ox O2 Delivery O2 Flow Rate FiO2 10/19/18 08:25 Room Air 10/19/18 08:00 98.2 80 18 140/90 (107) 100 10/19/18 07:18 94 Nasal Cannula 1.0 24 10/19/18 04:00 98.2 82 18 133/90 (104) 100 10/19/18 00:00 98.0 85 18 144/70 (94) 100 10/18/18 21:00 Room Air 10/18/18 20:00 98.3 73 18 122/44 (70) 100 10/18/18 16:00 98.0 76 20 125/48 (73) 99 10/18/18 12:00 97.6 91 20 144/49 (80) 98 Intake and Output 10/18/18 10/19/18 19:00 07:00 Intake Total 1690 ml Output Total 300 ml 800 ml Balance 1390 ml -800 ml Intake Oral 480 ml IV Total 1210 ml Output Urine Total 300 ml 800 ml # Voids 1 Laboratory Tests 10/19/18 06:09: White Blood Count 5.0, Red Blood Count 3.13L, Hemoglobin 9.8L, Hematocrit 30.0L , Mean Corpuscular Volume 96, Mean Corpuscular Hemoglobin 31.5H, Mean Corpuscular Hemoglobin Concent 32.8, Red Cell Distribution Width 17.1H, Platelet Count 210, Mean Platelet Volume 5.1L, Neutrophils (%) (Auto) 53.2, Lymphocytes (%) (Auto) 35.8, Monocytes (%) (Auto) 8.4, Eosinophils (%) (Auto) 2.1, Basophils (%) (Auto) 0.5, Sodium Level 135L, Potassium Level 3.9, Chloride Level 107, Carbon Dioxide Level 23, Anion Gap 5, Blood Urea Nitrogen 25H, Creatinine 2.4H, Estimat Glomerular Filtration Rate , Glucose Level 82, Calcium Level 9.5, Phosphorus Level 3.7, Magnesium Level 1.7L, Total Bilirubin 0.3, Aspartate Amino Transf (AST/SGOT) 18, Alanine Aminotransferase (ALT/SGPT) 11L, Alkaline Phosphatase 54, Total Protein 10.4H, Albumin 1.4L, Globulin 9.0, Albumin/Globulin Ratio 0.2L, Random Vancomycin Level 7.2 Height (Feet): 5 Height (Inches): 4.00 Weight (Pounds): 183 General Appearance: no apparent distress Cardiovascular: normal rate Respiratory/Chest: decreased breath sounds Abdomen: distended Objective no change Vince Rice MD October 19, 2018 11:06
[2018-10-19 12:00] VITALS: BP 142/63
--- NOTE | 2018-10-19 14:26 | Hematology/Onc Progress Note ---
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 With a paraprotein elevation in the past, protein elevated at 6.5g, igG is 5947, urinary protein is elevated as well signifying mgus v myeloma --> Continue to closely monitor > Anemia w/u has been reviewed, will trend daily. --> Hgb goal >7 --> 12/06/17: 1 unit prbc ordered --> skeletal survey has been ordered --> to r/o myeloma which likely she has, will need a bone marrow biopsy # Anemia due to underlying gi bleed, currently bleeding resolved --> anemia panel reviewed ferritin is 385, sufficient iron stores --> gi and surg consulted, endoscopy as per gi ) # Paraproteinemia. 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 due to high IGG --> Lucent lesion in the left iliac bone. Permeative pattern of the osseous skeleton may be due to osteopenia but cannot exclude metastases. --> bone scan is pending for above # Thrombocytopenia - either bone marrow process related or meds, due to mgs/ myeloma --> hepatitis panel neg # Coagulopathy, likely secondary to decreased oral take --> check pt/inr as needed # Pacemaker placement history. # Hypertension. The timing of this note does not necessarily reflect the time of the patient was seen. Greatly appreciate consultation! Subjective Constitutional: Denies: no symptoms, chills, fever, malaise, weakness, other HEENT: Denies: no symptoms, eye pain, blurred vision, tearing, double vision, ear pain, ear discharge, nose pain, nose congestion, throat pain, throat swelling, mouth pain, mouth swelling, other Cardiovascular: Denies: no symptoms, chest pain, edema, irregular heart rate, lightheadedness, palpitations, syncope, other Respiratory: Denies: no symptoms, cough, shortness of breath, SOB with excertion, SOB at rest, sputum, wheezing, other Gastrointestinal/Abdominal: Denies: no symptoms, abdomen distended, abdominal pain, black stools, tarry stools, blood in stool, constipated, diarrhea, difficulty swallowing, nausea, poor appetite, poor fluid intake, rectal bleeding , vomiting, other Neurologic/Psychiatric: Denies: no symptoms, anxiety, depressed, emotional problems, headache, numbness, paresthesia, pre-existing deficit, seizure, tingling, tremors, weakness, other Endocrine: Denies: no symptoms, excessive sweating, flushing, intolerance to cold, intolerance to heat, increased hunger, increased thirst, increased urine, unexplained weight gain, unexplained weight loss, other Allergies: Coded Allergies: CODEINE (Verified Allergy, Severe, Anaphylaxis, 10/14/18) Difficulty breathing along with hives per pt daughter HYDROCODONE (Verified Allergy, Severe, Anaphylaxis, 10/14/18) Difficulty breathing along with hives per pt daughter AMOXICILLIN (Verified Allergy, Unknown, 09/06/12) Subjective 10/16: plt are drastically improved, no f/c, no night sweats 10/17: colo for today, no events noted, cbc has been reviewed 10/18: no events noted, IgG 5947, urinary protein high as well, needs skeletal survey 10/19: no events, sleeping, discussed bone marrow biopsy, currently holding off Objective Objective Current Medications Medications (Trade) Dose Ordered Sig/Ary Route PRN Reason Start Time Stop Time Status Last Admin Dose Admin Acetaminophen (Tylenol) 650 mg Q4H PRN ORAL T>100.5/Pain 10/17/18 19:30 11/13/18 19:29 Aztreonam 1 gm/ Dextrose 55 ml @ 110 mls/hr Q12H IVPB 10/18/18 05:00 10/23/18 16:59 10/19/18 05:10 Dextrose (Dextrose 50%) 25 ml Q30M PRN IV Hypoglycemia 10/17/18 19:30 11/13/18 20:59 Dextrose (Dextrose 50%) 50 ml Q30M PRN IV Hypoglycemia 10/17/18 19:30 11/13/18 20:59 Dextrose/Sodium Chloride 1,000 ml @ 100 mls/hr Q10H IV 10/17/18 19:15 11/14/18 18:59 10/19/18 11:15 Diphenhydramine HCl (Benadryl) 25 mg Q6H PRN ORAL Itching/Pruritis 10/17/18 20:00 11/13/18 19:59 Folic Acid (Folate) 5 mg DAILY ORAL 10/18/18 09:00 11/16/18 14:59 10/19/18 08:10 Hydralazine HCl (Apresoline) 10 mg Q6H PRN ORAL SBP > 160mmHg 10/17/18 20:00 11/16/18 19:59 Lorazepam (Ativan 2mg/ml 1ml) 0.5 mg Q4H PRN IV For Anxiety 10/17/18 20:00 10/21/18 19:59 Metoclopramide HCl (Reglan) 10 mg Q6H PRN IVP Nausea & Vomiting 10/17/18 20:00 11/13/18 19:59 Ondansetron HCl (Zofran) 4 mg Q6H PRN IVP Nausea & Vomiting 10/17/18 20:00 11/13/18 19:59 Pantoprazole (Protonix) 40 mg EVERY 12 HOURS ORAL 10/19/18 21:00 11/18/18 20:59 Temazepam (Restoril) 15 mg HSPRN PRN ORAL Insomnia 10/17/18 21:00 10/22/18 20:59 Vancomycin HCl (Vanco rx to dose) 1 ea DAILY PRN MISC Per rx protocol 10/17/18 20:00 11/16/18 19:59 Last 24 Hour Vital Signs Date Time Temp Pulse Resp B/P (MAP) Pulse Ox O2 Delivery O2 Flow Rate FiO2 10/19/18 08:25 Room Air 10/19/18 08:00 98.2 80 18 140/90 (107) 100 10/19/18 07:18 94 Nasal Cannula 1.0 24 10/19/18 04:00 98.2 82 18 133/90 (104) 100 10/19/18 00:00 98.0 85 18 144/70 (94) 100 10/18/18 21:00 Room Air 10/18/18 20:00 98.3 73 18 122/44 (70) 100 10/18/18 16:00 98.0 76 20 125/48 (73) 99 10/18/18 12:00 97.6 91 20 144/49 (80) 98 10/18/18 09:00 Room Air 10/18/18 08:00 97.2 78 20 129/47 (74) 100 10/18/18 04:29 97.8 74 20 112/45 (67) 100 10/18/18 00:00 97.7 69 18 125/51 (75) 99 10/17/18 21:00 Room Air 10/17/18 20:00 98.4 76 20 122/51 (74) 98 10/17/18 16:00 64 10/17/18 16:00 97.3 64 20 111/63 (79) 100 Intake and Output 10/18/18 10/19/18 19:00 07:00 Intake Total 1690 ml Output Total 300 ml 800 ml Balance 1390 ml -800 ml Intake Oral 480 ml IV Total 1210 ml Output Urine Total 300 ml 800 ml # Voids 1 Labs Test 10/16/18 18:00 10/17/18 03:45 10/17/18 06:45 10/17/18 07:30 White Blood Count 4.9 K/UL (4.8-10.8) Red Blood Count 2.60 M/UL (4.20-5.40) Hemoglobin 8.2 G/DL (12.0-16.0) Hematocrit 24.3 % (37.0-47.0) Mean Corpuscular Volume 93 FL (80-99) Mean Corpuscular Hemoglobin 31.4 PG (27.0-31.0) Mean Corpuscular Hemoglobin Concent 33.7 G/DL (32.0-36.0) Red Cell Distribution Width 16.1 % (11.6-14.8) Platelet Count 167 K/UL (150-450) Mean Platelet Volume 5.2 FL (6.5-10.1) Neutrophils (%) (Auto) 67.3 % (45.0-75.0) Lymphocytes (%) (Auto) 23.8 % (20.0-45.0) Monocytes (%) (Auto) 7.3 % (1.0-10.0) Eosinophils (%) (Auto) 1.1 % (0.0-3.0) Basophils (%) (Auto) 0.4 % (0.0-2.0) Sodium Level 137 MMOL/L (136-145) Potassium Level 3.0 MMOL/L (3.5-5.1) Chloride Level 108 MMOL/L (98-107) Carbon Dioxide Level 26 MMOL/L (21-32) Anion Gap 3 mmol/L (5-15) Blood Urea Nitrogen 25 mg/dL (7-18) Creatinine 2.2 MG/DL (0.55-1.30) Estimat Glomerular Filtration Rate mL/min (>60) Glucose Level 96 MG/DL (74-106) Uric Acid 8.0 MG/DL (2.6-7.2) Calcium Level 9.0 MG/DL (8.5-10.1) Phosphorus Level 2.7 MG/DL (2.5-4.9) Magnesium Level 1.4 MG/DL (1.8-2.4) Total Bilirubin 0.4 MG/DL (0.2-1.0) Gamma Glutamyl Transpeptidase 15 U/L (5-85) Aspartate Amino Transf (AST/SGOT) 22 U/L (15-37) Alanine Aminotransferase (ALT/SGPT) 13 U/L (12-78) Alkaline Phosphatase 49 U/L (46-116) Total Creatine Kinase 16 U/L (26-308) Troponin I 0.021 ng/mL (0.000-0.056) C-Reactive Protein, Quantitative < 0.4 mg/dL (0.00-0.90) Pro-B-Type Natriuretic Peptide 1983 pg/mL (0-125) Total Protein 9.4 G/DL (6.4-8.2) Albumin 1.6 G/DL (3.4-5.0) Globulin 7.8 g/dL Albumin/Globulin Ratio 0.2 (1.0-2.7) Triglycerides Level 21 MG/DL (30-150) Cholesterol Level < 50 MG/DL (< 200) LDL Cholesterol 7 mg/dL (<100) HDL Cholesterol 21 MG/DL (40-60) Cholesterol/HDL Ratio 2.4 (3.3-4.4) Vitamin B12 Level 226 PG/ML (193-986) Folate 3.2 NG/ML (8.6-58.9) Thyroid Stimulating Hormone (TSH) 2.983 uiU/mL (0.358-3.740) Random Vancomycin Level 10.1 ug/mL Immunoglobulin G 5947 mg/dL (700-1600) Immunoglobulin A 20 mg/dL (64-422) Immunoglobulin M <5 mg/dL (26-217) Immunofixation Screen Comment (.) Test 10/18/18 05:50 10/18/18 11:00 10/19/18 06:09 White Blood Count 4.4 K/UL (4.8-10.8) 4.3 K/UL (4.8-10.8) 5.0 K/UL (4.8-10.8) Red Blood Count 2.67 M/UL (4.20-5.40) 2.67 M/UL (4.20-5.40) 3.13 M/UL (4.20-5.40) Hemoglobin 8.4 G/DL (12.0-16.0) 8.5 G/DL (12.0-16.0) 9.8 G/DL (12.0-16.0) Hematocrit 25.3 % (37.0-47.0) 25.1 % (37.0-47.0) 30.0 % (37.0-47.0) Mean Corpuscular Volume 95 FL (80-99) 94 FL (80-99) 96 FL (80-99) Mean Corpuscular Hemoglobin 31.3 PG (27.0-31.0) 31.9 PG (27.0-31.0) 31.5 PG (27.0-31.0) Mean Corpuscular Hemoglobin Concent 33.1 G/DL (32.0-36.0) 33.9 G/DL (32.0-36.0) 32.8 G/DL (32.0-36.0) Red Cell Distribution Width 16.3 % (11.6-14.8) 16.3 % (11.6-14.8) 17.1 % (11.6-14.8) Platelet Count 186 K/UL (150-450) 191 K/UL (150-450) 210 K/UL (150-450) Mean Platelet Volume 5.2 FL (6.5-10.1) 5.2 FL (6.5-10.1) 5.1 FL (6.5-10.1) Neutrophils (%) (Auto) 57.4 % (45.0-75.0) 56.8 % (45.0-75.0) 53.2 % (45.0-75.0) Lymphocytes (%) (Auto) 31.3 % (20.0-45.0) 32.8 % (20.0-45.0) 35.8 % (20.0-45.0) Monocytes (%) (Auto) 8.8 % (1.0-10.0) 8.1 % (1.0-10.0) 8.4 % (1.0-10.0) Eosinophils (%) (Auto) 2.0 % (0.0-3.0) 1.7 % (0.0-3.0) 2.1 % (0.0-3.0) Basophils (%) (Auto) 0.5 % (0.0-2.0) 0.6 % (0.0-2.0) 0.5 % (0.0-2.0) Sodium Level 134 MMOL/L (136-145) 135 MMOL/L (136-145) 135 MMOL/L (136-145) Potassium Level 3.3 MMOL/L (3.5-5.1) 3.3 MMOL/L (3.5-5.1) 3.9 MMOL/L (3.5-5.1) Chloride Level 107 MMOL/L (98-107) 106 MMOL/L (98-107) 107 MMOL/L (98-107) Carbon Dioxide Level 24 MMOL/L (21-32) 25 MMOL/L (21-32) 23 MMOL/L (21-32) Anion Gap 3 mmol/L (5-15) 4 mmol/L (5-15) 5 mmol/L (5-15) Blood Urea Nitrogen 25 mg/dL (7-18) 25 mg/dL (7-18) 25 mg/dL (7-18) Creatinine 2.4 MG/DL (0.55-1.30) 2.4 MG/DL (0.55-1.30) 2.4 MG/DL (0.55-1.30) Estimat Glomerular Filtration Rate mL/min (>60) mL/min (>60) mL/min (>60) Glucose Level 99 MG/DL (74-106) 121 MG/DL (74-106) 82 MG/DL (74-106) Calcium Level 9.2 MG/DL (8.5-10.1) 9.1 MG/DL (8.5-10.1) 9.5 MG/DL (8.5-10.1) Phosphorus Level 3.2 MG/DL (2.5-4.9) 3.7 MG/DL (2.5-4.9) Magnesium Level 1.8 MG/DL (1.8-2.4) 1.7 MG/DL (1.8-2.4) Total Bilirubin 0.3 MG/DL (0.2-1.0) 0.3 MG/DL (0.2-1.0) 0.3 MG/DL (0.2-1.0) Direct Bilirubin 0.1 MG/DL (0.0-0.3) Aspartate Amino Transf (AST/SGOT) 14 U/L (15-37) 14 U/L (15-37) 18 U/L (15-37) Alanine Aminotransferase (ALT/SGPT) 10 U/L (12-78) 14 U/L (12-78) 11 U/L (12-78) Alkaline Phosphatase 52 U/L (46-116) 51 U/L (46-116) 54 U/L (46-116) Total Protein 9.7 G/DL (6.4-8.2) 9.8 G/DL (6.4-8.2) 10.4 G/DL (6.4-8.2) Albumin 1.5 G/DL (3.4-5.0) 1.5 G/DL (3.4-5.0) 1.4 G/DL (3.4-5.0) Globulin 8.3 g/dL 9.0 g/dL Albumin/Globulin Ratio 0.2 (1.0-2.7) 0.2 (1.0-2.7) Random Vancomycin Level 7.2 ug/mL Height (Feet): 5 Height (Inches): 4.00 Weight (Pounds): 183 Objective Physical Exam General appearance: alert, cooperative, no distress, appears stated age Head: Normocephalic, without obvious abnormality, atraumatic Eyes: conjunctivae/corneas clear. PERRL, EOM's intact. Fundi benign Throat: Lips, mucosa, and tongue normal. Teeth and gums normal Neck: supple, symmetrical, trachea midline, no adenopathy, thyroid: not enlarged, symmetric, no tenderness/mass/nodules, no carotid bruit and no JVD Lungs: clear to auscultation bilaterally Heart: regular rate and rhythm, S1, S2 normal, no murmur, click, rub or gallop Abdomen: soft, non-tender. Bowel sounds normal. No masses, no organomegaly Extremities: extremities normal, atraumatic, no cyanosis or edema Pulses: 2+ and symmetric Skin: Skin color, texture, turgor normal. No rashes or lesions Neurologic: Grossly normal Mello Durbin MD October 19, 2018 14:26
--- NOTE | 2018-10-19 15:02 | General Progress Note ---
Assessment/Plan Status: stable Assessment/Plan: 88 year old female with PMH of HTN admitted for management of lower GI bleed #Acute blood loss anemia, present on admission due to lower GI Bleed -GI consult appreciated -Surgery consult appreciated -Hematology consult appreciated -EGD showed erosive gastritis -Colonoscopy showed hemorrhoids, no active bleeding -Serial CBC -continue PPI -Cont IVF -Hold AC -SCD for DVT ppx #?CHF on CXR with pleural effusion -monitor resp status -Cardiology eval pending #ROSSY, present on admission #Urinary retention #Hypokalemia #Hypomagnesemia -Spoke with Nephrology, plan to place Berntsein, continue to monitor renal function -replace lytes prn and monitor BMP #Coag Neg Staph Bacteremia -continue with antibiotics per ID #HTN -hold all anti HTN -PRN hydralazine if needed #CAD #AFib #s/p pacemaker -Hold AC -Cont tele Code status Full Subjective Date patient seen: October 19, 2018 Time patient seen: 14:45 ROS Limited/Unobtainable: Yes Constitutional: Denies: fever Respiratory: Denies: cough Gastrointestinal/Abdominal: Denies: abdominal pain Allergies: Coded Allergies: CODEINE (Verified Allergy, Severe, Anaphylaxis, 10/14/18) Difficulty breathing along with hives per pt daughter HYDROCODONE (Verified Allergy, Severe, Anaphylaxis, 10/14/18) Difficulty breathing along with hives per pt daughter AMOXICILLIN (Verified Allergy, Unknown, 09/06/12) Subjective Medicine follow up for acute blood loss anemia, rectal bleeding, hypokalemia, gram positive bacteremia and possible CHF Objective Last 24 Hour Vital Signs Date Time Temp Pulse Resp B/P (MAP) Pulse Ox O2 Delivery O2 Flow Rate FiO2 10/19/18 08:25 Room Air 10/19/18 08:00 98.2 80 18 140/90 (107) 100 10/19/18 07:18 94 Nasal Cannula 1.0 24 10/19/18 04:00 98.2 82 18 133/90 (104) 100 10/19/18 00:00 98.0 85 18 144/70 (94) 100 10/18/18 21:00 Room Air 10/18/18 20:00 98.3 73 18 122/44 (70) 100 10/18/18 16:00 98.0 76 20 125/48 (73) 99 Intake and Output 10/18/18 10/19/18 19:00 07:00 Intake Total 1690 ml Output Total 300 ml 800 ml Balance 1390 ml -800 ml Intake Oral 480 ml IV Total 1210 ml Output Urine Total 300 ml 800 ml # Voids 1 Laboratory Tests 10/19/18 06:09: White Blood Count 5.0, Red Blood Count 3.13L, Hemoglobin 9.8L, Hematocrit 30.0L , Mean Corpuscular Volume 96, Mean Corpuscular Hemoglobin 31.5H, Mean Corpuscular Hemoglobin Concent 32.8, Red Cell Distribution Width 17.1H, Platelet Count 210, Mean Platelet Volume 5.1L, Neutrophils (%) (Auto) 53.2, Lymphocytes (%) (Auto) 35.8, Monocytes (%) (Auto) 8.4, Eosinophils (%) (Auto) 2.1, Basophils (%) (Auto) 0.5, Sodium Level 135L, Potassium Level 3.9, Chloride Level 107, Carbon Dioxide Level 23, Anion Gap 5, Blood Urea Nitrogen 25H, Creatinine 2.4H, Estimat Glomerular Filtration Rate , Glucose Level 82, Calcium Level 9.5, Phosphorus Level 3.7, Magnesium Level 1.7L, Total Bilirubin 0.3, Aspartate Amino Transf (AST/SGOT) 18, Alanine Aminotransferase (ALT/SGPT) 11L, Alkaline Phosphatase 54, Total Protein 10.4H, Albumin 1.4L, Globulin 9.0, Albumin/Globulin Ratio 0.2L, Random Vancomycin Level 7.2 Height (Feet): 5 Height (Inches): 4.00 Weight (Pounds): 183 General Appearance: no apparent distress, alert Neck: normal alignment, supple Cardiovascular: normal rate, regular rhythm Respiratory/Chest: lungs clear, normal breath sounds Enoc Mendez MD October 19, 2018 15:02
--- NOTE | 2018-10-19 15:19 | NUR ---
RD ASSESSMENT & RECOMMENDATIONS SEE CARE ACTIVITY FOR COMPLETE ASSESSMENT DAILY ESTIMATED NEEDS: Needs based on cardiac, DTI, obese/ 54.5kg adj bw 25-30 kcals/kg 3021-1778 total kcals 1.25-1.5 g protein/kg 68-82 g total protein 20-25 mL/kg 2779-9279 total fluid mLs NUTRITION DIAGNOSIS: *Altered GI function R/T possible GIB as evidenced by pt admitted w/ rectal bleeding, low Hgb<8, pt w/ internal hemorrhoids, per colonoscopy examination. CURRENT DIET:Soft PO DIET RECOMMENDATIONS: Low Fiber/ Low Residue/ texture as tolerated ADDITIONAL RECOMMENDATIONS: * Calibrated bedscale wt for accurate CBW * WC: add DAVID BID for skin integrity (f/up w/ WC eval) * Monitor GI fxn- last BM 10/18 * Lytes daily, replete as needed (Low K 2.6-> wnl; Mg 1.7)
--- NOTE | 2018-10-19 15:20 | Surgery Progress Note ---
Surgery Progress Note Subjective Symptoms: improved, tolerating diet, passing flatus Objective Last 24 Hour Vital Signs Date Time Temp Pulse Resp B/P (MAP) Pulse Ox O2 Delivery O2 Flow Rate FiO2 10/19/18 08:25 Room Air 10/19/18 08:00 98.2 80 18 140/90 (107) 100 10/19/18 07:18 94 Nasal Cannula 1.0 24 10/19/18 04:00 98.2 82 18 133/90 (104) 100 10/19/18 00:00 98.0 85 18 144/70 (94) 100 10/18/18 21:00 Room Air 10/18/18 20:00 98.3 73 18 122/44 (70) 100 10/18/18 16:00 98.0 76 20 125/48 (73) 99 I&O Intake and Output 10/18/18 10/19/18 19:00 07:00 Intake Total 1690 ml Output Total 300 ml 800 ml Balance 1390 ml -800 ml Intake Oral 480 ml IV Total 1210 ml Output Urine Total 300 ml 800 ml # Voids 1 Drains: none Cardiovascular: RSR Respiratory: clear Abdomen: soft, flat, non-tender, present bowel sounds, non-distended Extremities: no tenderness, no cyanosis Laboratory Tests Test 10/19/18 06:09 White Blood Count 5.0 K/UL (4.8-10.8) Red Blood Count 3.13 M/UL (4.20-5.40) L Hemoglobin 9.8 G/DL (12.0-16.0) L Hematocrit 30.0 % (37.0-47.0) L Mean Corpuscular Volume 96 FL (80-99) Mean Corpuscular Hemoglobin 31.5 PG (27.0-31.0) H Mean Corpuscular Hemoglobin Concent 32.8 G/DL (32.0-36.0) Red Cell Distribution Width 17.1 % (11.6-14.8) H Platelet Count 210 K/UL (150-450) Mean Platelet Volume 5.1 FL (6.5-10.1) L Neutrophils (%) (Auto) 53.2 % (45.0-75.0) Lymphocytes (%) (Auto) 35.8 % (20.0-45.0) Monocytes (%) (Auto) 8.4 % (1.0-10.0) Eosinophils (%) (Auto) 2.1 % (0.0-3.0) Basophils (%) (Auto) 0.5 % (0.0-2.0) Sodium Level 135 MMOL/L (136-145) L Potassium Level 3.9 MMOL/L (3.5-5.1) Chloride Level 107 MMOL/L (98-107) Carbon Dioxide Level 23 MMOL/L (21-32) Anion Gap 5 mmol/L (5-15) Blood Urea Nitrogen 25 mg/dL (7-18) H Creatinine 2.4 MG/DL (0.55-1.30) H Estimat Glomerular Filtration Rate mL/min (>60) Glucose Level 82 MG/DL (74-106) Calcium Level 9.5 MG/DL (8.5-10.1) Phosphorus Level 3.7 MG/DL (2.5-4.9) Magnesium Level 1.7 MG/DL (1.8-2.4) L Total Bilirubin 0.3 MG/DL (0.2-1.0) Aspartate Amino Transf (AST/SGOT) 18 U/L (15-37) Alanine Aminotransferase (ALT/SGPT) 11 U/L (12-78) L Alkaline Phosphatase 54 U/L (46-116) Total Protein 10.4 G/DL (6.4-8.2) H Albumin 1.4 G/DL (3.4-5.0) L Globulin 9.0 g/dL Albumin/Globulin Ratio 0.2 (1.0-2.7) L Random Vancomycin Level 7.2 ug/mL Plan Problems: (1) Lower GI bleed Assessment & Plan: 88 year old female with acute GI bleed. anemia. prior hx of anticoagulation no n/v/f/c labs noted and stable has not recently had blood in stool per report hemorrhoids on colonoscopy no acute surgical intervention planed okay for diet as tolerated ppi bowel regimen appreciate GI input trend labs d/c planning thank you Brigido Pratt October 19, 2018 15:20
[2018-10-19 16:00] VITALS: BP 138/73
--- NOTE | 2018-10-19 16:27 | NUR ---
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 IS:AZTREONAM 55ml D5/NS x1L IV VANCOMYCIN 275ml IVPB MED/SURG STATUS
--- NOTE | 2018-10-19 16:49 | NUR ---
HAND-OFF: Report given to PATRIA VALLADARES.
--- NOTE | 2018-10-19 19:42 | NUR ---
HAND-OFF: Report given to Grace VALLADARES.
--- NOTE | 2018-10-19 19:42 | Diagnostic Imaging Report ---
APPROVED REPORT CPT Code: 97627 Present Symptoms Comments: BILATERAL LEGS PAIN. BILATERAL: Imaging reveals a patent deep venous system bilaterally. There is no evidence of thrombus within the femoral, popliteal or tibial segments. The greater saphenous veins are also within normal limits. Doppler indicates normal spontaneous flow within these segments. INCIDENTAL FINDINGS: Imaging of the right popliteal fossa reveals a Bakers cyst measuring approximately 5.2 x 1.3 X 2.9 cm.
--- NOTE | 2018-10-19 19:43 | NUR ---
NURSE NOTES: Received patient in no apparent distress. A&OX2 with confusion. IV sites are patent and intact. Bernstein cath draining well by gravity, yellow urine noted. Bed in lowest position. Call light within reach. Will continue to monitor.
[2018-10-19 20:00] VITALS: BP 147/67
--- NOTE | 2018-10-19 21:01 | Consultation ---
DATE OF CONSULTATION: 10/19/2018 CARDIOLOGY CONSULTATION: CONSULTING PHYSICIAN: Charlie Eric M.D. REFERRING PHYSICIAN: . REASON FOR CONSULTATION: Management of hypertension, coronary artery disease, atrial fibrillation, the patient's pacemaker, and rule out congestive heart failure. HISTORY OF PRESENT ILLNESS: The patient is an 88-year-old lady who was admitted for lower GI bleed. The patient also has history of hypertension, atrial fibrillation, coronary artery disease, history of permanent pacemaker placement. The patient also noted to have coag-negative staph bacteremia. The patient underwent an EGD that showed erosive gastritis and had colonoscopy that showed hemorrhoids. No active bleeding. The patient's anticoagulation still on hold despite atrial fibrillation for GI bleed. REVIEW OF SYSTEMS: Review of systems was negative other than what was mentioned in history of present illness. PAST MEDICAL HISTORY: As mentioned above. FAMILY HISTORY: Noncontributory. SOCIAL HISTORY: She does not smoke or drink alcohol. PHYSICAL EXAMINATION: VITAL SIGNS: Show blood pressure of 140/90, pulse is 80, respirations 18, and she is afebrile. HEAD AND NECK: Shows no JVD. LUNGS: Decreased breath sounds. CARDIOVASCULAR: Regular S1 and S2 with no gallop. Pacemaker in the left subclavian. ABDOMEN: Soft. EXTREMITIES: No pitting edema. DIAGNOSTIC DATA: EKG shows sinus rhythm with right bundle-branch block with left anterior fascicular block. LABORATORY DATA: Labs show white count of 5, hemoglobin of 9.8, on admission was 7.4, hematocrit of 30, and platelet count is 210. Sodium is 134, potassium 3.9, BUN of 25, creatinine 2.4, glucose of 82. INR is 1.1. ASSESSMENT AND PLAN: 1. Paroxysmal atrial fibrillation, currently in sinus rhythm, off anticoagulation for hemoglobin 7.2 on admission and positive for GI bleed. 2. Status post pacemaker implantation. The patient does not know the brand of the pacemaker. We will try to find the brand of the pacemaker and interrogate for further evaluation. 3. Congestive heart failure, likely due to diastolic dysfunction. Ejection fraction is 60 to 65% and borderline LVH. The patient has no evidence of pericardial effusion. 4. MSSA bacteremia. No vegetation noted. 5. History of hypertension. Keep off antihypertensives antihypertensive agents. Currently on p.r.n. IV hydralazine. 6. Acute blood loss anemia due to lower GI bleed. Colonoscopy showed hemorrhoids with no active bleeding. 7. History of coronary artery disease. Remains without any chest pain. Thank you very much, , for allowing me to participate in the care of this patient. Please do not hesitate to contact me for any questions regarding my evaluation. Charlie Eric M.D. DR: JARROD JOB#: [id number] CC:
--- NOTE | 2018-10-19 21:58 | Consultation ---
History of Present Illness General Date patient seen: October 20, 2018 Chief Complaint: AMS Referring physician: Dr. Constance Phillips Present Illness HPI Shaylee Salazar is an 88 year old female with PMH of HTN presented with complaints of passing BRB per rectum. States she had constipation and when she finally had a bowel movement noted that she was passing bright red blood yesterday, denies pain. Pt was previously was on anticoagulation for AFib, started at [facility] about 2 weeks ago, pt does not know reason for admission. C/ O multiple falls with easy bruising, last fall was about 1 weeks ago, denies head trauma, therefore eliquis was stopped. Pt denies n/v/d, fevers, chills, cough, urinary complaints, headaches, chest pain or SOB. In the ED, pt transfused 2 units PRBC, GI consulted. Allergies: Coded Allergies: CODEINE (Verified Allergy, Severe, Anaphylaxis, 10/14/18) Difficulty breathing along with hives per pt daughter HYDROCODONE (Verified Allergy, Severe, Anaphylaxis, 10/14/18) Difficulty breathing along with hives per pt daughter AMOXICILLIN (Verified Allergy, Unknown, 09/06/12) Medication History Scheduled Allopurinol* (Allopurinol*), 200 MG ORAL DAILY Amlodipine Besylate (Norvasc), 10 MG ORAL DAILY Amlodipine Besylate (Norvasc), 10 MG ORAL DAILY Cimetidine (Cimetidine*), 300 MG ORAL DAILY, (Reported) Doxycycline Hyclate (Doxycycline Hyclate), 100 MG ORAL EVERY 12 HOURS Furosemide* (Lasix*), 20 MG ORAL DAILY, (Reported) Levofloxacin (Levofloxacin*), 250 MG ORAL Q48H Pantoprazole* (Pantoprazole*), 40 MG ORAL EVERY 12 HOURS Discontinued Medications Atenolol* (Tenormin*), 10 MG ORAL DAILY, (Reported) Discontinued Reason: Medication dose changed Levofloxacin* (Levaquin*), 250 MG ORAL DAILY, (Reported) Discontinued Reason: Pt had allergic rxn Metronidazole* (Flagyl*), 500 MG ORAL EVERY 8 HOURS, (Reported) Discontinued Reason: MD discontinued med Potassium Chloride (Potassium Chloride), Unknown Dose PO, (Reported) Discontinued Reason: discontinued med Rivaroxaban (Xarelto), 1 EACH PO, (Reported) Discontinued Reason: MD discontinued med Valsartan (Diovan), 320 MG ORAL DAILY, (Reported) Discontinued Reason: discontinued med Patient History History Provided By: Patient, Medical Record Healthcare decision maker Resuscitation status Full Code Advanced Directive on File Review of Systems Constitutional: Denies: no symptoms, see HPI, chills, sweats, fever, malaise, weakness, other Eye: Denies: no symptoms, see HPI, eye pain, blurred vision, tearing, double vision, nose pain, nose congestion, acuity changes, discharge, other ENT: Denies: no symptoms, see HPI, ear pain, ear discharge, nose pain, nose congestion, throat pain, throat swelling, mouth pain, hearing loss, nasal discharge, other Respiratory: Denies: no symptoms, see HPI, cough, orthopnea, shortness of breath, stridor, wheezing, DUQUE, sputum, other Cardiovascular: Denies: no symptoms, see HPI, chest pain, edema, palpitations, syncope, PND, other Gastrointestinal: Denies: no symptoms, see HPI, abdominal pain, constipation, diarrhea, nausea, vomiting, melena, hematemesis, other Genitourinary: Denies: no symptoms, see HPI, discharge, dysuria, frequency, hematuria, pain, retention, incontinence, urgency, vag bleed/dc, other Musculoskeletal: Denies: no symptoms, see HPI, back pain, gout, joint pain, joint swelling, muscle pain, muscle stiffness, other Skin: Denies: no symptoms, see HPI, rash, change in color, change in hair/nails , dryness, lesions, other Psychiatric: Denies: no symptoms, see HPI, prior hx, anxiety, depressed feelings, emotional problems, SI, HI, hallucinations, other Neurological: Denies: no symptoms, see HPI, headache, numbness, paresthesia, seizure, tingling, tremors, focal weakness, syncope, dizziness, other Endocrine: Denies: no symptoms, see HPI, excessive sweating, flushing, intolerance to temperature, increased thirst, increased urine, unexplained weight loss, other Hematologic/Lymphatic: Denies: no symptoms, see HPI, anemia, blood clots, easy bleeding, easy bruising, swollen glands, diathesis, other All Other Systems: negative except mentioned in HPI Physical Exam General Appearance: WD/WN, no apparent distress, alert, confused, other Lines, tubes and drains: peripheral HEENT: normocephalic, atraumatic, anicteric, mucous membranes moist, PERRL, EOMI, pharynx normal, supple, no JVD Neck: non-tender, normal alignment, supple, normal inspection Respiratory/Chest: no respiratory distress, no accessory muscle use Cardiovascular/Chest: normal rate, regular rhythm Extremities: normal inspection, no calf tenderness, normal capillary refill, non-pitting Skin Exam: normal pigmentation, warm/dry 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 She is confused but can follow commands intermittently with no obvious tremor. Last 24 Hour Vital Signs Date Time Temp Pulse Resp B/P (MAP) Pulse Ox O2 Delivery O2 Flow Rate FiO2 10/19/18 16:00 98.1 78 18 138/73 (94) 100 10/19/18 12:00 98.2 78 18 142/63 (89) 100 10/19/18 08:25 Room Air 10/19/18 08:00 98.2 80 18 140/90 (107) 100 10/19/18 07:18 94 Nasal Cannula 1.0 24 10/19/18 04:00 98.2 82 18 133/90 (104) 100 10/19/18 00:00 98.0 85 18 144/70 (94) 100 Intake and Output 10/18/18 10/19/18 19:00 07:00 Intake Total 1690 ml 100 ml Output Total 300 ml 800 ml Balance 1390 ml -700 ml Intake Oral 480 ml IV Total 1210 ml 100 ml Output Urine Total 300 ml 800 ml # Voids 1 Laboratory Tests Test 10/19/18 06:09 White Blood Count 5.0 K/UL (4.8-10.8) Red Blood Count 3.13 M/UL (4.20-5.40) L Hemoglobin 9.8 G/DL (12.0-16.0) L Hematocrit 30.0 % (37.0-47.0) L Mean Corpuscular Volume 96 FL (80-99) Mean Corpuscular Hemoglobin 31.5 PG (27.0-31.0) H Mean Corpuscular Hemoglobin Concent 32.8 G/DL (32.0-36.0) Red Cell Distribution Width 17.1 % (11.6-14.8) H Platelet Count 210 K/UL (150-450) Mean Platelet Volume 5.1 FL (6.5-10.1) L Neutrophils (%) (Auto) 53.2 % (45.0-75.0) Lymphocytes (%) (Auto) 35.8 % (20.0-45.0) Monocytes (%) (Auto) 8.4 % (1.0-10.0) Eosinophils (%) (Auto) 2.1 % (0.0-3.0) Basophils (%) (Auto) 0.5 % (0.0-2.0) Sodium Level 135 MMOL/L (136-145) L Potassium Level 3.9 MMOL/L (3.5-5.1) Chloride Level 107 MMOL/L (98-107) Carbon Dioxide Level 23 MMOL/L (21-32) Anion Gap 5 mmol/L (5-15) Blood Urea Nitrogen 25 mg/dL (7-18) H Creatinine 2.4 MG/DL (0.55-1.30) H Estimat Glomerular Filtration Rate mL/min (>60) Glucose Level 82 MG/DL (74-106) Calcium Level 9.5 MG/DL (8.5-10.1) Phosphorus Level 3.7 MG/DL (2.5-4.9) Magnesium Level 1.7 MG/DL (1.8-2.4) L Total Bilirubin 0.3 MG/DL (0.2-1.0) Aspartate Amino Transf (AST/SGOT) 18 U/L (15-37) Alanine Aminotransferase (ALT/SGPT) 11 U/L (12-78) L Alkaline Phosphatase 54 U/L (46-116) Total Protein 10.4 G/DL (6.4-8.2) H Albumin 1.4 G/DL (3.4-5.0) L Globulin 9.0 g/dL Albumin/Globulin Ratio 0.2 (1.0-2.7) L Random Vancomycin Level 7.2 ug/mL Height (Feet): 5 Height (Inches): 4.00 Weight (Pounds): 183 Medications Current Medications Medications (Trade) Dose Ordered Sig/Ary Route PRN Reason Start Time Stop Time Status Last Admin Dose Admin Acetaminophen (Tylenol) 650 mg Q4H PRN ORAL T>100.5/Pain 10/17/18 19:30 11/13/18 19:29 Aztreonam 1 gm/ Dextrose 55 ml @ 110 mls/hr Q12H IVPB 10/18/18 05:00 10/23/18 16:59 10/19/18 16:05 Dextrose (Dextrose 50%) 25 ml Q30M PRN IV Hypoglycemia 10/17/18 19:30 11/13/18 20:59 Dextrose (Dextrose 50%) 50 ml Q30M PRN IV Hypoglycemia 10/17/18 19:30 11/13/18 20:59 Dextrose/Sodium Chloride 1,000 ml @ 100 mls/hr Q10H IV 10/17/18 19:15 11/14/18 18:59 10/19/18 20:26 Diphenhydramine HCl (Benadryl) 25 mg Q6H PRN ORAL Itching/Pruritis 10/17/18 20:00 11/13/18 19:59 Folic Acid (Folate) 5 mg DAILY ORAL 10/18/18 09:00 11/16/18 14:59 10/19/18 08:10 Hydralazine HCl (Apresoline) 10 mg Q6H PRN ORAL SBP > 160mmHg 10/17/18 20:00 11/16/18 19:59 Lorazepam (Ativan 2mg/ml 1ml) 0.5 mg Q4H PRN IV For Anxiety 10/17/18 20:00 10/21/18 19:59 Metoclopramide HCl (Reglan) 10 mg Q6H PRN IVP Nausea & Vomiting 10/17/18 20:00 11/13/18 19:59 Ondansetron HCl (Zofran) 4 mg Q6H PRN IVP Nausea & Vomiting 10/17/18 20:00 11/13/18 19:59 Pantoprazole (Protonix) 40 mg EVERY 12 HOURS ORAL 10/19/18 21:00 11/18/18 20:59 10/19/18 20:25 Temazepam (Restoril) 15 mg HSPRN PRN ORAL Insomnia 10/17/18 21:00 10/22/18 20:59 Vancomycin HCl (Vanco rx to dose) 1 ea DAILY PRN MISC Per rx protocol 10/17/18 20:00 11/16/18 19:59 Assessment/Plan Problem List: (1) UTI (urinary tract infection) ICD Codes: N39.0 - Urinary tract infection, site not specified SNOMED: 59832619 Qualifiers: Qualified Codes: N39.0 - Urinary tract infection, site not specified (2) Migraine ICD Codes: G43.909 - Migraine, unspecified, not intractable, without status migrainosus SNOMED: 03016446 (3) Palpitations ICD Codes: R00.2 - Palpitations SNOMED: 92007593 (4) Anemia ICD Codes: D64.9 - Anemia, unspecified SNOMED: 235311677 (5) Weakness ICD Codes: R53.1 - Weakness SNOMED: 58580471 (6) Sepsis ICD Codes: A41.9 - Sepsis, unspecified organism SNOMED: 33380105 (7) Nausea ICD Codes: R11.0 - Nausea SNOMED: 946394626 (8) ROSSY (acute kidney injury) ICD Codes: N17.9 - Acute kidney failure, unspecified SNOMED: 0167768, 09495821 (9) Acute blood loss anemia ICD Codes: D62 - Acute posthemorrhagic anemia SNOMED: 609748617 (10) HTN (hypertension) ICD Codes: I10 - Essential (primary) hypertension SNOMED: 80208406 Assessment/Plan: Continue Q 4 Neuro OBs No need for imaging Correct/ Replete Lytes Maintain normothermia Maintain normoglycemia with ISS Na 135-145 HgB>8Maintain SBP<140 PT Eval Maintain normothermia with Tylenol Abx as per ID Prevent Delirium: Frequently reorient the patient Maintain good sleep hygiene by making the room dark and quiet at night as well as minimizing any non-essential care/ observations during the evening Claire Wells N.P. October 19, 2018 21:58
[2018-10-20] VITALS: BP 142/78
[2018-10-20 04:00] VITALS: BP 149/81
[2018-10-20] MEDS: Aztreonam Inj 1 GM in D5W 55 ML IVPB SCH (05:22)
[2018-10-20] MEDS: D5NS 1,000 ML IV SCH ×2 (06:38→17:20)
--- NOTE | 2018-10-20 07:25 | NUR ---
HAND-OFF: Report given to Sarina VALLADARES.
--- NOTE | 2018-10-20 07:37 | NUR ---
NURSE NOTES: Patient received in stable condition, eating breakfast independently. Breathing unlabored on room air, denies SOB or pain at this time. IV on right arm patent and intact running fluids at 100cc/hr. Bernstein catheter draining straw colored urine. Bed locked in lowest position, call light and personal belongings placed within reach. Will continue to monitor.
[2018-10-20 08:00] VITALS: BP 158/64
[2018-10-20 09:49] LABS: ANION GAP 5 mmol/L (5-15); BLOOD UREA NITROGEN 28 mg/dL (7-18); CALCIUM 9.6 MG/DL (8.5-10.1); CARBON DIOXIDE 24 MMOL/L (21-32); CHLORIDE 107 MMOL/L (98-107); CREATININE 2.6 MG/DL (0.55-1.30); POTASSIUM 3.5 MMOL/L (3.5-5.1); SODIUM 136 MMOL/L (136-145)
[2018-10-20 09:54] LABS: ALANINE AMINOTRANSFERASE 8 U/L (12-78); ALBUMIN 1.3 G/DL (3.4-5.0); ALBUMIN/GLOBULIN RATIO 0.2 (1.0-2.7); ALKALINE PHOSPHATASE 53 U/L (46-116); ASPARTATE AMINO TRANSFERASE 15 U/L (15-37); BASOPHILS % (AUTO) 0.4 % (0.0-2.0); BILIRUBIN,TOTAL 0.2 MG/DL (0.2-1.0); EOSINOPHILS % (AUTO) 2.8 % (0.0-3.0); HEMOGLOBIN 8.8 G/DL (12.0-16.0); LYMPHOCYTES % (AUTO) 28.6 % (20.0-45.0); MEAN CORPUSCULAR VOLUME 95 FL (80-99); MONOCYTES % (AUTO) 10.2 % (1.0-10.0); PLATELET COUNT 225 K/UL (150-450); RED BLOOD COUNT 2.85 M/UL (4.20-5.40); RED CELL DISTRIBUTION WIDTH 16.1 % (11.6-14.8); WHITE BLOOD COUNT 4.5 K/UL (4.8-10.8)
--- NOTE | 2018-10-20 10:02 | GI Progress Note ---
Assessment/Plan Problems: (1) Lower GI bleed ICD Codes: K92.2 - Gastrointestinal hemorrhage, unspecified SNOMED: 01567763 (2) Anemia ICD Codes: D64.9 - Anemia, unspecified SNOMED: 625800224 (3) Hypoalbuminemia ICD Codes: E88.09 - Other disorders of plasma-protein metabolism, not elsewhere classified SNOMED: 068413106 (4) Abdominal pain ICD Codes: R10.9 - Unspecified abdominal pain SNOMED: 59687302 (5) Nausea ICD Codes: R11.0 - Nausea SNOMED: 753576454 (6) Constipation ICD Codes: K59.00 - Constipation, unspecified SNOMED: 51729310 Status: stable Status Narrative Discussed with Dr. Day. Assessment/Plan SUMMARY OF FINDINGS: 1. Fair prep, see above for details. 2. Internal hemorrhoids, otherwise normal colonoscopy examination. Stable H&H RECOMMENDATIONS: Hold off on any exploratory GI procedures at this time. Resume diet. ppi Follow laboratories. Monitor hemoglobin and hematocrit and transfuse as needed to keep hemoglobin above 7. dc planning The patient was seen and examined at bedside and all new and available data was reviewed in the patients chart. I agree with the above findings, impression and plan. (Patient seen earlier today. Signature stamp does not reflect patient encounter time.). - Michael Day MD Subjective Gastrointestinal/Abdominal: Reports: no symptoms Objective Last 24 Hour Vital Signs Date Time Temp Pulse Resp B/P (MAP) Pulse Ox O2 Delivery O2 Flow Rate FiO2 10/20/18 09:00 Room Air 10/20/18 08:00 97.6 90 20 158/64 (95) 98 10/20/18 07:38 97 Room Air 21 10/20/18 04:00 97.5 74 18 149/81 (103) 95 10/20/18 02:10 97 Room Air 21 10/20/18 00:00 98.0 81 18 142/78 (99) 96 10/19/18 21:00 Room Air 10/19/18 20:00 98.2 87 18 147/67 (93) 97 10/19/18 16:00 98.1 78 18 138/73 (94) 100 10/19/18 12:00 98.2 78 18 142/63 (89) 100 Intake and Output 10/19/18 10/20/18 19:00 07:00 Intake Total 1300 ml 955 ml Output Total 1000 ml 920 ml Balance 300 ml 35 ml Intake Oral 400 ml IV Total 900 ml 955 ml Output Urine Total 1000 ml 920 ml Laboratory Tests Test 10/20/18 09:25 White Blood Count Pending Red Blood Count Pending Hemoglobin Pending Hematocrit Pending Mean Corpuscular Volume Pending Mean Corpuscular Hemoglobin Pending Mean Corpuscular Hemoglobin Concent Pending Red Cell Distribution Width Pending Platelet Count Pending Mean Platelet Volume Pending Neutrophils (%) (Auto) Pending Lymphocytes (%) (Auto) Pending Monocytes (%) (Auto) Pending Eosinophils (%) (Auto) Pending Basophils (%) (Auto) Pending Sodium Level 136 MMOL/L (136-145) Potassium Level 3.5 MMOL/L (3.5-5.1) Chloride Level 107 MMOL/L (98-107) Carbon Dioxide Level 24 MMOL/L (21-32) Anion Gap 5 mmol/L (5-15) Blood Urea Nitrogen 28 mg/dL (7-18) H Creatinine 2.6 MG/DL (0.55-1.30) H Estimat Glomerular Filtration Rate mL/min (>60) Glucose Level 123 MG/DL (74-106) H Uric Acid Pending Calcium Level 9.6 MG/DL (8.5-10.1) Phosphorus Level Pending Magnesium Level 1.5 MG/DL (1.8-2.4) L Total Bilirubin 0.2 MG/DL (0.2-1.0) Aspartate Amino Transf (AST/SGOT) 15 U/L (15-37) Alanine Aminotransferase (ALT/SGPT) 8 U/L (12-78) L Alkaline Phosphatase 53 U/L (46-116) C-Reactive Protein, Quantitative Pending Pro-B-Type Natriuretic Peptide Pending Total Protein 9.8 G/DL (6.4-8.2) H Albumin 1.3 G/DL (3.4-5.0) L Globulin 8.5 g/dL Albumin/Globulin Ratio 0.2 (1.0-2.7) L Random Vancomycin Level 16.7 ug/mL Height (Feet): 5 Height (Inches): 4.00 Weight (Pounds): 183 General Appearance: WD/WN, no apparent distress, alert Cardiovascular: normal rate Respiratory/Chest: normal breath sounds, no respiratory distress Abdominal Exam: normal bowel sounds, non tender, soft Extremities: normal range of motion, non-tender Neal Reyes NP October 20, 2018 10:02
[2018-10-20 10:03] LABS: PHOSPHORUS 3.7 MG/DL (2.5-4.9)
[2018-10-20] MEDS ORDERED: Vancomycin 1.5gm/D5W 275ml IVPB SCH ×2 (11:30)
[2018-10-20] MEDS ORDERED: Vancomycin 1.5gm Premix IVPB ONE (11:30)
--- NOTE | 2018-10-20 11:52 | Cardiac Electrophysiology PN ---
Assessment/Plan Assessment/Plan 1. Paroxysmal atrial fibrillation, in sinus rhythm, off anticoagulation for hemoglobin 7.2 and GI bleed. 2. Status post pacemaker implantation. The patient does not know the brand of the pacemaker. We will try to find the brand of the pacemaker and interrogate for further evaluation. 3. Congestive heart failure, likely due to diastolic dysfunction. Ejection fraction is 60 to 65% and borderline LVH. 4. MSSA bacteremia. No vegetation noted. 5. History of hypertension. Currently on p.r.n. IV hydralazine. 6. Acute blood loss anemia due to lower GI bleed. Colonoscopy showed hemorrhoids with no active bleeding. 7. History of coronary artery disease. Remains without any chest pain. Subjective Subjective No events. Objective Last 24 Hour Vital Signs Date Time Temp Pulse Resp B/P (MAP) Pulse Ox O2 Delivery O2 Flow Rate FiO2 10/20/18 09:00 Room Air 10/20/18 08:00 97.6 90 20 158/64 (95) 98 10/20/18 07:38 97 Room Air 21 10/20/18 04:00 97.5 74 18 149/81 (103) 95 10/20/18 02:10 97 Room Air 21 10/20/18 00:00 98.0 81 18 142/78 (99) 96 10/19/18 21:00 Room Air 10/19/18 20:00 98.2 87 18 147/67 (93) 97 10/19/18 16:00 98.1 78 18 138/73 (94) 100 10/19/18 12:00 98.2 78 18 142/63 (89) 100 Intake and Output 10/19/18 10/20/18 19:00 07:00 Intake Total 1300 ml 955 ml Output Total 1000 ml 920 ml Balance 300 ml 35 ml Intake Oral 400 ml IV Total 900 ml 955 ml Output Urine Total 1000 ml 920 ml Laboratory Tests Test 10/20/18 09:25 White Blood Count 4.5 K/UL (4.8-10.8) L Red Blood Count 2.85 M/UL (4.20-5.40) L Hemoglobin 8.8 G/DL (12.0-16.0) L Hematocrit 27.0 % (37.0-47.0) L Mean Corpuscular Volume 95 FL (80-99) Mean Corpuscular Hemoglobin 31.0 PG (27.0-31.0) Mean Corpuscular Hemoglobin Concent 32.7 G/DL (32.0-36.0) Red Cell Distribution Width 16.1 % (11.6-14.8) H Platelet Count 225 K/UL (150-450) Mean Platelet Volume 5.1 FL (6.5-10.1) L Neutrophils (%) (Auto) 58.0 % (45.0-75.0) Lymphocytes (%) (Auto) 28.6 % (20.0-45.0) Monocytes (%) (Auto) 10.2 % (1.0-10.0) H Eosinophils (%) (Auto) 2.8 % (0.0-3.0) Basophils (%) (Auto) 0.4 % (0.0-2.0) Sodium Level 136 MMOL/L (136-145) Potassium Level 3.5 MMOL/L (3.5-5.1) Chloride Level 107 MMOL/L (98-107) Carbon Dioxide Level 24 MMOL/L (21-32) Anion Gap 5 mmol/L (5-15) Blood Urea Nitrogen 28 mg/dL (7-18) H Creatinine 2.6 MG/DL (0.55-1.30) H Estimat Glomerular Filtration Rate mL/min (>60) Glucose Level 123 MG/DL (74-106) H Uric Acid 7.7 MG/DL (2.6-7.2) H Calcium Level 9.6 MG/DL (8.5-10.1) Phosphorus Level 3.7 MG/DL (2.5-4.9) Magnesium Level 1.5 MG/DL (1.8-2.4) L Total Bilirubin 0.2 MG/DL (0.2-1.0) Aspartate Amino Transf (AST/SGOT) 15 U/L (15-37) Alanine Aminotransferase (ALT/SGPT) 8 U/L (12-78) L Alkaline Phosphatase 53 U/L (46-116) C-Reactive Protein, Quantitative < 0.4 mg/dL (0.00-0.90) Pro-B-Type Natriuretic Peptide 4007 pg/mL (0-125) H Total Protein 9.8 G/DL (6.4-8.2) H Albumin 1.3 G/DL (3.4-5.0) L Globulin 8.5 g/dL Albumin/Globulin Ratio 0.2 (1.0-2.7) L Random Vancomycin Level 16.7 ug/mL Objective HEAD AND NECK: Shows no JVD. LUNGS: Decreased breath sounds. CARDIOVASCULAR: Regular S1 and S2 with no gallop. Pacemaker in the left subclavian. ABDOMEN: Soft. EXTREMITIES: No pitting edema. Charlie Eric MD October 20, 2018 11:52
[2018-10-20 11:53] VITALS: BP 150/59
--- NOTE | 2018-10-20 11:54 | General Progress Note ---
Assessment/Plan Status: stable Assessment/Plan: 88 year old female with PMH of HTN admitted for management of lower GI bleed #Acute blood loss anemia, present on admission due to lower GI Bleed -GI consult appreciated -Surgery consult appreciated -Hematology consult appreciated -EGD showed erosive gastritis -Colonoscopy showed hemorrhoids, no active bleeding -Serial CBC -continue PPI -Cont IVF -Hold AC -SCD for DVT ppx #?CHF on CXR with pleural effusion -monitor resp status -Cardiology eval appreciated #ROSSY, present on admission #Urinary retention #Hypokalemia #Hypomagnesemia -Continue supportive care, Nephrology following -replace lytes prn and monitor BMP #Coag Neg Staph Bacteremia -continue with antibiotics per ID #HTN -hold all anti HTN -PRN hydralazine if needed #CAD #AFib #s/p pacemaker -Hold AC -Cont tele Code status Full Dispo SNF once medically clear Subjective Date patient seen: October 20, 2018 Time patient seen: 11:00 ROS Limited/Unobtainable: Yes Cardiovascular: Denies: chest pain Respiratory: Denies: cough Gastrointestinal/Abdominal: Denies: abdomen distended, abdominal pain Allergies: Coded Allergies: CODEINE (Verified Allergy, Severe, Anaphylaxis, 10/14/18) Difficulty breathing along with hives per pt daughter HYDROCODONE (Verified Allergy, Severe, Anaphylaxis, 10/14/18) Difficulty breathing along with hives per pt daughter AMOXICILLIN (Verified Allergy, Unknown, 09/06/12) Subjective Medicine follow up for acute blood loss anemia, rectal bleeding, hypokalemia, gram positive bacteremia ROSSY and possible CHF. No new complaints. Creat up to 2.6 today Objective Last 24 Hour Vital Signs Date Time Temp Pulse Resp B/P (MAP) Pulse Ox O2 Delivery O2 Flow Rate FiO2 10/20/18 09:00 Room Air 10/20/18 08:00 97.6 90 20 158/64 (95) 98 10/20/18 07:38 97 Room Air 21 10/20/18 04:00 97.5 74 18 149/81 (103) 95 10/20/18 02:10 97 Room Air 21 10/20/18 00:00 98.0 81 18 142/78 (99) 96 10/19/18 21:00 Room Air 10/19/18 20:00 98.2 87 18 147/67 (93) 97 10/19/18 16:00 98.1 78 18 138/73 (94) 100 10/19/18 12:00 98.2 78 18 142/63 (89) 100 Intake and Output 10/19/18 10/20/18 19:00 07:00 Intake Total 1300 ml 955 ml Output Total 1000 ml 920 ml Balance 300 ml 35 ml Intake Oral 400 ml IV Total 900 ml 955 ml Output Urine Total 1000 ml 920 ml Laboratory Tests 10/20/18 09:25: White Blood Count 4.5L, Red Blood Count 2.85L, Hemoglobin 8.8L, Hematocrit 27.0L , Mean Corpuscular Volume 95, Mean Corpuscular Hemoglobin 31.0, Mean Corpuscular Hemoglobin Concent 32.7, Red Cell Distribution Width 16.1H, Platelet Count 225, Mean Platelet Volume 5.1L, Neutrophils (%) (Auto) 58.0, Lymphocytes (%) (Auto) 28.6, Monocytes (%) (Auto) 10.2H, Eosinophils (%) (Auto) 2.8, Basophils (%) (Auto) 0.4, Sodium Level 136, Potassium Level 3.5, Chloride Level 107, Carbon Dioxide Level 24, Anion Gap 5, Blood Urea Nitrogen 28H, Creatinine 2.6H, Estimat Glomerular Filtration Rate , Glucose Level 123H, Uric Acid 7.7H, Calcium Level 9.6, Phosphorus Level 3.7, Magnesium Level 1.5L, Total Bilirubin 0.2, Aspartate Amino Transf (AST/SGOT) 15, Alanine Aminotransferase ( ALT/SGPT) 8L, Alkaline Phosphatase 53, C-Reactive Protein, Quantitative < 0.4, Pro-B-Type Natriuretic Peptide 4007H, Total Protein 9.8H, Albumin 1.3L, Globulin 8.5, Albumin/Globulin Ratio 0.2L, Random Vancomycin Level 16.7 Height (Feet): 5 Height (Inches): 4.00 Weight (Pounds): 183 General Appearance: no apparent distress, alert Neck: supple Cardiovascular: normal rate, regular rhythm Respiratory/Chest: lungs clear, normal breath sounds, no respiratory distress Abdomen: non tender, soft, no mass Enoc Mendez MD October 20, 2018 11:54
--- NOTE | 2018-10-20 11:57 | Hematology/Onc Progress Note ---
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 With a paraprotein elevation in the past, protein elevated at 6.5g, igG is 5947, urinary protein is elevated as well signifying mgus v myeloma --> Continue to closely monitor > Anemia w/u has been reviewed, will trend daily. --> Hgb goal >7 --> 12/06/17: 1 unit prbc ordered --> skeletal survey has been ordered --> to r/o myeloma which likely she has, will need a bone marrow biopsy # Anemia due to underlying gi bleed, currently bleeding resolved --> anemia panel reviewed ferritin is 385, sufficient iron stores --> gi and surg consulted, endoscopy as per gi ) --> Hgb trend: 8.8 # Paraproteinemia. 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 due to high IGG --> Lucent lesion in the left iliac bone. Permeative pattern of the osseous skeleton may be due to osteopenia but cannot exclude metastases. --> bone scan is pending for above # Thrombocytopenia - either bone marrow process related or meds, due to mgs/ myeloma --> Currently resolved --> hepatitis panel neg # Coagulopathy, likely secondary to decreased oral take --> check pt/inr as needed # Pacemaker placement history. # Hypertension. The timing of this note does not necessarily reflect the time of the patient was seen. Greatly appreciate consultation! Subjective Hematologic/Lymphatic: Reports: anemia Allergies: Coded Allergies: CODEINE (Verified Allergy, Severe, Anaphylaxis, 10/14/18) Difficulty breathing along with hives per pt daughter HYDROCODONE (Verified Allergy, Severe, Anaphylaxis, 10/14/18) Difficulty breathing along with hives per pt daughter AMOXICILLIN (Verified Allergy, Unknown, 09/06/12) All Systems: reviewed and negative except above Subjective 10/16: plt are drastically improved, no f/c, no night sweats 10/17: colo for today, no events noted, cbc has been reviewed 10/18: no events noted, IgG 5947, urinary protein high as well, needs skeletal survey 10/19: no events, sleeping, discussed bone marrow biopsy, currently holding off 10/20: Pt awake and alert. Breathing unlabored on room air, denies SOB or pain at this time. Hgb stable. Objective Objective Current Medications Medications (Trade) Dose Ordered Sig/Ary Route PRN Reason Start Time Stop Time Status Last Admin Dose Admin Acetaminophen (Tylenol) 650 mg Q4H PRN ORAL T>100.5/Pain 10/17/18 19:30 11/13/18 19:29 Aztreonam 1 gm/ Dextrose 55 ml @ 110 mls/hr Q12H IVPB 10/18/18 05:00 10/23/18 16:59 10/20/18 05:22 Dextrose (Dextrose 50%) 25 ml Q30M PRN IV Hypoglycemia 10/17/18 19:30 11/13/18 20:59 Dextrose (Dextrose 50%) 50 ml Q30M PRN IV Hypoglycemia 10/17/18 19:30 11/13/18 20:59 Dextrose/Sodium Chloride 1,000 ml @ 100 mls/hr Q10H IV 10/17/18 19:15 11/14/18 18:59 10/20/18 06:38 Diphenhydramine HCl (Benadryl) 25 mg Q6H PRN ORAL Itching/Pruritis 10/17/18 20:00 11/13/18 19:59 Folic Acid (Folate) 5 mg DAILY ORAL 10/18/18 09:00 11/16/18 14:59 10/20/18 08:45 Hydralazine HCl (Apresoline) 10 mg Q6H PRN ORAL SBP > 160mmHg 10/17/18 20:00 11/16/18 19:59 Lorazepam (Ativan 2mg/ml 1ml) 0.5 mg Q4H PRN IV For Anxiety 10/17/18 20:00 10/21/18 19:59 Metoclopramide HCl (Reglan) 10 mg Q6H PRN IVP Nausea & Vomiting 10/17/18 20:00 11/13/18 19:59 Ondansetron HCl (Zofran) 4 mg Q6H PRN IVP Nausea & Vomiting 10/17/18 20:00 11/13/18 19:59 Pantoprazole (Protonix) 40 mg EVERY 12 HOURS ORAL 10/19/18 21:00 11/18/18 20:59 10/20/18 08:45 Temazepam (Restoril) 15 mg HSPRN PRN ORAL Insomnia 10/17/18 21:00 10/22/18 20:59 Vancomycin HCl (Vanco rx to dose) 1 ea DAILY PRN MISC Per rx protocol 10/17/18 20:00 11/16/18 19:59 Vancomycin HCl/ Dextrose 275 ml @ 183.333 mls/hr ONCE IVPB 10/20/18 13:00 10/20/18 14:00 Last 24 Hour Vital Signs Date Time Temp Pulse Resp B/P (MAP) Pulse Ox O2 Delivery O2 Flow Rate FiO2 10/20/18 09:00 Room Air 10/20/18 08:00 97.6 90 20 158/64 (95) 98 10/20/18 07:38 97 Room Air 21 10/20/18 04:00 97.5 74 18 149/81 (103) 95 10/20/18 02:10 97 Room Air 21 10/20/18 00:00 98.0 81 18 142/78 (99) 96 10/19/18 21:00 Room Air 10/19/18 20:00 98.2 87 18 147/67 (93) 97 10/19/18 16:00 98.1 78 18 138/73 (94) 100 10/19/18 12:00 98.2 78 18 142/63 (89) 100 10/19/18 08:25 Room Air 10/19/18 08:00 98.2 80 18 140/90 (107) 100 10/19/18 07:18 94 Nasal Cannula 1.0 24 10/19/18 04:00 98.2 82 18 133/90 (104) 100 10/19/18 00:00 98.0 85 18 144/70 (94) 100 10/18/18 21:00 Room Air 10/18/18 20:00 98.3 73 18 122/44 (70) 100 10/18/18 16:00 98.0 76 20 125/48 (73) 99 10/18/18 12:00 97.6 91 20 144/49 (80) 98 Intake and Output 10/19/18 10/20/18 19:00 07:00 Intake Total 1300 ml 955 ml Output Total 1000 ml 920 ml Balance 300 ml 35 ml Intake Oral 400 ml IV Total 900 ml 955 ml Output Urine Total 1000 ml 920 ml Labs Test 10/18/18 05:50 10/18/18 11:00 10/19/18 06:09 10/20/18 09:25 White Blood Count 4.4 K/UL (4.8-10.8) 4.3 K/UL (4.8-10.8) 5.0 K/UL (4.8-10.8) 4.5 K/UL (4.8-10.8) Red Blood Count 2.67 M/UL (4.20-5.40) 2.67 M/UL (4.20-5.40) 3.13 M/UL (4.20-5.40) 2.85 M/UL (4.20-5.40) Hemoglobin 8.4 G/DL (12.0-16.0) 8.5 G/DL (12.0-16.0) 9.8 G/DL (12.0-16.0) 8.8 G/DL (12.0-16.0) Hematocrit 25.3 % (37.0-47.0) 25.1 % (37.0-47.0) 30.0 % (37.0-47.0) 27.0 % (37.0-47.0) Mean Corpuscular Volume 95 FL (80-99) 94 FL (80-99) 96 FL (80-99) 95 FL (80- 99) Mean Corpuscular Hemoglobin 31.3 PG (27.0-31.0) 31.9 PG (27.0-31.0) 31.5 PG (27.0-31.0) 31.0 PG (27.0-31.0) Mean Corpuscular Hemoglobin Concent 33.1 G/DL (32.0-36.0) 33.9 G/DL (32.0-36.0) 32.8 G/DL (32.0-36.0) 32.7 G/DL (32.0-36.0) Red Cell Distribution Width 16.3 % (11.6-14.8) 16.3 % (11.6-14.8) 17.1 % (11.6-14.8) 16.1 % (11.6-14.8) Platelet Count 186 K/UL (150-450) 191 K/UL (150-450) 210 K/UL (150-450) 225 K/UL (150-450) Mean Platelet Volume 5.2 FL (6.5-10.1) 5.2 FL (6.5-10.1) 5.1 FL (6.5-10.1) 5.1 FL (6.5-10.1) Neutrophils (%) (Auto) 57.4 % (45.0-75.0) 56.8 % (45.0-75.0) 53.2 % (45.0-75.0) 58.0 % (45.0-75.0) Lymphocytes (%) (Auto) 31.3 % (20.0-45.0) 32.8 % (20.0-45.0) 35.8 % (20.0-45.0) 28.6 % (20.0-45.0) Monocytes (%) (Auto) 8.8 % (1.0-10.0) 8.1 % (1.0-10.0) 8.4 % (1.0-10.0) 10.2 % (1.0-10.0) Eosinophils (%) (Auto) 2.0 % (0.0-3.0) 1.7 % (0.0-3.0) 2.1 % (0.0-3.0) 2.8 % (0.0-3.0) Basophils (%) (Auto) 0.5 % (0.0-2.0) 0.6 % (0.0-2.0) 0.5 % (0.0-2.0) 0.4 % (0.0-2.0) Sodium Level 134 MMOL/L (136-145) 135 MMOL/L (136-145) 135 MMOL/L (136-145) 136 MMOL/L (136-145) Potassium Level 3.3 MMOL/L (3.5-5.1) 3.3 MMOL/L (3.5-5.1) 3.9 MMOL/L (3.5-5.1) 3.5 MMOL/L (3.5-5.1) Chloride Level 107 MMOL/L (98-107) 106 MMOL/L (98-107) 107 MMOL/L (98-107) 107 MMOL/L (98-107) Carbon Dioxide Level 24 MMOL/L (21-32) 25 MMOL/L (21-32) 23 MMOL/L (21-32) 24 MMOL/L (21-32) Anion Gap 3 mmol/L (5-15) 4 mmol/L (5-15) 5 mmol/L (5-15) 5 mmol/L (5-15) Blood Urea Nitrogen 25 mg/dL (7-18) 25 mg/dL (7-18) 25 mg/dL (7-18) 28 mg/dL (7-18) Creatinine 2.4 MG/DL (0.55-1.30) 2.4 MG/DL (0.55-1.30) 2.4 MG/DL (0.55-1.30) 2.6 MG/DL (0.55-1.30) Estimat Glomerular Filtration Rate mL/min (>60) mL/min (>60) mL/min (>60) mL/min (>60) Glucose Level 99 MG/DL (74-106) 121 MG/DL (74-106) 82 MG/DL (74-106) 123 MG/DL (74-106) Calcium Level 9.2 MG/DL (8.5-10.1) 9.1 MG/DL (8.5-10.1) 9.5 MG/DL (8.5-10.1) 9.6 MG/DL (8.5-10.1) Phosphorus Level 3.2 MG/DL (2.5-4.9) 3.7 MG/DL (2.5-4.9) 3.7 MG/DL (2.5-4.9) Magnesium Level 1.8 MG/DL (1.8-2.4) 1.7 MG/DL (1.8-2.4) 1.5 MG/DL (1.8-2.4) Total Bilirubin 0.3 MG/DL (0.2-1.0) 0.3 MG/DL (0.2-1.0) 0.3 MG/DL (0.2-1.0) 0.2 MG/DL (0.2-1.0) Direct Bilirubin 0.1 MG/DL (0.0-0.3) Aspartate Amino Transf (AST/SGOT) 14 U/L (15-37) 14 U/L (15-37) 18 U/L (15-37) 15 U/L (15-37) Alanine Aminotransferase (ALT/SGPT) 10 U/L (12-78) 14 U/L (12-78) 11 U/L (12-78) 8 U/L (12-78) Alkaline Phosphatase 52 U/L (46-116) 51 U/L (46-116) 54 U/L (46-116) 53 U/L (46-116) Total Protein 9.7 G/DL (6.4-8.2) 9.8 G/DL (6.4-8.2) 10.4 G/DL (6.4-8.2) 9.8 G/DL (6.4-8.2) Albumin 1.5 G/DL (3.4-5.0) 1.5 G/DL (3.4-5.0) 1.4 G/DL (3.4-5.0) 1.3 G/DL (3.4-5.0) Globulin 8.3 g/dL 9.0 g/dL 8.5 g/dL Albumin/Globulin Ratio 0.2 (1.0-2.7) 0.2 (1.0-2.7) 0.2 (1.0-2.7) Random Vancomycin Level 7.2 ug/mL 16.7 ug/mL Uric Acid 7.7 MG/DL (2.6-7.2) C-Reactive Protein, Quantitative < 0.4 mg/dL (0.00-0.90) Pro-B-Type Natriuretic Peptide 4007 pg/mL (0-125) Height (Feet): 5 Height (Inches): 4.00 Weight (Pounds): 183 Objective Physical Exam General appearance: alert, cooperative, no distress, appears stated age Head: Normocephalic, without obvious abnormality, atraumatic Eyes: conjunctivae/corneas clear. PERRL, EOM's intact. Fundi benign Throat: Lips, mucosa, and tongue normal. Teeth and gums normal Neck: supple, symmetrical, trachea midline, no adenopathy, thyroid: not enlarged, symmetric, no tenderness/mass/nodules, no carotid bruit and no JVD Lungs: clear to auscultation bilaterally Heart: regular rate and rhythm, S1, S2 normal, no murmur, click, rub or gallop Abdomen: soft, non-tender. Bowel sounds normal. No masses, no organomegaly Extremities: extremities normal, atraumatic, no cyanosis or edema Pulses: 2+ and symmetric Skin: Skin color, texture, turgor normal. No rashes or lesions Neurologic: Grossly normal Mello Durbin MD October 20, 2018 11:57
--- NOTE | 2018-10-20 12:08 | Nephrology Progress Note ---
Assessment/Plan Problem List: (1) ROSSY (acute kidney injury) Assessment: partly urinary retention (2) Lower GI bleed (3) HTN (hypertension) (4) Hypoalbuminemia (5) Anemia (6) Pacemaker (7) UTI (urinary tract infection) Assessment 24 H urine for protein Acute renal failure : Cr devora 1.2 to 2 likely due to GI bleed and BP fluctuations GI Bleed , severe Anemia HTN CAD AFib s/p pacemaker UTI HypoAlbuminemia . Plan Bernstein cath, has over 250 cc retention of urine discussed with RN continue to hydrate Keep BP in check Avoid Nephrotoxics monitor renal parameters Transfusion as needed Per orders Urine studies Will discuss Subjective ROS Limited/Unobtainable: No Objective Objective Last 24 Hour Vital Signs Date Time Temp Pulse Resp B/P (MAP) Pulse Ox O2 Delivery O2 Flow Rate FiO2 10/20/18 11:53 97.2 75 18 150/59 (89) 98 10/20/18 09:00 Room Air 10/20/18 08:00 97.6 90 20 158/64 (95) 98 10/20/18 07:38 97 Room Air 21 10/20/18 04:00 97.5 74 18 149/81 (103) 95 10/20/18 02:10 97 Room Air 21 10/20/18 00:00 98.0 81 18 142/78 (99) 96 10/19/18 21:00 Room Air 10/19/18 20:00 98.2 87 18 147/67 (93) 97 10/19/18 16:00 98.1 78 18 138/73 (94) 100 Intake and Output 10/19/18 10/20/18 19:00 07:00 Intake Total 1300 ml 955 ml Output Total 1000 ml 920 ml Balance 300 ml 35 ml Intake Oral 400 ml IV Total 900 ml 955 ml Output Urine Total 1000 ml 920 ml Laboratory Tests 10/20/18 09:25: White Blood Count 4.5L, Red Blood Count 2.85L, Hemoglobin 8.8L, Hematocrit 27.0L , Mean Corpuscular Volume 95, Mean Corpuscular Hemoglobin 31.0, Mean Corpuscular Hemoglobin Concent 32.7, Red Cell Distribution Width 16.1H, Platelet Count 225, Mean Platelet Volume 5.1L, Neutrophils (%) (Auto) 58.0, Lymphocytes (%) (Auto) 28.6, Monocytes (%) (Auto) 10.2H, Eosinophils (%) (Auto) 2.8, Basophils (%) (Auto) 0.4, Sodium Level 136, Potassium Level 3.5, Chloride Level 107, Carbon Dioxide Level 24, Anion Gap 5, Blood Urea Nitrogen 28H, Creatinine 2.6H, Estimat Glomerular Filtration Rate , Glucose Level 123H, Uric Acid 7.7H, Calcium Level 9.6, Phosphorus Level 3.7, Magnesium Level 1.5L, Total Bilirubin 0.2, Aspartate Amino Transf (AST/SGOT) 15, Alanine Aminotransferase ( ALT/SGPT) 8L, Alkaline Phosphatase 53, C-Reactive Protein, Quantitative < 0.4, Pro-B-Type Natriuretic Peptide 4007H, Total Protein 9.8H, Albumin 1.3L, Globulin 8.5, Albumin/Globulin Ratio 0.2L, Random Vancomycin Level 16.7 Height (Feet): 5 Height (Inches): 4.00 Weight (Pounds): 183 General Appearance: no apparent distress, lethargic Cardiovascular: normal rate Respiratory/Chest: decreased breath sounds Abdomen: distended Objective no change Vince Rice MD October 20, 2018 12:08
[2018-10-20] MEDS ORDERED: Allopurinol 100mg Tab ORAL SCH (12:30)
--- NOTE | 2018-10-20 12:48 | Infectious Diseases Prog Note ---
Assessment/Plan Assessment/Plan ASSESSMENT AND PLAN: 1. 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 vre uti, sepsis, ? pna vs pvc - will discontinue vancomycin and aztreonam - place on levofloxacin and doxycycline x 5 days (vre sensitive to tetracycline) - surveillance blood cultures negative - monitor labs and chest x-ray - echo without vegetation, doubt endocarditis 2. Acute kidney injury with elevated creatinine, likely ckd 3. Hypertension - blood pressure treatment per primary. 4. Anemia. 5. Gastrointestinal bleed. 6. Falls. 7. History of atrial fibrillation. 8. Pacemaker. 9. CAD. 10. Atrial fibrillation with pacemaker. 11. Allergies to amoxicillin, codeine, and hydrocodone. 12. Social history is negative. 13. Family history is noncontributory. 14. MAR was noted. 15. Case was discussed with RN. 16. Step-down unit care. 17. Skin care protocol. 18. Continue treatment per primary consultants. 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 Subjective HEENT: Denies: congestion Respiratory: Denies: shortness of breath Cardiovascular: Denies: chest pain Gastrointestinal/Abdominal: Denies: nausea, vomiting, diarrhea Genitourinary: Reports: other - + valentin - urine clearer Neurologic: Denies: headache Psychiatric: Reports: other - na Skin: Denies: rash Hematologic: Denies: bleeding Musculoskeletal: Denies: pain Allergies: Coded Allergies: CODEINE (Verified Allergy, Severe, Anaphylaxis, 10/14/18) Difficulty breathing along with hives per pt daughter HYDROCODONE (Verified Allergy, Severe, Anaphylaxis, 10/14/18) Difficulty breathing along with hives per pt daughter AMOXICILLIN (Verified Allergy, Unknown, 09/06/12) Objective Vital Signs Last 24 Hour Vital Signs Date Time Temp Pulse Resp B/P (MAP) Pulse Ox O2 Delivery O2 Flow Rate FiO2 10/20/18 11:53 97.2 75 18 150/59 (89) 98 10/20/18 09:00 Room Air 10/20/18 08:00 97.6 90 20 158/64 (95) 98 10/20/18 07:38 97 Room Air 21 10/20/18 04:00 97.5 74 18 149/81 (103) 95 10/20/18 02:10 97 Room Air 21 10/20/18 00:00 98.0 81 18 142/78 (99) 96 10/19/18 21:00 Room Air 10/19/18 20:00 98.2 87 18 147/67 (93) 97 10/19/18 16:00 98.1 78 18 138/73 (94) 100 Height (Feet): 5 Height (Inches): 4.00 Weight (Pounds): 183 General Appearance: no acute distress HEENT: normocephalic, atraumatic, anicteric, mucous membranes moist Respiratory/Chest: crackles/rales, rhonchi - bilaterally Cardiovascular: normal rate, regular rhythm, no gallop/murmur, no JVD Abdomen: normal bowel sounds, soft, non tender, no organomegaly, non distended Genitourinary: other - + valentin - urine clear Extremities: no cyanosis Skin: no rash Neurologic/Psychiatric: other - weak, lethargic, no change in mental status Lymphatic: no neck adenopathy Musculoskeletal: no effusion Objective Procedure: XRAY Chest 1v Indication: Dyspnea Comparison: 10/14/2018 A single view chest radiograph was obtained. Chest x-ray - 10/17/18 - Findings: Pulmonary vascular congestion has developed since the last exam. Cardiomegaly also slightly worse. No change otherwise. There may be a small left pleural effusion. Old rib fractures on the right noted. Some of these may be acute. Please correlate clinically. Bones are osteopenic. IMPRESSION: Interval development of pulmonary vascular congestion/CHF. Other findings unchanged Chest x-ray - 10/14/18 - COMPARISON: Chest x-rays dated 11/11/17 FINDINGS: Lungs: Left lung base/retrocardiac opacity which may represent atelectasis versus pneumonia. Pleural space: Blunting of the left costophrenic angle suggesting a small left pleural effusion. Heart: Unremarkable. No cardiomegaly. Mediastinum: Unremarkable. Bones/joints: Degenerative changes throughout the visualized spine and shoulder joints. Chronic healed fracture deformities along multiple lateral right ribs. Vasculature: Atherosclerotic calcifications within the aortic arch. Tubes, lines and devices: Cardiac pacer in the left chest wall with the lead tips in the right atrium and right ventricle regions. Upper abdomen: Surgical clips in the right upper abdominal quadrant suggest prior cholecystectomy. IMPRESSION: 1. Small left pleural effusion. 2. Left lung base/retrocardiac opacity which may represent atelectasis versus pneumonia. 10/17/18 - Comparison: 10/14/2018 A single view chest radiograph was obtained. Findings: Pulmonary vascular congestion has developed since the last exam. Cardiomegaly also slightly worse. No change otherwise. There may be a small left pleural effusion. Old rib fractures on the right noted. Some of these may be acute. Please correlate clinically. Bones are osteopenic. IMPRESSION: Interval development of pulmonary vascular congestion/CHF. Other findings unchanged Microbiology Date/Time Source Procedure Growth Status 10/17/18 03:50 Blood Blood Culture - Preliminary NO GROWTH AFTER 72 HOURS Resulted 10/14/18 15:15 Nasal Nares MRSA Culture - Final Staphylococcus Aureus - Mrsa Complete 10/16/18 18:00 Indwelling Cath Urine Culture - Final Enterococcus Faecium - Vre Complete 10/14/18 15:15 Rectum VRE Culture - Final Enterococcus Faecium - Vre Complete 10/14/18 15:15 Rectum - Final NO CARBAPENEM-RESISTANT ENTEROBACTERI... Complete Laboratory Tests Test 10/20/18 09:25 White Blood Count 4.5 K/UL (4.8-10.8) L Red Blood Count 2.85 M/UL (4.20-5.40) L Hemoglobin 8.8 G/DL (12.0-16.0) L Hematocrit 27.0 % (37.0-47.0) L Mean Corpuscular Volume 95 FL (80-99) Mean Corpuscular Hemoglobin 31.0 PG (27.0-31.0) Mean Corpuscular Hemoglobin Concent 32.7 G/DL (32.0-36.0) Red Cell Distribution Width 16.1 % (11.6-14.8) H Platelet Count 225 K/UL (150-450) Mean Platelet Volume 5.1 FL (6.5-10.1) L Neutrophils (%) (Auto) 58.0 % (45.0-75.0) Lymphocytes (%) (Auto) 28.6 % (20.0-45.0) Monocytes (%) (Auto) 10.2 % (1.0-10.0) H Eosinophils (%) (Auto) 2.8 % (0.0-3.0) Basophils (%) (Auto) 0.4 % (0.0-2.0) Sodium Level 136 MMOL/L (136-145) Potassium Level 3.5 MMOL/L (3.5-5.1) Chloride Level 107 MMOL/L (98-107) Carbon Dioxide Level 24 MMOL/L (21-32) Anion Gap 5 mmol/L (5-15) Blood Urea Nitrogen 28 mg/dL (7-18) H Creatinine 2.6 MG/DL (0.55-1.30) H Estimat Glomerular Filtration Rate mL/min (>60) Glucose Level 123 MG/DL (74-106) H Uric Acid 7.7 MG/DL (2.6-7.2) H Calcium Level 9.6 MG/DL (8.5-10.1) Phosphorus Level 3.7 MG/DL (2.5-4.9) Magnesium Level 1.5 MG/DL (1.8-2.4) L Total Bilirubin 0.2 MG/DL (0.2-1.0) Aspartate Amino Transf (AST/SGOT) 15 U/L (15-37) Alanine Aminotransferase (ALT/SGPT) 8 U/L (12-78) L Alkaline Phosphatase 53 U/L (46-116) C-Reactive Protein, Quantitative < 0.4 mg/dL (0.00-0.90) Pro-B-Type Natriuretic Peptide 4007 pg/mL (0-125) H Total Protein 9.8 G/DL (6.4-8.2) H Albumin 1.3 G/DL (3.4-5.0) L Globulin 8.5 g/dL Albumin/Globulin Ratio 0.2 (1.0-2.7) L Random Vancomycin Level 16.7 ug/mL Current Medications Medications (Trade) Dose Ordered Sig/Ary Route PRN Reason Start Time Stop Time Status Last Admin Dose Admin Acetaminophen (Tylenol) 650 mg Q4H PRN ORAL T>100.5/Pain 10/17/18 19:30 11/13/18 19:29 Allopurinol (Zyloprim) 200 mg DAILY ORAL 10/21/18 09:00 11/20/18 08:59 Allopurinol (Zyloprim) 200 mg ONCE ORAL 10/20/18 12:30 10/20/18 13:30 Aztreonam 1 gm/ Dextrose 55 ml @ 110 mls/hr Q12H IVPB 10/18/18 05:00 10/23/18 16:59 10/20/18 05:22 Dextrose (Dextrose 50%) 25 ml Q30M PRN IV Hypoglycemia 10/17/18 19:30 11/13/18 20:59 Dextrose (Dextrose 50%) 50 ml Q30M PRN IV Hypoglycemia 10/17/18 19:30 11/13/18 20:59 Dextrose/Sodium Chloride 1,000 ml @ 100 mls/hr Q10H IV 10/17/18 19:15 11/14/18 18:59 10/20/18 06:38 Diphenhydramine HCl (Benadryl) 25 mg Q6H PRN ORAL Itching/Pruritis 10/17/18 20:00 11/13/18 19:59 Folic Acid (Folate) 5 mg DAILY ORAL 10/18/18 09:00 11/16/18 14:59 10/20/18 08:45 Hydralazine HCl (Apresoline) 10 mg Q6H PRN ORAL SBP > 160mmHg 10/17/18 20:00 11/16/18 19:59 Lorazepam (Ativan 2mg/ml 1ml) 0.5 mg Q4H PRN IV For Anxiety 10/17/18 20:00 10/21/18 19:59 Metoclopramide HCl (Reglan) 10 mg Q6H PRN IVP Nausea & Vomiting 10/17/18 20:00 11/13/18 19:59 Ondansetron HCl (Zofran) 4 mg Q6H PRN IVP Nausea & Vomiting 10/17/18 20:00 11/13/18 19:59 Pantoprazole (Protonix) 40 mg EVERY 12 HOURS ORAL 10/19/18 21:00 11/18/18 20:59 10/20/18 08:45 Temazepam (Restoril) 15 mg HSPRN PRN ORAL Insomnia 10/17/18 21:00 10/22/18 20:59 Vancomycin HCl (Vanco rx to dose) 1 ea DAILY PRN MISC Per rx protocol 10/17/18 20:00 11/16/18 19:59 Vancomycin HCl/ Dextrose 275 ml @ 183.333 mls/hr ONCE IVPB 10/20/18 13:00 10/20/18 14:00 Carla Plata MD October 20, 2018 12:48
[2018-10-20] MEDS ORDERED: Vancomycin 1.25gm Premix q24h IVPB SCH (13:00)
--- NOTE | 2018-10-20 13:03 | Surgery Progress Note ---
Surgery Progress Note Subjective Additional Comments no acute events. comfortable. stable. labs noted exam unchanged. Objective Last 24 Hour Vital Signs Date Time Temp Pulse Resp B/P (MAP) Pulse Ox O2 Delivery O2 Flow Rate FiO2 10/20/18 11:53 97.2 75 18 150/59 (89) 98 10/20/18 09:00 Room Air 10/20/18 08:00 97.6 90 20 158/64 (95) 98 10/20/18 07:38 97 Room Air 21 10/20/18 04:00 97.5 74 18 149/81 (103) 95 10/20/18 02:10 97 Room Air 21 10/20/18 00:00 98.0 81 18 142/78 (99) 96 10/19/18 21:00 Room Air 10/19/18 20:00 98.2 87 18 147/67 (93) 97 10/19/18 16:00 98.1 78 18 138/73 (94) 100 I&O Intake and Output 10/19/18 10/20/18 19:00 07:00 Intake Total 1300 ml 955 ml Output Total 1000 ml 920 ml Balance 300 ml 35 ml Intake Oral 400 ml IV Total 900 ml 955 ml Output Urine Total 1000 ml 920 ml Dressing: other Wound: other Drains: other Cardiovascular: RSR Respiratory: clear Abdomen: soft, flat, non-tender, present bowel sounds, non-distended Extremities: no edema, no tenderness, no cyanosis Laboratory Tests Test 10/20/18 09:25 White Blood Count 4.5 K/UL (4.8-10.8) L Red Blood Count 2.85 M/UL (4.20-5.40) L Hemoglobin 8.8 G/DL (12.0-16.0) L Hematocrit 27.0 % (37.0-47.0) L Mean Corpuscular Volume 95 FL (80-99) Mean Corpuscular Hemoglobin 31.0 PG (27.0-31.0) Mean Corpuscular Hemoglobin Concent 32.7 G/DL (32.0-36.0) Red Cell Distribution Width 16.1 % (11.6-14.8) H Platelet Count 225 K/UL (150-450) Mean Platelet Volume 5.1 FL (6.5-10.1) L Neutrophils (%) (Auto) 58.0 % (45.0-75.0) Lymphocytes (%) (Auto) 28.6 % (20.0-45.0) Monocytes (%) (Auto) 10.2 % (1.0-10.0) H Eosinophils (%) (Auto) 2.8 % (0.0-3.0) Basophils (%) (Auto) 0.4 % (0.0-2.0) Sodium Level 136 MMOL/L (136-145) Potassium Level 3.5 MMOL/L (3.5-5.1) Chloride Level 107 MMOL/L (98-107) Carbon Dioxide Level 24 MMOL/L (21-32) Anion Gap 5 mmol/L (5-15) Blood Urea Nitrogen 28 mg/dL (7-18) H Creatinine 2.6 MG/DL (0.55-1.30) H Estimat Glomerular Filtration Rate mL/min (>60) Glucose Level 123 MG/DL (74-106) H Uric Acid 7.7 MG/DL (2.6-7.2) H Calcium Level 9.6 MG/DL (8.5-10.1) Phosphorus Level 3.7 MG/DL (2.5-4.9) Magnesium Level 1.5 MG/DL (1.8-2.4) L Total Bilirubin 0.2 MG/DL (0.2-1.0) Aspartate Amino Transf (AST/SGOT) 15 U/L (15-37) Alanine Aminotransferase (ALT/SGPT) 8 U/L (12-78) L Alkaline Phosphatase 53 U/L (46-116) C-Reactive Protein, Quantitative < 0.4 mg/dL (0.00-0.90) Pro-B-Type Natriuretic Peptide 4007 pg/mL (0-125) H Total Protein 9.8 G/DL (6.4-8.2) H Albumin 1.3 G/DL (3.4-5.0) L Globulin 8.5 g/dL Albumin/Globulin Ratio 0.2 (1.0-2.7) L Random Vancomycin Level 16.7 ug/mL Plan Problems: (1) Lower GI bleed Assessment & Plan: 88 year old female with acute GI bleed. anemia. prior hx of anticoagulation no n/v/f/c labs noted and stable has not recently had blood in stool per report hemorrhoids on colonoscopy no acute surgical intervention planed okay for diet as tolerated ppi bowel regimen appreciate GI input trend labs d/c planning thank you Brigido Pratt October 20, 2018 13:03
[2018-10-20 16:00] VITALS: BP 159/64
--- NOTE | 2018-10-20 19:21 | NUR ---
HAND-OFF: Report given to Grace VALLADARES.
--- NOTE | 2018-10-20 19:30 | NUR ---
NURSE NOTES: Received patient in no apparent distress. A&OX2 with confusion, reoriented. IV sites are patent and intact. Bernstein cath draining well by gravity, yellow urine noted. Bed in lowest position. Call light within reach. Will continue to monitor.
[2018-10-20 20:00] VITALS: BP 159/65
[2018-10-20] MEDS: Doxycycline Monohydrate 100mg ORAL SCH (20:40)
--- NOTE | 2018-10-20 23:36 | Neurology Progress Note ---
Interim History Interim History ROS Limited/Unobtainable: Yes Complaints: AMS Interim History This visit was performed on October 20, [address] Olayinka Merlos. Review of Systems Neuro Review of Systems Confused All Systems: reviewed and negative except above Objective Physical Exam Last Vital Signs Date Time Temp Pulse Resp B/P (MAP) Pulse Ox O2 Delivery O2 Flow Rate FiO2 10/20/18 20:00 97.5 76 18 159/65 (96) 96 10/20/18 19:56 Room Air 10/20/18 07:38 21 10/19/18 07:18 1.0 Laboratory Tests Test 10/20/18 09:25 White Blood Count 4.5 K/UL (4.8-10.8) L Red Blood Count 2.85 M/UL (4.20-5.40) L Hemoglobin 8.8 G/DL (12.0-16.0) L Hematocrit 27.0 % (37.0-47.0) L Mean Corpuscular Volume 95 FL (80-99) Mean Corpuscular Hemoglobin 31.0 PG (27.0-31.0) Mean Corpuscular Hemoglobin Concent 32.7 G/DL (32.0-36.0) Red Cell Distribution Width 16.1 % (11.6-14.8) H Platelet Count 225 K/UL (150-450) Mean Platelet Volume 5.1 FL (6.5-10.1) L Neutrophils (%) (Auto) 58.0 % (45.0-75.0) Lymphocytes (%) (Auto) 28.6 % (20.0-45.0) Monocytes (%) (Auto) 10.2 % (1.0-10.0) H Eosinophils (%) (Auto) 2.8 % (0.0-3.0) Basophils (%) (Auto) 0.4 % (0.0-2.0) Sodium Level 136 MMOL/L (136-145) Potassium Level 3.5 MMOL/L (3.5-5.1) Chloride Level 107 MMOL/L (98-107) Carbon Dioxide Level 24 MMOL/L (21-32) Anion Gap 5 mmol/L (5-15) Blood Urea Nitrogen 28 mg/dL (7-18) H Creatinine 2.6 MG/DL (0.55-1.30) H Estimat Glomerular Filtration Rate mL/min (>60) Glucose Level 123 MG/DL (74-106) H Uric Acid 7.7 MG/DL (2.6-7.2) H Calcium Level 9.6 MG/DL (8.5-10.1) Phosphorus Level 3.7 MG/DL (2.5-4.9) Magnesium Level 1.5 MG/DL (1.8-2.4) L Total Bilirubin 0.2 MG/DL (0.2-1.0) Aspartate Amino Transf (AST/SGOT) 15 U/L (15-37) Alanine Aminotransferase (ALT/SGPT) 8 U/L (12-78) L Alkaline Phosphatase 53 U/L (46-116) C-Reactive Protein, Quantitative < 0.4 mg/dL (0.00-0.90) Pro-B-Type Natriuretic Peptide 4007 pg/mL (0-125) H Total Protein 9.8 G/DL (6.4-8.2) H Albumin 1.3 G/DL (3.4-5.0) L Globulin 8.5 g/dL Albumin/Globulin Ratio 0.2 (1.0-2.7) L Random Vancomycin Level 16.7 ug/mL General: well developed, well nourished Head: normocophalic Neck: no rigidity EENT: benign Neurologic Exam Mental Status: awake Speech: other Language: other Cranial Nerve II: fundus normal, visual centeno, no papilledema Cranial Nerves III, IV, : PERRLA, EOMI, pupils Cranial Nerve V: normal facial sensations, temporales function normal, masseters function normal, pterygoids function normal Cranial Nerve VII: normal facial expressions Cranial Nerve VIII: normal hearing, no nystagmus Cranial Nerve IX: normal palate elevation, gag response Cranial Nerve X: no voice hoarseness Cranial Nerve XI: SCM symmetric, trapezii function normal Cranial Nerve XII: tongue midline, no tongue atrophy/fasciculations Motor System: normal muscle tone, strength 5/5, no involuntary movement, no muscle wasting Sensory: normal pinprick, normal light touch, normal position sense, normal graphesthesia Coordination: normal finger to nose bilaterally, normal heel to rodriguez bilaterally, negative Romberg test Deep Tendon Reflexes: 2+ bicep (L), 2+ bicep (R), 2+ tricep (L), 2+ tricep (R) , 2+ brachioradialis (L), 2+ brachioradialis (R), 2+ knee (L), 2+ knee (R), 2+ ankle (L), 2+ ankle (R) Stance: normal Gait: stable, normal regular, heel + toe gait Objective LUJAN x 4 on command, dysarthric, confused - Impression/Recommendations Problems: (1) UTI (urinary tract infection) (2) Multiple falls (3) Hypokalemia (4) Migraine (5) Headache (6) Weakness (7) Sepsis (8) Abdominal pain (9) Nausea (10) HTN (hypertension) Status: stable Recommendations May consider imaging as outpatient but nonessential for this period of care. SBP<140 Na 135-145 Correct/ Replete Lytes Swallow study recommended. Prevent Delirium: Frequently reorient patient Maintain good sleep hygiene by making room dark and quiet at night and minimizing non essential care during evening. Claire Wells N.P. October 20, 2018 23:36
[2018-10-21] VITALS: BP 154/62
[2018-10-21] MEDS: D5NS 1,000 ML IV SCH ×3 (03:12→23:20)
[2018-10-21 04:00] VITALS: BP 125/78
[2018-10-21 06:43] LABS: HEMATOCRIT 26.1 % (37.0-47.0); HEMOGLOBIN 8.5 G/DL (12.0-16.0); MEAN CORPUSCULAR VOLUME 97 FL (80-99); PLATELET COUNT 194 K/UL (150-450); RED BLOOD COUNT 2.68 M/UL (4.20-5.40); RED CELL DISTRIBUTION WIDTH 17.2 % (11.6-14.8); WHITE BLOOD COUNT 3.4 K/UL (4.8-10.8)
--- NOTE | 2018-10-21 06:53 | General Progress Note ---
Assessment/Plan Status: stable Assessment/Plan: SUMMARY OF FINDINGS: 1. Fair prep, see above for details. 2. Internal hemorrhoids, otherwise normal colonoscopy examination. Stable H&H RECOMMENDATIONS: Hold off on any exploratory GI procedures at this time. Resume diet. ppi Follow laboratories. Monitor hemoglobin and hematocrit and transfuse as needed to keep hemoglobin above 7. dc planning Subjective ROS Limited/Unobtainable: Yes Allergies: Coded Allergies: CODEINE (Verified Allergy, Severe, Anaphylaxis, 10/14/18) Difficulty breathing along with hives per pt daughter HYDROCODONE (Verified Allergy, Severe, Anaphylaxis, 10/14/18) Difficulty breathing along with hives per pt daughter AMOXICILLIN (Verified Allergy, Unknown, 09/06/12) Objective Last 24 Hour Vital Signs Date Time Temp Pulse Resp B/P (MAP) Pulse Ox O2 Delivery O2 Flow Rate FiO2 10/21/18 04:00 97.6 84 18 125/78 (94) 97 10/21/18 00:00 97.1 69 20 154/62 (92) 98 10/20/18 20:00 97.5 76 18 159/65 (96) 96 10/20/18 19:56 Room Air 10/20/18 16:00 98.4 71 20 159/64 (95) 99 10/20/18 11:53 97.2 75 18 150/59 (89) 98 10/20/18 09:00 Room Air 10/20/18 08:00 97.6 90 20 158/64 (95) 98 10/20/18 07:38 97 Room Air 21 Intake and Output 10/20/18 10/21/18 18:59 06:59 Intake Total 240 ml 1200 ml Output Total 700 ml 1400 ml Balance -460 ml -200 ml Intake Oral 240 ml IV Total 1200 ml Output Urine Total 700 ml 1400 ml Laboratory Tests 10/20/18 09:25: White Blood Count 4.5L, Red Blood Count 2.85L, Hemoglobin 8.8L, Hematocrit 27.0L , Mean Corpuscular Volume 95, Mean Corpuscular Hemoglobin 31.0, Mean Corpuscular Hemoglobin Concent 32.7, Red Cell Distribution Width 16.1H, Platelet Count 225, Mean Platelet Volume 5.1L, Neutrophils (%) (Auto) 58.0, Lymphocytes (%) (Auto) 28.6, Monocytes (%) (Auto) 10.2H, Eosinophils (%) (Auto) 2.8, Basophils (%) (Auto) 0.4, Sodium Level 136, Potassium Level 3.5, Chloride Level 107, Carbon Dioxide Level 24, Anion Gap 5, Blood Urea Nitrogen 28H, Creatinine 2.6H, Estimat Glomerular Filtration Rate , Glucose Level 123H, Uric Acid 7.7H, Calcium Level 9.6, Phosphorus Level 3.7, Magnesium Level 1.5L, Total Bilirubin 0.2, Aspartate Amino Transf (AST/SGOT) 15, Alanine Aminotransferase ( ALT/SGPT) 8L, Alkaline Phosphatase 53, C-Reactive Protein, Quantitative < 0.4, Pro-B-Type Natriuretic Peptide 4007H, Total Protein 9.8H, Albumin 1.3L, Globulin 8.5, Albumin/Globulin Ratio 0.2L, Random Vancomycin Level 16.7 10/21/18 04:00: Sodium Level [Pending], Potassium Level [Pending], Chloride Level [Pending], Carbon Dioxide Level [Pending], Blood Urea Nitrogen [Pending], Creatinine [ Pending], Estimat Glomerular Filtration Rate [Pending], Glucose Level [Pending] , Uric Acid [Pending], Calcium Level [Pending], Phosphorus Level [Pending], Magnesium Level [Pending], Total Bilirubin [Pending], Aspartate Amino Transf ( AST/SGOT) [Pending], Alanine Aminotransferase (ALT/SGPT) [Pending], Alkaline Phosphatase [Pending], C-Reactive Protein, Quantitative [Pending], Pro-B-Type Natriuretic Peptide [Pending], Total Protein [Pending], Albumin [Pending], Globulin [Pending] 10/21/18 05:35: White Blood Count [Pending], Red Blood Count [Pending], Hemoglobin [Pending], Hematocrit [Pending], Mean Corpuscular Volume [Pending], Mean Corpuscular Hemoglobin [Pending], Mean Corpuscular Hemoglobin Concent [Pending], Red Cell Distribution Width [Pending], Platelet Count [Pending], Mean Platelet Volume [ Pending], Neutrophils (%) (Auto) [Pending], Lymphocytes (%) (Auto) [Pending], Monocytes (%) (Auto) [Pending], Eosinophils (%) (Auto) [Pending], Basophils (%) (Auto) [Pending] Height (Feet): 5 Height (Inches): 4.00 Weight (Pounds): 183 General Appearance: no apparent distress EENT: normal ENT inspection Neck: supple Cardiovascular: normal rate Respiratory/Chest: decreased breath sounds Abdomen: normal bowel sounds, non tender, soft Extremities: non-tender Michael Day MD Oct 21, 2018 06:53
[2018-10-21 07:09] LABS: ALANINE AMINOTRANSFERASE 7 U/L (12-78); ALBUMIN 1.1 G/DL (3.4-5.0); ALBUMIN/GLOBULIN RATIO 0.1 (1.0-2.7); ALKALINE PHOSPHATASE 50 U/L (46-116); ANION GAP 4 mmol/L (5-15); ASPARTATE AMINO TRANSFERASE 15 U/L (15-37); BILIRUBIN,TOTAL 0.2 MG/DL (0.2-1.0); BLOOD UREA NITROGEN 26 mg/dL (7-18); CALCIUM 9.5 MG/DL (8.5-10.1); CARBON DIOXIDE 22 MMOL/L (21-32); CHLORIDE 109 MMOL/L (98-107); CREATININE 2.3 MG/DL (0.55-1.30); PHOSPHORUS 4.2 MG/DL (2.5-4.9); POTASSIUM 3.7 MMOL/L (3.5-5.1); SODIUM 135 MMOL/L (136-145)
--- NOTE | 2018-10-21 07:30 | NUR ---
HAND-OFF: Report given to Kaden VALLADARES.
--- NOTE | 2018-10-21 07:55 | NUR ---
NURSE NOTES: Received patient on bed, awake. IV site intact and patent. Dressing dry and in place. Bernstein catheter intact, patent and draining. Bed in locked position, call light in reach. No signs of respiratory distress or pain. Room board updated, will continue to monitor.
[2018-10-21 08:00] VITALS: BP 145/75
--- NOTE | 2018-10-21 09:05 | Diagnostic Imaging Report ---
EXAM: XR Chest, 1 View. CLINICAL HISTORY: INFECT TECHNIQUE: Frontal view of the chest. COMPARISON: 10/17/18. FINDINGS: Lungs: Again seen is mild pulmonary vascular congestion, improved since the prior exam. Interstitial edema has improved as well. No definite airspace consolidation. Pleural spaces: Bilateral pleural effusions, left greater than right. No pneumothorax. Heart: Mildly enlarged cardiac silhouette. Cardiac pacer hardware again seen. Mediastinum: No mediastinal widening or shift. Bones: Unremarkable. No acute fracture. IMPRESSION: Interval improvement in pulmonary vascular congestion and edema. No evidence of acute airspace consolidation.
[2018-10-21] MEDS: Doxycycline Monohydrate 100mg ORAL SCH ×2 (10:15→20:02)
[2018-10-21] MEDS: Allopurinol 100mg Tab ORAL SCH (10:15)
[2018-10-21 12:00] VITALS: BP 161/25
--- NOTE | 2018-10-21 13:42 | General Progress Note ---
Assessment/Plan Status: stable Assessment/Plan: 88 year old female with PMH of HTN admitted for management of lower GI bleed #Acute blood loss anemia, present on admission due to lower GI Bleed -GI consult appreciated -Surgery consult appreciated -Hematology consult appreciated -EGD showed erosive gastritis -Colonoscopy showed hemorrhoids, no active bleeding -Serial CBC -continue PPI -Hold AC -SCD for DVT ppx #?CHF on CXR with pleural effusion -monitor resp status -Cardiology eval appreciated #ROSSY, present on admission, improved renal function #Urinary retention #Hypokalemia #Hypomagnesemia -Continue supportive care, Nephrology following -replace lytes prn and monitor BMP #Coag Neg Staph Bacteremia -continue with antibiotics per ID #HTN -hold all anti HTN -PRN hydralazine if needed #CAD #AFib #s/p pacemaker -Hold AC -Cont tele Code status Full Dispo SNF once medically clear Subjective Date patient seen: Oct 21, 2018 Time patient seen: 11:23 ROS Limited/Unobtainable: Yes Cardiovascular: Denies: chest pain Respiratory: Denies: cough Gastrointestinal/Abdominal: Denies: abdomen distended, abdominal pain Allergies: Coded Allergies: CODEINE (Verified Allergy, Severe, Anaphylaxis, 10/14/18) Difficulty breathing along with hives per pt daughter HYDROCODONE (Verified Allergy, Severe, Anaphylaxis, 10/14/18) Difficulty breathing along with hives per pt daughter AMOXICILLIN (Verified Allergy, Unknown, 09/06/12) Subjective Medicine follow up for acute blood loss anemia, rectal bleeding, hypokalemia, gram positive bacteremia ROSSY and possible CHF. No new complaints. Creat improved to 2.3 today Objective Last 24 Hour Vital Signs Date Time Temp Pulse Resp B/P (MAP) Pulse Ox O2 Delivery O2 Flow Rate FiO2 10/21/18 09:00 Room Air 10/21/18 08:00 96.9 87 20 145/75 (98) 98 10/21/18 04:00 97.6 84 18 125/78 (94) 97 10/21/18 00:00 97.1 69 20 154/62 (92) 98 10/20/18 20:00 97.5 76 18 159/65 (96) 96 10/20/18 19:56 Room Air 10/20/18 16:00 98.4 71 20 159/64 (95) 99 Intake and Output 10/20/18 10/21/18 19:00 07:00 Intake Total 340 ml 1100 ml Output Total 700 ml 1400 ml Balance -360 ml -300 ml Intake Oral 240 ml IV Total 100 ml 1100 ml Output Urine Total 700 ml 1400 ml Laboratory Tests 10/21/18 05:35: White Blood Count 3.4L, Red Blood Count 2.68L, Hemoglobin 8.5L, Hematocrit 26.1L , Mean Corpuscular Volume 97, Mean Corpuscular Hemoglobin 31.6H, Mean Corpuscular Hemoglobin Concent 32.5, Red Cell Distribution Width 17.2H, Platelet Count 194, Mean Platelet Volume 5.1L, Neutrophils (%) (Auto) , Lymphocytes (%) (Auto) , Monocytes (%) (Auto) , Eosinophils (%) (Auto) , Basophils (%) (Auto) , Differential Total Cells Counted 100, Neutrophils % ( Manual) 51, Lymphocytes % (Manual) 44, Monocytes % (Manual) 5, Eosinophils % ( Manual) 0, Basophils % (Manual) 0, Band Neutrophils 0, Platelet Estimate Adequate, Platelet Morphology Normal, Anisocytosis 1+, Sodium Level 135L, Potassium Level 3.7, Chloride Level 109H, Carbon Dioxide Level 22, Anion Gap 4L , Blood Urea Nitrogen 26H, Creatinine 2.3H, Estimat Glomerular Filtration Rate , Glucose Level 95, Uric Acid 7.6H, Calcium Level 9.5, Phosphorus Level 4.2, Magnesium Level 1.5L, Total Bilirubin 0.2, Aspartate Amino Transf (AST/SGOT) 15 , Alanine Aminotransferase (ALT/SGPT) 7L, Alkaline Phosphatase 50, C-Reactive Protein, Quantitative < 0.4, Pro-B-Type Natriuretic Peptide 3912H, Total Protein 9.7H, Albumin 1.1L, Globulin 8.6, Albumin/Globulin Ratio 0.1L Height (Feet): 5 Height (Inches): 4.00 Weight (Pounds): 183 General Appearance: alert Neck: non-tender, normal alignment, supple Cardiovascular: normal rate, regular rhythm Respiratory/Chest: lungs clear, normal breath sounds, no respiratory distress, no accessory muscle use Abdomen: non tender, soft Enoc Mendez MD Oct 21, 2018 13:42
--- NOTE | 2018-10-21 13:55 | Surgery Progress Note ---
Surgery Progress Note Subjective Additional Comments no acute events. labs noted afebrile,HD stable, VSS Objective Last 24 Hour Vital Signs Date Time Temp Pulse Resp B/P (MAP) Pulse Ox O2 Delivery O2 Flow Rate FiO2 10/21/18 09:00 Room Air 10/21/18 08:00 96.9 87 20 145/75 (98) 98 10/21/18 04:00 97.6 84 18 125/78 (94) 97 10/21/18 00:00 97.1 69 20 154/62 (92) 98 10/20/18 20:00 97.5 76 18 159/65 (96) 96 10/20/18 19:56 Room Air 10/20/18 16:00 98.4 71 20 159/64 (95) 99 I&O Intake and Output 10/20/18 10/21/18 19:00 07:00 Intake Total 340 ml 1100 ml Output Total 700 ml 1400 ml Balance -360 ml -300 ml Intake Oral 240 ml IV Total 100 ml 1100 ml Output Urine Total 700 ml 1400 ml Laboratory Tests Test 10/21/18 05:35 White Blood Count 3.4 K/UL (4.8-10.8) L Red Blood Count 2.68 M/UL (4.20-5.40) L Hemoglobin 8.5 G/DL (12.0-16.0) L Hematocrit 26.1 % (37.0-47.0) L Mean Corpuscular Volume 97 FL (80-99) Mean Corpuscular Hemoglobin 31.6 PG (27.0-31.0) H Mean Corpuscular Hemoglobin Concent 32.5 G/DL (32.0-36.0) Red Cell Distribution Width 17.2 % (11.6-14.8) H Platelet Count 194 K/UL (150-450) Mean Platelet Volume 5.1 FL (6.5-10.1) L Neutrophils (%) (Auto) % (45.0-75.0) Lymphocytes (%) (Auto) % (20.0-45.0) Monocytes (%) (Auto) % (1.0-10.0) Eosinophils (%) (Auto) % (0.0-3.0) Basophils (%) (Auto) % (0.0-2.0) Differential Total Cells Counted 100 Neutrophils % (Manual) 51 % (45-75) Lymphocytes % (Manual) 44 % (20-45) Monocytes % (Manual) 5 % (1-10) Eosinophils % (Manual) 0 % (0-3) Basophils % (Manual) 0 % (0-2) Band Neutrophils 0 % (0-8) Platelet Estimate Adequate Platelet Morphology Normal Anisocytosis 1+ Sodium Level 135 MMOL/L (136-145) L Potassium Level 3.7 MMOL/L (3.5-5.1) Chloride Level 109 MMOL/L (98-107) H Carbon Dioxide Level 22 MMOL/L (21-32) Anion Gap 4 mmol/L (5-15) L Blood Urea Nitrogen 26 mg/dL (7-18) H Creatinine 2.3 MG/DL (0.55-1.30) H Estimat Glomerular Filtration Rate mL/min (>60) Glucose Level 95 MG/DL (74-106) Uric Acid 7.6 MG/DL (2.6-7.2) H Calcium Level 9.5 MG/DL (8.5-10.1) Phosphorus Level 4.2 MG/DL (2.5-4.9) Magnesium Level 1.5 MG/DL (1.8-2.4) L Total Bilirubin 0.2 MG/DL (0.2-1.0) Aspartate Amino Transf (AST/SGOT) 15 U/L (15-37) Alanine Aminotransferase (ALT/SGPT) 7 U/L (12-78) L Alkaline Phosphatase 50 U/L (46-116) C-Reactive Protein, Quantitative < 0.4 mg/dL (0.00-0.90) Pro-B-Type Natriuretic Peptide 3912 pg/mL (0-125) H Total Protein 9.7 G/DL (6.4-8.2) H Albumin 1.1 G/DL (3.4-5.0) L Globulin 8.6 g/dL Albumin/Globulin Ratio 0.1 (1.0-2.7) L Plan Problems: (1) Lower GI bleed Assessment & Plan: 88 year old female with acute GI bleed. anemia. prior hx of anticoagulation no n/v/f/c labs noted and stable has not recently had blood in stool per report hemorrhoids on colonoscopy no acute surgical intervention planed okay for diet as tolerated ppi bowel regimen appreciate GI input trend labs d/c planning thank you Brigido Pratt Oct 21, 2018 13:55
--- NOTE | 2018-10-21 14:48 | Nephrology Progress Note ---
Assessment/Plan Problem List: (1) ROSSY (acute kidney injury) Assessment: partly urinary retention (2) Lower GI bleed (3) HTN (hypertension) (4) Hypoalbuminemia (5) Anemia (6) Pacemaker (7) UTI (urinary tract infection) Assessment 24 H urine for protein Acute renal failure : Cr devora 1.2 to 2 likely due to GI bleed and BP fluctuations GI Bleed , severe Anemia HTN CAD AFib s/p pacemaker UTI HypoAlbuminemia . Plan Bernstein cath, has over 250 cc retention of urine discussed with RN continue to hydrate Keep BP in check Avoid Nephrotoxics monitor renal parameters Transfusion as needed Per orders Urine studies Will discuss Subjective ROS Limited/Unobtainable: No Constitutional: Reports: malaise Objective Objective Last 24 Hour Vital Signs Date Time Temp Pulse Resp B/P (MAP) Pulse Ox O2 Delivery O2 Flow Rate FiO2 10/21/18 09:00 Room Air 10/21/18 08:00 96.9 87 20 145/75 (98) 98 10/21/18 04:00 97.6 84 18 125/78 (94) 97 10/21/18 00:00 97.1 69 20 154/62 (92) 98 10/20/18 20:00 97.5 76 18 159/65 (96) 96 10/20/18 19:56 Room Air 10/20/18 16:00 98.4 71 20 159/64 (95) 99 Intake and Output 10/20/18 10/21/18 19:00 07:00 Intake Total 340 ml 1100 ml Output Total 700 ml 1400 ml Balance -360 ml -300 ml Intake Oral 240 ml IV Total 100 ml 1100 ml Output Urine Total 700 ml 1400 ml Laboratory Tests 10/21/18 05:35: White Blood Count 3.4L, Red Blood Count 2.68L, Hemoglobin 8.5L, Hematocrit 26.1L , Mean Corpuscular Volume 97, Mean Corpuscular Hemoglobin 31.6H, Mean Corpuscular Hemoglobin Concent 32.5, Red Cell Distribution Width 17.2H, Platelet Count 194, Mean Platelet Volume 5.1L, Neutrophils (%) (Auto) , Lymphocytes (%) (Auto) , Monocytes (%) (Auto) , Eosinophils (%) (Auto) , Basophils (%) (Auto) , Differential Total Cells Counted 100, Neutrophils % ( Manual) 51, Lymphocytes % (Manual) 44, Monocytes % (Manual) 5, Eosinophils % ( Manual) 0, Basophils % (Manual) 0, Band Neutrophils 0, Platelet Estimate Adequate, Platelet Morphology Normal, Anisocytosis 1+, Sodium Level 135L, Potassium Level 3.7, Chloride Level 109H, Carbon Dioxide Level 22, Anion Gap 4L , Blood Urea Nitrogen 26H, Creatinine 2.3H, Estimat Glomerular Filtration Rate , Glucose Level 95, Uric Acid 7.6H, Calcium Level 9.5, Phosphorus Level 4.2, Magnesium Level 1.5L, Total Bilirubin 0.2, Aspartate Amino Transf (AST/SGOT) 15 , Alanine Aminotransferase (ALT/SGPT) 7L, Alkaline Phosphatase 50, C-Reactive Protein, Quantitative < 0.4, Pro-B-Type Natriuretic Peptide 3912H, Total Protein 9.7H, Albumin 1.1L, Globulin 8.6, Albumin/Globulin Ratio 0.1L Height (Feet): 5 Height (Inches): 4.00 Weight (Pounds): 183 General Appearance: no apparent distress Cardiovascular: normal rate Respiratory/Chest: decreased breath sounds Abdomen: distended Objective no change Vince Rice MD Oct 21, 2018 14:48
[2018-10-21 16:00] VITALS: BP 151/68
--- NOTE | 2018-10-21 19:28 | NUR ---
HAND-OFF: Report given to JACQUELYN Berg.
[2018-10-21 20:00] VITALS: BP 138/58
--- NOTE | 2018-10-21 20:10 | NUR ---
NURSE NOTES: Skin assessment was done. Patient had discoloration on sacral, 1x1cm fluid filled blister on right inner thigh and a dry scab on right elbow. Patient also had multiple ecchymosis on bilateral arms/hands and left leg. Patient verbalized she did not want to be disturbed during the night so RN attempted to take pictures of the skin concerns, however, camera was not charged, no available spare battery found. Dressing on sacral was changed. Will re-attempt later if ok with patient during the night if awake once camera battery is charged.
--- NOTE | 2018-10-22 06:35 | General Progress Note ---
Assessment/Plan Status: stable Assessment/Plan: SUMMARY OF FINDINGS: 1. Fair prep, see above for details. 2. Internal hemorrhoids, otherwise normal colonoscopy examination. Stable H&H RECOMMENDATIONS: Hold off on any exploratory GI procedures at this time. Resume diet. ppi Follow laboratories. Monitor hemoglobin and hematocrit and transfuse as needed to keep hemoglobin above 7. dc planning Subjective ROS Limited/Unobtainable: Yes Allergies: Coded Allergies: CODEINE (Verified Allergy, Severe, Anaphylaxis, 10/14/18) Difficulty breathing along with hives per pt daughter HYDROCODONE (Verified Allergy, Severe, Anaphylaxis, 10/14/18) Difficulty breathing along with hives per pt daughter AMOXICILLIN (Verified Allergy, Unknown, 09/06/12) Objective Last 24 Hour Vital Signs Date Time Temp Pulse Resp B/P (MAP) Pulse Ox O2 Delivery O2 Flow Rate FiO2 10/21/18 21:00 Room Air 10/21/18 20:00 97.2 74 19 138/58 (84) 98 10/21/18 16:00 97.2 84 20 151/68 (95) 97 10/21/18 12:00 97.8 84 20 161/25 (70) 96 10/21/18 09:00 Room Air 10/21/18 08:00 96.9 87 20 145/75 (98) 98 Intake and Output 10/21/18 10/22/18 18:59 06:59 Intake Total 1160 ml 1100 ml Output Total 240 ml 1100 ml Balance 920 ml 0 ml Intake Oral 360 ml 200 ml IV Total 800 ml 900 ml Output Urine Total 240 ml 1100 ml # Voids 3 Laboratory Tests 10/22/18 06:28: White Blood Count [Pending], Red Blood Count [Pending], Hemoglobin [Pending], Hematocrit [Pending], Mean Corpuscular Volume [Pending], Mean Corpuscular Hemoglobin [Pending], Mean Corpuscular Hemoglobin Concent [Pending], Red Cell Distribution Width [Pending], Platelet Count [Pending], Mean Platelet Volume [ Pending], Neutrophils (%) (Auto) [Pending], Lymphocytes (%) (Auto) [Pending], Monocytes (%) (Auto) [Pending], Eosinophils (%) (Auto) [Pending], Basophils (%) (Auto) [Pending], Sodium Level [Pending], Potassium Level [Pending], Chloride Level [Pending], Carbon Dioxide Level [Pending], Blood Urea Nitrogen [Pending], Creatinine [Pending], Estimat Glomerular Filtration Rate [Pending], Glucose Level [Pending], Calcium Level [Pending], Phosphorus Level [Pending], Magnesium Level [Pending], Total Bilirubin [Pending], Aspartate Amino Transf (AST/SGOT) [ Pending], Alanine Aminotransferase (ALT/SGPT) [Pending], Alkaline Phosphatase [ Pending], Total Protein [Pending], Albumin [Pending], Globulin [Pending] Height (Feet): 5 Height (Inches): 4.00 Weight (Pounds): 183 General Appearance: alert EENT: normal ENT inspection Neck: supple Cardiovascular: normal rate Respiratory/Chest: decreased breath sounds Abdomen: normal bowel sounds, non tender, soft Extremities: non-tender Michael Day MD Oct 22, 2018 06:35
[2018-10-22 06:50] LABS: BASOPHILS % (AUTO) 0.9 % (0.0-2.0); EOSINOPHILS % (AUTO) 2.4 % (0.0-3.0); HEMATOCRIT 25.1 % (37.0-47.0); HEMOGLOBIN 8.2 G/DL (12.0-16.0); LYMPHOCYTES % (AUTO) 42.3 % (20.0-45.0); MEAN CORPUSCULAR VOLUME 95 FL (80-99); MONOCYTES % (AUTO) 8.9 % (1.0-10.0); NEUTROPHILS % (AUTO) 45.5 % (45.0-75.0); PLATELET COUNT 192 K/UL (150-450); RED BLOOD COUNT 2.63 M/UL (4.20-5.40); RED CELL DISTRIBUTION WIDTH 16.2 % (11.6-14.8); WHITE BLOOD COUNT 3.6 K/UL (4.8-10.8)
[2018-10-22 07:11] LABS: ALANINE AMINOTRANSFERASE 7 U/L (12-78); ALBUMIN 1.2 G/DL (3.4-5.0); ALBUMIN/GLOBULIN RATIO 0.1 (1.0-2.7); ALKALINE PHOSPHATASE 50 U/L (46-116); ANION GAP 4 mmol/L (5-15); ASPARTATE AMINO TRANSFERASE 18 U/L (15-37); BILIRUBIN,TOTAL 0.2 MG/DL (0.2-1.0); BLOOD UREA NITROGEN 22 mg/dL (7-18); CALCIUM 9.3 MG/DL (8.5-10.1); CARBON DIOXIDE 24 MMOL/L (21-32); CHLORIDE 110 MMOL/L (98-107); CREATININE 2.2 MG/DL (0.55-1.30); PHOSPHORUS 3.8 MG/DL (2.5-4.9); POTASSIUM 3.2 MMOL/L (3.5-5.1); SODIUM 137 MMOL/L (136-145)
--- NOTE | 2018-10-22 07:17 | NUR ---
HAND-OFF: Report given to Kaden VALLADARES.
--- NOTE | 2018-10-22 07:45 | NUR ---
NURSE NOTES: Received patient on bed, awake. Right AC IV site no longer patent, will remove. Right hand IV site is intact and patent. Bernstein catheter intact and patent and draining. Dressings dry and intact. Bed in low and locked position,c all light in reach. Patient denies pain or shortness of breath. Room board updated, will continue to monitor.
[2018-10-22 08:00] VITALS: BP 170/82
[2018-10-22] MEDS: Allopurinol 100mg Tab ORAL SCH (08:44)
[2018-10-22] MEDS: Doxycycline Monohydrate 100mg ORAL SCH ×2 (08:45→20:25)
[2018-10-22] MEDS: D5NS 1,000 ML IV SCH ×2 (08:54→20:25)
--- NOTE | 2018-10-22 09:06 | Cardiac Electrophysiology PN ---
Assessment/Plan Assessment/Plan 1. Paroxysmal atrial fibrillation, in sinus rhythm, off anticoagulation for hemoglobin 7.2 and GI bleed. 2. Status post pacemaker implantation. The patient does not know the brand of the pacemaker. We will try to find the brand of the pacemaker and interrogate for further evaluation. 3. Congestive heart failure, likely due to diastolic dysfunction. Ejection fraction is 60 to 65% and borderline LVH. 4. MSSA bacteremia. No vegetation noted. 5. History of hypertension. Currently on p.r.n. IV hydralazine.Add Norvasc 2.5 bid 6. Acute blood loss anemia due to lower GI bleed. Colonoscopy showed hemorrhoids with no active bleeding. 7. History of coronary artery disease. Remains without any chest pain. Subjective Subjective BP has been running high today Objective Last 24 Hour Vital Signs Date Time Temp Pulse Resp B/P (MAP) Pulse Ox O2 Delivery O2 Flow Rate FiO2 10/22/18 08:45 96 170/82 10/21/18 21:00 Room Air 10/21/18 20:00 97.2 74 19 138/58 (84) 98 10/21/18 16:00 97.2 84 20 151/68 (95) 97 10/21/18 12:00 97.8 84 20 161/25 (70) 96 Intake and Output 10/21/18 10/22/18 18:59 06:59 Intake Total 1160 ml 1400 ml Output Total 240 ml 1100 ml Balance 920 ml 300 ml Intake Oral 360 ml 200 ml IV Total 800 ml 1200 ml Output Urine Total 240 ml 1100 ml # Voids 3 Laboratory Tests Test 10/22/18 06:28 White Blood Count 3.6 K/UL (4.8-10.8) L Red Blood Count 2.63 M/UL (4.20-5.40) L Hemoglobin 8.2 G/DL (12.0-16.0) L Hematocrit 25.1 % (37.0-47.0) L Mean Corpuscular Volume 95 FL (80-99) Mean Corpuscular Hemoglobin 31.4 PG (27.0-31.0) H Mean Corpuscular Hemoglobin Concent 32.9 G/DL (32.0-36.0) Red Cell Distribution Width 16.2 % (11.6-14.8) H Platelet Count 192 K/UL (150-450) Mean Platelet Volume 4.7 FL (6.5-10.1) L Neutrophils (%) (Auto) 45.5 % (45.0-75.0) Lymphocytes (%) (Auto) 42.3 % (20.0-45.0) Monocytes (%) (Auto) 8.9 % (1.0-10.0) Eosinophils (%) (Auto) 2.4 % (0.0-3.0) Basophils (%) (Auto) 0.9 % (0.0-2.0) Sodium Level 137 MMOL/L (136-145) Potassium Level 3.2 MMOL/L (3.5-5.1) L Chloride Level 110 MMOL/L (98-107) H Carbon Dioxide Level 24 MMOL/L (21-32) Anion Gap 4 mmol/L (5-15) L Blood Urea Nitrogen 22 mg/dL (7-18) H Creatinine 2.2 MG/DL (0.55-1.30) H Estimat Glomerular Filtration Rate mL/min (>60) Glucose Level 97 MG/DL (74-106) Calcium Level 9.3 MG/DL (8.5-10.1) Phosphorus Level 3.8 MG/DL (2.5-4.9) Magnesium Level 1.6 MG/DL (1.8-2.4) L Total Bilirubin 0.2 MG/DL (0.2-1.0) Aspartate Amino Transf (AST/SGOT) 18 U/L (15-37) Alanine Aminotransferase (ALT/SGPT) 7 U/L (12-78) L Alkaline Phosphatase 50 U/L (46-116) Total Protein 9.3 G/DL (6.4-8.2) H Albumin 1.2 G/DL (3.4-5.0) L Globulin 8.1 g/dL Albumin/Globulin Ratio 0.1 (1.0-2.7) L Objective HEAD AND NECK: Shows no JVD. LUNGS: Decreased breath sounds. CARDIOVASCULAR: Regular S1 and S2 with no gallop. Pacemaker in the left subclavian. ABDOMEN: Soft. EXTREMITIES: No pitting edema. Charlie Eric MD Oct 22, 2018 09:06
--- NOTE | 2018-10-22 10:58 | NUR ---
[employer] SI:ACUTE ANEMIA-GI BLEED VS: BP 170/82, P 96, T 97.2, RR 20, SpO2 97 WBC 3.6, RBC 2.63, H&H 8.2/25.3, K 3.3, CR 2.1 CXR: Interval improvement in pulmonary vascular congestion and edema. IS:DOXYCYCLINE 100mg MAGNESIUM SULFATE 100ml IVPB NORVASC 2.5mg MED/SURG STATUS
--- NOTE | 2018-10-22 11:10 | General Progress Note ---
Assessment/Plan Status: stable Assessment/Plan: 88 year old female with PMH of HTN admitted for management of lower GI bleed #Acute blood loss anemia, present on admission due to lower GI Bleed -GI consult appreciated -Surgery consult appreciated -Hematology consult appreciated -EGD showed erosive gastritis -Colonoscopy showed hemorrhoids, no active bleeding -Serial CBC -continue PPI -Hold AC -SCD for DVT ppx #?CHF on CXR with pleural effusion #HTN -monitor resp status -TTE reviewed -Cardiology following -Increase amlodipine to 5mg daily and monitor pressures #ROSSY, present on admission, improved renal function #Urinary retention #Hypokalemia #Hypomagnesemia -Continue supportive care, Nephrology following -replace lytes prn and monitor BMP #Coag Neg Staph Bacteremia -continue with antibiotics per ID #CAD #AFib #s/p pacemaker -Hold AC -Cont tele Code status Full Dispo SNF once medically clear Subjective Date patient seen: Oct 22, 2018 Time patient seen: 11:05 ROS Limited/Unobtainable: Yes Cardiovascular: Denies: chest pain Respiratory: Denies: cough, shortness of breath Gastrointestinal/Abdominal: Denies: abdominal pain Allergies: Coded Allergies: CODEINE (Verified Allergy, Severe, Anaphylaxis, 10/14/18) Difficulty breathing along with hives per pt daughter HYDROCODONE (Verified Allergy, Severe, Anaphylaxis, 10/14/18) Difficulty breathing along with hives per pt daughter AMOXICILLIN (Verified Allergy, Unknown, 09/06/12) Subjective Medicine follow up for acute blood loss anemia, rectal bleeding, hypokalemia, gram positive bacteremia ROSSY and possible CHF. BP elevated to 170s today Objective Last 24 Hour Vital Signs Date Time Temp Pulse Resp B/P (MAP) Pulse Ox O2 Delivery O2 Flow Rate FiO2 10/22/18 08:45 96 170/82 10/22/18 08:00 97.2 96 20 170/82 (111) 97 10/21/18 21:00 Room Air 10/21/18 20:00 97.2 74 19 138/58 (84) 98 10/21/18 16:00 97.2 84 20 151/68 (95) 97 10/21/18 12:00 97.8 84 20 161/25 (70) 96 Intake and Output 10/21/18 10/22/18 18:59 06:59 Intake Total 1160 ml 1400 ml Output Total 240 ml 1100 ml Balance 920 ml 300 ml Intake Oral 360 ml 200 ml IV Total 800 ml 1200 ml Output Urine Total 240 ml 1100 ml # Voids 3 Laboratory Tests 10/22/18 06:28: White Blood Count 3.6L, Red Blood Count 2.63L, Hemoglobin 8.2L, Hematocrit 25.1L , Mean Corpuscular Volume 95, Mean Corpuscular Hemoglobin 31.4H, Mean Corpuscular Hemoglobin Concent 32.9, Red Cell Distribution Width 16.2H, Platelet Count 192, Mean Platelet Volume 4.7L, Neutrophils (%) (Auto) 45.5, Lymphocytes (%) (Auto) 42.3, Monocytes (%) (Auto) 8.9, Eosinophils (%) (Auto) 2.4, Basophils (%) (Auto) 0.9, Sodium Level 137, Potassium Level 3.2L, Chloride Level 110H, Carbon Dioxide Level 24, Anion Gap 4L, Blood Urea Nitrogen 22H, Creatinine 2.2H, Estimat Glomerular Filtration Rate , Glucose Level 97, Calcium Level 9.3, Phosphorus Level 3.8, Magnesium Level 1.6L, Total Bilirubin 0.2, Aspartate Amino Transf (AST/SGOT) 18, Alanine Aminotransferase (ALT/SGPT) 7L, Alkaline Phosphatase 50, Total Protein 9.3H, Albumin 1.2L, Globulin 8.1, Albumin /Globulin Ratio 0.1L Height (Feet): 5 Height (Inches): 4.00 Weight (Pounds): 183 General Appearance: no apparent distress, alert Neck: normal alignment, supple Cardiovascular: normal rate, regular rhythm Respiratory/Chest: lungs clear, normal breath sounds Abdomen: non tender, soft Enoc Mendez MD Oct 22, 2018 11:10
[2018-10-22 12:00] VITALS: BP 144/56
--- NOTE | 2018-10-22 14:19 | Infectious Diseases Prog Note ---
Assessment/Plan Assessment/Plan ASSESSMENT AND PLAN: 1. 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 vre uti, sepsis, ? pna vs pvc - levofloxacin and doxycycline x 3 days (vre sensitive to tetracycline) - surveillance blood cultures negative - monitor labs - chest x-ray improved - echo without vegetation, doubt endocarditis 2. Acute kidney injury with elevated creatinine, likely ckd 3. Hypertension - blood pressure treatment per primary. 4. Anemia. 5. Gastrointestinal bleed. 6. Falls. 7. History of atrial fibrillation. 8. Pacemaker. 9. CAD. 10. Atrial fibrillation with pacemaker. 11. Allergies to amoxicillin, codeine, and hydrocodone. 12. Social history is negative. 13. Family history is noncontributory. 14. MAR was noted. 15. Case was discussed with RN. 16. Step-down unit care. 17. Skin care protocol. 18. Continue treatment per primary consultants. 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 Subjective Constitutional: Denies: fever HEENT: Denies: congestion Respiratory: Denies: shortness of breath Cardiovascular: Denies: chest pain Gastrointestinal/Abdominal: Denies: nausea, vomiting, diarrhea Genitourinary: Reports: other - + valentin Neurologic: Reports: weakness, other - lethargic Psychiatric: Reports: other - na Skin: Denies: rash Hematologic: Denies: bleeding Musculoskeletal: Reports: other - NA Allergies: Coded Allergies: CODEINE (Verified Allergy, Severe, Anaphylaxis, 10/14/18) Difficulty breathing along with hives per pt daughter HYDROCODONE (Verified Allergy, Severe, Anaphylaxis, 10/14/18) Difficulty breathing along with hives per pt daughter AMOXICILLIN (Verified Allergy, Unknown, 09/06/12) Objective Vital Signs Last 24 Hour Vital Signs Date Time Temp Pulse Resp B/P (MAP) Pulse Ox O2 Delivery O2 Flow Rate FiO2 10/22/18 12:00 98.6 78 20 144/56 (85) 98 10/22/18 09:00 Room Air 10/22/18 08:45 96 170/82 10/22/18 08:00 97.2 96 20 170/82 (111) 97 10/21/18 21:00 Room Air 10/21/18 20:00 97.2 74 19 138/58 (84) 98 10/21/18 16:00 97.2 84 20 151/68 (95) 97 Height (Feet): 5 Height (Inches): 4.00 Weight (Pounds): 183 General Appearance: no acute distress HEENT: normocephalic, atraumatic, anicteric, mucous membranes moist Respiratory/Chest: lungs clear, normal breath sounds, no respiratory distress, no accessory muscle use Cardiovascular: normal rate, regular rhythm, no gallop/murmur, no JVD Abdomen: normal bowel sounds, soft, non tender, no organomegaly, non distended Genitourinary: other - + valentin - urine clearer Extremities: no cyanosis Skin: no rash Neurologic/Psychiatric: other - weak, nad Lymphatic: no neck adenopathy Musculoskeletal: no effusion Objective Procedure: XRAY Chest 1v Indication: Dyspnea Comparison: 10/14/2018 A single view chest radiograph was obtained. Chest x-ray - 10/17/18 - Findings: Pulmonary vascular congestion has developed since the last exam. Cardiomegaly also slightly worse. No change otherwise. There may be a small left pleural effusion. Old rib fractures on the right noted. Some of these may be acute. Please correlate clinically. Bones are osteopenic. IMPRESSION: Interval development of pulmonary vascular congestion/CHF. Other findings unchanged Chest x-ray - 10/14/18 - COMPARISON: Chest x-rays dated 11/11/17 FINDINGS: Lungs: Left lung base/retrocardiac opacity which may represent atelectasis versus pneumonia. Pleural space: Blunting of the left costophrenic angle suggesting a small left pleural effusion. Heart: Unremarkable. No cardiomegaly. Mediastinum: Unremarkable. Bones/joints: Degenerative changes throughout the visualized spine and shoulder joints. Chronic healed fracture deformities along multiple lateral right ribs. Vasculature: Atherosclerotic calcifications within the aortic arch. Tubes, lines and devices: Cardiac pacer in the left chest wall with the lead tips in the right atrium and right ventricle regions. Upper abdomen: Surgical clips in the right upper abdominal quadrant suggest prior cholecystectomy. IMPRESSION: 1. Small left pleural effusion. 2. Left lung base/retrocardiac opacity which may represent atelectasis versus pneumonia. 10/17/18 - Comparison: 10/14/2018 A single view chest radiograph was obtained. Findings: Pulmonary vascular congestion has developed since the last exam. Cardiomegaly also slightly worse. No change otherwise. There may be a small left pleural effusion. Old rib fractures on the right noted. Some of these may be acute. Please correlate clinically. Bones are osteopenic. IMPRESSION: Interval development of pulmonary vascular congestion/CHF. Other findings unchanged Chest x-ray - 10/21/18 - Bones: Unremarkable. No acute fracture. IMPRESSION: Interval improvement in pulmonary vascular congestion and edema. No evidence of acute airspace consolidation. Microbiology Date/Time Source Procedure Growth Status 10/17/18 03:50 Blood Blood Culture - Final NO GROWTH AFTER 5 DAYS Complete 10/14/18 15:15 Nasal Nares MRSA Culture - Final Staphylococcus Aureus - Mrsa Complete 10/16/18 18:00 Indwelling Cath Urine Culture - Final Enterococcus Faecium - Vre Complete 10/14/18 15:15 Rectum VRE Culture - Final Enterococcus Faecium - Vre Complete 10/14/18 15:15 Rectum - Final NO CARBAPENEM-RESISTANT ENTEROBACTERI... Complete Laboratory Tests Test 10/22/18 06:28 White Blood Count 3.6 K/UL (4.8-10.8) L Red Blood Count 2.63 M/UL (4.20-5.40) L Hemoglobin 8.2 G/DL (12.0-16.0) L Hematocrit 25.1 % (37.0-47.0) L Mean Corpuscular Volume 95 FL (80-99) Mean Corpuscular Hemoglobin 31.4 PG (27.0-31.0) H Mean Corpuscular Hemoglobin Concent 32.9 G/DL (32.0-36.0) Red Cell Distribution Width 16.2 % (11.6-14.8) H Platelet Count 192 K/UL (150-450) Mean Platelet Volume 4.7 FL (6.5-10.1) L Neutrophils (%) (Auto) 45.5 % (45.0-75.0) Lymphocytes (%) (Auto) 42.3 % (20.0-45.0) Monocytes (%) (Auto) 8.9 % (1.0-10.0) Eosinophils (%) (Auto) 2.4 % (0.0-3.0) Basophils (%) (Auto) 0.9 % (0.0-2.0) Sodium Level 137 MMOL/L (136-145) Potassium Level 3.2 MMOL/L (3.5-5.1) L Chloride Level 110 MMOL/L (98-107) H Carbon Dioxide Level 24 MMOL/L (21-32) Anion Gap 4 mmol/L (5-15) L Blood Urea Nitrogen 22 mg/dL (7-18) H Creatinine 2.2 MG/DL (0.55-1.30) H Estimat Glomerular Filtration Rate mL/min (>60) Glucose Level 97 MG/DL (74-106) Calcium Level 9.3 MG/DL (8.5-10.1) Phosphorus Level 3.8 MG/DL (2.5-4.9) Magnesium Level 1.6 MG/DL (1.8-2.4) L Total Bilirubin 0.2 MG/DL (0.2-1.0) Aspartate Amino Transf (AST/SGOT) 18 U/L (15-37) Alanine Aminotransferase (ALT/SGPT) 7 U/L (12-78) L Alkaline Phosphatase 50 U/L (46-116) Total Protein 9.3 G/DL (6.4-8.2) H Albumin 1.2 G/DL (3.4-5.0) L Globulin 8.1 g/dL Albumin/Globulin Ratio 0.1 (1.0-2.7) L Current Medications Medications (Trade) Dose Ordered Sig/Ary Route PRN Reason Start Time Stop Time Status Last Admin Dose Admin Acetaminophen (Tylenol) 650 mg Q4H PRN ORAL T>100.5/Pain 10/17/18 19:30 11/13/18 19:29 Allopurinol (Zyloprim) 200 mg DAILY ORAL 10/21/18 09:00 11/20/18 08:59 10/22/18 08:44 Amlodipine Besylate (Norvasc) 5 mg DAILY ORAL 10/23/18 09:00 11/21/18 08:59 Dextrose (Dextrose 50%) 25 ml Q30M PRN IV Hypoglycemia 10/17/18 19:30 11/13/18 20:59 Dextrose (Dextrose 50%) 50 ml Q30M PRN IV Hypoglycemia 10/17/18 19:30 11/13/18 20:59 Dextrose/Sodium Chloride 1,000 ml @ 100 mls/hr Q10H IV 10/17/18 19:15 11/14/18 18:59 10/22/18 08:54 Diphenhydramine HCl (Benadryl) 25 mg Q6H PRN ORAL Itching/Pruritis 10/17/18 20:00 11/13/18 19:59 Doxycycline Monohydrate (Doxycycline Monohydrate) 100 mg EVERY 12 HOURS ORAL 10/20/18 21:00 10/27/18 20:59 10/22/18 08:45 Folic Acid (Folate) 5 mg DAILY ORAL 10/18/18 09:00 11/16/18 14:59 10/22/18 08:45 Hydralazine HCl (Apresoline) 10 mg Q6H PRN ORAL SBP > 160mmHg 10/17/18 20:00 11/16/18 19:59 Levofloxacin (Levaquin) 250 mg Q48H ORAL 10/23/18 09:00 10/30/18 09:59 Magnesium Sulfate 100 ml @ 100 mls/hr Q1H IVPB 10/22/18 12:45 10/22/18 14:44 10/22/18 13:23 Metoclopramide HCl (Reglan) 10 mg Q6H PRN IVP Nausea & Vomiting 10/17/18 20:00 11/13/18 19:59 Ondansetron HCl (Zofran) 4 mg Q6H PRN IVP Nausea & Vomiting 10/17/18 20:00 11/13/18 19:59 Pantoprazole (Protonix) 40 mg EVERY 12 HOURS ORAL 10/19/18 21:00 11/18/18 20:59 10/22/18 08:44 Temazepam (Restoril) 15 mg HSPRN PRN ORAL Insomnia 10/17/18 21:00 10/22/18 20:59 Carla Plata MD Oct 22, 2018 14:19
--- NOTE | 2018-10-22 15:00 | Hematology/Onc Progress Note ---
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 With a paraprotein elevation in the past, protein elevated at 6.5g, igG is 5947, urinary protein is elevated as well signifying mgus v myeloma --> Continue to closely monitor > Anemia w/u has been reviewed, will trend daily. --> Hgb goal >7 --> 12/06/17: 1 unit prbc ordered --> skeletal survey has been ordered --> to r/o myeloma which likely she has, will need a bone marrow biopsy # Anemia due to underlying gi bleed, currently bleeding resolved --> anemia panel reviewed ferritin is 385, sufficient iron stores --> gi and surg consulted, endoscopy as per gi --> Hgb trend: 8.8-->8.2 # Paraproteinemia. 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 due to high IGG --> Lucent lesion in the left iliac bone. Permeative pattern of the osseous skeleton may be due to osteopenia but cannot exclude metastases. --> bone scan is pending for above # Thrombocytopenia - either bone marrow process related or meds, due to mgs/ myeloma --> Currently resolved --> hepatitis panel neg # Coagulopathy, likely secondary to decreased oral take --> check pt/inr as needed # Pacemaker placement history. # Hypertension. The timing of this note does not necessarily reflect the time of the patient was seen. Greatly appreciate consultation! Subjective Hematologic/Lymphatic: Reports: anemia Allergies: Coded Allergies: CODEINE (Verified Allergy, Severe, Anaphylaxis, 10/14/18) Difficulty breathing along with hives per pt daughter HYDROCODONE (Verified Allergy, Severe, Anaphylaxis, 10/14/18) Difficulty breathing along with hives per pt daughter AMOXICILLIN (Verified Allergy, Unknown, 09/06/12) All Systems: reviewed and negative except above Subjective 10/16: plt are drastically improved, no f/c, no night sweats 10/17: colo for today, no events noted, cbc has been reviewed 10/18: no events noted, IgG 5947, urinary protein high as well, needs skeletal survey 10/19: no events, sleeping, discussed bone marrow biopsy, currently holding off 10/20: Pt awake and alert. Breathing unlabored on room air, denies SOB or pain at this time. Hgb stable. 6/02: Pt seen and examined, so signs of distress Objective Objective Current Medications Medications (Trade) Dose Ordered Sig/Ary Route PRN Reason Start Time Stop Time Status Last Admin Dose Admin Acetaminophen (Tylenol) 650 mg Q4H PRN ORAL T>100.5/Pain 10/17/18 19:30 11/13/18 19:29 Allopurinol (Zyloprim) 200 mg DAILY ORAL 10/21/18 09:00 11/20/18 08:59 10/22/18 08:44 Amlodipine Besylate (Norvasc) 5 mg DAILY ORAL 10/23/18 09:00 11/21/18 08:59 Dextrose (Dextrose 50%) 25 ml Q30M PRN IV Hypoglycemia 10/17/18 19:30 11/13/18 20:59 Dextrose (Dextrose 50%) 50 ml Q30M PRN IV Hypoglycemia 10/17/18 19:30 11/13/18 20:59 Dextrose/Sodium Chloride 1,000 ml @ 100 mls/hr Q10H IV 10/17/18 19:15 11/14/18 18:59 10/22/18 08:54 Diphenhydramine HCl (Benadryl) 25 mg Q6H PRN ORAL Itching/Pruritis 10/17/18 20:00 11/13/18 19:59 Doxycycline Monohydrate (Doxycycline Monohydrate) 100 mg EVERY 12 HOURS ORAL 10/20/18 21:00 10/27/18 20:59 10/22/18 08:45 Folic Acid (Folate) 5 mg DAILY ORAL 10/18/18 09:00 11/16/18 14:59 10/22/18 08:45 Hydralazine HCl (Apresoline) 10 mg Q6H PRN ORAL SBP > 160mmHg 10/17/18 20:00 11/16/18 19:59 Levofloxacin (Levaquin) 250 mg Q48H ORAL 10/23/18 09:00 10/30/18 09:59 Metoclopramide HCl (Reglan) 10 mg Q6H PRN IVP Nausea & Vomiting 10/17/18 20:00 11/13/18 19:59 Ondansetron HCl (Zofran) 4 mg Q6H PRN IVP Nausea & Vomiting 10/17/18 20:00 11/13/18 19:59 Pantoprazole (Protonix) 40 mg EVERY 12 HOURS ORAL 10/19/18 21:00 11/18/18 20:59 10/22/18 08:44 Temazepam (Restoril) 15 mg HSPRN PRN ORAL Insomnia 10/17/18 21:00 10/22/18 20:59 Last 24 Hour Vital Signs Date Time Temp Pulse Resp B/P (MAP) Pulse Ox O2 Delivery O2 Flow Rate FiO2 10/22/18 12:00 98.6 78 20 144/56 (85) 98 10/22/18 09:00 Room Air 10/22/18 08:45 96 170/82 10/22/18 08:00 97.2 96 20 170/82 (111) 97 10/21/18 21:00 Room Air 10/21/18 20:00 97.2 74 19 138/58 (84) 98 10/21/18 16:00 97.2 84 20 151/68 (95) 97 10/21/18 12:00 97.8 84 20 161/25 (70) 96 10/21/18 09:00 Room Air 10/21/18 08:00 96.9 87 20 145/75 (98) 98 10/21/18 04:00 97.6 84 18 125/78 (94) 97 10/21/18 00:00 97.1 69 20 154/62 (92) 98 10/20/18 20:00 97.5 76 18 159/65 (96) 96 10/20/18 19:56 Room Air 10/20/18 16:00 98.4 71 20 159/64 (95) 99 Intake and Output 10/21/18 10/22/18 19:00 07:00 Intake Total 1260 ml 1300 ml Output Total 240 ml 1100 ml Balance 1020 ml 200 ml Intake Oral 360 ml 200 ml IV Total 900 ml 1100 ml Output Urine Total 240 ml 1100 ml # Voids 3 Labs Test 10/20/18 09:25 10/20/18 13:00 10/21/18 05:35 10/22/18 06:28 White Blood Count 4.5 K/UL (4.8-10.8) 3.4 K/UL (4.8-10.8) 3.6 K/UL (4.8-10.8) Red Blood Count 2.85 M/UL (4.20-5.40) 2.68 M/UL (4.20-5.40) 2.63 M/UL (4.20-5.40) Hemoglobin 8.8 G/DL (12.0-16.0) 8.5 G/DL (12.0-16.0) 8.2 G/DL (12.0-16.0) Hematocrit 27.0 % (37.0-47.0) 26.1 % (37.0-47.0) 25.1 % (37.0-47.0) Mean Corpuscular Volume 95 FL (80-99) 97 FL (80-99) 95 FL (80-99) Mean Corpuscular Hemoglobin 31.0 PG (27.0-31.0) 31.6 PG (27.0-31.0) 31.4 PG (27.0-31.0) Mean Corpuscular Hemoglobin Concent 32.7 G/DL (32.0-36.0) 32.5 G/DL (32.0-36.0) 32.9 G/DL (32.0-36.0) Red Cell Distribution Width 16.1 % (11.6-14.8) 17.2 % (11.6-14.8) 16.2 % (11.6-14.8) Platelet Count 225 K/UL (150-450) 194 K/UL (150-450) 192 K/UL (150-450) Mean Platelet Volume 5.1 FL (6.5-10.1) 5.1 FL (6.5-10.1) 4.7 FL (6.5-10.1) Neutrophils (%) (Auto) 58.0 % (45.0-75.0) % (45.0-75.0) 45.5 % (45.0-75.0) Lymphocytes (%) (Auto) 28.6 % (20.0-45.0) % (20.0-45.0) 42.3 % (20.0-45.0) Monocytes (%) (Auto) 10.2 % (1.0-10.0) % (1.0-10.0) 8.9 % (1.0-10.0) Eosinophils (%) (Auto) 2.8 % (0.0-3.0) % (0.0-3.0) 2.4 % (0.0-3.0) Basophils (%) (Auto) 0.4 % (0.0-2.0) % (0.0-2.0) 0.9 % (0.0-2.0) Sodium Level 136 MMOL/L (136-145) 135 MMOL/L (136-145) 137 MMOL/L (136-145) Potassium Level 3.5 MMOL/L (3.5-5.1) 3.7 MMOL/L (3.5-5.1) 3.2 MMOL/L (3.5-5.1) Chloride Level 107 MMOL/L (98-107) 109 MMOL/L (98-107) 110 MMOL/L (98-107) Carbon Dioxide Level 24 MMOL/L (21-32) 22 MMOL/L (21-32) 24 MMOL/L (21-32) Anion Gap 5 mmol/L (5-15) 4 mmol/L (5-15) 4 mmol/L (5-15) Blood Urea Nitrogen 28 mg/dL (7-18) 26 mg/dL (7-18) 22 mg/dL (7-18) Creatinine 2.6 MG/DL (0.55-1.30) 2.3 MG/DL (0.55-1.30) 2.2 MG/DL (0.55-1.30) Estimat Glomerular Filtration Rate mL/min (>60) mL/min (>60) mL/min (>60) Glucose Level 123 MG/DL (74-106) 95 MG/DL (74-106) 97 MG/DL (74-106) Uric Acid 7.7 MG/DL (2.6-7.2) 7.6 MG/DL (2.6-7.2) Calcium Level 9.6 MG/DL (8.5-10.1) 9.5 MG/DL (8.5-10.1) 9.3 MG/DL (8.5-10.1) Phosphorus Level 3.7 MG/DL (2.5-4.9) 4.2 MG/DL (2.5-4.9) 3.8 MG/DL (2.5-4.9) Magnesium Level 1.5 MG/DL (1.8-2.4) 1.5 MG/DL (1.8-2.4) 1.6 MG/DL (1.8-2.4) Total Bilirubin 0.2 MG/DL (0.2-1.0) 0.2 MG/DL (0.2-1.0) 0.2 MG/DL (0.2-1.0) Aspartate Amino Transf (AST/SGOT) 15 U/L (15-37) 15 U/L (15-37) 18 U/L (15-37) Alanine Aminotransferase (ALT/SGPT) 8 U/L (12-78) 7 U/L (12-78) 7 U/L (12-78) Alkaline Phosphatase 53 U/L (46-116) 50 U/L (46-116) 50 U/L (46-116) C-Reactive Protein, Quantitative < 0.4 mg/dL (0.00-0.90) < 0.4 mg/dL (0.00-0.90) Pro-B-Type Natriuretic Peptide 4007 pg/mL (0-125) 3912 pg/mL (0-125) Total Protein 9.8 G/DL (6.4-8.2) 9.7 G/DL (6.4-8.2) 9.3 G/DL (6.4-8.2) Albumin 1.3 G/DL (3.4-5.0) 1.1 G/DL (3.4-5.0) 1.2 G/DL (3.4-5.0) Globulin 8.5 g/dL 8.6 g/dL 8.1 g/dL Albumin/Globulin Ratio 0.2 (1.0-2.7) 0.1 (1.0-2.7) 0.1 (1.0-2.7) Random Vancomycin Level 16.7 ug/mL Urine Collection Time 24 HRS Urine Total Volume 2550 ML Urine Total Protein mg/dL 47 mg/dL Urine Total Protein 24 Hour 47.4 mg/24hr (< 150) Differential Total Cells Counted 100 Neutrophils % (Manual) 51 % (45-75) Lymphocytes % (Manual) 44 % (20-45) Monocytes % (Manual) 5 % (1-10) Eosinophils % (Manual) 0 % (0-3) Basophils % (Manual) 0 % (0-2) Band Neutrophils 0 % (0-8) Platelet Estimate Adequate Platelet Morphology Normal Anisocytosis 1+ Height (Feet): 5 Height (Inches): 4.00 Weight (Pounds): 183 Objective Physical Exam General appearance: alert, cooperative, no distress, appears stated age Head: Normocephalic, without obvious abnormality, atraumatic Eyes: conjunctivae/corneas clear. PERRL, EOM's intact. Fundi benign Throat: Lips, mucosa, and tongue normal. Teeth and gums normal Neck: supple, symmetrical, trachea midline, no adenopathy, thyroid: not enlarged, symmetric, no tenderness/mass/nodules, no carotid bruit and no JVD Lungs: clear to auscultation bilaterally Heart: regular rate and rhythm, S1, S2 normal, no murmur, click, rub or gallop Abdomen: soft, non-tender. Bowel sounds normal. No masses, no organomegaly Extremities: extremities normal, atraumatic, no cyanosis or edema Pulses: 2+ and symmetric Skin: Skin color, texture, turgor normal. No rashes or lesions Neurologic: Grossly normal Mello Durbin MD Oct 22, 2018 15:00
--- NOTE | 2018-10-22 15:21 | Nephrology Progress Note ---
Assessment/Plan Problem List: (1) ROSSY (acute kidney injury) Assessment: partly urinary retention (2) Lower GI bleed (3) HTN (hypertension) (4) Hypoalbuminemia (5) Anemia (6) Pacemaker (7) UTI (urinary tract infection) Assessment 24 H urine for protein Acute renal failure : Cr devora 1.2 to 2 likely due to GI bleed and BP fluctuations GI Bleed , severe Anemia HTN CAD AFib s/p pacemaker UTI HypoAlbuminemia . Plan Bernstein cath, has over 250 cc retention of urine mag and K supplement discussed with RN continue to hydrate Keep BP in check Avoid Nephrotoxics monitor renal parameters Transfusion as needed Per orders Urine studies Will discuss Subjective ROS Limited/Unobtainable: No Constitutional: Reports: malaise, weakness Objective Objective Last 24 Hour Vital Signs Date Time Temp Pulse Resp B/P (MAP) Pulse Ox O2 Delivery O2 Flow Rate FiO2 10/22/18 12:00 98.6 78 20 144/56 (85) 98 10/22/18 09:00 Room Air 10/22/18 08:45 96 170/82 10/22/18 08:00 97.2 96 20 170/82 (111) 97 10/21/18 21:00 Room Air 10/21/18 20:00 97.2 74 19 138/58 (84) 98 10/21/18 16:00 97.2 84 20 151/68 (95) 97 Intake and Output 10/21/18 10/22/18 19:00 07:00 Intake Total 1260 ml 1300 ml Output Total 240 ml 1100 ml Balance 1020 ml 200 ml Intake Oral 360 ml 200 ml IV Total 900 ml 1100 ml Output Urine Total 240 ml 1100 ml # Voids 3 Laboratory Tests 10/22/18 06:28: White Blood Count 3.6L, Red Blood Count 2.63L, Hemoglobin 8.2L, Hematocrit 25.1L , Mean Corpuscular Volume 95, Mean Corpuscular Hemoglobin 31.4H, Mean Corpuscular Hemoglobin Concent 32.9, Red Cell Distribution Width 16.2H, Platelet Count 192, Mean Platelet Volume 4.7L, Neutrophils (%) (Auto) 45.5, Lymphocytes (%) (Auto) 42.3, Monocytes (%) (Auto) 8.9, Eosinophils (%) (Auto) 2.4, Basophils (%) (Auto) 0.9, Sodium Level 137, Potassium Level 3.2L, Chloride Level 110H, Carbon Dioxide Level 24, Anion Gap 4L, Blood Urea Nitrogen 22H, Creatinine 2.2H, Estimat Glomerular Filtration Rate , Glucose Level 97, Calcium Level 9.3, Phosphorus Level 3.8, Magnesium Level 1.6L, Total Bilirubin 0.2, Aspartate Amino Transf (AST/SGOT) 18, Alanine Aminotransferase (ALT/SGPT) 7L, Alkaline Phosphatase 50, Total Protein 9.3H, Albumin 1.2L, Globulin 8.1, Albumin /Globulin Ratio 0.1L Height (Feet): 5 Height (Inches): 4.00 Weight (Pounds): 183 General Appearance: no apparent distress Objective no change Vince Rice MD Oct 22, 2018 15:21
[2018-10-22 16:00] VITALS: BP 104/68
--- NOTE | 2018-10-22 19:53 | NUR ---
HAND-OFF: Report given to JACQUELYN Castro.
--- NOTE | 2018-10-22 19:54 | NUR ---
NURSE NOTES: Received patient in bed, awake. Right hand IV site intact and patent. Bernstein catheter intact and patent and draining. Dressings are dry and intact. Bed is in lowest position and is locked, bed alarm on, side rails x2,call light in reach. Patient denies pain or shortness of breath. Room board updated, will continue to monitor.
[2018-10-22 20:00] VITALS: BP 138/64
--- NOTE | 2018-10-22 23:43 | Neurology Progress Note ---
Interim History Interim History ROS Limited/Unobtainable: Yes Complaints: AMS Interim History This visit was performed on October 22, [address] Olayinka Merlos. Objective Physical Exam Last Vital Signs Date Time Temp Pulse Resp B/P (MAP) Pulse Ox O2 Delivery O2 Flow Rate FiO2 10/22/18 20:00 97.3 81 20 138/64 (88) 98 10/22/18 09:00 Room Air 10/20/18 07:38 21 10/19/18 07:18 1.0 Laboratory Tests Test 10/22/18 06:28 White Blood Count 3.6 K/UL (4.8-10.8) L Red Blood Count 2.63 M/UL (4.20-5.40) L Hemoglobin 8.2 G/DL (12.0-16.0) L Hematocrit 25.1 % (37.0-47.0) L Mean Corpuscular Volume 95 FL (80-99) Mean Corpuscular Hemoglobin 31.4 PG (27.0-31.0) H Mean Corpuscular Hemoglobin Concent 32.9 G/DL (32.0-36.0) Red Cell Distribution Width 16.2 % (11.6-14.8) H Platelet Count 192 K/UL (150-450) Mean Platelet Volume 4.7 FL (6.5-10.1) L Neutrophils (%) (Auto) 45.5 % (45.0-75.0) Lymphocytes (%) (Auto) 42.3 % (20.0-45.0) Monocytes (%) (Auto) 8.9 % (1.0-10.0) Eosinophils (%) (Auto) 2.4 % (0.0-3.0) Basophils (%) (Auto) 0.9 % (0.0-2.0) Sodium Level 137 MMOL/L (136-145) Potassium Level 3.2 MMOL/L (3.5-5.1) L Chloride Level 110 MMOL/L (98-107) H Carbon Dioxide Level 24 MMOL/L (21-32) Anion Gap 4 mmol/L (5-15) L Blood Urea Nitrogen 22 mg/dL (7-18) H Creatinine 2.2 MG/DL (0.55-1.30) H Estimat Glomerular Filtration Rate mL/min (>60) Glucose Level 97 MG/DL (74-106) Calcium Level 9.3 MG/DL (8.5-10.1) Phosphorus Level 3.8 MG/DL (2.5-4.9) Magnesium Level 1.6 MG/DL (1.8-2.4) L Total Bilirubin 0.2 MG/DL (0.2-1.0) Aspartate Amino Transf (AST/SGOT) 18 U/L (15-37) Alanine Aminotransferase (ALT/SGPT) 7 U/L (12-78) L Alkaline Phosphatase 50 U/L (46-116) Total Protein 9.3 G/DL (6.4-8.2) H Albumin 1.2 G/DL (3.4-5.0) L Globulin 8.1 g/dL Albumin/Globulin Ratio 0.1 (1.0-2.7) L General: well developed, well nourished Head: normocophalic Neck: no rigidity EENT: benign Neurologic Exam Mental Status: awake Speech: other Language: other Cranial Nerve II: fundus normal, visual centeno, no papilledema Cranial Nerves III, IV, : PERRLA, EOMI, pupils Cranial Nerve V: normal facial sensations, temporales function normal, masseters function normal, pterygoids function normal Cranial Nerve VII: normal facial expressions Cranial Nerve VIII: normal hearing, no nystagmus Cranial Nerve IX: normal palate elevation, gag response Cranial Nerve X: no voice hoarseness Cranial Nerve XI: SCM symmetric, trapezii function normal Cranial Nerve XII: tongue midline, no tongue atrophy/fasciculations Motor System: normal muscle tone, strength 5/5, no involuntary movement, no muscle wasting Sensory: normal pinprick, normal light touch, normal position sense, normal graphesthesia Coordination: normal finger to nose bilaterally, normal heel to rodriguez bilaterally, negative Romberg test Deep Tendon Reflexes: 2+ bicep (L), 2+ bicep (R), 2+ tricep (L), 2+ tricep (R) , 2+ brachioradialis (L), 2+ brachioradialis (R), 2+ knee (L), 2+ knee (R), 2+ ankle (L), 2+ ankle (R) Stance: normal Gait: stable, normal regular, heel + toe gait Objective LUJAN x 4 on command, dysarthric, confused - Impression/Recommendations Problems: (1) UTI (urinary tract infection) (2) Multiple falls (3) Hypokalemia (4) Migraine Assessment & Plan: No Migraines or headaches reported during this admission but may consider triptan rescue therapy as necessary. (5) Weakness (6) Sepsis (7) Abdominal pain (8) Nausea (9) HTN (hypertension) Assessment & Plan: Remains uncontrolled at times Consider additional baseline meds. Status: stable Recommendations May consider imaging as outpatient but nonessential for this period of care. SBP<140 - consider increasing baseline regimen. Na 135-145 Correct/ Replete Lytes Swallow study recommended. Prevent Delirium: Frequently reorient patient Maintain good sleep hygiene by making room dark and quiet at night and minimizing non essential care during evening. Claire Wells N.P. Oct 22, 2018 23:43
--- NOTE | 2018-10-22 23:43 | Neurology Progress Note ---
Interim History Interim History ROS Limited/Unobtainable: Yes Complaints: AMS Interim History This visit was performed on October 21, [address] Olayinka Merlos. Review of Systems Neuro Review of Systems Stable MS and neuro exam. Objective Physical Exam Last Vital Signs Date Time Temp Pulse Resp B/P (MAP) Pulse Ox O2 Delivery O2 Flow Rate FiO2 10/22/18 20:00 97.3 81 20 138/64 (88) 98 10/22/18 09:00 Room Air 10/20/18 07:38 21 10/19/18 07:18 1.0 Laboratory Tests Test 10/22/18 06:28 White Blood Count 3.6 K/UL (4.8-10.8) L Red Blood Count 2.63 M/UL (4.20-5.40) L Hemoglobin 8.2 G/DL (12.0-16.0) L Hematocrit 25.1 % (37.0-47.0) L Mean Corpuscular Volume 95 FL (80-99) Mean Corpuscular Hemoglobin 31.4 PG (27.0-31.0) H Mean Corpuscular Hemoglobin Concent 32.9 G/DL (32.0-36.0) Red Cell Distribution Width 16.2 % (11.6-14.8) H Platelet Count 192 K/UL (150-450) Mean Platelet Volume 4.7 FL (6.5-10.1) L Neutrophils (%) (Auto) 45.5 % (45.0-75.0) Lymphocytes (%) (Auto) 42.3 % (20.0-45.0) Monocytes (%) (Auto) 8.9 % (1.0-10.0) Eosinophils (%) (Auto) 2.4 % (0.0-3.0) Basophils (%) (Auto) 0.9 % (0.0-2.0) Sodium Level 137 MMOL/L (136-145) Potassium Level 3.2 MMOL/L (3.5-5.1) L Chloride Level 110 MMOL/L (98-107) H Carbon Dioxide Level 24 MMOL/L (21-32) Anion Gap 4 mmol/L (5-15) L Blood Urea Nitrogen 22 mg/dL (7-18) H Creatinine 2.2 MG/DL (0.55-1.30) H Estimat Glomerular Filtration Rate mL/min (>60) Glucose Level 97 MG/DL (74-106) Calcium Level 9.3 MG/DL (8.5-10.1) Phosphorus Level 3.8 MG/DL (2.5-4.9) Magnesium Level 1.6 MG/DL (1.8-2.4) L Total Bilirubin 0.2 MG/DL (0.2-1.0) Aspartate Amino Transf (AST/SGOT) 18 U/L (15-37) Alanine Aminotransferase (ALT/SGPT) 7 U/L (12-78) L Alkaline Phosphatase 50 U/L (46-116) Total Protein 9.3 G/DL (6.4-8.2) H Albumin 1.2 G/DL (3.4-5.0) L Globulin 8.1 g/dL Albumin/Globulin Ratio 0.1 (1.0-2.7) L General: well developed, well nourished Head: normocophalic Neck: no rigidity EENT: benign Neurologic Exam Mental Status: awake Speech: other Language: other Cranial Nerve II: fundus normal, visual centeno, no papilledema Cranial Nerves III, IV, : PERRLA, EOMI, pupils Cranial Nerve V: normal facial sensations, temporales function normal, masseters function normal, pterygoids function normal Cranial Nerve VII: normal facial expressions Cranial Nerve VIII: normal hearing, no nystagmus Cranial Nerve IX: normal palate elevation, gag response Cranial Nerve X: no voice hoarseness Cranial Nerve XI: SCM symmetric, trapezii function normal Cranial Nerve XII: tongue midline, no tongue atrophy/fasciculations Motor System: normal muscle tone, strength 5/5, no involuntary movement, no muscle wasting Sensory: normal pinprick, normal light touch, normal position sense, normal graphesthesia Coordination: normal finger to nose bilaterally, normal heel to rodriguez bilaterally, negative Romberg test Deep Tendon Reflexes: 2+ bicep (L), 2+ bicep (R), 2+ tricep (L), 2+ tricep (R) , 2+ brachioradialis (L), 2+ brachioradialis (R), 2+ knee (L), 2+ knee (R), 2+ ankle (L), 2+ ankle (R) Stance: normal Gait: stable, normal regular, heel + toe gait Objective LUJAN x 4 on command, dysarthric, confused - Impression/Recommendations Problems: (1) UTI (urinary tract infection) (2) Multiple falls (3) Hypokalemia (4) Migraine (5) Headache (6) Weakness (7) Sepsis (8) Abdominal pain (9) Nausea (10) HTN (hypertension) Status: stable, unchanged Recommendations May consider imaging as outpatient but nonessential for this period of care. SBP<140 - continues to be hypertensive increasing risk of cardioembolic event Na 135-145 Correct/ Replete Lytes Maintain normothermia with Tylenol Abx course as per PMD/ID to be completed. Swallow study recommended. Prevent Delirium: Frequently reorient patient Maintain good sleep hygiene by making room dark and quiet at night and minimizing non essential care during evening. Claire Wells N.P. Oct 22, 2018 23:43
[2018-10-23] VITALS (8 sets, daily range): BP systolic 112–168; BP diastolic 62–76
[2018-10-23] MEDS: D5NS 1,000 ML IV SCH ×2 (05:15→17:21)
[2018-10-23 07:11] LABS: HEMATOCRIT 25.3 % (37.0-47.0); HEMOGLOBIN 8.4 G/DL (12.0-16.0); MEAN CORPUSCULAR VOLUME 95 FL (80-99); PLATELET COUNT 192 K/UL (150-450); RED BLOOD COUNT 2.66 M/UL (4.20-5.40); RED CELL DISTRIBUTION WIDTH 16.8 % (11.6-14.8); WHITE BLOOD COUNT 3.3 K/UL (4.8-10.8)
[2018-10-23 07:13] LABS: ANION GAP 5 mmol/L (5-15); BLOOD UREA NITROGEN 18 mg/dL (7-18); CALCIUM 9.2 MG/DL (8.5-10.1); CARBON DIOXIDE 23 MMOL/L (21-32); CHLORIDE 109 MMOL/L (98-107); CREATININE 2.1 MG/DL (0.55-1.30); POTASSIUM 3.3 MMOL/L (3.5-5.1); SODIUM 137 MMOL/L (136-145)
--- NOTE | 2018-10-23 08:00 | NUR ---
NURSE NOTES: Received patient in bed, awake. no sign of distress,Denies pain or discomfort, IVF infusing well, Bernstein catheter intact and patent and draining. Bed is in lowest position and is locked, bed alarm on, side rails x2,call light in reach. will continue to monitor annabel h[place]
--- NOTE | 2018-10-23 08:04 | NUR ---
HAND-OFF: Report given to JACQUELYN Nina.
[2018-10-23] MEDS: Doxycycline Monohydrate 100mg ORAL SCH ×2 (08:27→20:51)
[2018-10-23] MEDS: Allopurinol 100mg Tab ORAL SCH (08:28)
[2018-10-23 09:28] LABS: ALANINE AMINOTRANSFERASE 10 U/L (12-78); ALBUMIN 1.2 G/DL (3.4-5.0); ALKALINE PHOSPHATASE 50 U/L (46-116); ASPARTATE AMINO TRANSFERASE 19 U/L (15-37); BILIRUBIN,DIRECT < 0.1 MG/DL (0.0-0.3); BILIRUBIN,TOTAL 0.2 MG/DL (0.2-1.0); PHOSPHORUS 3.7 MG/DL (2.5-4.9)
--- NOTE | 2018-10-23 09:59 | GI Progress Note ---
Assessment/Plan Problems: (1) Lower GI bleed ICD Codes: K92.2 - Gastrointestinal hemorrhage, unspecified SNOMED: 69817481 (2) Anemia ICD Codes: D64.9 - Anemia, unspecified SNOMED: 216781567 (3) Hypoalbuminemia ICD Codes: E88.09 - Other disorders of plasma-protein metabolism, not elsewhere classified SNOMED: 445354217 (4) Abdominal pain ICD Codes: R10.9 - Unspecified abdominal pain SNOMED: 82225759 (5) Nausea ICD Codes: R11.0 - Nausea SNOMED: 538867020 (6) Constipation ICD Codes: K59.00 - Constipation, unspecified SNOMED: 84941973 Status: unchanged Status Narrative Discussed with Dr. Day. Assessment/Plan SUMMARY OF FINDINGS: 1. Fair prep, see above for details. 2. Internal hemorrhoids, otherwise normal colonoscopy examination. Stable H&H RECOMMENDATIONS: Hold off on any exploratory GI procedures at this time. Resume diet. ppi Follow laboratories. Monitor hemoglobin and hematocrit and transfuse as needed to keep hemoglobin above 7. dc planning The patient was seen and examined at bedside and all new and available data was reviewed in the patients chart. I agree with the above findings, impression and plan. (Patient seen earlier today. Signature stamp does not reflect patient encounter time.). - Michael Day MD Subjective Gastrointestinal/Abdominal: Reports: no symptoms Objective Last 24 Hour Vital Signs Date Time Temp Pulse Resp B/P (MAP) Pulse Ox O2 Delivery O2 Flow Rate FiO2 10/23/18 09:16 84 152/65 10/23/18 09:15 152/65 (94) 10/23/18 08:30 Room Air 10/23/18 08:28 84 156/64 10/23/18 08:05 98.3 84 20 168/76 (106) 98 10/23/18 04:00 97.6 84 20 156/64 (94) 98 10/23/18 00:00 97.3 80 19 157/63 (94) 98 10/22/18 21:00 Room Air 10/22/18 20:00 97.3 81 20 138/64 (88) 98 10/22/18 16:00 97.2 80 20 104/68 (80) 97 10/22/18 12:00 98.6 78 20 144/56 (85) 98 Intake and Output 10/22/18 10/23/18 18:59 06:59 Intake Total 900 ml 250 ml Output Total 1500 ml Balance 900 ml -1250 ml Intake Oral 250 ml IV Total 900 ml Output Urine Total 1500 ml Laboratory Tests Test 10/23/18 06:05 White Blood Count 3.3 K/UL (4.8-10.8) L Red Blood Count 2.66 M/UL (4.20-5.40) L Hemoglobin 8.4 G/DL (12.0-16.0) L Hematocrit 25.3 % (37.0-47.0) L Mean Corpuscular Volume 95 FL (80-99) Mean Corpuscular Hemoglobin 31.5 PG (27.0-31.0) H Mean Corpuscular Hemoglobin Concent 33.1 G/DL (32.0-36.0) Red Cell Distribution Width 16.8 % (11.6-14.8) H Platelet Count 192 K/UL (150-450) Mean Platelet Volume 5.2 FL (6.5-10.1) L Neutrophils (%) (Auto) % (45.0-75.0) Lymphocytes (%) (Auto) % (20.0-45.0) Monocytes (%) (Auto) % (1.0-10.0) Eosinophils (%) (Auto) % (0.0-3.0) Basophils (%) (Auto) % (0.0-2.0) Differential Total Cells Counted 100 Neutrophils % (Manual) 53 % (45-75) Lymphocytes % (Manual) 34 % (20-45) Monocytes % (Manual) 8 % (1-10) Eosinophils % (Manual) 4 % (0-3) H Basophils % (Manual) 1 % (0-2) Band Neutrophils 0 % (0-8) Platelet Estimate Adequate Platelet Morphology Normal Hypochromasia 2+ Anisocytosis 1+ Spherocytes 1+ Sodium Level 137 MMOL/L (136-145) Potassium Level 3.3 MMOL/L (3.5-5.1) L Chloride Level 109 MMOL/L (98-107) H Carbon Dioxide Level 23 MMOL/L (21-32) Anion Gap 5 mmol/L (5-15) Blood Urea Nitrogen 18 mg/dL (7-18) Creatinine 2.1 MG/DL (0.55-1.30) H Estimat Glomerular Filtration Rate mL/min (>60) Glucose Level 100 MG/DL (74-106) Calcium Level 9.2 MG/DL (8.5-10.1) Phosphorus Level 3.7 MG/DL (2.5-4.9) Magnesium Level 1.7 MG/DL (1.8-2.4) L Total Bilirubin 0.2 MG/DL (0.2-1.0) Direct Bilirubin < 0.1 MG/DL (0.0-0.3) Aspartate Amino Transf (AST/SGOT) 19 U/L (15-37) Alanine Aminotransferase (ALT/SGPT) 10 U/L (12-78) L Alkaline Phosphatase 50 U/L (46-116) Total Protein 9.4 G/DL (6.4-8.2) H Albumin 1.2 G/DL (3.4-5.0) L Height (Feet): 5 Height (Inches): 4.00 Weight (Pounds): 183 General Appearance: WD/WN, no apparent distress, alert Cardiovascular: normal rate Respiratory/Chest: normal breath sounds, no respiratory distress Abdominal Exam: normal bowel sounds, non tender, soft Extremities: non-tender Neal Reyes NP Oct 23, 2018 09:59
--- NOTE | 2018-10-23 10:31 | Nephrology Progress Note ---
Assessment/Plan Problem List: (1) ROSSY (acute kidney injury) Assessment: partly urinary retention (2) Lower GI bleed (3) HTN (hypertension) (4) Hypoalbuminemia (5) Anemia (6) Pacemaker (7) UTI (urinary tract infection) Assessment 24 H urine for protein Acute renal failure : Cr devora 1.2 to 2 likely due to GI bleed and BP fluctuations GI Bleed , severe Anemia HTN CAD AFib s/p pacemaker UTI HypoAlbuminemia . Plan Bernstein cath, has over 250 cc retention of urine mag and K supplement discussed with RN continue to hydrate Keep BP in check Avoid Nephrotoxics monitor renal parameters Transfusion as needed Per orders Urine studies Will discuss Subjective ROS Limited/Unobtainable: No Constitutional: Reports: malaise Objective Objective Last 24 Hour Vital Signs Date Time Temp Pulse Resp B/P (MAP) Pulse Ox O2 Delivery O2 Flow Rate FiO2 10/23/18 09:16 84 152/65 10/23/18 09:15 152/65 (94) 10/23/18 08:30 Room Air 10/23/18 08:28 84 156/64 10/23/18 08:05 98.3 84 20 168/76 (106) 98 10/23/18 04:00 97.6 84 20 156/64 (94) 98 10/23/18 00:00 97.3 80 19 157/63 (94) 98 10/22/18 21:00 Room Air 10/22/18 20:00 97.3 81 20 138/64 (88) 98 10/22/18 16:00 97.2 80 20 104/68 (80) 97 10/22/18 12:00 98.6 78 20 144/56 (85) 98 Intake and Output 10/22/18 10/23/18 18:59 06:59 Intake Total 900 ml 250 ml Output Total 1500 ml Balance 900 ml -1250 ml Intake Oral 250 ml IV Total 900 ml Output Urine Total 1500 ml Laboratory Tests 10/23/18 06:05: White Blood Count 3.3L, Red Blood Count 2.66L, Hemoglobin 8.4L, Hematocrit 25.3L , Mean Corpuscular Volume 95, Mean Corpuscular Hemoglobin 31.5H, Mean Corpuscular Hemoglobin Concent 33.1, Red Cell Distribution Width 16.8H, Platelet Count 192, Mean Platelet Volume 5.2L, Neutrophils (%) (Auto) , Lymphocytes (%) (Auto) , Monocytes (%) (Auto) , Eosinophils (%) (Auto) , Basophils (%) (Auto) , Differential Total Cells Counted 100, Neutrophils % ( Manual) 53, Lymphocytes % (Manual) 34, Monocytes % (Manual) 8, Eosinophils % ( Manual) 4H, Basophils % (Manual) 1, Band Neutrophils 0, Platelet Estimate Adequate, Platelet Morphology Normal, Hypochromasia 2+, Anisocytosis 1+, Spherocytes 1+, Sodium Level 137, Potassium Level 3.3L, Chloride Level 109H, Carbon Dioxide Level 23, Anion Gap 5, Blood Urea Nitrogen 18, Creatinine 2.1H, Estimat Glomerular Filtration Rate , Glucose Level 100, Calcium Level 9.2, Phosphorus Level 3.7, Magnesium Level 1.7L, Total Bilirubin 0.2, Direct Bilirubin < 0.1, Aspartate Amino Transf (AST/SGOT) 19, Alanine Aminotransferase (ALT/SGPT) 10L, Alkaline Phosphatase 50, Total Protein 9.4H, Albumin 1.2L Height (Feet): 5 Height (Inches): 4.00 Weight (Pounds): 183 General Appearance: no apparent distress Cardiovascular: normal rate Respiratory/Chest: decreased breath sounds Abdomen: soft Objective no change Vince Rice MD Oct 23, 2018 10:31
[2018-10-23] MEDS ORDERED: PANTOPRAZOLE SO40 MG ORAL (11:51)
[2018-10-23] MEDS ORDERED: NORVASC10 MG ORAL (11:51)
[2018-10-23] MEDS ORDERED: ALLOPURINOL100 M1 ORAL (11:51)
[2018-10-23] MEDS ORDERED: LEVOFLOXACIN250 MG ORAL (11:51)
[2018-10-23] MEDS ORDERED: DOXYCYCLINE HY100 M2 ORAL (11:51)
--- NOTE | 2018-10-23 11:58 | Discharge Summary ---
Discharge Summary Hospital Course Date of Admission October 14, 2018 at 15:00 Date of Discharge 10/23/18 Admitting Diagnosis Lower GI Bleed/Falling HPI Shaylee Salazar is a 88 year old female who was admitted on October 14, 2018 at 15: 00 for Lower Gastrointestinal Bleed And Falling Consultations Gi,Nephrology,ID Procedures EGD/Colonoscopy Hospital Course 88 year old female with PMH of HTN admitted for management of lower GI bleed also found to have Staph bacteremia and ROSSY #Acute blood loss anemia, present on admission due to lower GI Bleed -Seen by Gi and Surgery -EGD was done and showed erosive gastritis -Colonoscopy showed hemorrhoids, no active bleeding -continue PPI -Hold AC for another week #Acute on chronic diastolic CHF with pleural effusion #HTN -seen by Cardiology -continue Lasix as outpatient -Started on amlodipine for better BP control #ROSSY, present on admission, improved renal function but creatinine still not at baseline #Urinary retention #Hypokalemia #Hypomagnesemia -Continue supportive care, Nephrology followup as outpatient -hold ACEI/ARB/NSAIDS -repeat BMP in 3 days #Coag Neg Staph Bacteremia -seen by ID -will be on doxy and Levaquin for 3 more days #CAD #AFib #s/p pacemaker Discharge to [facility] today A total of 35 minutes was spent on this patient's discharge including but not limited to examining the patient, discharge medication reconciliation, prescriptions, discharge instructions, coordination of follow-up, and documenting the discharge summary. Discharge Medications New Medications: Allopurinol* (Allopurinol*) 100 Mg Tablet 200 MG ORAL DAILY for 15 Days, TAB Amlodipine Besylate (Norvasc) 10 Mg Tablet 10 MG ORAL DAILY for 15 Days, TAB Doxycycline Hyclate (Doxycycline Hyclate) 100 Mg Capsule 100 MG ORAL EVERY 12 HOURS for 3 Days, CAP Levofloxacin (Levofloxacin*) 250 Mg Tablet 250 MG ORAL Q48H for 3 Days, TAB Pantoprazole* (Pantoprazole*) 40 Mg Tablet.dr 40 MG ORAL EVERY 12 HOURS for 15 Days, TAB Continued Medications: Amlodipine Besylate (Norvasc) 10 Mg Tablet 10 MG ORAL DAILY for 30 Days, TAB Cimetidine (Cimetidine*) 300 Mg Tablet 300 MG ORAL DAILY, 0 Refills Furosemide* (Lasix*) 20 Mg Tablet 20 MG ORAL DAILY, TAB Discontinued Medications: Atenolol* (Tenormin*) 25 Mg Tablet 10 MG ORAL DAILY, TAB Levofloxacin* (Levaquin*) 250 Mg Tablet 250 MG ORAL DAILY, #2 TAB Metronidazole* (Flagyl*) 500 Mg Tablet 500 MG ORAL EVERY 8 HOURS for 7 Days, TAB Potassium Chloride (Potassium Chloride) 8 Meq Tablet.er Unknown Dose PO, TAB Rivaroxaban (Xarelto) 1 Each Tab.ds.pk 1 EACH PO, PACK Valsartan (Diovan) 320 Mg Tablet 320 MG ORAL DAILY, TAB Discharge Condition Upon Discharge: stable Discharge Disposition Patient was discharged to SNF Discharge Diagnoses: (1) Acute blood loss anemia (2) ROSSY (acute kidney injury) Enoc Mendez MD Oct 23, 2018 11:58
--- NOTE | 2018-10-23 12:07 | Cardiac Electrophysiology PN ---
Assessment/Plan Assessment/Plan 1. Paroxysmal atrial fibrillation, in sinus rhythm, off anticoagulation for hemoglobin 7.2 and GI bleed. 2. Status post pacemaker implantation. The patient does not know the brand of the pacemaker. Pacemaker interrogation pending 3. Congestive heart failure, likely due to diastolic dysfunction. Ejection fraction is 60 to 65% and borderline LVH. 4. MSSA bacteremia. No vegetation noted. 5. History of hypertension. Increase Norvasc to 10 daily 6. Acute blood loss anemia due to lower GI bleed. Colonoscopy showed hemorrhoids with no active bleeding. 7. History of coronary artery disease. Remains without any chest pain. Subjective Subjective No CP or SOB Objective Last 24 Hour Vital Signs Date Time Temp Pulse Resp B/P (MAP) Pulse Ox O2 Delivery O2 Flow Rate FiO2 10/23/18 09:16 84 152/65 10/23/18 09:15 152/65 (94) 10/23/18 08:30 Room Air 10/23/18 08:28 84 156/64 10/23/18 08:05 98.3 84 20 168/76 (106) 98 10/23/18 04:00 97.6 84 20 156/64 (94) 98 10/23/18 00:00 97.3 80 19 157/63 (94) 98 10/22/18 21:00 Room Air 10/22/18 20:00 97.3 81 20 138/64 (88) 98 10/22/18 16:00 97.2 80 20 104/68 (80) 97 Intake and Output 10/22/18 10/23/18 18:59 06:59 Intake Total 900 ml 250 ml Output Total 1500 ml Balance 900 ml -1250 ml Intake Oral 250 ml IV Total 900 ml Output Urine Total 1500 ml Laboratory Tests Test 10/23/18 06:05 White Blood Count 3.3 K/UL (4.8-10.8) L Red Blood Count 2.66 M/UL (4.20-5.40) L Hemoglobin 8.4 G/DL (12.0-16.0) L Hematocrit 25.3 % (37.0-47.0) L Mean Corpuscular Volume 95 FL (80-99) Mean Corpuscular Hemoglobin 31.5 PG (27.0-31.0) H Mean Corpuscular Hemoglobin Concent 33.1 G/DL (32.0-36.0) Red Cell Distribution Width 16.8 % (11.6-14.8) H Platelet Count 192 K/UL (150-450) Mean Platelet Volume 5.2 FL (6.5-10.1) L Neutrophils (%) (Auto) % (45.0-75.0) Lymphocytes (%) (Auto) % (20.0-45.0) Monocytes (%) (Auto) % (1.0-10.0) Eosinophils (%) (Auto) % (0.0-3.0) Basophils (%) (Auto) % (0.0-2.0) Differential Total Cells Counted 100 Neutrophils % (Manual) 53 % (45-75) Lymphocytes % (Manual) 34 % (20-45) Monocytes % (Manual) 8 % (1-10) Eosinophils % (Manual) 4 % (0-3) H Basophils % (Manual) 1 % (0-2) Band Neutrophils 0 % (0-8) Platelet Estimate Adequate Platelet Morphology Normal Hypochromasia 2+ Anisocytosis 1+ Spherocytes 1+ Sodium Level 137 MMOL/L (136-145) Potassium Level 3.3 MMOL/L (3.5-5.1) L Chloride Level 109 MMOL/L (98-107) H Carbon Dioxide Level 23 MMOL/L (21-32) Anion Gap 5 mmol/L (5-15) Blood Urea Nitrogen 18 mg/dL (7-18) Creatinine 2.1 MG/DL (0.55-1.30) H Estimat Glomerular Filtration Rate mL/min (>60) Glucose Level 100 MG/DL (74-106) Calcium Level 9.2 MG/DL (8.5-10.1) Phosphorus Level 3.7 MG/DL (2.5-4.9) Magnesium Level 1.7 MG/DL (1.8-2.4) L Total Bilirubin 0.2 MG/DL (0.2-1.0) Direct Bilirubin < 0.1 MG/DL (0.0-0.3) Aspartate Amino Transf (AST/SGOT) 19 U/L (15-37) Alanine Aminotransferase (ALT/SGPT) 10 U/L (12-78) L Alkaline Phosphatase 50 U/L (46-116) Total Protein 9.4 G/DL (6.4-8.2) H Albumin 1.2 G/DL (3.4-5.0) L Objective HEAD AND NECK: Shows no JVD. LUNGS: Decreased breath sounds. CARDIOVASCULAR: Regular S1 and S2 with no gallop. Pacemaker in the left subclavian. ABDOMEN: Soft. EXTREMITIES: No pitting edema. Charlie Eric MD Oct 23, 2018 12:07
[2018-10-23] MEDS: HydrALAZINE 10mg Tab ORAL PRN ×2 (12:32→18:15)
--- NOTE | 2018-10-23 17:31 | NUR ---
DISCHARGE PLANNING CLINICALS FAXED TO [facility] CONV CALLED AND SPOKE WITH FERNANDA AT [facility]. PER FERNANDA THEY CANNOT ACCEPT PATIENT THIS EVENING BUT CAN ACCEPT IN AM TO ROOM 16B
--- NOTE | 2018-10-23 18:02 | NUR ---
DISCHARGE PLANNED PATIENT WILL DISCHARGE TO [facility] ROOM 16B SKILLED T: [phone] FOR NURSE TO NURSE REPORT [facility] HAS BEEN ARRANGED FOR 1930 MONOGRAM AND LETTER PASTER
--- NOTE | 2018-10-23 18:34 | NUR ---
nurse notes with order discharge to SNF ,Patient daughter refused her to go to SNF, Patient agreed with the daughter decision, paged dr cooper awaiting for his call annabel houston
--- NOTE | 2018-10-23 18:42 | Hematology/Onc Progress Note ---
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 With a paraprotein elevation in the past, protein elevated at 6.5g, igG is 5947, urinary protein is elevated as well signifying mgus v myeloma --> Continue to closely monitor > Anemia w/u has been reviewed, will trend daily. --> Hgb goal >7 --> 12/06/17: 1 unit prbc ordered --> skeletal survey has been ordered --> to r/o myeloma which likely she has, will need a bone marrow biopsy # Anemia due to underlying gi bleed, currently bleeding resolved --> anemia panel reviewed ferritin is 385, sufficient iron stores --> gi and surg consulted, endoscopy as per gi --> Hgb trend: 8.8-->8.2-->8.4 # Paraproteinemia. 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 due to high IGG --> Lucent lesion in the left iliac bone. Permeative pattern of the osseous skeleton may be due to osteopenia but cannot exclude metastases. --> bone scan is pending for above # Thrombocytopenia - either bone marrow process related or meds, due to mgs/ myeloma --> Currently resolved --> hepatitis panel neg # Coagulopathy, likely secondary to decreased oral take --> check pt/inr as needed # Pacemaker placement history. # Hypertension. The timing of this note does not necessarily reflect the time of the patient was seen. Greatly appreciate consultation! Subjective Allergies: Coded Allergies: CODEINE (Verified Allergy, Severe, Anaphylaxis, 10/14/18) Difficulty breathing along with hives per pt daughter HYDROCODONE (Verified Allergy, Severe, Anaphylaxis, 10/14/18) Difficulty breathing along with hives per pt daughter AMOXICILLIN (Verified Allergy, Unknown, 09/06/12) Subjective 10/16: plt are drastically improved, no f/c, no night sweats 10/17: colo for today, no events noted, cbc has been reviewed 10/18: no events noted, IgG 5947, urinary protein high as well, needs skeletal survey 10/19: no events, sleeping, discussed bone marrow biopsy, currently holding off 10/20: Pt awake and alert. Breathing unlabored on room air, denies SOB or pain at this time. Hgb stable. 10/22: Pt seen and examined, no signs of distress 10/23: Pt denies pain or discomfort, no acute events Objective Objective Current Medications Medications (Trade) Dose Ordered Sig/Ary Route PRN Reason Start Time Stop Time Status Last Admin Dose Admin Acetaminophen (Tylenol) 650 mg Q4H PRN ORAL T>100.5/Pain 10/17/18 19:30 11/13/18 19:29 Allopurinol (Zyloprim) 200 mg DAILY ORAL 10/21/18 09:00 11/20/18 08:59 10/23/18 08:28 Amlodipine Besylate (Norvasc) 10 mg DAILY ORAL 10/23/18 09:00 11/22/18 08:59 10/23/18 09:16 Dextrose (Dextrose 50%) 25 ml Q30M PRN IV Hypoglycemia 10/17/18 19:30 11/13/18 20:59 Dextrose (Dextrose 50%) 50 ml Q30M PRN IV Hypoglycemia 10/17/18 19:30 11/13/18 20:59 Dextrose/Sodium Chloride 1,000 ml @ 100 mls/hr Q10H IV 10/17/18 19:15 11/14/18 18:59 10/23/18 17:21 Diphenhydramine HCl (Benadryl) 25 mg Q6H PRN ORAL Itching/Pruritis 10/17/18 20:00 11/13/18 19:59 Doxycycline Monohydrate (Doxycycline Monohydrate) 100 mg EVERY 12 HOURS ORAL 10/20/18 21:00 10/27/18 20:59 10/23/18 08:27 Folic Acid (Folate) 5 mg DAILY ORAL 10/18/18 09:00 11/16/18 14:59 10/23/18 08:28 Hydralazine HCl (Apresoline) 10 mg Q6H PRN ORAL SBP > 160mmHg 10/17/18 20:00 11/16/18 19:59 10/23/18 18:15 Levofloxacin (Levaquin) 250 mg Q48H ORAL 10/23/18 09:00 10/30/18 09:59 10/23/18 08:28 Metoclopramide HCl (Reglan) 10 mg Q6H PRN IVP Nausea & Vomiting 10/17/18 20:00 11/13/18 19:59 Ondansetron HCl (Zofran) 4 mg Q6H PRN IVP Nausea & Vomiting 10/17/18 20:00 11/13/18 19:59 Pantoprazole (Protonix) 40 mg EVERY 12 HOURS ORAL 10/19/18 21:00 11/18/18 20:59 10/23/18 08:27 Potassium Chloride (K-Dur) 40 meq DAILY ORAL 10/23/18 09:00 11/22/18 08:59 10/23/18 08:27 Last 24 Hour Vital Signs Date Time Temp Pulse Resp B/P (MAP) Pulse Ox O2 Delivery O2 Flow Rate FiO2 10/23/18 18:15 166/71 10/23/18 18:11 97.2 93 20 166/71 (102) 98 10/23/18 16:35 97.2 81 20 158/62 (94) 98 10/23/18 12:32 164/67 10/23/18 12:27 98.0 86 20 164/67 (99) 98 10/23/18 09:16 84 152/65 10/23/18 09:15 152/65 (94) 10/23/18 08:30 Room Air 10/23/18 08:28 84 156/64 10/23/18 08:05 98.3 84 20 168/76 (106) 98 10/23/18 04:00 97.6 84 20 156/64 (94) 98 10/23/18 00:00 97.3 80 19 157/63 (94) 98 10/22/18 21:00 Room Air 10/22/18 20:00 97.3 81 20 138/64 (88) 98 10/22/18 16:00 97.2 80 20 104/68 (80) 97 10/22/18 12:00 98.6 78 20 144/56 (85) 98 10/22/18 09:00 Room Air 10/22/18 08:45 96 170/82 10/22/18 08:00 97.2 96 20 170/82 (111) 97 10/21/18 21:00 Room Air 10/21/18 20:00 97.2 74 19 138/58 (84) 98 Intake and Output 10/22/18 10/23/18 19:00 07:00 Intake Total 900 ml 350 ml Output Total 1500 ml Balance 900 ml -1150 ml Intake Oral 250 ml IV Total 900 ml 100 ml Output Urine Total 1500 ml Labs Test 10/21/18 05:35 10/22/18 06:28 10/23/18 06:05 White Blood Count 3.4 K/UL (4.8-10.8) 3.6 K/UL (4.8-10.8) 3.3 K/UL (4.8-10.8) Red Blood Count 2.68 M/UL (4.20-5.40) 2.63 M/UL (4.20-5.40) 2.66 M/UL (4.20-5.40) Hemoglobin 8.5 G/DL (12.0-16.0) 8.2 G/DL (12.0-16.0) 8.4 G/DL (12.0-16.0) Hematocrit 26.1 % (37.0-47.0) 25.1 % (37.0-47.0) 25.3 % (37.0-47.0) Mean Corpuscular Volume 97 FL (80-99) 95 FL (80-99) 95 FL (80-99) Mean Corpuscular Hemoglobin 31.6 PG (27.0-31.0) 31.4 PG (27.0-31.0) 31.5 PG (27.0-31.0) Mean Corpuscular Hemoglobin Concent 32.5 G/DL (32.0-36.0) 32.9 G/DL (32.0-36.0) 33.1 G/DL (32.0-36.0) Red Cell Distribution Width 17.2 % (11.6-14.8) 16.2 % (11.6-14.8) 16.8 % (11.6-14.8) Platelet Count 194 K/UL (150-450) 192 K/UL (150-450) 192 K/UL (150-450) Mean Platelet Volume 5.1 FL (6.5-10.1) 4.7 FL (6.5-10.1) 5.2 FL (6.5-10.1) Neutrophils (%) (Auto) % (45.0-75.0) 45.5 % (45.0-75.0) % (45.0-75.0) Lymphocytes (%) (Auto) % (20.0-45.0) 42.3 % (20.0-45.0) % (20.0-45.0) Monocytes (%) (Auto) % (1.0-10.0) 8.9 % (1.0-10.0) % (1.0-10.0) Eosinophils (%) (Auto) % (0.0-3.0) 2.4 % (0.0-3.0) % (0.0-3.0) Basophils (%) (Auto) % (0.0-2.0) 0.9 % (0.0-2.0) % (0.0-2.0) Differential Total Cells Counted 100 100 Neutrophils % (Manual) 51 % (45-75) 53 % (45-75) Lymphocytes % (Manual) 44 % (20-45) 34 % (20-45) Monocytes % (Manual) 5 % (1-10) 8 % (1-10) Eosinophils % (Manual) 0 % (0-3) 4 % (0-3) Basophils % (Manual) 0 % (0-2) 1 % (0-2) Band Neutrophils 0 % (0-8) 0 % (0-8) Platelet Estimate Adequate Adequate Platelet Morphology Normal Normal Anisocytosis 1+ 1+ Sodium Level 135 MMOL/L (136-145) 137 MMOL/L (136-145) 137 MMOL/L (136-145) Potassium Level 3.7 MMOL/L (3.5-5.1) 3.2 MMOL/L (3.5-5.1) 3.3 MMOL/L (3.5-5.1) Chloride Level 109 MMOL/L (98-107) 110 MMOL/L (98-107) 109 MMOL/L (98-107) Carbon Dioxide Level 22 MMOL/L (21-32) 24 MMOL/L (21-32) 23 MMOL/L (21-32) Anion Gap 4 mmol/L (5-15) 4 mmol/L (5-15) 5 mmol/L (5-15) Blood Urea Nitrogen 26 mg/dL (7-18) 22 mg/dL (7-18) 18 mg/dL (7-18) Creatinine 2.3 MG/DL (0.55-1.30) 2.2 MG/DL (0.55-1.30) 2.1 MG/DL (0.55-1.30) Estimat Glomerular Filtration Rate mL/min (>60) mL/min (>60) mL/min (>60) Glucose Level 95 MG/DL (74-106) 97 MG/DL (74-106) 100 MG/DL (74-106) Uric Acid 7.6 MG/DL (2.6-7.2) Calcium Level 9.5 MG/DL (8.5-10.1) 9.3 MG/DL (8.5-10.1) 9.2 MG/DL (8.5-10.1) Phosphorus Level 4.2 MG/DL (2.5-4.9) 3.8 MG/DL (2.5-4.9) 3.7 MG/DL (2.5-4.9) Magnesium Level 1.5 MG/DL (1.8-2.4) 1.6 MG/DL (1.8-2.4) 1.7 MG/DL (1.8-2.4) Total Bilirubin 0.2 MG/DL (0.2-1.0) 0.2 MG/DL (0.2-1.0) 0.2 MG/DL (0.2-1.0) Aspartate Amino Transf (AST/SGOT) 15 U/L (15-37) 18 U/L (15-37) 19 U/L (15-37) Alanine Aminotransferase (ALT/SGPT) 7 U/L (12-78) 7 U/L (12-78) 10 U/L (12-78) Alkaline Phosphatase 50 U/L (46-116) 50 U/L (46-116) 50 U/L (46-116) C-Reactive Protein, Quantitative < 0.4 mg/dL (0.00-0.90) Pro-B-Type Natriuretic Peptide 3912 pg/mL (0-125) Total Protein 9.7 G/DL (6.4-8.2) 9.3 G/DL (6.4-8.2) 9.4 G/DL (6.4-8.2) Albumin 1.1 G/DL (3.4-5.0) 1.2 G/DL (3.4-5.0) 1.2 G/DL (3.4-5.0) Globulin 8.6 g/dL 8.1 g/dL Albumin/Globulin Ratio 0.1 (1.0-2.7) 0.1 (1.0-2.7) Hypochromasia 2+ Spherocytes 1+ Direct Bilirubin < 0.1 MG/DL (0.0-0.3) Height (Feet): 5 Height (Inches): 4.00 Weight (Pounds): 183 Objective Physical Exam General appearance: alert, cooperative, no distress, appears stated age Head: Normocephalic, without obvious abnormality, atraumatic Eyes: conjunctivae/corneas clear. PERRL, EOM's intact. Fundi benign Throat: Lips, mucosa, and tongue normal. Teeth and gums normal Neck: supple, symmetrical, trachea midline, no adenopathy, thyroid: not enlarged, symmetric, no tenderness/mass/nodules, no carotid bruit and no JVD Lungs: clear to auscultation bilaterally Heart: regular rate and rhythm, S1, S2 normal, no murmur, click, rub or gallop Abdomen: soft, non-tender. Bowel sounds normal. No masses, no organomegaly Extremities: extremities normal, atraumatic, no cyanosis or edema Pulses: 2+ and symmetric Skin: Skin color, texture, turgor normal. No rashes or lesions Neurologic: Grossly normal Mello Durbin MD Oct 23, 2018 18:42
--- NOTE | 2018-10-23 19:40 | NUR ---
HAND-OFF: Report given to JACQUELYN MCMAHON ACCORDINGLY.
--- NOTE | 2018-10-23 19:45 | NUR ---
NURSE NOTES: BP has been high >160 SBP with BP meds Norvasc and Hydralazine at AM shift. Family visited and refused to send pt to [facility]. Notified Dr Lagunas, received order to cancel DC order. Carried out.
--- NOTE | 2018-10-23 21:00 | NUR ---
NURSE NOTES: PATIENT IN BED, AWAKE, VERBALLY RESPONSIVE. ALERT TO NAME, PLACE, PURPOSE. IV INTACT. NELSON IN PLACE. NO S/S DISTRESS OR PAIN NOTED. BED IN LOWEST POSITION, CALL LIGHT WITHIN REACH. WILL CONTINUE TO MONITOR.
--- NOTE | 2018-10-23 23:55 | Neurology Progress Note ---
Interim History Interim History ROS Limited/Unobtainable: No Complaints: AMS Events: This visit was conducted on October 23, [address] Olayinka Merlos Interim History HTN and low grade fever intermittently, no change in MS Objective Physical Exam Last Vital Signs Date Time Temp Pulse Resp B/P (MAP) Pulse Ox O2 Delivery O2 Flow Rate FiO2 10/23/18 20:36 98.2 94 20 112/63 (79) 98 10/23/18 08:30 Room Air 10/20/18 07:38 21 10/19/18 07:18 1.0 Laboratory Tests Test 10/23/18 06:05 White Blood Count 3.3 K/UL (4.8-10.8) L Red Blood Count 2.66 M/UL (4.20-5.40) L Hemoglobin 8.4 G/DL (12.0-16.0) L Hematocrit 25.3 % (37.0-47.0) L Mean Corpuscular Volume 95 FL (80-99) Mean Corpuscular Hemoglobin 31.5 PG (27.0-31.0) H Mean Corpuscular Hemoglobin Concent 33.1 G/DL (32.0-36.0) Red Cell Distribution Width 16.8 % (11.6-14.8) H Platelet Count 192 K/UL (150-450) Mean Platelet Volume 5.2 FL (6.5-10.1) L Neutrophils (%) (Auto) % (45.0-75.0) Lymphocytes (%) (Auto) % (20.0-45.0) Monocytes (%) (Auto) % (1.0-10.0) Eosinophils (%) (Auto) % (0.0-3.0) Basophils (%) (Auto) % (0.0-2.0) Differential Total Cells Counted 100 Neutrophils % (Manual) 53 % (45-75) Lymphocytes % (Manual) 34 % (20-45) Monocytes % (Manual) 8 % (1-10) Eosinophils % (Manual) 4 % (0-3) H Basophils % (Manual) 1 % (0-2) Band Neutrophils 0 % (0-8) Platelet Estimate Adequate Platelet Morphology Normal Hypochromasia 2+ Anisocytosis 1+ Spherocytes 1+ Sodium Level 137 MMOL/L (136-145) Potassium Level 3.3 MMOL/L (3.5-5.1) L Chloride Level 109 MMOL/L (98-107) H Carbon Dioxide Level 23 MMOL/L (21-32) Anion Gap 5 mmol/L (5-15) Blood Urea Nitrogen 18 mg/dL (7-18) Creatinine 2.1 MG/DL (0.55-1.30) H Estimat Glomerular Filtration Rate mL/min (>60) Glucose Level 100 MG/DL (74-106) Calcium Level 9.2 MG/DL (8.5-10.1) Phosphorus Level 3.7 MG/DL (2.5-4.9) Magnesium Level 1.7 MG/DL (1.8-2.4) L Total Bilirubin 0.2 MG/DL (0.2-1.0) Direct Bilirubin < 0.1 MG/DL (0.0-0.3) Aspartate Amino Transf (AST/SGOT) 19 U/L (15-37) Alanine Aminotransferase (ALT/SGPT) 10 U/L (12-78) L Alkaline Phosphatase 50 U/L (46-116) Total Protein 9.4 G/DL (6.4-8.2) H Albumin 1.2 G/DL (3.4-5.0) L General: well developed, well nourished Head: normocophalic Neck: no rigidity EENT: benign Neurologic Exam Mental Status: awake Speech: other Language: other Cranial Nerve II: fundus normal, visual centeno, no papilledema Cranial Nerves III, IV, : PERRLA, EOMI, pupils Cranial Nerve V: normal facial sensations, temporales function normal, masseters function normal, pterygoids function normal Cranial Nerve VII: normal facial expressions Cranial Nerve VIII: normal hearing, no nystagmus Cranial Nerve IX: normal palate elevation, gag response Cranial Nerve X: no voice hoarseness Cranial Nerve XI: SCM symmetric, trapezii function normal Cranial Nerve XII: tongue midline, no tongue atrophy/fasciculations Motor System: normal muscle tone, strength 5/5, no involuntary movement, no muscle wasting Sensory: normal pinprick, normal light touch, normal position sense, normal graphesthesia Coordination: normal finger to nose bilaterally, normal heel to rodirguez bilaterally, negative Romberg test Deep Tendon Reflexes: 2+ bicep (L), 2+ bicep (R), 2+ tricep (L), 2+ tricep (R) , 2+ brachioradialis (L), 2+ brachioradialis (R), 2+ knee (L), 2+ knee (R), 2+ ankle (L), 2+ ankle (R) Stance: normal Gait: stable, normal regular, heel + toe gait Objective LUJAN x 4 on command, dysarthric, confused - Impression/Recommendations Problems: (1) UTI (urinary tract infection) (2) Multiple falls (3) Hypokalemia (4) Weakness (5) Sepsis (6) Abdominal pain (7) Nausea (8) HTN (hypertension) Status: stable, unchanged Recommendations May consider imaging as outpatient but nonessential for this period of care. SBP<140 Na 135-145 Correct/ Replete Lytes Prevent Delirium: Frequently reorient patient Maintain good sleep hygiene by making room dark and quiet at night and minimizing non essential care during evening. Claire Wells N.P. Oct 23, 2018 23:55
[2018-10-24 00:13] VITALS: BP 157/64
[2018-10-24] MEDS: D5NS 1,000 ML IV SCH ×2 (01:15→11:15)
[2018-10-24 04:20] VITALS: BP 126/77
--- NOTE | 2018-10-24 05:33 | NUR ---
NURSE NOTES: PATIENT ASLEEP, V/S STABLE.
[2018-10-24 06:15] LABS: BASOPHILS % (AUTO) 0.6 % (0.0-2.0); EOSINOPHILS % (AUTO) 1.9 % (0.0-3.0); HEMATOCRIT 25.6 % (37.0-47.0); HEMOGLOBIN 8.3 G/DL (12.0-16.0); LYMPHOCYTES % (AUTO) 44.5 % (20.0-45.0); MEAN CORPUSCULAR VOLUME 95 FL (80-99); MONOCYTES % (AUTO) 10.1 % (1.0-10.0); PLATELET COUNT 195 K/UL (150-450); RED CELL DISTRIBUTION WIDTH 16.5 % (11.6-14.8); WHITE BLOOD COUNT 3.8 K/UL (4.8-10.8)
[2018-10-24 06:54] LABS: ANION GAP 4 mmol/L (5-15); BLOOD UREA NITROGEN 18 mg/dL (7-18); CALCIUM 9.3 MG/DL (8.5-10.1); CARBON DIOXIDE 24 MMOL/L (21-32); CHLORIDE 110 MMOL/L (98-107); POTASSIUM 3.5 MMOL/L (3.5-5.1); SODIUM 138 MMOL/L (136-145)
--- NOTE | 2018-10-24 07:45 | NUR ---
HAND-OFF: Report given to SALOMON MANSFIELD RN.
[2018-10-24 08:00] VITALS: BP 165/79
--- NOTE | 2018-10-24 08:21 | General Progress Note ---
Assessment/Plan Status: unchanged Assessment/Plan: 88 year old female with PMH of HTN admitted for management of lower GI bleed also found to have Staph bacteremia and ROSSY #Acute blood loss anemia, present on admission due to lower GI Bleed -Seen by Gi and Surgery -EGD was done and showed erosive gastritis -Colonoscopy showed hemorrhoids, no active bleeding -continue PPI -Hold AC for another week #Acute on chronic diastolic CHF with pleural effusion #HTN -seen by Cardiology -continue Lasix as outpatient -Continue amlodipine #ROSSY, present on admission, improved renal function but creatinine still not at baseline #Urinary retention #Hypokalemia #Hypomagnesemia -Continue supportive care, Nephrology followup as outpatient -hold ACEI/ARB/NSAIDS -repeat BMP in next week #Coag Neg Staph Bacteremia -seen by ID -will be on doxy and Levaquin for 3 more days #CAD #AFib #s/p pacemaker Discharge home with home health Subjective Date patient seen: Oct 24, 2018 ROS Limited/Unobtainable: Yes Cardiovascular: Denies: chest pain Respiratory: Denies: cough Gastrointestinal/Abdominal: Denies: abdominal pain Allergies: Coded Allergies: CODEINE (Verified Allergy, Severe, Anaphylaxis, 10/14/18) Difficulty breathing along with hives per pt daughter HYDROCODONE (Verified Allergy, Severe, Anaphylaxis, 10/14/18) Difficulty breathing along with hives per pt daughter AMOXICILLIN (Verified Allergy, Unknown, 09/06/12) Subjective Medicine follow up for acute blood loss anemia, rectal bleeding, hypokalemia, gram positive bacteremia ROSSY and possible CHF. Patient refused to go to SNF last night. No acute medical issues overnight. She will be discharged home with home health Objective Last 24 Hour Vital Signs Date Time Temp Pulse Resp B/P (MAP) Pulse Ox O2 Delivery O2 Flow Rate FiO2 10/24/18 04:20 98.6 90 20 126/77 (93) 95 10/24/18 00:13 98.3 88 20 157/64 (95) 97 10/23/18 21:00 Room Air 10/23/18 20:36 98.2 94 20 112/63 (79) 98 10/23/18 18:15 166/71 10/23/18 18:11 97.2 93 20 166/71 (102) 98 10/23/18 16:35 97.2 81 20 158/62 (94) 98 10/23/18 12:32 164/67 10/23/18 12:27 98.0 86 20 164/67 (99) 98 10/23/18 09:16 84 152/65 10/23/18 09:15 152/65 (94) 10/23/18 08:30 Room Air 10/23/18 08:28 84 156/64 Intake and Output 10/23/18 10/24/18 19:00 07:00 Intake Total 1750 ml 800 ml Output Total 1000 ml 1500 ml Balance 750 ml -700 ml Intake Oral 800 ml 300 ml IV Total 950 ml 500 ml Output Urine Total 1000 ml 1500 ml # Voids 2 Laboratory Tests 10/24/18 05:50: White Blood Count 3.8L, Red Blood Count 2.70L, Hemoglobin 8.3L, Hematocrit 25.6L , Mean Corpuscular Volume 95, Mean Corpuscular Hemoglobin 30.8, Mean Corpuscular Hemoglobin Concent 32.4, Red Cell Distribution Width 16.5H, Platelet Count 195, Mean Platelet Volume 5.4L, Neutrophils (%) (Auto) 43.0L, Lymphocytes (%) (Auto) 44.5, Monocytes (%) (Auto) 10.1H, Eosinophils (%) (Auto) 1.9, Basophils (%) (Auto) 0.6, Sodium Level 138, Potassium Level 3.5, Chloride Level 110H, Carbon Dioxide Level 24, Anion Gap 4L, Blood Urea Nitrogen 18, Creatinine 2.0H, Estimat Glomerular Filtration Rate , Glucose Level 80, Calcium Level 9.3 Height (Feet): 5 Height (Inches): 4.00 Weight (Pounds): 183 General Appearance: alert Cardiovascular: normal rate Respiratory/Chest: lungs clear, normal breath sounds, no respiratory distress, no accessory muscle use Abdomen: non tender, soft Enoc Mendez MD Oct 24, 2018 08:20
[2018-10-24] MEDS: Allopurinol 100mg Tab ORAL SCH (08:29)
[2018-10-24] MEDS: Doxycycline Monohydrate 100mg ORAL SCH (08:30)
[2018-10-24] MEDS: HydrALAZINE 10mg Tab ORAL PRN (10:37)
--- NOTE | 2018-10-24 11:01 | GI Progress Note ---
Assessment/Plan Problems: (1) Lower GI bleed ICD Codes: K92.2 - Gastrointestinal hemorrhage, unspecified SNOMED: 73087430 (2) Anemia ICD Codes: D64.9 - Anemia, unspecified SNOMED: 633040873 (3) Hypoalbuminemia ICD Codes: E88.09 - Other disorders of plasma-protein metabolism, not elsewhere classified SNOMED: 225589090 (4) Abdominal pain ICD Codes: R10.9 - Unspecified abdominal pain SNOMED: 72163715 (5) Nausea ICD Codes: R11.0 - Nausea SNOMED: 928674981 (6) Constipation ICD Codes: K59.00 - Constipation, unspecified SNOMED: 35365633 Status: stable Status Narrative Discussed with Dr. Day. Assessment/Plan SUMMARY OF FINDINGS: 1. Fair prep, see above for details. 2. Internal hemorrhoids, otherwise normal colonoscopy examination. Stable H&H RECOMMENDATIONS: Hold off on any exploratory GI procedures at this time. Resume diet. ppi Follow laboratories. Monitor hemoglobin and hematocrit and transfuse as needed to keep hemoglobin above 7. dc planning The patient was seen and examined at bedside and all new and available data was reviewed in the patients chart. I agree with the above findings, impression and plan. (Patient seen earlier today. Signature stamp does not reflect patient encounter time.). - Michael Day MD Subjective Gastrointestinal/Abdominal: Reports: no symptoms Objective Last 24 Hour Vital Signs Date Time Temp Pulse Resp B/P (MAP) Pulse Ox O2 Delivery O2 Flow Rate FiO2 10/24/18 10:37 165/79 10/24/18 09:30 Room Air 10/24/18 08:31 102 165/79 10/24/18 08:00 99.1 100 20 165/79 (107) 96 10/24/18 04:20 98.6 90 20 126/77 (93) 95 10/24/18 00:13 98.3 88 20 157/64 (95) 97 10/23/18 21:00 Room Air 10/23/18 20:36 98.2 94 20 112/63 (79) 98 10/23/18 18:15 166/71 10/23/18 18:11 97.2 93 20 166/71 (102) 98 10/23/18 16:35 97.2 81 20 158/62 (94) 98 10/23/18 12:32 164/67 10/23/18 12:27 98.0 86 20 164 (99) 98 Intake and Output 10/23/18 10/24/18 19:00 07:00 Intake Total 1750 ml 800 ml Output Total 1000 ml 1500 ml Balance 750 ml -700 ml Intake Oral 800 ml 300 ml IV Total 950 ml 500 ml Output Urine Total 1000 ml 1500 ml # Voids 2 Laboratory Tests Test 10/24/18 05:50 White Blood Count 3.8 K/UL (4.8-10.8) L Red Blood Count 2.70 M/UL (4.20-5.40) L Hemoglobin 8.3 G/DL (12.0-16.0) L Hematocrit 25.6 % (37.0-47.0) L Mean Corpuscular Volume 95 FL (80-99) Mean Corpuscular Hemoglobin 30.8 PG (27.0-31.0) Mean Corpuscular Hemoglobin Concent 32.4 G/DL (32.0-36.0) Red Cell Distribution Width 16.5 % (11.6-14.8) H Platelet Count 195 K/UL (150-450) Mean Platelet Volume 5.4 FL (6.5-10.1) L Neutrophils (%) (Auto) 43.0 % (45.0-75.0) L Lymphocytes (%) (Auto) 44.5 % (20.0-45.0) Monocytes (%) (Auto) 10.1 % (1.0-10.0) H Eosinophils (%) (Auto) 1.9 % (0.0-3.0) Basophils (%) (Auto) 0.6 % (0.0-2.0) Sodium Level 138 MMOL/L (136-145) Potassium Level 3.5 MMOL/L (3.5-5.1) Chloride Level 110 MMOL/L (98-107) H Carbon Dioxide Level 24 MMOL/L (21-32) Anion Gap 4 mmol/L (5-15) L Blood Urea Nitrogen 18 mg/dL (7-18) Creatinine 2.0 MG/DL (0.55-1.30) H Estimat Glomerular Filtration Rate mL/min (>60) Glucose Level 80 MG/DL (74-106) Calcium Level 9.3 MG/DL (8.5-10.1) Height (Feet): 5 Height (Inches): 4.00 Weight (Pounds): 183 General Appearance: WD/WN, no apparent distress, alert Cardiovascular: normal rate Respiratory/Chest: normal breath sounds, no respiratory distress Abdominal Exam: normal bowel sounds, non tender, soft Extremities: non-tender Neal Reyes NP Oct 24, 2018 11:01
--- NOTE | 2018-10-24 11:12 | Surgery Progress Note ---
Surgery Progress Note Subjective Symptoms: improved, tolerating diet, passing flatus Objective Last 24 Hour Vital Signs Date Time Temp Pulse Resp B/P (MAP) Pulse Ox O2 Delivery O2 Flow Rate FiO2 10/24/18 10:37 165/79 10/24/18 09:30 Room Air 10/24/18 08:31 102 165/79 10/24/18 08:00 99.1 100 20 165/79 (107) 96 10/24/18 04:20 98.6 90 20 126/77 (93) 95 10/24/18 00:13 98.3 88 20 157/64 (95) 97 10/23/18 21:00 Room Air 10/23/18 20:36 98.2 94 20 112/63 (79) 98 10/23/18 18:15 166/71 10/23/18 18:11 97.2 93 20 166/71 (102) 98 10/23/18 16:35 97.2 81 20 158/62 (94) 98 10/23/18 12:32 164/67 10/23/18 12:27 98.0 86 20 164/67 (99) 98 I&O Intake and Output 10/23/18 10/24/18 19:00 07:00 Intake Total 1750 ml 800 ml Output Total 1000 ml 1500 ml Balance 750 ml -700 ml Intake Oral 800 ml 300 ml IV Total 950 ml 500 ml Output Urine Total 1000 ml 1500 ml # Voids 2 Dressing: other Wound: other Drains: other Cardiovascular: RSR Respiratory: clear Abdomen: soft, non-tender, present bowel sounds, non-distended Extremities: no tenderness, no cyanosis Laboratory Tests Test 10/24/18 05:50 White Blood Count 3.8 K/UL (4.8-10.8) L Red Blood Count 2.70 M/UL (4.20-5.40) L Hemoglobin 8.3 G/DL (12.0-16.0) L Hematocrit 25.6 % (37.0-47.0) L Mean Corpuscular Volume 95 FL (80-99) Mean Corpuscular Hemoglobin 30.8 PG (27.0-31.0) Mean Corpuscular Hemoglobin Concent 32.4 G/DL (32.0-36.0) Red Cell Distribution Width 16.5 % (11.6-14.8) H Platelet Count 195 K/UL (150-450) Mean Platelet Volume 5.4 FL (6.5-10.1) L Neutrophils (%) (Auto) 43.0 % (45.0-75.0) L Lymphocytes (%) (Auto) 44.5 % (20.0-45.0) Monocytes (%) (Auto) 10.1 % (1.0-10.0) H Eosinophils (%) (Auto) 1.9 % (0.0-3.0) Basophils (%) (Auto) 0.6 % (0.0-2.0) Sodium Level 138 MMOL/L (136-145) Potassium Level 3.5 MMOL/L (3.5-5.1) Chloride Level 110 MMOL/L (98-107) H Carbon Dioxide Level 24 MMOL/L (21-32) Anion Gap 4 mmol/L (5-15) L Blood Urea Nitrogen 18 mg/dL (7-18) Creatinine 2.0 MG/DL (0.55-1.30) H Estimat Glomerular Filtration Rate mL/min (>60) Glucose Level 80 MG/DL (74-106) Calcium Level 9.3 MG/DL (8.5-10.1) Plan Problems: (1) Lower GI bleed Assessment & Plan: 88 year old female with acute GI bleed. anemia. prior hx of anticoagulation no n/v/f/c labs noted and stable has not recently had blood in stool per report hemorrhoids on colonoscopy no acute surgical intervention planed okay for diet as tolerated ppi bowel regimen appreciate GI input trend labs d/c planning thank you Brigido Pratt Oct 24, 2018 11:12
--- NOTE | 2018-10-24 11:15 | Cardiac Electrophysiology PN ---
Assessment/Plan Assessment/Plan 1. Paroxysmal atrial fibrillation, in sinus rhythm, off anticoagulation for hemoglobin 7.2 and GI bleed. 2. Status post pacemaker implantation. The patient does not know the brand of the pacemaker. Pacemaker interrogation pending 3. Congestive heart failure, likely due to diastolic dysfunction. Ejection fraction is 60 to 65% and borderline LVH. 4. MSSA bacteremia. No vegetation noted on TTE 5. History of hypertension. On Norvasc 10 daily and prn Hydralazine 6. Acute blood loss anemia due to lower GI bleed. Colonoscopy showed hemorrhoids with no active bleeding. 7. History of coronary artery disease. Remains without any chest pain. SUSSY RN Subjective Subjective No CP or SOB. .DC to SNIF in progress Objective Last 24 Hour Vital Signs Date Time Temp Pulse Resp B/P (MAP) Pulse Ox O2 Delivery O2 Flow Rate FiO2 10/24/18 10:37 165/79 10/24/18 09:30 Room Air 10/24/18 08:31 102 165/79 10/24/18 08:00 99.1 100 20 165/79 (107) 96 10/24/18 04:20 98.6 90 20 126/77 (93) 95 10/24/18 00:13 98.3 88 20 157/64 (95) 97 10/23/18 21:00 Room Air 10/23/18 20:36 98.2 94 20 112/63 (79) 98 10/23/18 18:15 166/71 10/23/18 18:11 97.2 93 20 166/71 (102) 98 10/23/18 16:35 97.2 81 20 158/62 (94) 98 10/23/18 12:32 164/67 10/23/18 12:27 98.0 86 20 164/67 (99) 98 Intake and Output 10/23/18 10/24/18 19:00 07:00 Intake Total 1750 ml 800 ml Output Total 1000 ml 1500 ml Balance 750 ml -700 ml Intake Oral 800 ml 300 ml IV Total 950 ml 500 ml Output Urine Total 1000 ml 1500 ml # Voids 2 Laboratory Tests Test 10/24/18 05:50 White Blood Count 3.8 K/UL (4.8-10.8) L Red Blood Count 2.70 M/UL (4.20-5.40) L Hemoglobin 8.3 G/DL (12.0-16.0) L Hematocrit 25.6 % (37.0-47.0) L Mean Corpuscular Volume 95 FL (80-99) Mean Corpuscular Hemoglobin 30.8 PG (27.0-31.0) Mean Corpuscular Hemoglobin Concent 32.4 G/DL (32.0-36.0) Red Cell Distribution Width 16.5 % (11.6-14.8) H Platelet Count 195 K/UL (150-450) Mean Platelet Volume 5.4 FL (6.5-10.1) L Neutrophils (%) (Auto) 43.0 % (45.0-75.0) L Lymphocytes (%) (Auto) 44.5 % (20.0-45.0) Monocytes (%) (Auto) 10.1 % (1.0-10.0) H Eosinophils (%) (Auto) 1.9 % (0.0-3.0) Basophils (%) (Auto) 0.6 % (0.0-2.0) Sodium Level 138 MMOL/L (136-145) Potassium Level 3.5 MMOL/L (3.5-5.1) Chloride Level 110 MMOL/L (98-107) H Carbon Dioxide Level 24 MMOL/L (21-32) Anion Gap 4 mmol/L (5-15) L Blood Urea Nitrogen 18 mg/dL (7-18) Creatinine 2.0 MG/DL (0.55-1.30) H Estimat Glomerular Filtration Rate mL/min (>60) Glucose Level 80 MG/DL (74-106) Calcium Level 9.3 MG/DL (8.5-10.1) Objective HEAD AND NECK: Shows no JVD. LUNGS: Decreased breath sounds. CARDIOVASCULAR: Regular S1 and S2 with no gallop. Pacemaker in the left subclavian. ABDOMEN: Soft. EXTREMITIES: No pitting edema. Charlie Eric MD Oct 24, 2018 11:15
[2018-10-24 12:00] VITALS: BP 173/71
--- NOTE | 2018-10-24 14:06 | Nephrology Progress Note ---
Assessment/Plan Problem List: (1) ROSSY (acute kidney injury) Assessment: partly urinary retention (2) Lower GI bleed (3) HTN (hypertension) (4) Hypoalbuminemia (5) Anemia (6) Pacemaker (7) UTI (urinary tract infection) Assessment 24 H urine for protein Acute renal failure : Cr devora 1.2 to 2.6 max likely due to GI bleed and BP fluctuations GI Bleed , severe Anemia HTN CAD AFib s/p pacemaker UTI HypoAlbuminemia . Plan Cr lowering Bernstein cath, has over 250 cc retention of urine mag and K supplement discussed with RN continue to hydrate Keep BP in check Avoid Nephrotoxics monitor renal parameters Transfusion as needed Per orders Urine studies Will discuss Subjective ROS Limited/Unobtainable: No Constitutional: Reports: malaise Objective Objective Last 24 Hour Vital Signs Date Time Temp Pulse Resp B/P (MAP) Pulse Ox O2 Delivery O2 Flow Rate FiO2 10/24/18 12:00 98.8 93 20 173/71 (105) 99 10/24/18 11:44 165/79 10/24/18 10:37 165/79 10/24/18 09:30 Room Air 10/24/18 08:31 102 165/79 10/24/18 08:00 99.1 100 20 165/79 (107) 96 10/24/18 04:20 98.6 90 20 126/77 (93) 95 10/24/18 00:13 98.3 88 20 157/64 (95) 97 10/23/18 21:00 Room Air 10/23/18 20:36 98.2 94 20 112/63 (79) 98 10/23/18 18:15 166/71 10/23/18 18:11 97.2 93 20 166/71 (102) 98 10/23/18 16:35 97.2 81 20 158/62 (94) 98 Intake and Output 10/23/18 10/24/18 19:00 07:00 Intake Total 1750 ml 800 ml Output Total 1000 ml 1500 ml Balance 750 ml -700 ml Intake Oral 800 ml 300 ml IV Total 950 ml 500 ml Output Urine Total 1000 ml 1500 ml # Voids 2 Laboratory Tests 10/24/18 05:50: White Blood Count 3.8L, Red Blood Count 2.70L, Hemoglobin 8.3L, Hematocrit 25.6L , Mean Corpuscular Volume 95, Mean Corpuscular Hemoglobin 30.8, Mean Corpuscular Hemoglobin Concent 32.4, Red Cell Distribution Width 16.5H, Platelet Count 195, Mean Platelet Volume 5.4L, Neutrophils (%) (Auto) 43.0L, Lymphocytes (%) (Auto) 44.5, Monocytes (%) (Auto) 10.1H, Eosinophils (%) (Auto) 1.9, Basophils (%) (Auto) 0.6, Sodium Level 138, Potassium Level 3.5, Chloride Level 110H, Carbon Dioxide Level 24, Anion Gap 4L, Blood Urea Nitrogen 18, Creatinine 2.0H, Estimat Glomerular Filtration Rate , Glucose Level 80, Calcium Level 9.3 Height (Feet): 5 Height (Inches): 4.00 Weight (Pounds): 183 General Appearance: no apparent distress Objective no change Vince Rice MD Oct 24, 2018 14:06
[2018-10-24] MEDS ORDERED: D5NS 1000ml IV ONE ×3 (14:13)
[2018-10-24] MEDS ORDERED: Tubing IV Secondary IV ONE (14:13)
--- NOTE | 2018-10-24 14:20 | NUR ---
NURSE NOTES: pt discharged to home picked up by ambulance with stable condition. All discharge instruction given to pt and verbalized understanding. pt will continue home health services. Iv heplock removed and covered with gauze and taped. F/c removed. Denies any pain. VSS. Medication refills given to pt. Called made to the daughter (Shanae) regarding pt's discharge.
--- NOTE | 2018-10-24 14:34 | Hematology/Onc Progress Note ---
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 With a paraprotein elevation in the past, protein elevated at 6.5g, igG is 5947, urinary protein is elevated as well signifying mgus v myeloma --> Continue to closely monitor > Anemia w/u has been reviewed, will trend daily. --> Hgb goal >7 --> 12/06/17: 1 unit prbc ordered --> skeletal survey has been ordered --> to r/o myeloma which likely she has, will need a bone marrow biopsy # Anemia due to underlying gi bleed, currently bleeding resolved --> anemia panel reviewed ferritin is 385, sufficient iron stores --> gi and surg consulted, endoscopy as per gi --> Hgb trend: 8.8-->8.2-->8.4 # Paraproteinemia. 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 due to high IGG --> Lucent lesion in the left iliac bone. Permeative pattern of the osseous skeleton may be due to osteopenia but cannot exclude metastases. --> bone scan is pending for above # Thrombocytopenia - either bone marrow process related or meds, due to mgs/ myeloma --> Currently resolved --> hepatitis panel neg # Coagulopathy, likely secondary to decreased oral take --> check pt/inr as needed # Pacemaker placement history. # Hypertension. The timing of this note does not necessarily reflect the time of the patient was seen. Greatly appreciate consultation! Subjective Allergies: Coded Allergies: CODEINE (Verified Allergy, Severe, Anaphylaxis, 10/14/18) Difficulty breathing along with hives per pt daughter HYDROCODONE (Verified Allergy, Severe, Anaphylaxis, 10/14/18) Difficulty breathing along with hives per pt daughter AMOXICILLIN (Verified Allergy, Unknown, 09/06/12) All Systems: reviewed and negative except above Subjective 10/16: plt are drastically improved, no f/c, no night sweats 10/17: colo for today, no events noted, cbc has been reviewed 10/18: no events noted, IgG 5947, urinary protein high as well, needs skeletal survey 10/19: no events, sleeping, discussed bone marrow biopsy, currently holding off 10/20: Pt awake and alert. Breathing unlabored on room air, denies SOB or pain at this time. Hgb stable. 10/22: Pt seen and examined, no signs of distress 10/23: Pt denies pain or discomfort, no acute events 10/24: Pt resting in bed and in stable condition. DC planning. Objective Objective Current Medications Medications (Trade) Dose Ordered Sig/Ary Route PRN Reason Start Time Stop Time Status Last Admin Dose Admin Acetaminophen (Tylenol) 650 mg Q4H PRN ORAL T>100.5/Pain 10/17/18 19:30 11/13/18 19:29 Allopurinol (Zyloprim) 200 mg DAILY ORAL 10/21/18 09:00 11/20/18 08:59 10/24/18 08:29 Amlodipine Besylate (Norvasc) 10 mg DAILY ORAL 10/23/18 09:00 11/22/18 08:59 10/24/18 08:31 Dextrose (Dextrose 50%) 25 ml Q30M PRN IV Hypoglycemia 10/17/18 19:30 11/13/18 20:59 Dextrose (Dextrose 50%) 50 ml Q30M PRN IV Hypoglycemia 10/17/18 19:30 11/13/18 20:59 Dextrose/Sodium Chloride 1,000 ml @ 100 mls/hr Q10H IV 10/17/18 19:15 11/14/18 18:59 10/23/18 17:21 Diphenhydramine HCl (Benadryl) 25 mg Q6H PRN ORAL Itching/Pruritis 10/17/18 20:00 11/13/18 19:59 Doxycycline Monohydrate (Doxycycline Monohydrate) 100 mg EVERY 12 HOURS ORAL 10/20/18 21:00 10/27/18 20:59 10/24/18 08:30 Folic Acid (Folate) 5 mg DAILY ORAL 10/18/18 09:00 11/16/18 14:59 10/24/18 08:29 Hydralazine HCl (Apresoline) 10 mg Q6H PRN ORAL SBP > 160mmHg 10/17/18 20:00 11/16/18 19:59 10/24/18 10:37 Levofloxacin (Levaquin) 250 mg Q48H ORAL 10/23/18 09:00 10/30/18 09:59 10/23/18 08:28 Metoclopramide HCl (Reglan) 10 mg Q6H PRN IVP Nausea & Vomiting 10/17/18 20:00 11/13/18 19:59 Ondansetron HCl (Zofran) 4 mg Q6H PRN IVP Nausea & Vomiting 10/17/18 20:00 11/13/18 19:59 Pantoprazole (Protonix) 40 mg EVERY 12 HOURS ORAL 10/19/18 21:00 11/18/18 20:59 10/24/18 08:28 Potassium Chloride (K-Dur) 40 meq DAILY ORAL 10/23/18 09:00 11/22/18 08:59 10/24/18 08:29 Last 24 Hour Vital Signs Date Time Temp Pulse Resp B/P (MAP) Pulse Ox O2 Delivery O2 Flow Rate FiO2 10/24/18 12:00 98.8 93 20 173/71 (105) 99 10/24/18 11:44 165/79 10/24/18 10:37 165/79 10/24/18 09:30 Room Air 10/24/18 08:31 102 165/79 10/24/18 08:00 99.1 100 20 165/79 (107) 96 10/24/18 04:20 98.6 90 20 126/77 (93) 95 10/24/18 00:13 98.3 88 20 157/64 (95) 97 10/23/18 21:00 Room Air 10/23/18 20:36 98.2 94 20 112/63 (79) 98 10/23/18 18:15 166/71 10/23/18 18:11 97.2 93 20 166/71 (102) 98 10/23/18 16:35 97.2 81 20 158/62 (94) 98 10/23/18 12:32 164/67 10/23/18 12:27 98.0 86 20 164/67 (99) 98 10/23/18 09:16 84 152/65 10/23/18 09:15 152/65 (94) 10/23/18 08:30 Room Air 10/23/18 08:28 84 156/64 10/23/18 08:05 98.3 84 20 168/76 (106) 98 10/23/18 04:00 97.6 84 20 156/64 (94) 98 10/23/18 00:00 97.3 80 19 157/63 (94) 98 10/22/18 21:00 Room Air 10/22/18 20:00 97.3 81 20 138/64 (88) 98 10/22/18 16:00 97.2 80 20 104/68 (80) 97 Intake and Output 10/23/18 10/24/18 18:59 06:59 Intake Total 1850 ml 800 ml Output Total 1000 ml 1500 ml Balance 850 ml -700 ml Intake Oral 800 ml 300 ml IV Total 1050 ml 500 ml Output Urine Total 1000 ml 1500 ml # Voids 2 Labs Test 10/22/18 06:28 10/23/18 06:05 10/24/18 05:50 White Blood Count 3.6 K/UL (4.8-10.8) 3.3 K/UL (4.8-10.8) 3.8 K/UL (4.8-10.8) Red Blood Count 2.63 M/UL (4.20-5.40) 2.66 M/UL (4.20-5.40) 2.70 M/UL (4.20-5.40) Hemoglobin 8.2 G/DL (12.0-16.0) 8.4 G/DL (12.0-16.0) 8.3 G/DL (12.0-16.0) Hematocrit 25.1 % (37.0-47.0) 25.3 % (37.0-47.0) 25.6 % (37.0-47.0) Mean Corpuscular Volume 95 FL (80-99) 95 FL (80-99) 95 FL (80-99) Mean Corpuscular Hemoglobin 31.4 PG (27.0-31.0) 31.5 PG (27.0-31.0) 30.8 PG (27.0-31.0) Mean Corpuscular Hemoglobin Concent 32.9 G/DL (32.0-36.0) 33.1 G/DL (32.0-36.0) 32.4 G/DL (32.0-36.0) Red Cell Distribution Width 16.2 % (11.6-14.8) 16.8 % (11.6-14.8) 16.5 % (11.6-14.8) Platelet Count 192 K/UL (150-450) 192 K/UL (150-450) 195 K/UL (150-450) Mean Platelet Volume 4.7 FL (6.5-10.1) 5.2 FL (6.5-10.1) 5.4 FL (6.5-10.1) Neutrophils (%) (Auto) 45.5 % (45.0-75.0) % (45.0-75.0) 43.0 % (45.0-75.0) Lymphocytes (%) (Auto) 42.3 % (20.0-45.0) % (20.0-45.0) 44.5 % (20.0-45.0) Monocytes (%) (Auto) 8.9 % (1.0-10.0) % (1.0-10.0) 10.1 % (1.0-10.0) Eosinophils (%) (Auto) 2.4 % (0.0-3.0) % (0.0-3.0) 1.9 % (0.0-3.0) Basophils (%) (Auto) 0.9 % (0.0-2.0) % (0.0-2.0) 0.6 % (0.0-2.0) Sodium Level 137 MMOL/L (136-145) 137 MMOL/L (136-145) 138 MMOL/L (136-145) Potassium Level 3.2 MMOL/L (3.5-5.1) 3.3 MMOL/L (3.5-5.1) 3.5 MMOL/L (3.5-5.1) Chloride Level 110 MMOL/L (98-107) 109 MMOL/L (98-107) 110 MMOL/L (98-107) Carbon Dioxide Level 24 MMOL/L (21-32) 23 MMOL/L (21-32) 24 MMOL/L (21-32) Anion Gap 4 mmol/L (5-15) 5 mmol/L (5-15) 4 mmol/L (5-15) Blood Urea Nitrogen 22 mg/dL (7-18) 18 mg/dL (7-18) 18 mg/dL (7-18) Creatinine 2.2 MG/DL (0.55-1.30) 2.1 MG/DL (0.55-1.30) 2.0 MG/DL (0.55-1.30) Estimat Glomerular Filtration Rate mL/min (>60) mL/min (>60) mL/min (>60) Glucose Level 97 MG/DL (74-106) 100 MG/DL (74-106) 80 MG/DL (74-106) Calcium Level 9.3 MG/DL (8.5-10.1) 9.2 MG/DL (8.5-10.1) 9.3 MG/DL (8.5-10.1) Phosphorus Level 3.8 MG/DL (2.5-4.9) 3.7 MG/DL (2.5-4.9) Magnesium Level 1.6 MG/DL (1.8-2.4) 1.7 MG/DL (1.8-2.4) Total Bilirubin 0.2 MG/DL (0.2-1.0) 0.2 MG/DL (0.2-1.0) Aspartate Amino Transf (AST/SGOT) 18 U/L (15-37) 19 U/L (15-37) Alanine Aminotransferase (ALT/SGPT) 7 U/L (12-78) 10 U/L (12-78) Alkaline Phosphatase 50 U/L (46-116) 50 U/L (46-116) Total Protein 9.3 G/DL (6.4-8.2) 9.4 G/DL (6.4-8.2) Albumin 1.2 G/DL (3.4-5.0) 1.2 G/DL (3.4-5.0) Globulin 8.1 g/dL Albumin/Globulin Ratio 0.1 (1.0-2.7) Differential Total Cells Counted 100 Neutrophils % (Manual) 53 % (45-75) Lymphocytes % (Manual) 34 % (20-45) Monocytes % (Manual) 8 % (1-10) Eosinophils % (Manual) 4 % (0-3) Basophils % (Manual) 1 % (0-2) Band Neutrophils 0 % (0-8) Platelet Estimate Adequate Platelet Morphology Normal Hypochromasia 2+ Anisocytosis 1+ Spherocytes 1+ Direct Bilirubin < 0.1 MG/DL (0.0-0.3) Height (Feet): 5 Height (Inches): 4.00 Weight (Pounds): 183 Objective Physical Exam General appearance: alert, cooperative, no distress, appears stated age Head: Normocephalic, without obvious abnormality, atraumatic Eyes: conjunctivae/corneas clear. PERRL, EOM's intact. Fundi benign Throat: Lips, mucosa, and tongue normal. Teeth and gums normal Neck: supple, symmetrical, trachea midline, no adenopathy, thyroid: not enlarged, symmetric, no tenderness/mass/nodules, no carotid bruit and no JVD Lungs: clear to auscultation bilaterally Heart: regular rate and rhythm, S1, S2 normal, no murmur, click, rub or gallop Abdomen: soft, non-tender. Bowel sounds normal. No masses, no organomegaly Extremities: extremities normal, atraumatic, no cyanosis or edema Pulses: 2+ and symmetric Skin: Skin color, texture, turgor normal. No rashes or lesions Neurologic: Grossly normal Mello Durbin MD Oct 24, 2018 14:34
--- NOTE | 2018-10-24 15:56 | NUR ---
NURSE NOTES:WOUND CARE NOTES:Pt skin assessed in presence of primary nurse . Sacral area is intaqct with daker skin tone .No evidence of skin breakdown such as induration or erythema noted. Area non-tender when minimally palpated . Both heels are dry and firm. Tx.Plan: Apply Moisture Barrier paste with each incontinence care. Reposition at least every 2hours or as tolerated. Off-load heels with pillow.
== END 2018-10-24 14:14 | disposition home health service (06) | DRG 377 ==
LOC: EDBD 13:09 → EDBEDREQ 13:35 → EMR 13:41 → 2W 15:00 → EDBEDREQ 15:47 → 4E 10-17 19:05
DX: K92.2 Gastrointestinal hemorrhage, unspecified (principal); I50.33 Acute on chronic diastolic (congestive) heart failure; N17.9 Acute kidney failure, unspecified; D62 Acute posthemorrhagic anemia; J90 Pleural effusion, not elsewhere classified; N39.0 Urinary tract infection, site not specified; D68.9 Coagulation defect, unspecified; I11.0 Hypertensive heart disease with heart failure; R33.9 Retention of urine, unspecified; E87.6 Hypokalemia; E83.42 Hypomagnesemia; I25.10 Atherosclerotic heart disease of native coronary artery without angina pectoris; I48.0 Paroxysmal atrial fibrillation; Z95.0 Presence of cardiac pacemaker; D89.2 Hypergammaglobulinemia, unspecified; D47.2 Monoclonal gammopathy; D69.6 Thrombocytopenia, unspecified; G43.909 Migraine, unspecified, not intractable, without status migrainosus; R00.2 Palpitations; K29.70 Gastritis, unspecified, without bleeding; K64.8 Other hemorrhoids; K59.00 Constipation, unspecified; E88.09 Other disorders of plasma-protein metabolism, not elsewhere classified
CPT/HCPCS: 36415; 71045; 74018; 76770; 80048; 80053; 80061; 80076; 80202; 81003; 81050; 82550; 82607; 82728; 82746; 82784; 82977; 83540; 83550; 83605; 83690; 83735; 83880; 84100; 84156; 84165; 84300; 84443; 84484; 84550; 85007; 85025; 85610; 85730; 86140; 86334; 86850; 86900; 86901; 86920; 87040; 87081; 87086; 87181; 93005; 93306; 93970; 94003; 94150; 96361; 96365; 96368; 99291; J2250; J2405; J8499